=== PATIENT | female | born 1960 | race Caucasian/White ===

== ENCOUNTER 2017-12-02 03:03 | Emergency (ER) | payer OTHER, SELFPAY ==
[2017-12-02] VITALS (8 sets, daily range): BP systolic 99–122; BP diastolic 43–66; PULSE 61–69; RESP 10–18; TEMP 37.1; O2SAT 96–97
--- NOTE | 2017-12-02 03:26 | DI.RPTCT_ITS ---
SYMPTOM/DIAGNOSIS: PLEURITIC CHEST PAIN PE CHEST CT: CT angiography was performed with multi slice acquisition and multi planar and 3D reconstruction. CT scan of the chest was performed according to the pulmonary embolus protocol. There is no evidence of a pulmonary embolus. The thoracic aorta is of normal caliber. No aneurysm or dissection is seen. Heart size is within normal limits. No significant pericardial effusion. No findings to suggest right ventricular dysfunction are seen. No mediastinal, hilar or axillary adenopathy is present. The lungs are free of infiltrates. No effusions or pneumothoraces are identified. The tracheobronchial tree is unremarkable. Median sternotomy wires are present. There are degenerative changes seen in the spine. IMPRESSION: No acute abnormality. No evidence of a pulmonary embolus or thoracic aortic dissection or aneurysm.
--- NOTE | 2017-12-02 03:30 | ED.GENADUL_ITS ---
Disposition Clinical Impression: Chest pain Disposition: HOME Condition: Stable Instructions: Chest Pain (ED) Additional Instructions: follow up with your primary care provider this week if pain significantly worsens, pain moves to the back or jaw, you become sweaty , have nausea/vomit with the pain or shortness of breath return to the emergency department Medical Decision Making - Lab Data Results reviewed for labs ordered during visit: Yes - EKG Data -: EKG Interpreted by Me EKG shows normal: sinus rhythm, axis, intervals, QRS complexes, ST-T waves Rate: normal Interpretation: normal EKG - Radiology Data Radiology results: report reviewed, image reviewed - Medical Decision Making patient here with pain that could be musculoskeletal in nature given pain with palpation and recent increased arm exercises, though given her age will order troponin. HEart score is 2 based on age and risk factors. HAs no pericardial effusion so doubt pericarditis. Given pleuritic chest pain and PE could be equal to number one diagnosis wells is moderate will obtain CTA. Has normal vascular exam and no tearing back pain to suggest dissection. HAs no skin lesions or fevers to suggets endocarditis. labs unremarkable, remains stable, pain gone unlessI push on her chest, awaiting imaging imaging shows no acute findings. She remains with only pain to papation to the chest. Given over 4 hours of pain do not feel additional troponin indicated. Will d/c and advised f/u with pcp and return precautions given - Differential Diagnosis acs, pe, chest wall pain History of Present Illness - General Chief complaint: Chest Pain Stated complaint: CHEST PAIN Time Seen by Provider: 12/02/17 03:12 Source: patient Mode of arrival: ambulatory Limitations: no limitations - History of Present Illness Initial comments: 57 yo female with hx of aortic valve replacement and endocarditis x3, mitral valve repair, who comes in with anterior chest wall pain that is worse with deep breathing since 5pm last night. SHe states it started while grocery shopping. Denies radiation of pain, n/v, diaphoresis, pain with exertion or walking. SHe has no pericardial effusion on bedside u/s and has pain with palpation to the anterior chest. She does note she started physical therapy recently and has been doing a lot of arm exercises Complaint: chest pain Onset/Timin -: hour(s) Location: chest Radiation: non-radiation Severity scale (1-10): 7 Improves with: none Worsens with: other (deep breaths) Associated Symptoms: denies other symptoms Treatments Prior to Arrival: none - Related Data Garlic 1 mg PO DAILY 07/05/12 Seven Essentials 1 dose PO 5 days wkly 08/14/12 Ascorbic Acid [Vitamin C] 1 tab PO DAILY 08/20/12 Aspirin 81 mg PO DAILY #100 tab-cap 06/30/16 Amoxicillin 4 tab PO DIRECTED #36 tab 10/03/16 Ketoconazole 10 ml TP twice weekly #240 ml 01/24/17 Metoprolol Succinate 25 mg PO DAILY #90 tab-cap 01/24/17 Docusate Sodium [Colace] 100 mg PO DAILY 06/22/17 Vitamin D 1,000 units PO DAILY 12/02/17 Allergies Allergy/AdvReac Type Severity Reaction Status Date / Time vancomycin Allergy ITCHING Unverified 12/02/17 03:15 fentanyl AdvReac Mild Unverified 12/02/17 03:15 ibuprofen AdvReac Mild room Unverified 12/02/17 03:15 spins midazolam HCl [From Versed] AdvReac Unverified 12/02/17 03:15 NSAIDS (Non-Steroidal AdvReac DIZZY Unverified 12/02/17 03:15 Anti-Inflamma oxycodone HCl [From Percocet] AdvReac Nausea Unverified 12/02/17 03:15 Duck Eggs AdvReac Intermediate GI issues Uncoded 12/02/17 03:15 Review of Systems Constitutional: denies: chills, fever Respiratory: denies: shortness of breath Cardiovascular: chest pain Gastrointestinal: denies: abdominal pain, nausea, vomiting Musculoskeletal: denies: back pain Neurological: denies: headache Comment: All other systems reviewed and negative Past Medical History - Past Medical History Medical history: hypertension endocarditis - Social History Smoking status: never smoker Alcohol use: rarely Drug use: none General Exam - General Limitations: no limitations General appearance: alert, in no apparent distress - Head Head exam: Present: atraumatic - Eye Eye exam: Present: normal apperance - ENT ENT exam: Present: mucous membranes moist - Neck Neck exam: Present: normal inspection - Respiratory Respiratory exam: Present: normal lung sounds bilaterally, chest wall tenderness. Absent: respiratory distress - Cardiovascular Cardiovascular Exam: Present: regular rate, normal rhythm, normal heart sounds - GI/Abdominal GI/Abdominal exam: Present: soft. Absent: distended, tenderness - Extremities Exam Extremities exam: Absent: pedal edema, calf tenderness - Neurological Exam Neurological exam: Present: alert, oriented X3 - Psychiatric Psychiatric exam: Present: normal affect - Skin Skin exam: Present: warm Course Vital Signs - 24 hr //18 03:10 Temperature 98.8 F Pulse 69 Respiratory 18 Rate Blood Pressure 122/66 Pulse Oximetry 97
[2017-12-02] MEDS: Aspirin 81 MG CHEW 324 MG (03:32)
[2017-12-02 03:36] LABS: Abs Immature Grans 0.01 k/cumm (0.0-0.09); Absolute Basophil Count 0.04 k/cumm (0.0-0.2); Absolute Eosinophil Count 0.46 k/cumm (0.0-0.7); Absolute Lymphocyte Count 2.82 k/cumm (1.2-3.4); Absolute Monocyte Count 0.78 k/cumm (0.11-0.7); Absolute Neutrophil Count 2.68 k/cumm (1.2-6.7); Basophils % 0.6; Eosinophils % 6.8; HCT 38.1 % (36.0-46.0); HGB 12.8 g/dL (12.0-15.5); Immature Grans % 0.1; Lymphocytes % 41.5; Mean Corp. HGB Concentration 33.6 g/dL (32.0-36.0); Mean Corpuscular Hemoglobin 31.7 pg (27.0-33.0); Mean Corpuscular Volume 94.3 fL (80-95); Mean Platelet Volume 10.6 fL (8.0-11.0); Monocytes % 11.5; Neutrophils % 39.5; Platelet Count 263 x1000/uL (130-400); RBC 4.04 m/cumm (4.00-5.20); RBC Distribution Width 12.1 % (11.7-14.6); White Blood Cell Count 6.79 k/cumm (4.4-10.8)
[2017-12-02 03:49] LABS: ALT 22 U/L (12-78); AST 12 U/L (15-37); Albumin 3.7 g/dL (3.4-5.0); Alkaline Phosphatase 82 U/L (46-116); Anion Gap 8.5 mmol/L (3-11); BUN 14 mg/dL (7-18); Bilirubin, Total 0.2 mg/dL (0.2-1.0); CO2 27.5 mmol/L (21.0-32.0); CREATININE 0.68 mg/dL (0.55-1.02); Calcium 8.4 mg/dL (8.5-10.1); Chloride 108 mmol/L (98-107); Glucose 94 mg/dL (70-100); Potassium 3.9 mmol/L (3.5-5.1); Sodium 144 mmol/L (136-145); Total Protein 6.8 g/dL (6.4-8.2)
[2017-12-02 03:52] LABS: Troponin I < 0.02 ng/mL (0.00-0.06)
[2017-12-02] MEDS: Omnipaque 350 MG/ML 100 ML BTL IJ (03:56)
[2017-12-02 04:08] LABS: Prothrombin Time 9.6 sec (9.3-10.8)
--- NOTE | 2017-12-02 04:22 | DI.VRAD_ITS ---
EXAM: CT Angiography Chest With Intravenous Contrast CLINICAL HISTORY: 57 years old, female; Pain; Other: Pleuritic chest pain; Prior surgery; Surgery date: 6+ months; Surgery type: Valve transplant TECHNIQUE: Axial computed tomographic angiography images of the chest with intravenous contrast using pulmonary embolism protocol. 3D reconstructed images were created and reviewed. Coronal and sagittal reformatted images were created and reviewed. CONTRAST: 100 mL of omni 350 administered intravenously. COMPARISON: CT - CHEST FOR PULMONARY EMBOLUS 2016-04-27 13:07 FINDINGS: Pulmonary arteries: Unremarkable. No pulmonary embolism. Aorta: No acute findings. No thoracic aortic aneurysm. Lungs: Unremarkable. No mass. No consolidation. Pleural space: Unremarkable. No significant effusion. No pneumothorax. Heart: Unremarkable. No cardiomegaly. No significant pericardial effusion. No evidence of RV dysfunction. Bones/joints: Median sternotomy wires noted. No acute fracture. No dislocation. Soft tissues: Unremarkable. Lymph nodes: Unremarkable. No enlarged lymph nodes. IMPRESSION: No acute findings. Dictated and Authenticated by: Ibrahima Storm MD. Ordering:GERARDO QIU MD
== END 2017-12-02 04:36 | disposition home or self-care (01) ==
PROVIDERS: Emergency Provider Emergency Medicine; PCP Family Medicine
DX: R07.81 Pleurodynia (principal); X50.3XXA Overexertion from repetitive movements, initial encounter; I10 Essential (primary) hypertension; Z95.3 Presence of xenogenic heart valve; I38 Endocarditis, valve unspecified
CPT/HCPCS: 71275; 80053; 93005; 99285; 83735; 84484; 85025; 85610; 85730; 93010; 99284; J3490

== ENCOUNTER 2018-12-07 08:33 | Outpatient (CLI) | payer OTHER, SELFPAY ==
[2018-12-07 10:38] LABS: HCT 39.5 % (36.0-46.0); Mean Corp. HGB Concentration 32.9 g/dL (32.0-36.0); Mean Corpuscular Hemoglobin 31.2 pg (27.0-33.0); Mean Corpuscular Volume 94.7 fL (80-95); Mean Platelet Volume 10.9 fL (8.0-11.0); Platelet Count 258 x1000/uL (130-400); RBC 4.17 m/cumm (4.00-5.20); RBC Distribution Width 12.1 % (11.7-14.6); White Blood Cell Count 5.38 k/cumm (4.4-10.8)
[2018-12-07 10:54] LABS: ALT 24 U/L (12-78); AST 7 U/L (15-37); Albumin 3.9 g/dL (3.4-5.0); Alkaline Phosphatase 75 U/L (46-116); Anion Gap 11.7 mmol/L (3-11); BUN 14 mg/dL (7-18); Bilirubin, Total 0.5 mg/dL (0.2-1.0); CO2 25.3 mmol/L (21.0-32.0); CREATININE 0.55 mg/dL (0.55-1.02); Calcium 8.8 mg/dL (8.5-10.1); Calculated LDL 135 mg/dL; Chloride 106 mmol/L (98-107); Cholesterol 198 mg/dL (50-200); Glucose 89 mg/dL (70-100); HDL Cholesterol 46 mg/dL (40-60); Sodium 143 mmol/L (136-145); Total Protein 6.7 g/dL (6.4-8.2); Triglyceride 89 mg/dL (30-150)
== END 2018-12-07 08:53 ==
PROVIDERS: PCP Family Medicine; Visit Provider Nurse Practitioner
DX: Z00.00 Encounter for general adult medical examination without abnormal findings (principal); Z95.818 Presence of other cardiac implants and grafts; Z98.890 Other specified postprocedural states; R53.83 Other fatigue
CPT/HCPCS: 36415; 80053; 80061; 83721; 85027

== ENCOUNTER 2019-02-18 16:36 | Outpatient (REF) | payer OTHER, SELFPAY ==
--- NOTE | 2019-02-18 15:30 | PAPFT_PTH ---
PATIENT: Blanca Jurado LOC: [facility] U#:[id number] AGE/SX: 59/F ROOM: RE02/18/[address]: Fabiola Gutierrez MD, DC : 1960 BED: DIS: 02/18/2019 SPEC #: [id number] RECD: 02/18/19 18:38 STATUS: DAVE REQ #: [id number] RODERICK: 02/18/19 15:[address]: Fabiola Gutierrez DEPT: [facility] Cytology RECD BY: Anum Wong Tissues: 1 - CX/ENDOCX FOR PAP SMEARS Procedures: PAP THIN PREP/UVM Screening HPV DNA PROBE Comments: [id number]
== END 2019-02-18 16:56 ==
LOC: LBN 16:36
PROVIDERS: PCP Family Medicine; Visit Provider Family Medicine
DX: Z12.4 Encounter for screening for malignant neoplasm of cervix (principal); Z11.51 Encounter for screening for human papillomavirus (HPV)
CPT/HCPCS: 88142; 87624

== ENCOUNTER 2020-03-12 01:24 | Outpatient (CLI) | payer OTHER, SELFPAY ==
--- NOTE | 2020-03-12 06:45 | DI.NM_ITS ---
EXAM: NM BONE SCAN 3 PHASE CLINICAL HISTORY: ? osteomyelitis of sternum,STERNAL PAIN, H/O AORTIC VALVE REPAIR,Z98.890,. TECHNIQUE: Injected Dose: 26 mCi Tc-99m MDP COMPARISON: CT CHEST FOR PULMONARY EMBOLUS from 12/02/2017 FINDINGS: Perfusion: No abnormal increased radiotracer uptake in the sternum. Blood Pool: No abnormal increased radiotracer uptake in the sternum. Delayed: There is a single focus of uptake in the delayed images in the mid sternum. This is nonspec ific but may be related to trauma or prior surgical procedure. IMPRESSION: 1. No increased radiotracer uptake in the sternum on the perfusion or blood pool images. No scintigr aphic findings to suggest acute osteomyelitis. DATA REPOSITORY:
--- NOTE | 2020-03-12 07:48 | DI.RAD_ITS ---
EXAM: XR CHEST 2V PA LATERAL CLINICAL HISTORY: STERNAL PAIN, H/O AORTIC VALVE REPAIR, ? OSTEOMYELITIS TECHNIQUE: 2D digital imaging was performed. COMPARISON: CR CHEST 2 VIEWS PA,LAT from 04/27/2016 CR,RF BARIUM SWALLOW UGI from 02/16/2017 FINDINGS: MEDIASTINUM: Normal. HEART: Normal. Cardiac valve prostheses. PULMONARY VASCULATURE: Normal. LUNGS: Clear. PLEURAL SPACE: No pleural effusion or pneumothorax. BONE:Within normal limits for the patient's age. OTHER FINDINGS:Sternal wires are in place. IMPRESSION: No acute pulmonary findings. DATA REPOSITORY: RADIATION DOSE DELIVERED:
== END 2020-03-12 01:44 ==
PROVIDERS: PCP Family Medicine; Visit Provider Family Medicine
DX: R07.89 Other chest pain (principal); Z98.890 Other specified postprocedural states
CPT/HCPCS: 71046; 78315

== ENCOUNTER 2020-03-12 02:21 | Outpatient (CLI) | payer OTHER, SELFPAY ==
[2020-03-12 07:58] LABS: Abs Immature Grans 0.02 10^3/uL (0.0-0.06); Absolute Basophil Count 0.02 10^3/uL (0.0-0.2); Absolute Eosinophil Count 0.11 10^3/uL (0.0-0.7); Absolute Lymphocyte Count 1.98 10^3/uL (1.2-3.4); Absolute Monocyte Count 0.59 10^3/uL (0.1-0.8); Absolute Neutrophil Count 2.52 10^3/uL (1.2-6.7); Basophils % 0.4; Eosinophils % 2.1; HGB 12.6 g/dL (11.2-15.7); Immature Grans % 0.4; Lymphocytes % 37.8; MCH 30.7 pg (27.0-33.0); MCHC 32.3 % (32.0-36.0); MCV 95.1 fL (80-95); MPV 10.4 fL (8.0-11.0); Monocytes % 11.3; Nucleated RBC 0 %; Platelet Count 262 10^3/uL (130-400); RDW 11.9 % (11.7-14.6); RDW-SD 41.5 fL; WBC 5.24 10^3/uL (4.4-10.8)
[2020-03-12 08:32] LABS: ALT 17 U/L (14-59); AST 10 U/L (15-37); Albumin 3.8 g/dL (3.4-5.0); Alkaline Phosphatase 67 U/L (46-116); Anion Gap 4.4 mmol/L (3-11); BUN 12 mg/dL (7-18); Bilirubin, Total 0.4 mg/dL (0.2-1.0); CO2 28.6 mmol/L (21.0-32.0); Calcium 8.7 mg/dL (8.5-10.1); Calculated LDL 147 mg/dL (<100); Chloride 106 mmol/L (98-107); Cholesterol 212 mg/dL (<200); Glucose 90 mg/dL (74-106); HDL Cholesterol 48 mg/dL (40-60); Potassium 4.3 mmol/L (3.5-5.1); Sodium 139 mmol/L (136-145); Total Protein 6.5 g/dL (6.4-8.2); Triglyceride 89 mg/dL (<150)
[2020-03-12 08:40] LABS: C-Reactive Protein 0.12 mg/dL (0.0-0.3)
[2020-03-12 10:17] LABS: ESR 10 mm/hr (0-30)
== END 2020-03-12 02:41 ==
PROVIDERS: PCP Family Medicine; Visit Provider Family Medicine
DX: Z00.00 Encounter for general adult medical examination without abnormal findings (principal); R07.89 Other chest pain; Z13.220 Encounter for screening for lipoid disorders
CPT/HCPCS: 36415; 80053; 80061; 85652; 85025; 86140

== ENCOUNTER 2020-03-13 14:40 | Outpatient (CLI) | payer OTHER, SELFPAY ==
--- NOTE | 2020-03-13 13:11 | DI.RAD_ITS ---
EXAM: XR ANKLE LT COMPLETE and XR foot LT complete CLINICAL HISTORY: left ankle pain m25.572 TECHNIQUE: 2D digital imaging was performed. COMPARISON: No previous for comparison. FINDINGS: BONES: On the lateral view of the foot and ankle, there is a cortical lucency suspicious for a nondis placed fracture at the posterior and plantar aspect of the cuboid. There is a small enthesophyte at the Achilles insertion site. No other fracture or dislocation is identified. No bony destructive le melodie is seen. JOINTS:The ankle mortise is normally aligned. SOFT TISSUE: Normal. IMPRESSION: Question of a small nondisplaced fracture of the posterior and plantar surface of the cuboid best barbara reciated on the lateral views of the foot and ankle. Please correlate with the patient's site of juan m bryant. DATA REPOSITORY: RADIATION DOSE DELIVERED:
== END 2020-03-13 15:00 ==
PROVIDERS: PCP Family Medicine; Visit Provider Nurse Practitioner Family
DX: M25.572 Pain in left ankle and joints of left foot (principal)
CPT/HCPCS: 73610; 73630

== ENCOUNTER 2020-03-19 01:15 | Outpatient (CLI) | payer OTHER, SELFPAY ==
--- NOTE | 2020-03-19 09:00 | DI.MAMMO_ITS ---
EXAM: MAMMO SCREENING CLINICAL HISTORY: screening,Z12.39 TECHNIQUE: Bilateral full field digital CC and MLO mammographic images were obtained with 3D tomosyn thesis and utilizing computer aided detection (CAD). COMPARISON: Available for comparison. FINDINGS: Masses/Architectural Distortion: There is an area nodularity in the outer left breast on the CC view in the inferior left breast on the MLO view. There is an area of asymmetric breast tissue in the ret roareolar region of the left breast on the CC view. Microcalcifications: No suspicious pleomorphic-type are seen. Skin Thickening/Nipple Retraction: None. IMPRESSION: 1. Areas of nodularity and asymmetry in the left breast as described above. 2. Additional views of the left breast and left breast ultrasound are requested for further evaluatio n. BI-RADS Category 0 - Assessment Incomplete: Need additional imaging evaluation Breast Density - Category B - Scattered areas of fibroglandular density A negative radiographic report should not delay biopsy if a dominant or clinically suspicious mass is present. Up to ten percent of cancers are not identified on mammography. A negative report may reinforce clinical impression. Adenosis and dense breasts may obscure an underlying neoplasm. False positive reports average 6 to 10%. Patient will receive a letter notifying them of these results.
== END 2020-03-19 01:35 ==
PROVIDERS: PCP Family Medicine; Visit Provider Family Medicine
DX: Z12.31 Encounter for screening mammogram for malignant neoplasm of breast (principal); R92.8 Other abnormal and inconclusive findings on diagnostic imaging of breast
CPT/HCPCS: 77063; 77067

== ENCOUNTER 2020-03-25 00:25 | Outpatient (CLI) | payer OTHER, SELFPAY ==
--- NOTE | 2020-03-25 | DI.US_ITS ---
EXAM: MG MAMMO SCREEN CALL BACK UNI CLINICAL HISTORY: F/U MAMMO, NODULARITY,ASYMMET OUTER LT BREAST CC VIEW AND INFER ON MLO VIEW TECHNIQUE: Mammograms were interpreted according to the usual protocol including computer analysis w ith CAD system, tomosynthesis and C-view imaging. COMPARISON: FINDINGS: Additional mammographic views of the left breast and left breast ultrasound are interpreted conjuncti on. These examinations were obtained to evaluate questionable areas of asymmetric density or nodular ity of the left breast seen laterally on the prior examination of March 19. Additional mammographic views show no definite mass but there is persistent vaguely nodular radiodens ity seen in the central portion breast slightly lateral to the midline. Breast ultrasound shows smal l group of dilated ducts in about the 4 o'clock position in the breast which could correspond to the mammographically identified finding. No suspicious mass identified. No abnormal vascularity identif ied ultrasonographically. IMPRESSION: No specific evidence of malignancy at this time. Follow-up unilateral left breast mammogram and left breast ultrasound recommended in 6 months. BI-RADS Category 3 - 6 month - Probably Benign Finding: Recommend follow-up mammography in 6 months Breast Density - Category B - Scattered areas of fibroglandular density
== END 2020-03-25 00:45 ==
PROVIDERS: PCP Family Medicine; Visit Provider Family Medicine
DX: Z12.31 Encounter for screening mammogram for malignant neoplasm of breast (principal); R92.8 Other abnormal and inconclusive findings on diagnostic imaging of breast; N60.42 Mammary duct ectasia of left breast
CPT/HCPCS: 76642; 77063; 77067

== ENCOUNTER 2020-09-24 01:23 | Outpatient (CLI) | payer OTHER, SELFPAY ==
--- NOTE | 2020-09-24 07:00 | DI.MAMMO_ITS ---
Exam(s) MG MAMMO DIAGNOSTIC UNI EXAM: MAMMO DIAGNOSTIC UNI-LEFT CLINICAL HISTORY: f/u abnl mammo,3-6 month f/u,r92.8,z09. TECHNIQUE: Unilateral spot mammographic images were obtained with 3D Tomosynthesistechnique and util izing computer aided detection (CAD). COMPARISON: Prior mammograms dating back to 2010, the most recent being MARCH 2020. FINDINGS: There are no CAD designations in left breast. There are no new spiculated masses nor malignant-appearing microcalcification groups. Previously gregory cribed nodular density is actually somewhat less evident on the present mammogram. No new architectural distortion or skin thickening-traction IMPRESSION: No radiographic evidence of malignancy in left breast. This patient underwent left breast ultrasound following today's mammogram. Please see that separate report Appropriate follow-up is as discussed on the ultrasound report which is to repeat the left breast ult rasound at time for next yearly mammogram which would be in March 2021, with earlier imaging if a self detected breast change is noted.. BI-RADS Category 3 - 6 month - Probably Benign Finding: Recommend follow-up mammography in 6 months Breast Density - Category B - Scattered areas of fibroglandular density Breast density Category C or D implies that the patient has dense breast tissue. Dense breast tissue can make it harder to find cancer on a mammogram. Dense breast tissue is also associated with an incr eased risk of breast cancer. This information about the result of the mammogram report was provided to the patient to raise their awareness. Use this report when you speak with the patient about their risks for breast cancer, which includes their family history. At that time, you may recommend additional screening tests (Ultrasoun d or MRI) as these tests may add significant information. A negative radiographic report should not delay biopsy if a dominant or clinically suspicious mass is present. Up to ten percent of cancers are not identified on mammography. A negative report may reinforce clinical impression. Adenosis and dense breasts may obscure an underlying neoplasm. False positive reports average 6 to 10%. Patient will receive a letter notifying them of these results.
--- NOTE | 2020-09-24 07:06 | DI.US_ITS ---
Exam(s) US BREAST LT COMPLETE EXAM: US BREAST LT COMPLETE CLINICAL HISTORY: f/u abnl mammo, 3-6 month follow up, r92.8,z09. TECHNIQUE: Complete ultrasound of the left breast was performed incluing all 4 quadrants, the retroa reolar region, and the ipsilateral axilla. COMPARISON: Prior mammograms were reviewed. Also reviewed prior ultrasound performed 03/25/2020 FINDINGS: At the 4 o'clock position the previously described findings again noted and appears unchanged. This is a wider than taller 6 by 2 millimeter nodule which is either small fibroadenoma or hemorrhagic waylon rocyst. It does not exhibit worrisome decreased through transmission. At 7 o'clock position there is a 3 x4 millimeter simple microcyst. Benign-appearing lymph nodes are noted in the left axilla. IMPRESSION: Stable 4 o'clock position finding, unchanged from prior ultrasound of March 2020. Appropriate follow-up is to repeat the ultrasound examination at the time for next yearly mammogram w hich would be in March 2021, with earlier imaging if a self detected breast change is noted.. BI-RADS Category 3 - 6 month - Probably Benign Finding: Recommend follow-up mammography in 6 months Breast Density - Category B - Scattered areas of fibroglandular density Breast density Category C or D implies that the patient has dense breast tissue. Dense breast tissue can make it harder to find cancer on a mammogram. Dense breast tissue is also associated with an incr eased risk of breast cancer. This information about the result of the mammogram report was provided to the patient to raise their awareness. Use this report when you speak with the patient about their risks for breast cancer, which includes their family history. At that time, you may recommend additional screening tests (Ultrasoun d or MRI) as these tests may add significant information. A negative radiographic report should not delay biopsy if a dominant or clinically suspicious mass is present. Up to ten percent of cancers are not identified on mammography. A negative report may reinforce clinical impression. Adenosis and dense breasts may obscure an underlying neoplasm. False positive reports average 6 to 10%. Patient will receive a letter notifying them of these results.
== END 2020-09-24 01:43 ==
PROVIDERS: PCP Family Medicine; Visit Provider Family Medicine
DX: Z12.31 Encounter for screening mammogram for malignant neoplasm of breast (principal); R92.8 Other abnormal and inconclusive findings on diagnostic imaging of breast; N63.23 Unspecified lump in the left breast, lower outer quadrant; N60.02 Solitary cyst of left breast
CPT/HCPCS: 76642; 77061; 77065; G0279

== ENCOUNTER 2020-10-06 11:07 | Outpatient (CLI) | payer OTHER, SELFPAY ==
--- NOTE | 2020-10-06 11:00 | RT.EKG_ITS ---
APPROVED REPORT Exam: Resting ECG Reason for Exam: Dizzy Patient Location: O HR:72 bpm ECG Measurements Heart Rate 72 AXIS [place] 110 P 21 QRSd 94 QRS 59 QT 399 T 48 QTc 436 Conclusion Sinus rhythm...normal P axis, V-rate 60- 99 Consider left ventricular hypertrophy...(R aVL+S V3) >2.20mV
== END 2020-10-06 11:08 | disposition home or self-care (01) ==
LOC: DI.CM 11:08
PROVIDERS: PCP Family Medicine; Visit Provider Nurse Practitioner Family
DX: R42 Dizziness and giddiness (principal)
CPT/HCPCS: 93010

== ENCOUNTER 2020-10-06 15:03 | Outpatient (REF) | payer OTHER, SELFPAY ==
[2020-10-06 20:26] LABS: Abs Immature Grans 0.02 10^3/uL (0.0-0.06); Absolute Basophil Count 0.03 10^3/uL (0.0-0.2); Absolute Eosinophil Count 0.06 10^3/uL (0.0-0.7); Absolute Lymphocyte Count 1.68 10^3/uL (1.2-3.4); Absolute Monocyte Count 0.59 10^3/uL (0.1-0.8); Basophils % 0.3; Eosinophils % 0.7; HCT 41.5 % (36.0-46.0); Immature Grans % 0.2; Lymphocytes % 19.6; MCH 31.7 pg (27.0-33.0); MCHC 33.7 % (32.0-36.0); MCV 94.1 fL (80-95); MPV 11.2 fL (8.0-11.0); Monocytes % 6.9; Neutrophils % 72.3; Nucleated RBC 0 %; Platelet Count 288 10^3/uL (130-400); RBC 4.41 10^6/uL (3.93-5.22); RDW 11.7 % (11.7-14.6); RDW-SD 40.1 fL; WBC 8.58 10^3/uL (4.4-10.8)
[2020-10-06 20:51] LABS: ALT 18 U/L (14-59); AST 10 U/L (15-37); Albumin 4.2 g/dL (3.4-5.0); Alkaline Phosphatase 77 U/L (46-116); Anion Gap 10.4 mmol/L (3-11); BUN 21 mg/dL (7-18); Bilirubin, Total 0.4 mg/dL (0.2-1.0); C-Reactive Protein 0.09 mg/dL (0.0-0.3); CO2 27.6 mmol/L (21.0-32.0); CREATININE 0.6 mg/dL (0.55-1.02); Calcium 9.5 mg/dL (8.5-10.1); Chloride 104 mmol/L (98-107); Glucose 106 mg/dL (74-106); Potassium 4.4 mmol/L (3.5-5.1); Sodium 142 mmol/L (136-145); TSH (W/Ref FT4) 0.65 uIU/mL (0.36-3.74); Total Protein 7.2 g/dL (6.4-8.2)
== END 2020-10-06 15:04 | disposition home or self-care (01) ==
LOC: LBN 15:03
PROVIDERS: PCP Family Medicine; Visit Provider Nurse Practitioner Family
DX: R42 Dizziness and giddiness (principal); R07.89 Other chest pain
CPT/HCPCS: 80053; 84443; 85025; 86140

== ENCOUNTER 2020-10-15 00:29 | Outpatient (CLI) | payer OTHER, SELFPAY ==
--- NOTE | 2020-10-15 15:00 | ETT_ITS ---
APPROVED REPORT Exam: Exercise Treadmill Patient Location: Out-Patient Room/Bed: Stress Nurse: Emely Abel RN; Melia Knight RN Ordering Provider:ALLEY KELLYEN, Contact Number: [phone] BMI: 21.39 Baseline Rhythm: Sinus Rhythm Indications: chest pain Medical History Medical History: mitral valve replacement (2013), aortic valve replaced, endocarditis, GERD, WPW synd micah Cardiac Medications: aspirin, metoprolol succinate Allergies: vancomyocin, fentanyl, ibuprofen, midalozam, NSAIDS, oxycodone, duck eggs, milk Cardiac Risk Factors: Family hx Pretest Chest Pain Characteristics: none Exercise History: Sedentary Physical Disabilities: none Lung Sounds: Clear to auscultation Heart Sounds: Regular Stress Test Details Test: Exercise stress testing was performed using a Bert protocol. Rest Stress HR Resting HR Supine: 65 bpm Max Heart Rate (APMHR): 159 bpm Resting HR Standin bpm Target HR (85% APMHR): 135 bpm Max HR Achieved: 152 bpm % of APMHR: 95 Recovery HR: 77 bpm HR response to stress: Normal HR response to stress BP Resting BP Supine: 110/72 mmHg Resting BP Standin/78 mmHg Max BP: 140/68 mmHg Recovery BP: 112/74 mmHg BP response to stress: Normal blood pressure response to stress. ECG Resting ECG: Sinus Rhythm Ectopy: none Stress ECG: Sinus Rhythm ST Change: , Upsloping ST depression Lead(s): II, III, aVF Stage: [address] Deviation: 1 mm Arrhythmia: none Recovery ECG: Sinus Rhythm Recovery ST Change: No significant ST segment changes noted Recovery Arrhythmia: rare PAC and rare PVC Comment: ST depression resolved by minute 2 recovery Clinical Reason for Termination: Fatigue Stress Symptoms: none Exercise duration: 9 min56 sec Highest Stage Reached: Stage 3: 3.4 mph at 14% grade. Exercise capacity: 11.71 METs Buchanan Treadmill Score: -1 Rate Pressure Product: [id number] Stress ECG Conclusion 1. The resting electrocardiogram was normal 2. Patient exercised on the Bert protocol and completed a workload of 11.71 METS, stopping due to fa tigue 3. Normal hemodynamic response to exercise. Patient achieved 95% of predicted heart rate for age 4. Electrocardiographically there was no evidence of myocardial ischemia with exercise 5. There were no dysrhythmias Buchanan Treadmill Score is -1 which is Moderate risk. Stress Test Summary STAGE Time (mins) Speed (mph) Grade (%) HR BP SYMPTOMS METS Supine 65 110/72 Standing 75 108/78 1 3 1.7 10 104 124/76 4.6 2 6 2.5 12 110 134/72 7 3 9 3.4 14 126 140/68 10.2 5 15 5.0 18 152 17.2 1 min recovery 118 134/70 3 min recovery 84 118/68 6 min recovery 77 112/74
== END 2020-10-15 00:49 ==
PROVIDERS: PCP Family Medicine; Visit Provider Nurse Practitioner Family
DX: R07.9 Chest pain, unspecified (principal); Z82.49 Family history of ischemic heart disease and other diseases of the circulatory system
CPT/HCPCS: 93017

== ENCOUNTER 2020-10-22 02:43 | Outpatient (CLI) | payer OTHER, SELFPAY ==
--- NOTE | 2020-10-22 07:45 | DI.US_ITS ---
APPROVED REPORT EXAM: Comprehensive 2D, Doppler, and color-flow Echocardiogram Patient Location: Out-Patient Electrotype Molder: Yanely Horne RDCS (AE) Indications: Chest pain Other Information Study Quality: Adequate Conclusion Normal left ventricular wall thickness and chamber size. Estimated ejection fraction is 55 to 60%. Wall motion is normal Normal right ventricular size and systolic function Both atria are normal in size There is a bioprosthetic aortic valve. Mean gradient is 15 mmHg. There is no aortic regurgitation o r paravalvular leak There is evidence of prior mitral valve repair with an annuloplasty ring. Residual trace mitral regu rgitation Normal tricuspid valve with mild regurgitation and normal estimated right ventricular systolic pressu re Normal pulmonic valve Borderline dilated ascending aorta Wall motion Left Ventricle The left ventricle is normal size. The left ventricular systolic function is normal. The left ventric ular ejection fraction is within the normal range. There is normal left ventricular wall thickness. T here is normal LV segmental wall motion. There is no ventricular septal defect visualized. LVEF is 55 -60%. Right Ventricle The right ventricle is normal size. The right ventricular systolic function is normal. The RVSP is 17 .7 mmHg. Atria The left atrium size is normal. The right atrium size is normal. The interatrial septum is intact wit h no evidence for an atrial septal defect. Aortic Valve Aortic valve is trileaflet. No hemodynamically significant valvular aortic stenosis. No aortic regurg itation is present. Bioprosthetic aortic valve is present, bovine. Mitral Valve Mitral annuloplasty changes are present. No evidence of mitral valve stenosis. Trace mitral regurgita tion. Tricuspid Valve The tricuspid valve is normal in structure. There is no tricuspid valve stenosis. Mild tricuspid regu rgitation. Pulmonic Valve The pulmonary valve is normal in structure. There is no pulmonic valvular stenosis. There is no pulmo levi valvular regurgitation. Great Vessels The aortic root is normal in size. The ascending aorta is mildly dilated. Aortic arch is normal in ca liber. IVC is normal in size and collapses >50% with inspiration. Pericardium There is no pericardial effusion. 2D Dimensions IVSD d PLAX 0.96 cm F: 0.6-1.0 LV Vol A2C d MOD 83.6 mL LVPW d PLAX 0.97 cm F: 0.6 - 1.0 LV Vol A4C d MOD 95.7 mL LVID d PLAX 4.22 cm F: 3.8 - 5.2 LA vol/ BSA A2C s A-L 36.2 mL/m2 LVDs 2.95 cm F: 2.2 - 3.5 LA vol/ BSA A4C s A-L 28.4 mL/m2 Ao Root d 3.01 cm F: 2.7 - 3.3 LA Vol/ BSA Biplane s A-L 32.5 mL/m2 RA Area A4C 8.41 cm2 LA Area A4C s MOD 15.51 cm2 RA Vol/ BSA A4C s A-L 11.7 mL/m2 LA Area A2C s MOD 17.78 cm2 Ao Asc Diam d 3.34 cm F: 2.3 - 3.1 LV EF A4C MOD 55.1 % LV EF Teichholz 56.0 % LV EF A2C MOD 50.6 % LVEF (Cho's) 51.18 % F: 54 - 74 LV EF Biplane MOD 51.2 % LV Volume 74.57 mL F: 46 - 106 SV 46.13 mL LV Volume Index 49.05 mL/m2 F: 29 - 61 SV Index 30.20 mL/m2 LV Vol Biplane MOD 90.1 mL FS 28.90 % M-Mode TAPSE 1.80 cm (M/F) >1.7 LV Diastology MV E' medial 0.057 (>0.07 m/s) E/A Ratio 1.2 LV E/e MED 21.55 (<14) MV E Vmax 1.22 (0.4-1.3 m/s) MV E' lateral 0.095 (>0.1 m/s) MV A Vmax 1.00 (0.4-1.3 m/s) LV E/e LAT 12.90 (<14) MV E/A Ratio 1.19 MV E/E' medial 21.59 MV E/E' lateral 12.91 Aortic Valve LVOT Area 3.27 cm2 AoV Area Vmax 1.81 cm2 LVOT Vmax 1.43 m/s AoV Area/ BSA (Vmax) 1.19 cm2/m2 LVOT Mean Arnoldo. 1.07 m/s ADITHYA Mean Arnoldo. 1.84 cm2 LVOT Peak Grad 8.2 mmHg ADITHYA Mean Arnoldo. Index 1.21 cm2/m2 LVOT Mean Grad 5.1 mmHg LVOT VTI 0.267 m LVOT Diam s 2.00 cm AoV Vmax 2.57 m/s Velocity Ratio 0.55 AoV Mean Arnoldo. 1.90 m/s AoV Peak Grad 26.5 mmHg LVOT SV 87.20 mL AoV Mean Grad 15.6 mmHg AoV VTI 0.542 m AoV Area VTI 1.61 cm2 AoV Area/ BSA (VTI) 1.05 cm/m2 Mitral Valve MV DT 220 (160-240 msec) MV PHT 64 msec MV Area PHT 3.45 cm2 MV VTI 0.473 m MV Area VTI 1.84 (4.0-6.0 cm2) Pulmonary Valve PV Vmax 0.80 (0.5-1.5 m/s) RVOT Peak Gr. 2.45 mmHg PV Peak Grad 2.6 mmHg RVOT Mean Gr. 1.15 mmHg PV Mean Grad 1.5 mmHg RVOT VTI 0.174 m PV VTI 0.175 m RVOT Vmax 0.78 m/s Tricuspid Valve TR Peak Grad 14.7 mmHg TR Vmax 1.92 m/s RA Pressure 3.00 mmHg RVSP (TR) 17.7 mmHg
== END 2020-10-22 03:03 ==
PROVIDERS: PCP Family Medicine; Visit Provider Nurse Practitioner Family
DX: R07.9 Chest pain, unspecified (principal)
CPT/HCPCS: 93306

== ENCOUNTER 2022-03-22 09:44 | Outpatient (REF) | payer OTHER, SELFPAY ==
--- NOTE | 2022-03-22 09:00 | PAPFT_PTH ---
PATIENT: Blanca Jurado LOC: [facility] U#:[id number] AGE/SX: 62/F ROOM: RE03/22/[address]: Fabiola Gutierrez MD, DC : 1960 BED: DIS: 03/22/2022 SPEC #: [id number] RECD: 03/22/22 13:01 STATUS: DAVE RESusan #: [id number] RODERICK: 03/22/22 09:[address]: Fabiola Gutierrez DEPT: [facility] Cytology RECD BY: Anum Wong Tissues: 1 - CX/ENDOCX FOR PAP SMEARS Procedures: PAP THIN PREP/UVM Screening HPV DNA PROBE Comments: [id number]
--- OUTSIDE RECORDS SUMMARY | 2022-03-22 09:52 | XMS_ITS | Encounter Summary ---
:1960 Author Organization [place] [address] Care Team Providers Name Role Phone Fabiola Gutierrez MD Primary Care Provider Encounter Details Date Type Department Care Team Description 02/14/2014 Telephone Cardiothoracic Surge ry Magnus Yousif III, [facility] Chip PATTERSON [address] [phone] CARDIOTHORACIC [place] [id number] (Wo rk) Social History Tobacco Use Types Packs/Day Years Used Date Smoking Tobacco: Never Smokeless Tobacco: Never Alcohol Use Standard Drinks/Week Comments Not Asked 5 (1 standard drink = 0.6 oz pure alcoho l) Sex Assigned at Date Recorded Not on file documented as of this encounter Miscellaneous Notes Telephone Encounter - Magnus Yousif III, PA - 02/14/2014 10:25 AM EDT Cardiac Surgery Routine Discharge Follow-up Call Note ID: [id number] 54 year old woman S/P tissue AVR and MV repair 02/04/14. Blanca Jurado was called today at 02/17. She indicates that her discharge occurred without issue. She has all necessary medications and instructions. She indicates that he is doing ok. She complains ofhaving had her typical migraine SPENCER with a visual aura almost daily postoperatively. She becomes nauseous with this. She denied having an vomiting. It resolves with APAP/dilaudid. She denies having a HAor visual disturbance currently. She is tolerating a diet and having normal bowel and bladder activity. Her INR is being managed by her PCP. INR was supratherapeutic at 3.9 on last check. Her coumadin was held and and INR draw is due today by the [facility] per patient. No other issues identified. All new questions were answered. . She will call our office with any problems. She was instructed to seek ED attention if her SPENCER became unusual, persistent, or the worst SPENCER of her life. Signed: Magnus Yousif III MS, PA-C [facility] Section of Cardiothoracic Surgery Date: 02/14/2014 documented in this encounter Plan of Treatment Not on filedocumented as of this encounter Visit Diagnoses Not on filedocumented in this encounter Care Teams Entry Level Truck Driver Relationship Specialty Start Date End Date Fabiola Gutierrez MD PCP - General 03/23/[address] [place] [address] [address] [place] [address] documented as of this encounter
--- OUTSIDE RECORDS SUMMARY | 2022-03-22 09:52 | XMS_ITS | Encounter Summary ---
:1960 Author Organization [facility] Address [address] [place] [address] Care Team Providers Name Role Phone Fabiola Gutierrez MD Primary Care Provider Encounter Details Date Type Department Care Team Description 03/20/2014 [place] [facility] [place] [facility] S/P MVR (mitral valve repair ) [place] [address] Social History Tobacco Use Types Packs/Day Years Used Date Smoking Tobacco: Never Smokeless Tobacco: Never Alcohol Use Standard Drinks/Week Comments Not Asked 5 (1 standard drink = 0.6 oz pure alcoho l) Sex Assigned at Date Recorded Not on file documented as of this encounter Medications at Time of Discharge Medication Sig Dispensed Refills Start Date End Date acetaminophen (TYLENOL) 500 Take 1-2 tablets by 0 02/10/2014 mg Tablet mouth every 4 hours as needed for Pain. warfarin (COUMADIN) 2.5 mg Take as directed. 60 tablet 2 Tablet HYDROmorphone (DILAUDID) 2 Take 1 tablet by 40 tablet 0 mg Tablet mouth every 4 hours as needed for Pain. diphenhydrAMINE (BENADRYL) Take 25 mg by mouth 0 25 mg Capsule nightly as needed. ferrous sulfate 325 mg (65 Take 325 mg by 0 mg iron) Tablet mouth daily (with breakfast). ascorbic acid (VITAMIN C) Take 500 mg by 0 500 mg Tablet mouth daily. aspirin 81 mg Tablet, Take 81 mg by mouth 0 Chewable daily. polyethylene glycol Take 17 g by mouth 0 (MIRALAX) 17 gram Powder in daily. Packet amoxicillin (AMOXIL) 500 mg Take 2,000 mg by 0 Capsule mouth See Admin Instructions. Prior to dental work DOCUSATE SODIUM (COLACE Take by mouth 2 0 ORAL) times daily. CHOLECALCIFEROL, VITAMIN D3, Take by mouth. 0 (VITAMIN D3 ORAL) documented as of this encounter Plan of Treatment Not on filedocumented as of this encounter Procedures Procedure Name Priority Date/Time Associated Diagnosis Comme nts XR CHEST PA AND Routine 03/20/2014 11:12 AM S/P AVR Results for this LATERAL EST S/P MVR (mitral procedure ar e in valve repair) the results section. documented in this encounter Results XR chest routine PA & lateral (03/20/2014 11:12 AM EST) Anatomical Region Laterality Modality Chest N/A Radiographic Imaging Specimen (Source) Anatomical Collection Method Collection Time Re ceived Time Location / / Volume Laterality 03/20/2014 11:12 AM EST Narrative 03/20/2014 11:28 AM EST Examination CHEST ROUTINE 2 VIEWS Clinical History s/p AVR, MV repair Comparison February 07, 2014. Technique Findings There is a better degree of inflation of the lungs, which are clear and the previously seen bilateral pleural effusi ons have resolved. ??The heart size has returned to within normal limits. ??Ther e is no other interval change. ??Again noted are replaced aortic and mitral clifford ves and sternotomy wires. Impression Improved inflation and resolution of pollo ateral pleural effusions. Procedure Note Blane Haddad MD - 03/20/2014Formatt ing of this note might be different from the original. Examination CHEST ROUTINE 2 VIEWS Clinical History s/p AVR, MV repair Comparison February 07, 2014. Technique Findings There is a better degree of inflation of the lungs, which are clear and the previously seen bilateral pleural effusi ons have resolved. The heart size has returned to within normal limits. There is no other interval change. Again noted are replaced aortic and mitral clifford ves and sternotomy wires. Impression Improved inflation and resolution of pollo ateral pleural effusions. Paco Cardenas MD IMG DX ORDERABLES documented in this encounter Visit Diagnoses Diagnosis 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/P MVR (mitral valve repair) Other postprocedural status documented in this encounter Care Teams Smoke Inspector Relationship Specialty Start Date End Date Fabiola Gutierrez MD PCP - General 03/23/[address] [place] [address] documented as of this encounter
--- OUTSIDE RECORDS SUMMARY | 2022-03-22 09:52 | XMS_ITS | Encounter Summary ---
:1960 [place] [address] Care Team Providers Name Role Phone Fabiola Gutierrez MD Primary Care Provider Encounter Details Date Type Department Care Team Description 02/04/2014 Surgery Main Operating Room Paco Gunter, @ REPLACE AORTIC VAL[facility], [facility] OPEN, W\CPB, Hospital [facility] W\PROSTHETIC VALVE [facility] (WRVU 41.32) [facility] [place] [address] SURGERY [phone] [place] [id number] (Wo rk) Social History Tobacco Use Types Packs/Day Years Used Date Smoking Tobacco: Never Smokeless Tobacco: Never Alcohol Use Standard Drinks/Week Comments Not Asked 5 (1 standard drink = 0.6 oz pure alcoho l) Sex Assigned at Date Recorded Not on file documented as of this encounter Last Filed Vital Signs Vital Sign Reading Time Taken Comments Blood Pressure 115/83 02/10/2014 7:55 AM EDT Pulse 109 02/10/2014 7:55 AM EDT Temperature 36.8 ??C (98.2 ??F) 02/10/2014 7:55 AM EDT Respiratory Rate 18 02/10/2014 7:55 AM EDT Oxygen Saturation 96% 02/10/2014 7:55 AM EDT Inhaled Oxygen Concentration - - Weight 58.1 kg (128 lb 1.4 oz) 02/10/2014 8:29 AM EDT Height 157.5 cm (5' 2.01) 02/09/2014 12:07 PM EDT Body Mass Index 23.42 02/09/2014 12:07 PM EDT documented in this encounter Discharge Instructions Patient InstructionsChIbrahima hanks PA - 02/10/2014 8:32 AM EDT Anticoagulation (???Blood Thinner?? ) Management upon Discharge: 1. Reason for anticoagulation therapy: mitral valve repair 2. Your warfarin (Coumadin??) dosing instruction upon discharge is: (Follow this schedule below until your first INR check after discharge (usually in 2- 4 days): Day of discharge (day #1): 2.5 mg 3. Follow up INR is scheduled on: 02/11 4. INR Goal: 2.0-3.0 5. Expected duration of treatment: three months, then will have aspirin increased to 325 mg daily 6. Provider/Team responsible for ongoing outpatient anticoagulation management: Provider/Team/Clinic: Fabiola Gutierrez MD 7. If you have not received a call from your provider within 24 hrs of having your INR drawn, pleasecall your outpatient provider for further dose instructions. 8. Warfarin (Coumadin??) should be taken at the same time every day, preferably after 5:00 pm. 9. Please review your Warfarin (Coumadin??) Pack upon discharge. 10. If you will be on Warfarin (Coumadin??) indefinitely you should carry an identification card or wear a medical alert bracelet stating that you take Warfarin (Coumadin??). 11. Warfarin Education that was reviewed with you in the hospital: (please see your warfarin (Coumadin) packet for more information) Diet and medications can affect your INR Maintaining a diet with a consistent amount of vitamin K containing foods is important to keep yourINR in range Avoid major changes in dietary habits Do not take or discontinue any prescription or [id number] medications without asking your doctor or pharmacist Inform all your doctors, pharmacists and other healthcare providers that you take warfarin (Coumadin??) Warfarin (Coumadin??) increases your risk of bleeding If you experience any of these signs or symptoms of bleeding or blood clot please seek immediate medical attention: increased pain, swelling or sudden shortness of breath severe headache dizziness unusual bleeding or bruising changes in urine or bowel movement color coughing or spitting up of blood, or nosebleeds that do not stop or occur more often The following table shows your most recent INR results and Warfarin (Coumadin??) doses. Please bringthis to your first warfarin INR check appointment after discharge. Recent Labs Basename 02/10/14 0629 02/09/14 0534 02/08/14 0435 02/07/14 0320 02/06/14 0456 02/05/14 1411 02/04/14 1155 INR 2.6* 2.3* 1.7* 1.4* 1.3* 1.3* 1.5* Hospital Date 02/05 02/06 02/07 02/08 02/09 Coumadin Dose 5 mg 3 mg 5 mg 5 mg 5 mg Note: Patient was discharged with 2.5mg tablets. Instructions Given to Patient at Discharge: General Instructions None Discharge Instructions: Call your doctor if: You have a fever of greater than 101 degrees, shaking chills, if you develop redness or drainage from your incision sites, or if you have questions. Please call your surgeon's office if you have any discharge or drainage from your chest incision. Your surgeon, Dr. Paco Gunter and/or the Cardiac Surgery Physician [employer] Senior [employer] Team may be reached at . Antibiotic prophylaxis: You will need to take antibiotics prior to many invasive tests and treatments, such as dental cleaning, which should be done every 6 months. Your primary care physician or your dentist can prescribe this medication. Please refer to the card with the [employer] Gu idelines for more information. You have been provided with 3 copies of this card. Keep one for your self. Give one to your primary care physician and one to your dentist. Please refer to the [place] [employer] Guidelines for more information. Good dental care is important for your overall health. We recommend waiting ~3 months before returning to your dentist except in cases of emergency. Weight: Weigh yourself daily. Please call the office if you notice increasing weight, increasing fluid retention (edema), and/or SOB. Sternal (breast bone) precautions: No lifting greater than 7-10 pounds; no pushing or pulling with upper extremities; no excessive chest stretching for the first 4 weeks. Further instructions will be given to you at your follow-up appointment. Activity level: Walk three times a day. You should continue to increase your walks by 1-2 minutes each day. It is expected that you will be walking 20-30 minutes twice a day within 3-4 weeks after discharge to home. Rest between activities and after meals. Use common sense, don't exhaust yourself. Biking: You may use a stationary bicycle whenever you are comfortable enough to permit this. Tightenthe resistance slightly. Increase the amount of time on the bicycle as you would do for your walks, a minute or two each day. No biking outside until after your return appointment with Dr. Paco Gunter. You may use a [place] or treadmill but avoid any pulling motion with the arms. Home activities: You may do light housework, e.g. dusting, setting the table, washing dishes, preparing a meal. Light carpentry and gardening are allowed. Avoid trying to open tight jars and stuck windows. No vacuuming, mopping, raking, shoveling, digging or hoeing until after your return visit with the surgeon. Sexual activity: You may engage in sexual activity when you feel ready. Use a position that protectsyour sternum (breastbone). Do not have your partner lie on your chest. Stairs: There are no restrictions on stair climbing. Use common sense. Don't exhaust yourself. Activities outside the home: After the first week home you may go out to dinner, visit friends, go to a movie, go to amish, etc. Heavy activities: No hunting, skiing, jogging, snow shoveling, snowmobiling, lawn mowing, swimming, golf or tennis until after your return appointment with the surgeon. Do not ride motorcycles, [employer] tractors or horses. Avoid the use of a rifle with kickback against the shoulder for six months. Sleep: Try to establish normal sleep patterns. Long naps during the day may make it hard for you to sleep at night. Use the pain medication at bedtime for the first week at home. If you have nightmares, contact us. Some medications make this worse and these can be changed. Smoking: It is very important that you not smoke after surgery. Smoking cessation education was provided as appropriate. If you need further assistance with this please call and you will be referred toa smoking cessation specialist. Medications: Take only those medications listed on your discharge information. Keep your pain under control so you can be active, do your coughing and breathing exercises and sleep. Contact us if the pain medication isn't working for you. Do not take any herbal preparations until after you return to see the surgeon. Diet: You should follow a regular diet until your appetite returns to normal. At that point in time you should resume a low fat, low cholesterol, [place] [employer] Diet. Driving: No driving until cleared by your surgeon. Avoid long trips if possible. If you must go on along trip, stop the car and walk every hour. Shower/Bath: You may shower daily. No baths, soaking, or swimming until cleared by your surgeon. Wound care: Wash your incisions daily with antibacterial soap and rinse well, pat dry. Assess for any signs of infection such as increased redness, pain, warmth or drainage. Please call your surgeon's office if you have any discharge or drainage from your chest incision. If there is a lot of swelling,apply janeth wraps during the day and remove at bedtime. Elevate your legs when you are sitting. Follow up appointments: You should arrange to see your primary care physician, FABIOLA GUTIERREZ MD, in two weeks or as soon as possible. You will return to clinic to see Dr. Paco Gunter or a Cardiac Surgery PA in ~4 weeks and will have a CXR, EKG, and ECHO at that time. A letter will be mailed to you with your appointment information. Cardiac Rehabilitation: Colleen Moreno was seen today regarding participation in outpatient Phase 2 Cardiac Rehabilitation at [facility]. A referral will be sent to this program. The patient was given contact information and should expect to be contacted by the program within 1-2 weeks after discharge from [facility]. documented in this encounter Medications at Time of Discharge [...] D3 ORAL) documented as of this encounter Progress Notes Vicenta Sargent RN - 02/10/2014 2:34 PM EDT Spoke with YESENIA Apple. Pt will not need BSC. Order canceled. Vicenta Sargent RN Office of Care Management Clinical Correspondence School Teacher Alisson Pineda RN - 02/10/2014 10:31 AM EDT Telemetry and IV removed. AVS reviewed with pt and , understanding verbalized. Discharge summary faxed to [facility], report called. Patient escorted off unit in wheelchair by RN to receive ride home with . Vicenta Sargent RN - 02/10/2014 10:22 AM EDT Per , plan to d/c pt home today. to transport her. Home care for RN and PT set up with [facility] - [address] [place] [address]; [place] [phone] to write prescription for BSC for pt. This will be delivered to pt's home address. [facility] Vicenta Sargent RN Office of Care Management Clinical Correspondence School Teacher Covering for Benito Flores Pager [phone] Ibrahima Balderrama PA - 02/10/2014 8:05 AM EDT Cardiac Surgery Progress Note: ID: [id number] 54/F POD #6 tissue AVR, MV repair Subjective and 24 Hour Events: -feels ok, no further nausea, had a migraine this AM but is doing better, increased pain with deep breathing Temperature Temp: 36.8 ??C (98.2 ??F) Temp: [36.7 ??C (98.1 ??F)-37.2 ??C (99 ??F)] Heart Rate Heart Rate: 109 Heart Rate: [96-110] Blood Pressure BP: 115/83 mmHg BP: (100-140)/(64-83) Respiratory Rate Resp: 18 Resp: [16-18] SpO2 SpO2: 96 % SpO2: [93 %-98 %] I/O last 3 completed shifts: In: 1440 [P.O.:1440] Out: 2450 [Urine:2450] Admit weight 58.51 kg Current Weight Weight - Scale: 58.4 kg (128 lb 12 oz) Patient Vitals for the past 168 hrs: Weight 02/09/14 1207 58.4 kg (128 lb 12 oz) 02/09/14 0721 58.4 kg (128 lb 12 oz) 02/08/14 0700 59 kg (130 lb 1.1 oz) 02/07/14 0700 59.7 kg (131 lb 9.8 oz) 02/06/14 0639 58.3 kg (128 lb 8.5 oz) 02/05/14 0600 59.5 kg (131 lb 2.8 oz) 02/04/14 0627 58.514 kg (129 lb) Physical exam: General: in bed, good affect Lungs: clear throughout Heart: rapid regular rate and rhythm, s1/s2 present, no murmurs/rubs/gallops Abdomen: nondistended, normoactive bowel sounds, soft, nontender Neuro: no focal deficits Ext: no edema Incisions: clean, dry, intact Tubes/Lines/Drains: PIV Recent Labs Basename 02/10/14 0629 02/09/14 0534 02/08/14 0435 02/07/14 0907 WBC -- -- -- 11.7* HGB -- -- -- 8.3* HCT -- -- -- 24.3* PLATELET -- -- -- 174 PT 29.3* 27.1* 21.0* -- INR 2.6* 2.3* 1.7* -- PTT -- -- -- -- FIBRINOGEN -- -- -- -- Assessment/Plan: Medically-optimized for discharge home today. Carlos Alberto Villa - 02/09/2014 10:01 AM EDT General Surgery Resident Inpatient Progress Note ID: Colleen Moreno is a 54 y.o. female POD# 5 s/p Tissue AVR, Mitral Valve Repair with annuloplasty 24hr events: ?? Feeling better this am, less nauseated Physical Exam: afvss Weight at preop weight General: NAD, alert and oriented HEENT: PERRL, anicteric sclerae CVS: RRR. Sternal incision c/d/i. Pulm: CTAB, on RA. Abd: soft, non-distended. : making adequate urine Skin: warm, dry Ext: WWP, trace edema Neuro: CN 2-12 grossly intact, nonfocal,moving all four extremities spontaneously Coags Lab Results Component Value Date INR 2.3* 02/09/2014 PT 27.1* 02/09/2014 ASSESSMENT/PLAN: Colleen Moreno is a 54 y.o. female POD#5 s/p Tissue AVR, Mitral Valve Repair with annuloplasty. Doing well, nausea improved significantly. Will stop lasix today given her weight is backto preop. Redose coumadin tonight - 5mg. Anticipate dc to home tomorrow. Post-discharge anticoag plan Coumadin for 3 months followed by Ecotrin 325. CARLOS ALBERTO VILLA MD Carlos Alberto Villa - 02/08/2014 10:27 AM EDT General Surgery Resident Inpatient Progress Note ID: Colleen Moreno is a 54 y.o. female POD# 4 s/p Tissue AVR, Mitral Valve Repair with annuloplasty 24hr events: ?? Aggressive Bowel regimen --> diarrhea this am. Nausea improved. Physical Exam: afvss General: NAD, alert and oriented HEENT: PERRL, anicteric sclerae CVS: RRR. Sternal incision c/d/i. Pulm: CTAB, on RA. Abd: soft, non-distended. : making adequate urine Skin: warm, dry Ext: WWP, trace edema Neuro: CN 2-12 grossly intact, nonfocal,moving all four extremities spontaneously Coags Lab Results Component Value Date INR 1.7* 02/08/2014 PT 21.0* 02/08/2014 ASSESSMENT/PLAN: Colleen Moreno is a 54 y.o. female POD#4 s/p Tissue AVR, Mitral Valve Repair with annuloplasty. Doing well. HD stable, Progressing per clinical pathway. shaun back off on NBOs. Continue coumadin 5mg today. Anticipate d/c tomorrow or Monday as diarrhea resolves and ambulating well. Post-discharge anticoag plan Coumadin for 3 months followed by Ecotrin 325. CARLOS ALBERTO VILLA MD Landon Hallman PA - 02/07/2014 11:18 AM EDT General Surgery Resident Inpatient Progress Note ID: Colleen Moreno is a 54 y.o. female POD# 3 s/p Tissue AVR, Mitral Valve Repair with annuloplasty 24hr events: ?? Started Coumadin 5 mg ?? Nausea improving ?? HD stable Subjective: nausea still present but improved, denies fever, chills, diarrhea, v/cp/sob, pain adequately controlled. Has been OOB and walking the floor. +BM yesterday. Reports tender RUQ that comes andgoes. States she has constipation on a regular basis and feels similar. O: Last value Range last 24hrs Temperature Temp: 37.3 ??C (99.1 ??F) Temp: [36.6 ??C (97.9 ??F)-37.5 ??C (99.5 ??F)] Heart Rate Heart Rate: 91 Heart Rate: [91-98] Blood Pressure BP: 100/65 mmHg BP: (98-108)/(65-68) Respiratory Rate Resp: 16 Resp: [16-20] SpO2 SpO2: 92 % SpO2: [92 %-95 %] RA 02/06 07 - 02/07 0700 In: - Out: 600 [Urine:600] Physical Exam: General: NAD, resting comfortably, conversant HEENT: PERRL, anicteric sclerae CVS: RRR. Sternal incision c/d/i. Pulm: CTAB, on RA. Incision: c/d/i. No evidence of drainage. Sternal wires still in. Abd: soft, non-distended. Tender to RUQ however this is at her CT incision site. No erythema, swelling, discharge. Non-tender in all other quadrants. : making adequate urine Skin: warm, dry Ext: WWP, trace edema Neuro: CN 2-12 grossly intact, nonfocal,moving all four extremities spontaneously Recent Labs Basename 02/07/14 0907 02/07/14 0320 02/06/14 0456 02/05/14 1411 02/05/14 0405 02/04/14 1700 02/04/14 1155 WBC 11.7* -- -- -- 22.2* -- 11.2* HGB 8.3* -- -- -- 10.7* 11.0* 7.2* HCT 24.3* -- -- -- 30.7* -- 21.6* PLATELET 174 -- -- -- 218 -- 146 PT -- 18.5* 17.2* 16.8* -- -- 19.5* INR -- 1.4* 1.3* 1.3* -- -- 1.5* PTT -- -- -- 34 -- -- 45* Recent Labs Basename 02/07/14 0320 02/06/14 1453 02/05/14 0405 02/04/14 1700 NA 137 -- -- -- K 4.0 3.8 4.3 4.0 CL 104 -- -- -- CO2 27 -- -- -- BUN 17 -- 9 -- CREATININE 0.47* -- 0.48* -- GLUCOSE 96 -- -- -- CALCIUM 8.0* -- -- -- MAGNESIUM -- -- -- -- PHOS -- -- -- -- NEW IMAGING: CXR 02/07/14 Impression Small to moderate right-sided pleural effusion and small left pleural effusion with associated atelectasis. ASSESSMENT: Colleen Moreno is a 54 y.o. female POD#3 s/p Tissue AVR, Mitral Valve Repair with annuloplasty. Doing well. HD stable, Progressing per clinical pathway. Some nausea controlled with anti-emetics. Continue coumadin 5mg today. Encourage ambulation, eating. Atelectasis seen on CXR today will benefit from being OOB. PLAN: NEURO: Stop dilaudid. IV tylenol, Ok for Toradol if continues to have issues with pain. Needs to be OOB walking today. Goal is 3 separate walks on the floor. CV: ASA, Lasix, Lopressor PULM: IS, on RA. Deep breathe. GI: regular diet, nexium, compazine/Zofran for nausea. Bowel regimen : removed barnard. Making adequate urine FEK: K q24 ID: completed aminta-op abx HEME: H/H stable, Coumadin tonight. Post-discharge anticoag plan Coumadin for 3 months followed by Ecotrin 325. ENDO: stop insulin drip PROPHYLAXIS: SCD, Nexium [facility] Suhail Brooks MD - 02/06/2014 1:42 PM EDT General Surgery Resident Inpatient Progress Note ID: Colleen Moreno is a 54 y.o. female POD# 2s/p Tissue AVR, Mitral Valve Repair with annuloplasty 24hr events: ?? started on Lasix, Lopressor 12.5 BID and removed chest tubes. ?? Started Coumadin 5 mg ?? Transferred to floor ?? Nausea overnight ?? HD stable Subjective: no complaints this AM, nausea still present, denies n/v/cp/sob, pain adequately controlled O: Last value Range last 24hrs Temperature Temp: 37.4 ??C (99.3 ??F) Temp: [36.9 ??C (98.4 ??F)-37.5 ??C (99.5 ??F)] Heart Rate Heart Rate: 98 Heart Rate: [96-197] Blood Pressure BP: 98/68 mmHg BP: (88-100)/(59-68) Respiratory Rate Resp: 18 Resp: [18] SpO2 SpO2: 93 % SpO2: [92 %-96 %] RA 02/05 07 - 02/06 0700 In: 20.7 [I.V.:20.7] Out: 1265 [Urine:1265] Physical Exam: General: NAD, resting comfortably, conversant HEENT: PERRL, anicteric sclerae CVS: RRR Pulm: CTAB, on RA Incision: c/d/i. No evidence of drainage. Sternal wires still in. Abd: soft, nontender, non-distended : Remove barnard today Skin: warm, dry Ext: WWP, trace edema Neuro: CN 2-12 grossly intact, nonfocal,moving all four extremities spontaneously Recent Labs Basename 02/06/14 0456 02/05/14 1411 02/05/14 0405 02/04/14 1700 02/04/14 1155 02/04/14 1100 WBC -- -- 22.2* -- 11.2* -- HGB -- -- 10.7* 11.0* 7.2* -- HCT -- -- 30.7* -- 21.6* -- PLATELET -- -- 218 -- 146 159 PT 17.2* 16.8* -- -- 19.5* -- INR 1.3* 1.3* -- -- 1.5* -- PTT -- 34 -- -- 45* -- Recent Labs Basename 02/05/14 0405 02/04/14 1700 NA -- -- K 4.3 4.0 CL -- -- CO2 -- -- BUN 9 -- CREATININE 0.48* -- GLUCOSE -- -- CALCIUM -- -- MAGNESIUM -- -- PHOS -- -- NEW IMAGING: ?? none ASSESSMENT: Colleen Moreno is a 54 y.o. female POD#2 s/p Tissue AVR, Mitral Valve Repair with annuloplasty. Doing well. HD stable, Progressing per clinical pathway. Some nausea controlled with anti-emetics. Will stop narcotics, remove barnard, and continue coumadin 7.5 today. Encourage ambulation, eating. PLAN: NEURO: Stop dilaudid. IV tylenol, Ok for Toradol if continues to have issues with pain CV: ASA, Lasix, Lopressor PULM: IS, on RA GI: regular diet, nexium, Reglan, compazine/Zofran for nausea : removed barnard FEK: K q24 ID: complete aminta-op abx HEME: H/H stable, Coumadin tonight. Post-discharge anticoag plan Coumadin for 3 months followed by Ecotrin 325. ENDO: stop insulin drip PROPHYLAXIS: SCD, Nexium DISPO: LYNDSEY BROOKS MD Mirna Preciado DT - 02/06/2014 1:10 PM EDT Nutrition Services - Education Note Colleen Moreno : 1960 AGE: 54 y.o. Patient Active Problem List Diagnosis Date Noted ??? Aortic regurgitation due to bicuspid aortic valve 01/24/2014 Priority: Medium Class: Chronic ??? Mitral regurgitation 01/24/2014 Priority: Medium Class: Chronic Reason for Nutrition Intervention: Consult Diet Order: Regular Appetite: good Food allergies: none Wt Readings from Last 3 Encounters: 02/06/14 58.3 kg (128 lb 8.5 oz) 02/06/14 58.3 kg (128 lb 8.5 oz) 01/30/14 58.9 kg (129 lb 13.6 oz) Ht Readings from Last 3 Encounters: 02/04/14 157.5 cm (5' 2) 02/04/14 157.5 cm (5' 2) 01/30/14 157.5 cm (5' 2) Body mass index is 23.50 kg/(m^2). Education: Nutrition After Heart Surgery dietary guidelines. Verbalized good understanding. Education material, with means of contact provided. Assessment: Patient was not appropriate at the current moment, verbalized good understandingof protein needs following heart surgery. He reported a poor appetite for the patient stating she has only been consuming liquids due to nausea. Added CIB w/skim milk shakes three times per day to encou rage po and to provide additional protein. Provided patient with copy of Guidelines for a Heart Healthy Lifestyle booklet, with emphasis on the last page, Nutrition After Heart Surgery. Nutrition will monitor and follow up weekly. Nutrition Plan: Diet: Regular Recommend Daily Multi Vitamins. CIB w/skim milk shakes three times per day. Encourage good po intake. Monitor weight. Support and encouragement provided. Nutrition services to follow weekly thru hospital course unless consulted in the interim. MALA Munroe Vicenta Sargent RN - 02/06/2014 11:08 AM EDT Record reviewed and patient discussed with multidisciplinary team. S/P REPLACE AORTIC VALVE, W\CPB, W\PROSTHETIC VALVE And VALVULOPLASTY,MITRAL VALVE, W\CPB;RADICAL RECON W\WO RING. [facility]. PHONE: [phone] FAX: [phone] . Services: RN, PT. Orders pending signature Anticipated d/c in 2-3 days. CRC remains available as needed for coordination of care and discharge planning. Vicenta Sargent RN Office of Care Management Clinical Correspondence School Teacher Covering for Benito Lagunaomber Pager [phone] Ronn Dia, ALEXIS - 02/05/2014 2:54 PM EDT PT NOTE PT referral received. Met with pt.. C/o increased Back pain and nausea. Pt holding the emesis basin.Nurse to medicate pt for nausea and pain. PT to return tomorrow. Left post cardiac surgery packet inher room with exercises and precautions. Vicenta Sargent RN - 02/05/2014 11:10 AM EDT Office of Care Management Clinical Correspondence School Teacher Patient Name: Colleen Moreno : 1960, 54 yrs Admission Date: 02/04/2014 6:07 AM Attending: Paco Gunter MD Order to Admit: pending signature Discussed patient with Provider Team and in multidisciplinary discharge-planning rounds. Reviewed record and interviewed patient. Introduced/reviewed CRC role and services accepted. REASON for HOSPITALIZATION: s/p Tissue AVR, Mitral Valve Repair with annuloplasty PMH: Refer to H&P for details PREVIOUS FUNCTIONAL STATUS: Indepedent CURRENT FUNCTIONAL STATUS: resting in bed; @ bedside. SOCIAL / FAMILY SUPPORTS: Lives with , Curtis and collage-age son. Currently, adult daughterand 3 grandchildren are in the home. Have 1 large dog. Home is 2 story and will need to use stairs to get to bedroom. 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 She drives. During recovery family will be providing transportation, cleaning and shopping for pt. ADVANCE DIRECTIVES: On File (), Requested Copy(), None on File (x) HEALTH /PRESCRIPTION COVERAGE: [facility] CURRENT HOME/COMMUNITY SERVICES/EQUIPMENT: DME: none Home Health Agency: none PRIMARY CARE PHYSICIAN: FABIOLA GUTIERREZ MD [phone] POTENTIAL DISCHARGE NEEDS: A list of graphic art technician/DMEs which serve the geographic area which the patient resides or the geographic arearequested by the patient/instruments sales representative was made available.Full Disclosure Statement provided, as appropriate. Patient requests referral to [facility] [employer]. PHONE: [phone] FAX: [phone] . Services: RN, PT Referrals sent via [employer]craft[employer] by [employer] Station [employer]. Anticipated d/c - 2-3 days. Orders pending signature. TRANSPORTATION @ D/C: PLAN: CRC will continue to monitor progress, follow for continuity of care and assist with dischargeplanning while hospitalized Vicenta Sargent RN Office of Care Management Clinical Correspondence School Teacher Covering for Benito Flores Pager [phone] Mark Lopez MD - 02/05/2014 9:26 AM EDT General Surgery Resident Inpatient Progress Note ID: Colleen Moreno is a 54 y.o. female POD# 1 s/p Tissue AVR, Mitral Valve Repair with annuloplasty 24hr events: ?? Extubated per clinical pathway ?? HD stable ?? Some nausea and emesis overnight Subjective: no complaints this AM, nausea has mostly resolved, denies n/v/cp/sob, pain adequately controlled O: Last value Range last 24hrs Temperature Temp: 37.6 ??C (99.7 ??F) Temp: [33.2 ??C (91.8 ??F)-38.4 ??C (101.1 ??F)] Heart Rate Heart Rate: 112 Heart Rate: [71-124] Blood Pressure BP: 107/54 mmHg BP: -- Respiratory Rate Resp: 15 Resp: [12-28] SpO2 SpO2: 100 % SpO2: [100 %] 02/04 701 - 02/05 700 In: 4128.5 [I.V.:3624.5] Out: 2765 [Urine:2235] Physical Exam: General: NAD, resting comfortably, conversant HEENT: PERRL, anicteric sclerae CVS: RRR Pulm: CTAB Abd: soft, nontender, non-distended : barnard with clear yellow urine Skin: warm, dry Ext: WWP, trace edema Neuro: CN 2-12 grossly intact, nonfocal,moving all four extremities spontaneously Recent Labs Basename 02/05/14 0405 02/04/14 1700 02/04/14 1155 02/04/14 1100 WBC 22.2* -- 11.2* -- HGB 10.7* 11.0* 7.2* -- HCT 30.7* -- 21.6* -- PLATELET 218 -- 146 159 PT -- -- 19.5* -- INR -- -- 1.5* -- PTT -- -- 45* -- Recent Labs Basename 02/05/14 0405 02/04/14 1700 NA -- -- K 4.3 4.0 CL -- -- CO2 -- -- BUN 9 -- CREATININE 0.48* -- GLUCOSE -- -- CALCIUM -- -- MAGNESIUM -- -- PHOS -- -- NEW IMAGING: ?? none ASSESSMENT: Colleen Moreno is a 54 y.o. female POD# 1 s/p Tissue AVR, Mitral Valve Repair with annuloplasty. Doing well. HD stable, Labs are all stable. Progressing per clinical pathway. Some post-op nausea/emsisi controlled with anti-emetics. Will start on Lasix, Lopressor 12.5 BID and remove chest tubes. Will start Coumadin 5 mg tonight. Ready for transfer to the floor. PLAN: NEURO: Tylenol, Dilaudid. Ok for Toradol if continues to have issues with pain CV: ASA, Lasix, Lopressor. Remove all chest tubes today PULM: IS, wean O2 GI: ADAT to regular, nexium, Reglan Zofran for nausea : remove barnard when on floor FEK: K q24 ID: complete [id number]-op abx HEME: H/H stable, Coumadin tonight. Post-discharge anticoag plan Coumadin for 3 months followed by Ecotrin 325. ENDO: wean Insulin gtt PROPHYLAXIS: SCD, Nexium DISPO: [facility] MARK LOPEZ MD Junior Paniagua RCP - 02/05/2014 5:06 AM EDT Pt extubated at 20:41 to ND run at 4LPM. Pt tolerated well. Pt able to phonate and clear secretions on own. Pt in NARD post extubation. Will continue to monitor and treat pt accordingly. Sean Miranda RCP - 02/04/2014 1:46 PM EDT 02/04/14 1320 Ventilator Settings Ventilator Mode SIMV Vol + PS Resp. Rate Set 12 Tidal Volume Set 400 Set FiO2 100 % Set PEEP (cm H2O) 5 PS Above PEEP (cm H2O) 10 Flow Type Square Flow Adaptation Flow Rate (L/min) 24.6 Received pt from OR s/p AVR and placed on the above vent settings, Fio2 titrated to 40% per protocol with Po2 - 585 documented in this encounter H&P Notes Paco Gunter MD - 02/04/2014 7:03 AM EDT Cardiothoracic surgery Interval Note No change in the patients condition or operative plan since last visit. Paco Gunter MD [phone] Paco Gunter MD - 02/04/2014 7:02 AM EDT Patient Name: Colleen Moreno Patient Age: 54 y.o. Birthdate: 1960 Admit date: 02/04/2014 Attending Physician: Paco Gunter MD was asked to evaluate this 53-year-old woman with known and progressively severe aortic and mitral valve disease secondary to several episodes of bacterial endocarditis, presumably all related to her dentition. Her last episode was seven years ago. Over the last several months she has had increasingly severe fatigue and now with Class II heart failure exertional dyspnea. Her past medical history is otherwise unremarkable. She is not hypertensive or diabetic. She has had no known previous CVA or TIA. She has no known renal or hepatic insufficiency. She was not a user of tobacco. She has a family history remarkable for atherosclerotic coronary disease and her mother had undergone coronary bypass grafting. Her medications at this time include Procardia, baby aspirin, Colace, vitamin D, garlic and a variety of natural supplements. 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 On examination she has a blood pressure of 125/70. Her pulse is in the 70s. It is irregular. She does admit to occasional palpitations. I had a chance to review an echocardiogram provided by her thermal surfacing machine operator, Dr. Daniel Hand. This study shows moderate to severe aortic regurgitation, moderate to severe mitral regurgitation with a dilated left ventricle with an end diastolic diameter of about 7 cm and decreased systolic function estimated at about 55%. The aortic valve itself is anatomically abnormal. It is likely a bicuspid valve, but there is evidence of presumably healed endocarditis as well. On examination her blood pressure is 120/70. Her pulse is in the 70s. It is regular. Her head, eyes, ears, nose and throat examination are unremarkable. There is no scleral icterus or arcus senilis. There are no cervical bruits or masses. Her chest is clear to auscultation. Her cardiac exam is remarkable for a soft holodiastolic murmur at the left upper parasternal border but there is a meaningful holosystolic murmur at her LV apex as well. Her abdomen is benign. Her lower extremities are free of edema. I agree that Ms. Moreno would benefit from aortic valve replacement therapy with hopefully mitral valve repair or replacement if repair is not feasible. The potential risks and anticipated benefits were reviewed carefully with Mrs. Moreno. Her questions were answered. She does agree to undergo operation. We will make arrangements for cardiac cath with surgery soon thereafter. A portion of this discussion, the overall counseling portion of which lasted 45 minutes, included the type of prosthesis to be implanted. She has elected for implantation of a biological prosthesis hoping to avoid necessary lifelong Coumadin anticoagulation while accepting the possibility of reoperation for valve failure. Her other questions having been answered, will see her on the day of surgery and in the interim plan for her cardiac cath. Paco Gunter MD documented in this encounter Procedure Notes Provider, Scanning - 02/11/2014 12:52 PM EDTAssociated Order(s): SCAN DOC: CARPENTRY TEACHER Provider, Scanning - 02/11/2014 10:39 AM EDTAssociated Order(s): SCAN DOC: IMPLANTABLE DEVICES documented in this encounter Miscellaneous Notes Miscellaneous - Provider, Scanning - 02/11/2014 10:25 AM EDT Miscellaneous - Provider, Scanning - 02/11/2014 10:25 AM EDT Miscellaneous - Provider, Scanning - 02/11/2014 10:25 AM EDT Miscellaneous - Provider, Scanning - 02/11/2014 10:25 AM EDT Miscellaneous - Provider, Scanning - 02/11/2014 10:25 AM EDT Miscellaneous - Provider, Scanning - 02/11/2014 10:14 AM EDT Miscellaneous - Provider, Scanning - 02/11/2014 10:14 AM EDT Discharge Summary - Harshad Aguirre MD - 02/10/2014 10:19 AM EDT Inpatient - Discharge Summary Patient Name: Colleen Moreno Patient Age: 54 y.o. Birthdate: 1960 Language: Danish Race: White Ethnicity: Not nor Admit Date: 02/04/2014 Discharge Date and Time: 02/10/2014 Attending Physician: Paco Gunter MD Follow-up Recommendations for Providers: Please continue routine management of cardiovascular risk factors including blood pressure, lipids, glucose, etc. Please note any changes to medications. You will take Coumadin for three months and then will increase aspirin to 325 mg daily thereafter. Inpatient Provider Contact Information: [facility] Section of Cardiothoracic Surgery [facility] [phone] FAX [phone] Discharge Diagnoses (Hospital Problems) Primary Diagnoses: Aortic and mitral regurgitation Subacute bacterial endocarditis Other Diagnoses (Chronic Problems): Active Non-Hospital Problems Diagnosis ??? Aortic regurgitation due to bicuspid aortic valve Priority: Medium ??? Mitral regurgitation Priority: Medium Discharged to: Patient discharged to home Functional and Cognitive Status: functionally and cognitively intact Discharge Conditions/Prognosis: stable Past Medical History Diagnosis Date ??? Endocarditis three episodes ??? Bicuspid aortic valve moderate to severe stenosis ??? Menorrhagia fibroid uterus ??? Seizures patit mal as an infant Past Surgical History Procedure Date ??? Hysterectomy 05/2010 supracervical ??? [place] tooth extraction ??? Replace aort valv, prosth valv 02/04/2014 @REPLACE AORTIC VALVE, W\CPB, W\PROSTHETIC VALVE performed by Paco Gunter MD at [facility] MAIN OR ??? Mitralplasty w radical reconstr 02/04/2014 @VALVULOPLASTY,MITRAL VALVE, W\CPB;RADICAL RECON W\WO RING performed by Paco Gunter MD at [facility] MAIN OR Prior To Admission Medications Prescriptions prior to admission Medication Sig Dispense Refill ??? diphenhydrAMINE (BENADRYL) 25 mg Capsule Take 25 mg by mouth nightly as needed. ??? [DISCONTINUED] chlorhexidine (HIBICLENS) 4 % Liquid Apply topically daily as needed. Shower fromhead to toe with Chlorhexidine the night before surgery . 120 mL 0 ??? ferrous sulfate 325 mg (65 mg iron) Tablet Take 325 mg by mouth daily (with breakfast). ??? ascorbic acid (VITAMIN C) 500 mg Tablet Take 500 mg by mouth daily. ??? aspirin 81 mg Tablet, Chewable Take 81 mg by mouth daily. ??? polyethylene glycol (MIRALAX) 17 gram Powder in Packet Take 17 g by mouth daily. ??? DOCUSATE SODIUM (COLACE ORAL) Take by mouth 2 times daily. ??? CHOLECALCIFEROL, VITAMIN D3, (VITAMIN D3 ORAL) Take by mouth. ??? Garlic Cap ??? NIFEDIPINE ORAL Take 30 mg by mouth 2 times daily. ??? amoxicillin (AMOXIL) 500 mg Capsule Take 2,000 mg by mouth See Admin Instructions. Prior to dental work Updated Allergies/ADRs: Allergies Allergen Reactions ??? Oxycodone Nausea And Vomiting ??? Ibuprofen dizziness ??? Vancomycin Analogues IRRITATION ??? Vancomycin Hcl Urticaria History of Presentation: Colleen Moreno is a 54 year-old female with progressively severe aortic and mitral valve disease secondary to several episodes of bacterial endocarditis. Her last episode was seven years ago. Over the last several months she had had increasingly severe fatigue and recently, ClassII heart failure exertional dyspnea. Her past medical history is otherwise unremarkable. An ECHO showed moderate to severe aortic regurgitation, moderate to severe mitral regurgitation with a dilated left ventricle with an end diastolic diameter of about 7 cm, and decreased systolic function estimated at about 55%. She was referred for aortic and mitral valve surgery. Major Procedures/Operations: 02/04/14 tissue AVR , MV repair Hospital Course: Colleen Moreno was admitted to [facility] on 02/04/2014 via the Same Day Program. She was brought to the operating room where Dr. Paco Gunter performed theabove procedure. She tolerated the procedure and was brought to the Cardiovascular Intensive Care Unit for recovery. She initially required the pharmacologic support of intravenous phenylephrine and vasopressin. She was extubated from the ventilator on the day of surgery. Overnight she did well. iuretics were started and she responded appropriately. She was started on beta blockade and this was optimized. Routine postoperative and home medications were started and a diet was advanced. By postoperative day # 1 all drips were weaned to off and she was transferred to the Intermediate Cardiac Care Unitfor continued rehabilitation. Her only real issue was nausea which resolved after holding opioid pain medication and treatment with antiemetics. All tubes, lines, and epicardial pacing wires were removed without incident. She voided normally after her Barnard was removed. She was seen by Physical Therapy and Cardiac Rehabilitation. The remainder of the her hospital course was uneventful and by postoperative day #6 she had met all criteria for discharge to home. Pain was controlled on oral medications. She had walked 5 minutes and gone up and down stairs. She was tolerating a regular diet and had a bowel movement. Vital Signs at Discharge: Last set of vitals: BP 115/83 Pulse 109 Temp 36.8 ??C (98.2 ??F) (Oral) Resp 18 Ht 157.5 cm (5' 2.01) Wt 58.1 kg (128 lb 1.4 oz) BMI 23.42 kg/m2 SpO2 96% Current weight: 58.4 kg Admit weight: 58.5 kg Pertinent physical exam findings prior to discharge: General: in bed, good affect Lungs: clear throughout Heart: rapid regular rate and rhythm, s1/s2 present, no murmurs/rubs/gallops Abdomen: nondistended, normoactive bowel sounds, soft, nontender Neuro: no focal deficits Ext: no edema Incisions: clean, dry, intact Important Studies and Lab Data: Lab Results Component Value Date WBC 11.7* 02/07/2014 RBC 2.57* 02/07/2014 HGB 8.3* 02/07/2014 HCT 24.3* 02/07/2014 HCT 34.0 01/30/2014 PLATELET 174 02/07/2014 Recent Labs Basename 02/10/14 0629 INR 2.6* Lab Results Component Value Date NA 137 02/07/2014 K 4.0 02/07/2014 CL 104 02/07/2014 CO2 27 02/07/2014 BUN 17 02/07/2014 CREATININE 0.47* 02/07/2014 Immunizations Given this Hospitalization: Immunization History Administered Date(s) Administered ??? Influenza Vaccine, Whole 05/20/2005, 03/06/2006 ??? Pneumococcal Polyvalent 23 04/06/2006 ??? Td, adult 03/06/2006 Smoking Status at Discharge: History Smoking status ??? Never Smoker Smokeless tobacco ??? Never Used Discharge Medications: Your Medications As of 02/10/2014 8:58 AM Notice Some of the medications listed here do not show instructions, such as how often to take the medication. Ask your doctor or nurse how to use these medications. New Medications Dose Details acetaminophen 500 mg Tab Commonly known as: TYLENOL Take 1-2 tablets by mouth every 4 hours as needed for Pain. 500-1000 mg Refills: 0 HYDROmorphone 2 mg Tab Commonly known as: DILAUDID Take 1 tablet by mouth every 4 hours as needed for Pain. 2 mg Quantity: 40 tablet Refills: 0 metoprolol tartrate 25 mg Tab Commonly known as: LOPRESSOR Take 2 tablets by mouth 2 times daily. 50 mg Quantity: 120 tablet Refills: 1 warfarin 2.5 mg Tab Commonly known as: COUMADIN Take as directed. Quantity: 60 tablet Refills: 2 Continued medications, unchanged Dose Details amoxicillin 500 mg Cap Commonly known as: AMOXIL Take 2,000 mg by mouth See Admin Instructions. Prior to dental work 2000 mg Refills: 0 aspirin 81 mg Chew Take 81 mg by mouth daily. 81 mg Refills: 0 COLACE ORAL Take by mouth 2 times daily. Refills: 0 diphenhydrAMINE 25 mg Cap Commonly known as: BENADRYL Take 25 mg by mouth nightly as needed. 25 mg Refills: 0 ferrous sulfate 325 mg (65 mg iron) Tab Take 325 mg by mouth daily (with breakfast). 325 mg Refills: 0 Garlic Cap (Ask your doctor or nurse how to take this medication.) Refills: 0 polyethylene glycol 17 gram Pwpk Commonly known as: MIRALAX Take 17 g by mouth daily. 17 g Refills: 0 vitamin C 500 mg Tab Take 500 mg by mouth daily. Generic drug: ascorbic acid 500 mg Refills: 0 VITAMIN D3 ORAL Take by mouth. Refills: 0 STOPPED Medications chlorhexidine 4 % Liqd Commonly known as: HIBICLENS NIFEDIPINE ORAL Anticoagulation (???Blood Thinner?? ) Management upon Discharge: 1. Reason for anticoagulation therapy: mitral valve repair 2. Your warfarin (Coumadin??) dosing instruction upon discharge is: (Follow this schedule below until your first INR check after discharge (usually in 2- 4 days): Day of discharge (day #1): 2.5 mg 3. Follow up INR is scheduled on: 02/11 4. INR Goal: 2.0-3.0 5. Expected duration of treatment: three months, then will have aspirin increased to 325 mg daily 6. Provider/Team responsible for ongoing outpatient anticoagulation management: Provider/Team/Clinic: Fabiola Gutierrez MD 7. If you have not received a call from your provider within 24 hrs of having your INR drawn, pleasecall your outpatient provider for further dose instructions. 8. Warfarin (Coumadin??) should be taken at the same time every day, preferably after 5:00 pm. 9. Please review your Warfarin (Coumadin??) Pack upon discharge. 10. If you will be on Warfarin (Coumadin??) indefinitely you should carry an identification card or wear a medical alert bracelet stating that you take Warfarin (Coumadin??). 11. Warfarin Education that was reviewed with you in the hospital: (please see your warfarin (Coumadin) packet for more information) Diet and medications can affect your INR Maintaining a diet with a consistent amount of vitamin K containing foods is important to keep yourINR in range Avoid major changes in dietary habits Do not take or discontinue any prescription or gtgy-ysm-tqvwtqa medications without asking your doctor or pharmacist Inform all your doctors, pharmacists and other healthcare providers that you take warfarin (Coumadin??) Warfarin (Coumadin??) increases your risk of bleeding If you experience any of these signs or symptoms of bleeding or blood clot please seek immediate medical attention: increased pain, swelling or sudden shortness of breath severe headache dizziness unusual bleeding or bruising changes in urine or bowel movement color coughing or spitting up of blood, or nosebleeds that do not stop or occur more often The following table shows your most recent INR results and Warfarin (Coumadin??) doses. Please bringthis to your first warfarin INR check appointment after discharge. Recent Labs Basename 02/10/14 0629 02/09/14 0534 02/08/14 0435 02/07/14 0320 02/06/14 0456 02/05/14 1411 02/04/14 1155 INR 2.6* 2.3* 1.7* 1.4* 1.3* 1.3* 1.5* Hospital Date 02/05 02/06 02/07 02/08 02/09 Coumadin Dose 5 mg 3 mg 5 mg 5 mg 5 mg Note: Patient was discharged with 2.5mg tablets. Instructions Given to Patient at Discharge: General Instructions None Discharge Instructions: Call your doctor if: You have a fever of greater than 101 degrees, shaking chills, if you develop redness or drainage from your incision sites, or if you have questions. Please call your surgeon's office if you have any discharge or drainage from your chest incision. Your surgeon, Dr. Paco Gunter and/or the Cardiac Surgery Physician [employer] Senior Sergeant Team may be reached at . Antibiotic prophylaxis: You will need to take antibiotics prior to many invasive tests and treatments, such as dental cleaning, which should be done every 6 months. Your primary care physician or your dentist can prescribe this medication. Please refer to the card with the [place] [employer] Gu idelines for more information. You have been provided with 3 copies of this card. Keep one for your self. Give one to your primary care physician and one to your dentist. Please refer to the [place] [employer] Guidelines for more information. Good dental care is important for your overall health. We recommend waiting ~3 months before returning to your dentist except in cases of emergency. Weight: Weigh yourself daily. Please call the office if you notice increasing weight, increasing fluid retention (edema), and/or SOB. Sternal (breast bone) precautions: No lifting greater than 7-10 pounds; no pushing or pulling with upper extremities; no excessive chest stretching for the first 4 weeks. Further instructions will be given to you at your follow-up appointment. Activity level: Walk three times a day. You should continue to increase your walks by 1-2 minutes each day. It is expected that you will be walking 20-30 minutes twice a day within 3-4 weeks after discharge to home. Rest between activities and after meals. Use common sense, don't exhaust yourself. Biking: You may use a stationary bicycle whenever you are comfortable enough to permit this. Tightenthe resistance slightly. Increase the amount of time on the bicycle as you would do for your walks, a minute or two each day. No biking outside until after your return appointment with Dr. Paco Gunter. You may use a [place] [employer] or treadmill but avoid any pulling motion with the arms. Home activities: You may do light housework, e.g. dusting, setting the table, washing dishes, preparing a meal. Light carpentry and gardening are allowed. Avoid trying to open tight jars and stuck windows. No vacuuming, mopping, raking, shoveling, digging or hoeing until after your return visit with the surgeon. Sexual activity: You may engage in sexual activity when you feel ready. Use a position that protectsyour sternum (breastbone). Do not have your partner lie on your chest. Stairs: There are no restrictions on stair climbing. Use common sense. Don't exhaust yourself. Activities outside the home: After the first week home you may go out to dinner, visit friends, go to a movie, go to amish, etc. Heavy activities: No hunting, skiing, jogging, snow shoveling, snowmobiling, lawn mowing, swimming, golf or tennis until after your return appointment with the surgeon. Do not ride motorcycles, [employer] tractors or horses. Avoid the use of a rifle with kickback against the shoulder for six months. Sleep: Try to establish normal sleep patterns. Long naps during the day may make it hard for you to sleep at night. Use the pain medication at bedtime for the first week at home. If you have nightmares, contact us. Some medications make this worse and these can be changed. Smoking: It is very important that you not smoke after surgery. Smoking cessation education was provided as appropriate. If you need further assistance with this please call and you will be referred toa smoking cessation specialist. Medications: Take only those medications listed on your discharge information. Keep your pain under control so you can be active, do your coughing and breathing exercises and sleep. Contact us if the pain medication isn't working for you. Do not take any herbal preparations until after you return to see the surgeon. Diet: You should follow a regular diet until your appetite returns to normal. At that point in time you should resume a low fat, low cholesterol, [place] [employer] Diet. Driving: No driving until cleared by your surgeon. Avoid long trips if possible. If you must go on along trip, stop the car and walk every hour. Shower/Bath: You may shower daily. No baths, soaking, or swimming until cleared by your surgeon. Wound care: Wash your incisions daily with antibacterial soap and rinse well, pat dry. Assess for any signs of infection such as increased redness, pain, warmth or drainage. Please call your surgeon's office if you have any discharge or drainage from your chest incision. If there is a lot of swelling,apply janeth wraps during the day and remove at bedtime. Elevate your legs when you are sitting. Follow up appointments: You should arrange to see your primary care physician, FABIOLA GUTIERREZ MD, in two weeks or as soon as possible. You will return to clinic to see Dr. Paco Gunter or a Cardiac Surgery PA in ~4 weeks and will have a CXR, EKG, and ECHO at that time. A letter will be mailed to you with your appointment information. Cardiac Rehabilitation: Colleen Moreno was seen today regarding participation in outpatient Phase 2 Cardiac Rehabilitation at [facility]. A referral will be sent to this program. The patient was given contact information and should expect to be contacted by the program within 1-2 weeks after discharge from [facility]. Future Appointments and Orders Future Orders Please Complete By Expires XR chest routine PA & lateral [[id number] Custom] 03/10/14 02/08/15 Process Instructions: Scheduling Instructions: Comments: Questions: Responses: Is the patient ? Unknown Portable exam? Reason for exam and clinical history: s/p AVR, MV repair Other pertinent information: Area to be examined: Where will study be performed? [facility] Rad[facility] Stat read required? Should this service/procedure be billed to the research sponsor? Requested Time Date of injury if applicable: Referral to Cardiac Rehab [AFC438 Custom] Process Instructions: If no progress note charted, please enter Clinical details in comments. Scheduling Instructions: Comments: Pt will participate in cardiac rehab @ [facility] Questions: Responses: My question or request is: AVR Referral to Home Health - at DISCHARGE [[id number] CPT(R)] Process Instructions: Scheduling Instructions: Comments: DOCUMENTATION FOR VNA SERVICES (INCLUDING THOSE PATIENTS WITH MEDICARE COVERAGE REQUIRING HOME VNA SERVICES AND/OR HOSPICE SERVICES) PATIENT'S LOCATION: Colleen Moreno [address] [place] [phone] (home) Clinical Trial Educator's Name: self In discussion with the attending physician, it is certified that this patient is under their care and that they, or a Nurse Practitioner, or Physician [employer] Senior Sergeant who is working directly with them, had aface to face encounter that meets the physician face to face encounter requirements with this patient on 02/05/2014. The encounter with the patient was in whole, or in part, for the following medical condition, which is the primary reason for home health care services: s/p AVR, MV repair. In discussionwith the provider, it is certified that, based on their findings, the following services are medically necessary for home health services. To provide the following care/treatments with the clinical find ings supporting the need for services as follows: HOME HEALTH AGENCY: [facility] PHONE: [phone] FAX: [phone] RN orders: Cardiopulmonary assessment, incisional assessment, assess vital signs, assessment of rehab progress, medication management and effectiveness, home safety evaluation. Please remove chest tubesutures on or after 02/14/14. Please draw INR if indicated and send result to: FABIOLA UGTIERREZ MD [phone] PT ORDERS: Continue rehab for endurance, gait stability and strength with mobility and transfers. Home safety evaluation. Home exercise program if appropriate. Start of Care Date: 24 hours post discharge SPECIAL INSTRUCTIONS: For any follow up questions, needs, or issues please call the Cardiac Surgery Office at [phone]. Home Health agencies which cover the area of patient's residence have been reviewed, either verballyor in writing, and patient/family have chosen the agency as noted. Questions: Responses: Agency name and contact information [facility] - [address] [place] [phone] Patient location post discharge home What services are requested Registered Nurse Physical Therapy Start date 02/07/2014 Responsible MD post discharge contact info PCP/CT surgery team EKG 12 Lead [EKG1 Custom] 03/10/14 02/08/15 Process Instructions: Scheduling Instructions: Comments: Questions: Responses: Is a rhythm strip needed? No Which [facility] location will this be performed? [facility] Should this service/procedure be billed to the research sponsor? If EKG Reason is Pre-op Evaluation, indicate diagnosis for surgery. Echocardiogram Transthoracic([place]) [PXP027 Custom] 03/09/14 02/07/15 Process Instructions: If the Echocardiogram is to be PERFORMED in a location other than [place]--STOP and order [id number], Echocardiogram South/External. Scheduling Instructions: Comments: Questions: Responses: Does patient require sedation? GA rationale: Is a Bubble Study requested? Does the patient have Congenital Heart Disease? Should this service/procedure be billed to the research sponsor? Signed: YESENIA EUBANKS [facility] Section of Cardiothoracic Surgery Date: 02/10/2014 CC: MD Peace WETZEL, Daniel Stearns MD [facility] [address] [place] [address] Initial Assessments - Ronn Dia, PT - 02/09/2014 12:03 PM EDT Physical Therapy Progress Note Session #3 Cardiac Surgery Patient Profile: Patient is a 54 y.o. female of Paco Conley MD, admitted on 02/04/2014 with history of endocarditis and bicuspid AV. Patient underwent tAVR and MV repair with annuloplasty on02/04/14. Post-op course remarkable for pain, nausea and vomiting. PT consulted. Precautions: sternal (no lifting >7-10 lbs.; no pushing or pulling with UE's; no excessive chest stretching). [place]. Nausea. Potential to fall. Full code. PMH: Past Medical History Diagnosis Date ??? Endocarditis three episodes ??? Bicuspid aortic valve moderate to severe stenosis ??? Menorrhagia fibroid uterus ??? Seizures patit mal as an Past Surgical History Procedure Date ??? Hysterectomy 05/2010 supracervical ??? [place] tooth extraction ??? Replace aort valv, prosth valv 02/04/2014 @REPLACE AORTIC VALVE, W\CPB, W\PROSTHETIC VALVE performed by Paco Gunter MD at [facility] MAIN OR ??? Mitralplasty w radical reconstr 02/04/2014 @VALVULOPLASTY,MITRAL VALVE, W\CPB;RADICAL RECON W\WO RING performed by Paco Gunter MD at [facility] MAIN OR Social History: Patient lives with their spouse college age son and a daughter with her 3 grandchildren. Pt has 4 children. 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 Stairs: 2 with a rail to enter. 13 with a rail to bedroom. Baseline Mobility: Pt normally independent and self sufficient. Equipment at home: None Subjective: I am feeling better but my stomach still hurts. I still feel short of breath on the stairs, like I did before I came in. Objective: Seen for exercise, functional mobility and pt ed/training Pain: Mild sternal incision pain. Vital Signs/Cardiopulmonary Status: SpO2: 96-100% on RA HR: 98-100 at rest. Up to 130 on the stairs. Nurse was aware. BP: Resting BP 114/83 and 128/89 post stairs. Incentive Spirometer: Volume: 750-1000 ml Quality: fair Mental Status/Behavior: Less anxious, except when on the stairs. A and O x 3. Skin: CDI sternal incision. Bed Mobility: Supine to Sit: independent log rolling left bed flat. Sit to Supine: Same as above. Transfers: Sit to Stand: independent, hands on thighs. Stand to Sit: independent, but needed cue 1x not to reach back for the bed. Gait: Distance: 200' Device used: none Level of assist: Supervision Stairs: Up and down 13 stairs, reciprocal pattern and a handrail for support. Pt educated to have a chair at top and bottom of the stairs at home, to rest. Pt to place a camp toilet downstairs as bathroom is up stairs. Balance: Good Education: Pt was educated on post-op sternal precautions, use of incentive spirometer, the importance of deep breathing, splinted cough and post-op cardiac exercises. Able to clear own airways this AM. Pt performed 5 reps of the following exercises today: head nod, head twist, shoulder flexion, knee extension, ankle circles, and ankle pumps. Pt was given a written list of exercises and precautions on02/05/14. Pt's status, treatment, and mobility recommendations were discussed with the nursing staff. Pt left in bed at end of the session. Pt went to the bathroom prior to walking and did own pericare and transfers. Assessment: Pt is s/p AVR and MV repair. HR up to 130 on the stairs and pt with moderate SOB. Nurse was notified. Pt recovered fairly quickly with a sitting rest. Pt only bathroom is up a flight of stairs. She has a camp toilet she can put downstairs but it may be too low. May need a commode chair fordownstairs. Chairs at top and bottom of her stairs will allow her to sit and recover at home. Cardiac rehab will be helpful in her recovery. All goals met with modifications. NO further PT needed at this time. Goals met. Dc when medically stable. Equipment needs: commode? Goals: To be achieved by 02/10/14. Ongoing. 1. Pt will ambulate independently >150 ft. without an assistive device to allow for a safe d/c. 2. Pt will perform all post op cardiac surgery exercises adequately. 3. Pt will demonstrate independence with incentive spirometer and/or threshold PEP to promote lung function. 4. Pt will demonstrate understanding of sternal precautions to allow for a safe d/c. 5. Pt will be able to transfer sit <-> stand independently while maintaining sternal precautions to allow for a safe d/c. 6. Pt will be able to go supine <-> sit independently while maintaining sternal precautions toallow for a safe d/c. 7. Pt will be able to go up and down 13 stairs using a rail for balance only with stand-by assistance to prepare for a safe d/c. Treatment Plan: Pt to be seen 3-4x for patient and family/caregiver education and training on sternal precautions, functional mobility, gait, stairs, exercise, safety awareness, endurance & energy conservation, and d/c planning. Tentative D/C Plan: Home with support/assistance Pt understands and agrees with PT plan, goals, and tentative discharge plan: Yes Total time spent with patient: 40 minutes TEF3 Total timed interventions: 40 minutes RONN DIA, PT Pager: [phone] Physical Therapy Rehabilitation Department Consult Note - Lily Mederos RN - 02/07/2014 10:21 AM EDT [facility] Colleen More[facility] today [facility] A [facility] will be sent to this program. The patient was given contact information and should expect to be contacted by the program within 1-2 weeks after discharge from [facility]. Initial Assessments - Ronn Dia, PT - 02/07/2014 9:54 AM EDT Physical Therapy Progress Note Session #2 Cardiac Surgery Patient Profile: Patient is a 54 y.o. female of Paco Conley MD, admitted on 02/04/2014 with history of endocarditis and bicuspid AV. Patient underwent tAVR and MV repair with annuloplasty on02/04/14. Post-op course remarkable for pain, nausea and vomiting. PT consulted. Precautions: sternal (no lifting >7-10 lbs.; no pushing or pulling with UE's; no excessive chest stretching). [place]. Nausea. Potential to fall. Full code. PMH: Past Medical History Diagnosis Date ??? Endocarditis three episodes ??? Bicuspid aortic valve moderate to severe stenosis ??? Menorrhagia fibroid uterus ??? Seizures patit mal as an Past Surgical History Procedure Date ??? Hysterectomy 05/2010 supracervical ??? [place] tooth extraction ??? Replace aort valv, prosth valv 02/04/2014 @REPLACE AORTIC VALVE, W\CPB, W\PROSTHETIC VALVE performed by Paco Gunter MD at [facility] MA[facility] OR ??? Mitralplasty w radical reconstr 02/04/2014 @VALVULOPLASTY,MITRAL VALVE, W\CPB;RADICAL RECON W\WO RING performed by Paco Gunter MD at [facility] MAIN OR Social History: Patient lives with their spouse college age son and a daughter with her 3 grandchildren. Pt has 4 children. 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 Stairs: 2 with a rail to enter. 13 with a rail to bedroom. Baseline Mobility: Pt normally independent and self sufficient. Equipment at home: None Subjective: I feel better. My stomach still hurts. I am passing gas and I had a BM yesterday. I am just so nervous. Objective: Seen for exercise, functional mobility and pt ed/training Pain: Mild sternal incision pain. Vital Signs/Cardiopulmonary Status: SpO2: NE HR: NE BP: NE Incentive Spirometer: Volume: 500 ml Quality: poor to fair Mental Status/Behavior: alert, oriented to person, place, and time. Anxious. Skin: CDI sternal incision. Bed Mobility: Supine to Sit: supervision with cues to log roll right, like home and min use of UEs, exhaling upon rising. Sit to Supine: NE Pt needed cues to maintain sternal precautions. Transfers: Sit to Stand: cues for hands on thighs and supervision assist, bed, toilet and recliner Stand to Sit: Same as above Pt needed cues to maintain sternal precautions. Gait: Distance: 175' Device used: 1-2 handhold assist, due to anxiety/fear Level of assist: Min assist Gait pattern: short step length, cautious. Balance: good sitting. Poor to fair standing. Pt stood at sink to brush teeth, rinse with mouth washand wash up, ~7 minutes. Pt used restroom and did own pericare after urinating. Informed Consent: The patient agrees to and understands the PT treatment plan and goals. Education: Pt was educated on post-op sternal precautions, use of incentive spirometer, the importance of deep breathing, splinted cough and post-op cardiac exercises. Able to clear own airways this AM. Pt performed 5 reps of the following exercises today: head nod, head twist, shoulder flexion, knee extension, ankle circles, and ankle pumps. Pt was given a written list of exercises and precautions on02/05/14. Pt's status, treatment, and mobility recommendations were discussed with the nursing staff. Pt left sitting in a recliner with present throughout PT session. Assessment: Pt is s/p AVR and MV repair. Functional mobility is limited by fear more than pain and nausea today. Had pt walk without a walker as she should not need one for dc. Pt should be able to walk with family with handhold assist, PRN or with nursing staff. Much improved today. Needing rest breaks but endurance is much improved. She need continual cues not to reposition self in bed or chair with use of her arms. Equipment needs: TBD Goals: To be achieved by 02/10/14. Ongoing. 1. Pt will ambulate independently >150 ft. without an assistive device to allow for a safe d/c. 2. Pt will perform all post op cardiac surgery exercises adequately. 3. Pt will demonstrate independence with incentive spirometer and/or threshold PEP to promote lung function. 4. Pt will demonstrate understanding of sternal precautions to allow for a safe d/c. 5. Pt will be able to transfer sit <-> stand independently while maintaining sternal precautions to allow for a safe d/c. 6. Pt will be able to go supine <-> sit independently while maintaining sternal precautions toallow for a safe d/c. 7. Pt will be able to go up and down 13 stairs using a rail for balance only with stand-by assistance to prepare for a safe d/c. Treatment Plan: Pt to be seen 3-4x for patient and family/caregiver education and training on sternal precautions, functional mobility, gait, stairs, exercise, safety awareness, endurance & energy conservation, and d/c planning. Tentative D/C Plan: Home with support/assistance Pt understands and agrees with PT plan, goals, and tentative discharge plan: Yes Total time spent with patient: 40 minutes TEF3 Total timed interventions: 40 minutes RONN DIA, PT Pager: [phone] Physical Therapy Rehabilitation Department Initial Assessments - Ronn Dia, PT - 02/06/2014 9:20 AM EDT Physical Therapy Evaluation Cardiac Surgery Patient Profile: Patient is a 54 y.o. female of Paco Conley MD, admitted on 02/04/2014 with history of endocarditis and bicuspid AV. Patient underwent tAVR and MV repair with annuloplasty on02/04/14. Post-op course remarkable for pain, nausea and vomiting. PT consulted. Precautions: sternal (no lifting >7-10 lbs.; no pushing or pulling with UE's; no excessive chest stretching). [place]. Nausea. Potential to fall. Full code. PMH: Past Medical History Diagnosis Date ??? Endocarditis three episodes ??? Bicuspid aortic valve moderate to severe stenosis ??? Menorrhagia fibroid uterus ??? Seizures patit mal as an infant Past Surgical History Procedure Date ??? Hysterectomy 05/2010 supracervical ??? [place] tooth extraction ??? Replace aort valv, prosth valv 02/04/2014 @REPLACE AORTIC VALVE, W\CPB, W\PROSTHETIC VALVE performed by Paco Gunter MD at [facility] MA[facility] OR ??? Mitralplasty w radical reconstr 02/04/2014 @VALVULOPLASTY,MITRAL VALVE, W\CPB;RADICAL RECON W\WO RING performed by Paco Gunter MD at [facility] MA[facility] OR Social History: Patient lives with their spouse college age son and a daughter with her 3 grandchildren. Pt has 4 children. 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 Stairs: 2 with a rail to enter. 13 with a rail to bedroom. Baseline Mobility: Pt normally independent and self sufficient. Equipment at home: None Subjective: I feel so hot. Now I am really cold and shivering. I need to get back to bed. I feel like I am going to vomit. Objective: Seen for evaluation and initiation of PT program per below. Pain: Mild sternal incision pain. Vital Signs/Cardiopulmonary Status: SpO2: >94% on RA HR: 109 at rest and 116 with gait BP: 100-108/70s HGB 10.7 Incentive Spirometer: Volume: 250 ml Quality: poor Mental Status/Behavior: alert, oriented to person, place, and time. Feeling somnolent. Skin: CDI sternal incision. Sensation: normal ROM: WFLs. Shoulders flexing at least 130 degrees. Strength: moving all extremities symmetrically. 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 Bed Mobility: Supine to Sit: NE Sit to Supine: min assist of legs and cues for log rolling. Pt needed cues to maintain sternal precautions. Transfers: Sit to Stand: cues for hands on thighs and min assist Stand to Sit: cga and cues for hands on thighs. Pt needed cues to maintain sternal precautions. Gait: Distance: 70' Device used: rolling walker Level of assist: contact guard Gait pattern: Trialed gait without device and needed min assist with short step lengths and wide JULIO. Balance: good sitting. Poor to fair standing. Informed Consent: The patient agrees to and understands the PT treatment plan and goals. Education: Pt was educated on post-op sternal precautions, use of incentive spirometer, the importance of deep breathing, splinted cough and post-op cardiac exercises. Pt performed 2 reps of the following exercises today: head nod, head twist, shoulder flexion, knee extension, ankle circles, and ankle pumps. Pt was given a written list of exercises and precautions on02/05/14. Pt's status, treatment, and mobility recommendations were discussed with the nursing staff. Pt left in bed with a warm blanket, shivering. Nurse notified and fan turned off Assessment: Pt is s/p AVR and MV repair. Functional mobility is limited by Nausea and general ill feeling. Pt would benefit from continued physical therapy to maximize functional mobility, independenceand safety. Pt has good rehab potential. Expect dc to home as pain and nausea improves, given she isnormally healthy and independent. Pt with pre op right scapula pain, now exacerbated by surgery. Didnot give pt ice today due to pt shivering. WBCs elevated and pt feels febrile. Nursing was in to evaluate pt.. Equipment needs: TBD Goals: To be achieved by 02/10/14. 1. Pt will ambulate independently >150 ft. without an assistive device to allow for a safe d/c. 2. Pt will perform all post op cardiac surgery exercises adequately. 3. Pt will demonstrate independence with incentive spirometer and/or threshold PEP to promote lung function. 4. Pt will demonstrate understanding of sternal precautions to allow for a safe d/c. 5. Pt will be able to transfer sit <-> stand independently while maintaining sternal precautions to allow for a safe d/c. 6. Pt will be able to go supine <-> sit independently while maintaining sternal precautions toallow for a safe d/c. 7. Pt will be able to go up and down 13 stairs using a rail for balance only with stand-by assistance to prepare for a safe d/c. Treatment Plan: Pt to be seen 3-4x for patient and family/caregiver education and training on sternal precautions, functional mobility, gait, stairs, exercise, safety awareness, endurance & energy conservation, and d/c planning. Tentative D/C Plan: Home with support/assistance Pt understands and agrees with PT plan, goals, and tentative discharge plan: Yes Total time spent with patient: 30 minutes Total timed interventions: 0 minutes RONN DIA, PT Pager: [phone] Physical Therapy Rehabilitation Department Miscellaneous - Provider, Taty - 02/04/2014 5:20 PM EDT Op Note - Paco Gunter MD - 02/04/2014 3:19 PM EDT [facility] Operative Note Patient Name: Colleen Moreno : [id number] MR#: [id number] Case Date: 02/04/2014 Surgeon: Surgeon(s) and Role: * Paco Gunter MD - Primary * Ibrahima Balderrama PA - Physician [employer] Senior Sergeant Preoperative diagnosis: Aortic stenosis, mitral regurgitation Postoperative diagnosis: Aortic stenosis, mitral regurgitation Procedure(s): AVR 21 mm Bovine pericardial Magna MV repair, commissuroplasty PM commissure, 28 mm physio ring annuloplsty GETA Estimated Blood Loss: 200 Drains: Mediastinal Disposition: taken directly to the ICU, intubated and in a critical condition. Condition: doing well without problems (Please see the Surgical Encounter Summary for any Implant and Specimen details pertinent to this patient.) CLARIFICATION NEEDED COPY: Daniel Hand M.D. Attending Surgeon: Dr. Paco Gunter Assist: Ibrahima Balderrama P.A.-C. Anesthesia: General by endotracheal technique. Operation Performed: 1. Replace the aortic valve with a 21 mm Magna bovine pericardial bioprosthesis. 2. Repair mitral valve with a commissuroplasty of the destroyed posteromedial commissure and a 28 mm Physio ring annuloplasty. Preop Diagnosis: Aortic regurgitation, congestive heart failure, and mitral regurgitation. Postoperative Diagnoses and Findings: Same. The aortic regurgitation was secondary to bacterial endocarditis and a bicuspid aortic valve. The mitral valve was regurgitant secondary to destruction of the posteromedial commissure region from endocarditis. The postoperative echo showed no residual MR, preserved left ventricular systolic function, and a normally functioning aortic bioprosthesis. Technique: The patient was brought to operating room, placed upon the operating table in supine position following the induction of general anesthetic by endotracheal technique and the placement of appropriate monitoring lines. She was prepped using a sterile prep. The midline sternal wound was created, carried down through the sternum, which was divided with a saw. The patient was heparinized and cannulated for bypass with direct cannulation of superior and inferior vena cava. She was brought on bypass. The aorta was crossclamped. The heart was arrested with cold hyperkalemic blood cardioplegia. Additional doses of cardioplegia were given through the crossclamp interval as indicated by any significant rise in myocardial septal temperature or the return of any cardiac electrical activity. The mitral valve was approached via an incision behind the intraatrial septum after fully developing Waterston's groove. A self-retaining retractor was positioned. The above findings were noted. The annulus was rimmed with polyester horizontal mattress sutures. The anterior leaflet appeared to best meet that of a 28 mm Physio ring sizer. The commissure at the posteromedial papillary muscle region was reconstructed using everting 5-0 polyester sutures. The annuloplasty ring was secured. Saline leak testing demonstrated no residual MR. The left atrium was closed using two running 3-0 Prolene sutures that were tied upon themselves. The aortic root was opened with a transverse aortotomy. The above findings were noted. The valve leaflet was sharply excised. The ventricular cavity was irrigated with a copious amount of saline to remove any residual calcific debris. The annulus was then rimmed with horizontal mattress sutures, taking care to pledgets on the ventricular surface. The annulus was adequate in diameter for a 21 mm prosthesis, which was selected and positioned and tied in position. The aortic root was closed using two running 4-0 Prolene sutures that were tied upon themselves. The patient was placed in the head down position with the aortic root vent placed on high suction. Blood was transfused to the heart while the heart was massaged to remove residual air from left ventricular cavity. A warm dose of cardioplegia was administered. The crossclamp was removed with the patient in head down position. The aortic root vent was placed on high suction and the patient was fully rewarmed on bypass. While being rewarmed, several maneuvers were executed to remove all residual air from left ventricular cavity, as was confirmed by intraoperative echo. Once fully rewarmed on bypass, she was from bypass without difficulty. The above echo findings were noted. Protamine sulfate was administered. She was decannulated. Hemostasis was secured. Epicardial and right atrial pacing wires had been positioned. Mediastinal drains were placed. The sternum was reapproximated with surgical wire. Soft tissues anterior to the sternum were reapproximated using a layered absorbable suture closure. Sterile dressings were applied and the patient was taken to the Cardiothoracic Intensive Care Unit in hemodynamically stable condition. Paco Gunter MD [phone] OR Attestation - Paco Gunter MD - 02/04/2014 12:33 PM EDT Attestation: Case Date: 02/04/2014 I performed this procedure without the involvement of a resident. PACO GUNTER MD 02/04/2014 Brief Op Note - Paco Gunter MD - 02/04/2014 12:29 PM EDT Brief Operative Note Patient Name: Colleen Moreno : [id number] MR#: [id number] Case Date: 02/04/2014 Surgeon: Surgeon(s) and Role: * Paco Gunter MD - Primary * Ibrahima Balderrama PA - Physician [employer] Preoperative diagnosis: Aortic stenosis/regurgitataion , mitral regurgitation Postoperative diagnosis: Same Procedure(s): AVR 21 mm magna pericardial bioprosthesis MV repair, Posteromedial commissuralplsty, 28 mm physio ring Anesthesia: GETA/ Jeronimo Findings: AR secondary to bicuspid AV with SBE, 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 EF 55%, post op DANN no MR, no AR Estimated Blood Loss: 200 Drains: mediastinal Disposition: taken directly to the ICU, intubated and in a critical condition. Condition: doing well without problems Paco Gunter MD [phone] documented in this encounter Plan of Treatment Scheduled Referrals Name Type Priority Associated Diagnoses Order S chedule Referral to Outpatient Referral Routine S/P MVR (mitral Order ed: Cardiac Rehab valve repair) 02/07/2014 documented as of this encounter Procedures Procedure Name Priority Date/Time Associated Diagnosis Comme nts CARPENTRY TEACHER SCAN 02/11/2014 12:52 Res ults for this PM EDT procedure are i n the results section. IMPLANTABLE DEVICES 02/11/2014 10:39 Resu lts for this SCAN AM EDT procedure are i n the results section. PROTHROMBIN TIME Routine 02/10/2014 6:29 AM Resul ts for this EDT procedure are i n the results section. PROTHROMBIN TIME Routine 02/09/2014 5:34 AM Resul ts for this EDT procedure are i n the results section. PROTHROMBIN TIME Routine 02/08/2014 4:35 AM Resul ts for this EDT procedure are i n the results section. XR ABDOMEN ACUTE STAT 02/07/2014 5:12 PM Resul ts for this SERIES W PA CHEST EDT procedure are in the results section. HEMOGRAM STAT 02/07/2014 9:07 AM Results f or this EDT procedure are i n the results section. DIFFERENTIAL, STAT 02/07/2014 9:07 AM Results for this AUTOMATED EDT procedure are i n the results section. CBC (WITH DIFF) STAT 02/07/2014 9:07 AM EDT XR CHEST PA AND Routine 02/07/2014 8:09 AM Result s for this LATERAL EDT procedure are i n the results section. PROTHROMBIN TIME Routine 02/07/2014 3:20 AM Resul ts for this EDT procedure are i n the results section. BASIC METABOLIC Routine 02/07/2014 3:20 AM Result s for this PANEL (NON-FASTING) EDT procedur e are in the results section. POTASSIUM Routine 02/06/2014 2:53 PM Results f or this EDT procedure are i n the results section. PROTHROMBIN TIME Routine 02/06/2014 4:56 AM Resul ts for this EDT procedure are i n the results section. APTT Routine 02/05/2014 2:11 PM Results f or this EDT procedure are i n the results section. PROTHROMBIN TIME Routine 02/05/2014 2:11 PM Resul ts for this EDT procedure are i n the results section. POCT GLUCOSE Routine 02/05/2014 11:10 Results for this AM EDT procedure are i n the results section. POCT GLUCOSE Routine 02/05/2014 10:05 Results for this AM EDT procedure are i n the results section. POCT GLUCOSE Routine 02/05/2014 9:11 AM Results f or this EDT procedure are i n the results section. POCT GLUCOSE Routine 02/05/2014 8:12 AM Results f or this EDT procedure are i n the results section. POCT GLUCOSE Routine 02/05/2014 7:14 AM Results f or this EDT procedure are i n the results section. POCT GLUCOSE Routine 02/05/2014 5:52 AM Results f or this EDT procedure are i n the results section. SCAN, PERIPHERAL Routine 02/05/2014 4:05 AM Resul ts for this BLOOD EDT procedure are i n the results section. HEMOGRAM Routine 02/05/2014 4:05 AM Results f or this EDT procedure are i n the results section. DIFFERENTIAL, Routine 02/05/2014 4:05 AM Results for this AUTOMATED EDT procedure are i n the results section. CARDIAC ENZYMES Routine 02/05/2014 4:05 AM Result s for this (MC/CGP) EDT procedure are i n the results section. CREATININE Routine 02/05/2014 4:05 AM Results f or this EDT procedure are i n the results section. CBC (WITH DIFF) Routine 02/05/2014 4:05 AM EDT BUN Routine 02/05/2014 4:05 AM Results f or this EDT procedure are i n the results section. POTASSIUM Routine 02/05/2014 4:05 AM Results f or this EDT procedure are i n the results section. GLUCOSE, FASTING Routine 02/05/2014 4:05 AM Resul ts for this EDT procedure are i n the results section. POCT GLUCOSE Routine 02/05/2014 4:04 AM Results f or this EDT procedure are i n the results section. POCT GLUCOSE Routine 02/05/2014 1:54 AM Results f or this EDT procedure are i n the results section. POCT GLUCOSE Routine 02/05/2014 12:05 Results for this AM EDT procedure are i n the results section. POCT GLUCOSE Routine 02/04/2014 10:08 Results for this PM EDT procedure are i n the results section. POCT GLUCOSE Routine 02/04/2014 8:59 PM Results f or this EDT procedure are i n the results section. EXTUBATE Routine 02/04/2014 8:34 PM EDT BLOOD GAS 2 ARTERIAL Routine 02/04/2014 8:17 PM R esults for this EDT procedure are i n the results section. POCT GLUCOSE Routine 02/04/2014 8:16 PM Results f or this EDT procedure are i n the results section. POCT GLUCOSE Routine 02/04/2014 7:16 PM Results f or this EDT procedure are i n the results section. POCT GLUCOSE Routine 02/04/2014 5:56 PM Results f or this EDT procedure are i n the results section. POCT GLUCOSE Routine 02/04/2014 5:01 PM Results f or this EDT procedure are i n the results section. HEMOGLOBIN Routine 02/04/2014 5:00 PM Results f or this EDT procedure are i n the results section. POTASSIUM Routine 02/04/2014 5:00 PM Results f or this EDT procedure are i n the results section. POCT GLUCOSE Routine 02/04/2014 4:00 PM Results f or this EDT procedure are i n the results section. POCT GLUCOSE Routine 02/04/2014 2:40 PM Results f or this EDT procedure are i n the results section. BLOOD GAS 2 ARTERIAL Routine 02/04/2014 1:50 PM R esults for this EDT procedure are i n the results section. XR CHEST ONE VIEW STAT 02/04/2014 1:40 PM Resu lts for this EDT procedure are i n the results section. EKG 12-LEAD STAT 02/04/2014 1:35 PM S/P AVR Results for this EDT S/P MVR (mitral valve proced ure are in repair) the results section. CARDIAC SURGERY VENT Routine 02/04/2014 1:24 PM WEANING - PROTOCOL EDT @VALVULOPLASTY,ANABEL Routine 02/04/2014 12:22 L VALVE, PM EDT W\CPB;RADICAL RECON W\WO RING SURGICAL PATHOLOGY Routine 02/04/2014 12:14 Resul ts for this REPORT PM EDT procedure are i n the results section. PREPARE PLATELETS, STAT 02/04/2014 12:05 Resul ts for this APHERESIS PM EDT procedure are i n the results section. HEMOGRAM Routine 02/04/2014 11:55 Results for this AM EDT procedure are i n the results section. DIFFERENTIAL, Routine 02/04/2014 11:55 Results fo r this AUTOMATED AM EDT procedure are i n the results section. APTT Routine 02/04/2014 11:55 Results for this AM EDT procedure are i n the results section. THROMBIN TIME Routine 02/04/2014 11:55 Results fo r this AM EDT procedure are i n the results section. PROTHROMBIN TIME Routine 02/04/2014 11:55 Results for this AM EDT procedure are i n the results section. FIBRINOGEN Routine 02/04/2014 11:55 Results for this AM EDT procedure are i n the results section. BLOOD GAS 2 ARTERIAL Routine 02/04/2014 11:51 Res ults for this AM EDT procedure are i n the results section. BLOOD GAS 2 ARTERIAL Routine 02/04/2014 11:20 Res ults for this AM EDT procedure are i n the results section. SPECIMEN TO Routine 02/04/2014 11:06 Results for this PATHOLOGY AM EDT procedure are i n the results section. FIBRINOGEN STAT 02/04/2014 11:00 Results for this AM EDT procedure are i n the results section. PLATELET COUNT STAT 02/04/2014 11:00 Results f or this AM EDT procedure are i n the results section. BLOOD GAS 2 ARTERIAL Routine 02/04/2014 10:45 Res ults for this AM EDT procedure are i n the results section. BLOOD GAS 2 ARTERIAL Routine 02/04/2014 10:15 Res ults for this AM EDT procedure are i n the results section. BLOOD GAS 2 ARTERIAL Routine 02/04/2014 9:46 AM R esults for this EDT procedure are i n the results section. BLOOD GAS 2 ARTERIAL Routine 02/04/2014 9:22 AM R esults for this EDT procedure are i n the results section. BLOOD GAS 2 ARTERIAL Routine 02/04/2014 8:16 AM R esults for this EDT procedure are i n the results section. @VALVULOPLASTY,ANABEL 02/04/2014 7:24 AM Aortic stenosi s, L VALVE, EDT mitral regurgitation W\CPB;RADICAL RECON W\WO RING (WRVU 44.83) @REPLACE AORTIC 02/04/2014 7:24 AM Aortic stenosis, VALVE, OPEN, W\CPB, EDT mitral regurgitation W\PROSTHETIC VALVE (WRVU 41.32) PREPARE RBC Routine 02/04/2014 7:00 AM Results f or this EDT procedure are i n the results section. documented in this encounter Results EKG 12 Lead (03/20/2014 1:18 PM EST) Component Value Ref Range Test Analysis Performed Pathologis t Method Time At Signature Ventricular rate 90 BPM MUSE SYSTEM Atrial Rate 90 BPM MUSE SYSTEM P-R Interval 116 ms MUSE SYSTEM QRS Duration 106 ms MUSE SYSTEM Q-T Interval 394 ms MUSE SYSTEM QTC Calculated 481 ms MUSE SYSTEM (Bezet) Calculated P [place] 11 degrees MUSE SYSTEM Calculated R [place] 86 degrees MUSE SYSTEM Calculated T [place] 69 degrees MUSE SYSTEM INTERPRETATION Normal sinus rhythm MUSE SYSTEM Incomplete right bundle branch block Cannot rule out Inferior infarct , age undetermined T wave abnormality, consider anterior ischemia Abnormal ECG When compared with ECG of 04-FEB-2014 13:35, No significant change was found Confirmed by MD Finesse, Ankita ([id number]) on 03/21/2014 7: 56:55 PM Specimen Anatomical Collection Method Collection Time Receive d Time (Source) Location / / Volume Laterality 03/20/2014 1:18 PM 4 7:56 EST PM EST Paco Gunter MD ECG ORDERABLES Performing Organization Address City/State/ZIP Code Phon e Number MUSE SYSTEM Echocardiogram Transthoracic(Leb) (03/20/2014 1:12 PM EST) P athologist Signature EF 55 HEARTLAB SYSTEM Anatomical Region Laterality Modality Other Specimen (Source) Anatomical Location Collection Method / Collectio n Time Received Time / Laterality Volume 03/20/2014 Narrative 03/20/2014 1:17 PM EST Procedure: ? Transthoracic Echocardiogram Patient: ? JOSH MACIAS J ?(Age): 1960(54) Med Rec#: ?[id number] ? Sex: ?F ? [place] Loc[place] [place] Ht / Wt: ??158(cm)/58(kg) Pt. Loc: ? Echo Lab ? BSA: ?1.6 Study Date: ?03/20/2014 ? Pt. Type: Outpatient Tape: ? Referring: Paco Gunter Basting Machine Operator: Miriam Langley Diagnosis: ??Mitral and aortic valve dis ease ??(396.9) CPT Code(s): ??Color Doppler (93198), ?? Echo Full (45010), ??Spectral Doppler (92609), Indication(s): ??Aortic prosthesis, base line Rhythm: HR ?BP ?100/60 ?? SUMMARY: 1. Borderline concentric left ventricula r hypertrophy is observed. There is normal global left ventricular systolic function. ??Ejection fraction is estimated to be 55%. ??There are no left ventricular segmental wall motion abnormalities. 2. Right ventricular chamber size, wall thickness, and systolic function are within normal limits. 3. A pericardial bio-prosthetic aortic v alve is present. ??The bio-prosthetic aortic valve appears well seated with normal function. The mean trans-valvular gradient across ??the aortic valve is 13 mmHg. There is a trace amount of prosthetic ao rtic valve regurgitation present. 4. Status-post placement of a mitral clifford ve ring.28 mm 5. There is a trace amount of mitral pro sthesis regurgitation. 6. See remainder of report for additiona l findings. FINDINGS: Left Ventricle ?The left ventricular chamber size is normal. ?Borderline concentric left ventric ular hypertrophy is observed. ?There is no evidence of LVOT obstr uction. ?No ventricular septal defect is vi sualized. ?There is normal global left ventri cular systolic function. ??Ejection fraction is estimated to be 55%. ?There are no left ventricular segm ental wall motion abnormalities. ?Doppler assessment is consistent w ith elevated left sided filling pressure. Left Atrium ?The left atrium is normal in size. (25 ml/m2) Right Ventricle ?Right ventricular chamber size, wa ll thickness, and systolic function are within normal limits. ?The estimated pulmonary artery sys tolic pressure is 25 mmHg. ?The estimated right atrial pressur e is 3 mmHg. Right Atrium ?The right atrium is normal in size . Aortic Valve ?The peak instantaneous trans-valvu lar gradient across ??the aortic valve is 25 mmHg. ?The mean trans-valvular gradient a cross ??the aortic valve is 13 mmHg. ?The size of the prosthetic aortic valve is 21mm. ?The prosthetic aortic valve was im planted on 02/04/2014. ?A pericardial bio-prosthetic aorti c valve is present. ?The bio-prosthetic aortic valve ap pears well seated with normal function. ?There is a trace amount of prosthe tic aortic valve regurgitation present. Mitral Valve ?The mitral valve leaflets are mild ly thickened. ?The mean gradient across the anabel l valve is 3 mmHg. ?The prosthetic mitral valve was im planted on 02/04/2014. ?Status-post placement of a mitral valve ring.28 mm ?There is a trace amount of mitral prosthesis regurgitation. Tricuspid Valve ?The tricuspid valve appears normal in structure and function. ?There is mild (1+/4+) tricuspid re gurgitation present. Pulmonic Valve ?The pulmonic valve appears normal in structure and function. ?There is trace pulmonic regurgitat ion present. Pericardium ?The pericardium appears normal and there is no evidence of a pericardial effusion. Aorta ?The aortic root is normal in size. ?The ascending aorta is normal in s ize. ?There is no evidence of coarctatio n of the aorta. Pulmonary Artery ?The main pulmonary artery appears normal. Venous ?The inferior vena cava appears nor mal in size. ?There is a greater than 50% respir atory change in the inferior vena cava dimension. Misc ?See remainder of report for additi onal findings. ?Two-dimensional echo, spectral Dop pler and color Doppler performed. Wall Motion: Segment Name ?Rest ? Base-Anteroseptal ?? Normal ? Base-Anterior ? Normal ? Base-Anterolateral ??Normal ? Base-Posterolateral Normal ? Base-Inferior ? Normal ? Base-Inferoseptal ?? Normal ? Mid-Anteroseptal ?Normal ? Mid-Anterior ?Normal ? Mid-Anterolateral ?? Normal ? Mid-Posterolateral ??Normal ? Mid-Inferior ?Normal ? Mid-Inferoseptal ?Normal ? Economy-Septal ? Normal ? Economy-Anterior ? Normal ? Economy-Lateral ?Normal ? Economy-Inferior ? Normal ? Economy-Tip ?Normal ? Chambers ?Value ?Units (Range) ? LV EF Est ? 55 ? % (55 to 80) ? EF ??Bi-p Simp ? 52 ? % (55 to 80) ? IVSd 2D ? 1.1 ?cm ? LVIDd 2D ?3.8 ?cm ? PWd 2D ?1.1 ?cm ? LVIDs 2D ?2.5 ?cm ? LVFS 2D ? 34 ? % ? LA area ? 13.1 ? cm2 (<21) ? RA area ? 11 ? cm2 (<18) ? Ao root ? 3.5 ?cm (2.1 to 3.6) ? Asc Ao ?3.1 ?cm (2 to 3.5) ? Aortic Valve ?Value ?Units (Range) ? AV grad P ? 25 ? mmHg ? AV grad M ? 13 ? mmHg ? DOI ? 0.5 ? AV pk susan ? 2.5 ?m/sec (1 to 1.7) ? LVOT pk susan ? 1.24 ? m/sec (0.7 to 1.1) ?? Mitral Valve ?Value ?Units (Range) ? MV grad M ? 3 ?mmHg ? E peak ?0.99 ? m/sec ? E/A ratio ? 0.8 ?ratio ? MVDT ?151 ?msec ? E1 ?0.07 ? m/sec ? E/E1 ?14.1 ? ratio ? Tricuspid/Pulmonic Valves ?Value ?Units (Range) ? TR peak susan ? 2.3 ?m/sec ? RAP ? 3 ?mmHg ? RVSP/PASP ? 25 ? mmHg ? This report has been electronically sign ed by: _ Curtis Irvin M.D. ? 03/20/2014 13:16:58 Images [facility] interpretation [facility] Cardiac Ultrasound Laboratory Procedure Note Curtis Irvin MD - 03/20/2014Format ting of this note might be different from the original. Procedure: Transthoracic Echocardiogram Patient: JOSH Douglas DOB(Age): [birth year](54) Med Rec#: [id number] Sex: F [place] Loc: [facility] [place] Ht / Wt: 158(cm)/58(kg) Pt. Loc: Echo Lab BSA: 1.6 Study Date: 03/20/2014 Pt. Type: Outpati ent Tape: Referring: Gunter, Paco Pineda Basting Machine Operator: Miriam Langley Diagnosis: Mitral and aortic valve disea se (396.9) CPT Code(s): Color Doppler (15002), Echo Full (61487), Spectral Doppler (41166), Indication(s): Aortic prosthesis, baseli ne Rhythm: HR BP 100/60 SUMMARY: 1. Borderline concentric left ventricula r hypertrophy is observed. There is normal global left ventricular systolic function. Ejection fraction is estimated to be 55%. There a re no left ventricular segmental wall motion abnormalities. 2. Right ventricular chamber size, wall thickness, and systolic function are within normal limits. 3. A pericardial bio-prosthetic aortic v alve is present. The bio-prosthetic aortic valve appears well seated with normal function. The mean trans-valvular gradient across the aortic valve is 13 mmHg. There is a trace amount of prosthetic ao rtic valve regurgitation present. 4. Status-post placement of a mitral clifford ve ring.28 mm 5. There is a trace amount of mitral pro sthesis regurgitation. 6. See remainder of report for additiona l findings. FINDINGS: Left Ventricle The left ventricular chamber size is no rmal. Borderline concentric left ventricular hypertrophy is observed. There is no evidence of LVOT obstructio n. No ventricular septal defect is visuali zed. There is normal global left ventricular systolic function. Ejection fraction is estimated to be 55%. There are no left ventricular segmental wall motion abnormalities. Doppler assessment is consistent with e levated left sided filling pressure. Left Atrium The left atrium is normal in size.(25 m l/m2) Right Ventricle Right ventricular chamber size, wall th ickness, and systolic function are within normal limits. The estimated pulmonary artery systolic pressure is 25 mmHg. The estimated right atrial pressure is 3 mmHg. Right Atrium The right atrium is normal in size. Aortic Valve The peak instantaneous trans-valvular g radient across the aortic valve is 25 mmHg. The mean trans-valvular gradient across the aortic valve is 13 mmHg. The size of the prosthetic aortic valve is 21mm. The prosthetic aortic valve was implant ed on 02/04/2014. A pericardial bio-prosthetic aortic clifford ve is present. The bio-prosthetic aortic valve appears well seated with normal function. There is a trace amount of prosthetic a ortic valve regurgitation present. Mitral Valve The mitral valve leaflets are mildly th ickened. The mean gradient across the mitral clifofrd ve is 3 mmHg. The prosthetic mitral valve was implant ed on 02/04/2014. Status-post placement of a mitral valve ring.28 mm There is a trace amount of mitral prost hesis regurgitation. Tricuspid Valve The tricuspid valve appears normal in s tructure and function. There is mild (1+/4+) tricuspid regurgi tation present. Pulmonic Valve The pulmonic valve appears normal in st ructure and function. There is trace pulmonic regurgitation p resent. Pericardium The pericardium appears normal and ther e is no evidence of a pericardial effusion. Aorta The aortic root is normal in size. The ascending aorta is normal in size. There is no evidence of coarctation of the aorta. Pulmonary Artery The main pulmonary artery appears faye l. Venous The inferior vena cava appears normal i n size. There is a greater than 50% respiratory change in the inferior vena cava dimension. Misc See remainder of report for additional findings. Two-dimensional echo, spectral Doppler and color Doppler performed. Wall Motion: Segment Name Rest Base-Anteroseptal Normal Base-Anterior Normal Base-Anterolateral Normal Base-Posterolateral Normal Base-Inferior Normal Base-Inferoseptal Normal Mid-Anteroseptal Normal Mid-Anterior Normal Mid-Anterolateral Normal Mid-Posterolateral Normal Mid-Inferior Normal Mid-Inferoseptal Normal Economy-Septal Normal Economy-Anterior Normal Economy-Lateral Normal Economy-Inferior Normal Economy-Tip Normal Chambers Value Units (Range) LV EF Est 55 % (55 to 80) EF Bi-p Simp 52 % (55 to 80) IVSd 2D 1.1 cm LVIDd 2D 3.8 cm PWd 2D 1.1 cm LVIDs 2D 2.5 cm LVFS 2D 34 % LA area 13.1 cm2 (<21) RA area 11 cm2 (<18) Ao root 3.5 cm (2.1 to 3.6) Asc Ao 3.1 cm (2 to 3.5) Aortic Valve Value Units (Range) AV grad P 25 mmHg AV grad M 13 mmHg DOI 0.5 AV pk susan 2.5 m/sec (1 to 1.7) LVOT pk susan 1.24 m/sec (0.7 to 1.1) Mitral Valve Value Units (Range) MV grad M 3 mmHg E peak 0.99 m/sec E/A ratio 0.8 ratio MVDT 151 msec E1 0.07 m/sec E/E1 14.1 ratio Tricuspid/Pulmonic Valves Value Units (Range) TR peak susan 2.3 m/sec RAP 3 mmHg RVSP/PASP 25 mmHg This report has been electronically sign ed by: _ Curtis Irvin M.D. 03/20/2014 13:16: 58 Images reviewed and interpretation verif ied [facility] Cardiac Ultrasound Laboratory Paco Gunter MD ECHO ORDERABLES XR chest routine PA & lateral (03/20/2014 [...] resolution of pollo ateral pleural effusions. Paco Gunter MD IMG DX ORDERABLES SCAN DOC: CARPENTRY TEACHER (02/11/2014 12:52 PM EDT) Anatomical Region Laterality Modality Other Narrative 02/11/2014 1:01 PM EDT Procedure Note Provider, Scanning - 02/11/2014 12:52 PM EDT Scanning Provider MEDIA MGR SCAN EXT ORDR/RSLT SCAN DOC: IMPLANTABLE DEVICES (02/11/2014 10:39 AM EDT) Narrative 02/11/2014 10:39 AM EDT Procedure Note Provider, Scanning - 02/11/2014 10:39 AM EDT Scanning Provider MEDIA MGR SCAN EXT ORDR/RSLT (ABNORMAL) Prothrombin Time (02/10/2014 6:29 AM EDT) P athologist Signature PT 29.3 (H) 12.5 - 15.5 CERNER sec MILLENNIUM Comment: [facility] Transfusion Committee Guidelines: I NR less than 2.0, PTT less than OR equal to 43.5 seconds, or Fibrinogen gre ater than or equal to 100 mg/dl indicate adequate procoagulant activity for hemostasis in patients without underlying bleeding disorders. INR 2.6 (H) 0.9 - 1.1 CERNER MILLENNIUM Specimen Anatomical Collection Method Collection Time Receive d Time (Source) Location / / Volume Laterality Blood specimen 02/10/2014 6:29 AM 014 6:54 (specimen) EDT AM EDT Resulting Agency Comment Spec In Lab Paco Gunter MD HEMATOLOGY ORDERABLES Performing Organization Address City/State/[place] [address] CERNER MILLENNIUM (ABNORMAL) Prothrombin Time (02/09/2014 5:34 AM EDT) P athologist Signature PT 27.1 (H) 12.5 - 15.5 CERNER sec MILLENNIUM Comment: [facility] Transfusion Committee Guidelines: I NR less than 2.0, PTT less than OR equal to 43.5 seconds, or Fibrinogen gre ater than or equal to 100 mg/dl indicate adequate procoagulant activity for hemostasis in patients without underlying bleeding disorders. INR 2.3 (H) 0.9 - 1.1 [employer] Specimen Anatomical Collection Method Collection Time Receive d Time (Source) Location / / Volume Laterality Blood specimen 02/09/2014 5:34 AM 014 5:39 (specimen) EDT AM EDT Resulting Agency Comment Spec In Lab Paco Gunter MD HEMATOLOGY ORDERABLES Performing Organization Address City/[facility]/[place] [address] [email or web address]ToIUM (ABNORMAL) Prothrombin Time (02/08/2014 4:35 AM EDT) P athologist Signature PT 21.0 (H) 12.5 - 15.5 CERNER RADLIVEENNIUM Comment: [facility] Transfusion Committee Guidelines: I NR less than 2.0, PTT less than OR equal to 43.5 seconds, or Fibrinogen gre ater than or equal to 100 mg/dl indicate adequate procoagulant activity for hemostasis in patients without underlying bleeding disorders. INR 1.7 (H) 0.9 - 1.1 [employer] Specimen Anatomical Collection Method Collection Time Receive d Time (Source) Location / / Volume Laterality Blood specimen 02/08/2014 4:35 AM 014 4:43 (specimen) EDT AM EDT Resulting Agency Comment Spec In Lab Paco Gunter MD HEMATOLOGY ORDERABLES Performing Organization Address [facility]/ZIP [facility] [place] [address] CERAnswer.ToIUM XR abdomen acute series with PA chest (02/07/2014 5:12 PM EDT) Anatomical Region Laterality Modality Abdomen, Chest N/A Radiographic Imaging Specimen (Source) Anatomical Collection Method Collection Time Re ceived Time Location / / Volume Laterality 02/07/2014 5:12 PM EDT Narrative 02/07/2014 5:43 PM EDT Examination ACUTE ABD SERIES WITH PA CHEST Clinical History refracoty nausea and vomiting POD#4 s/p cardiac surgery, r/o ileus, obstruction Comparison PA chest January 30, 2014 AP chest 2013. Technique PA chest, supine and upright abdomen. Findings There is no free subdiaphragmatic air. ? ?There has been no change in bilateral pleural effusions right greater than lef t and partial atelectasis of the lower lobes. ??There is no congestive heart fa ilure or pneumothorax. ??There are sternal wires and prosthetic aortic and mitral valves. Supine and upright abdomen: There is gas in nondistended small and large bowel extending to the rectum. ??There is a mi ld to moderate amount of stool in the rectosigmoid and right colon. ??There ar e no pathologic air-fluid levels on the upright exam. Impression ? 1. No evidence of bowel obstructi on or significant ileus. ? 2. Stable postoperative findings in the chest including bilateral pleural effusions and basilar atelectasis. Procedure Note Adama Pinto MD - 02/07/2014Format ting of this note might be different from the original. Examination ACUTE ABD SERIES WITH PA CHEST Clinical History refracoty nausea and vomiting POD#4 s/p cardiac surgery, r/o ileus, obstruction Comparison PA chest January 30, 2014 AP chest Octobe r 2013. Technique PA chest, supine and upright abdomen. Findings There is no free subdiaphragmatic air. T here has been no change in bilateral pleural effusions right greater than lef t and partial atelectasis of the lower lobes. There is no congestive heart fail ure or pneumothorax. There are sternal wires and prosthetic aortic and mitral valves. Supine and upright abdomen: There is gas in nondistended small and large bowel extending to the rectum. There is a mild to moderate amount of stool in the rectosigmoid and right colon. There are no pathologic air-fluid levels on the upright exam. Impression 1. No evidence of bowel obstruction or significant ileus. 2. Stable postoperative findings in the chest including bilateral pleural effusions and basilar atelectasis. Paco Gunter MD IMG DX ORDERABLES (ABNORMAL) Differential, Automated (02/07/2014 9:07 AM EDT) [facility] Method Time Signature Neutrophils % 78.0 % CERNER MILLENNIUM Neutr Abs (ANC) 9.08 (H) 1.50 - CERNER 6.30 MILLENNIUM x10(3)/mc L Lymphocytes % 10.5 % CERNER MILLENNIUM Lymphocytes Abs 1.2 1.0 - 3.6 CERNER x10(3)/mc MILLENNIUM L Monocytes % 7.1 % CERNER MILLENNIUM Monocyte Abs 0.8 0.2 - 1.0 CERNER x10(3)/mc MILLENNIUM L Eosinophils % 4.0 % CERNER MILLENNIUM Eosinophils Abs 0.5 0.0 - 0.5 CERNER x10(3)/mc MILLENNIUM L Basophils % 0.1 % CERNER MILLENNIUM Basophils Abs 0.0 0.0 - 0.2 CERNER x10(3)/mc MILLENNIUM L Immature Gran % 0.30 % CERNER MILLENNIUM Comment: Immature granulocytes(IG's)percentage an d absolute count will include metamyelocytes, myelocytes, and promyelo cytes. Blood smears from CBCs yielding IG's will be scanned manually for concor dance. If this scan disagrees with the automated IG or if promyelocytes are not ed, a manual differential will be performed. Argelia Gran Abs 0.04 0.00 - 0.05 x10(3)/mcL CER NER MILLENNIUM Specimen Anatomical Collection Method Collection Time Receive d Time (Source) Location / / Volume Laterality Blood specimen 02/07/2014 9:07 AM 014 9:14 (specimen) EDT AM EDT Resulting Agency Comment Spec In Lab Paco Gunter MD HEMATOLOGY ORDERABLES Performing Organization Address City/State/ZIP Code Phon e Number [place] [id number] CERNER MILLENNIUM (ABNORMAL) Hemogram (02/07/2014 9:07 AM EDT) P athologist Signature WBC 11.7 (H) 4.0 - 10.0 CERNER x10(3)/mcL MILLENNIUM RBC 2.57 (L) 3.93 - CERNER 5.22 MILLENNIUM x10(6)/mcL Hemoglobin 8.3 (L) 11.2 - CERNER 15.7 gm/dL MILLENNIUM Comment: Called by:EVELYN _, Read back by:AIDEN MARTINEZ _, Date-Time:02-07-2014-0925 _. Hematocrit 24.3 (L) 34.0 - 45.0 % BAMBI STAFFORDI UM MCV 94.6 (H) 79.0 - 94.0 fL BAMBI STAFFORDI UM MCH 32.3 (H) 26.6 - 32.2 pg BAMBI STAFFORDI UM MCHC 34.2 32.0 - 36.5 gm/dL BAMBI BERUMEN NNIUM Platelets 174 145 - 370 x10(3)/mcL BAMBI DC LLENNIUM RDWSD 42.2 35.0 - 46.0 fL BAMBI STAFFORDI UM RDWCV 12.4 10.9 - 14.4 % BAMBI STAFFORDIU M MPV 10.2 9.0 - 12.0 fL BAMBI STAFFORDIU M Specimen Anatomical Collection Method Collection Time Receive d Time (Source) Location / / Volume Laterality Blood specimen 02/07/2014 9:07 AM 014 9:14 (specimen) EDT AM EDT Resulting Agency Comment Spec In Lab Paco Gunter MD HEMATOLOGY ORDERABLES Performing Organization Address City/State/[place] [address] BAMBI STAFFORDIUM XR chest routine PA & lateral (02/07/2014 8:09 AM EDT) Anatomical Region Laterality Modality Chest N/A Radiographic Imaging Specimen (Source) Anatomical Collection Method Collection Time Re ceived Time Location / / Volume Laterality 02/07/2014 8:09 AM EDT Narrative 02/07/2014 5:45 PM EDT Examination CHEST ROUTINE 2 VIEWS 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 No pneumothorax. There is a small to mod erate pleural effusion on the right and a small pleural effusion on the left wit h associated atelectasis. Unchanged sternotomy wires, and aortic and mitral valve replacements. ?? Impression Small to moderate right-sided pleural ef fusion and small left pleural effusion with associated atelectasis. Film and interpretation reviewed by the attending Procedure Note Yanni Watts MD - 02/07/2014Formatt ing of this note might be different from the original. 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 No pneumothorax. There is a small to mod erate pleural effusion on the right and a small pleural effusion on the left wit h associated atelectasis. Unchanged sternotomy wires, and aortic and mitral valve replacements. Impression Small to moderate right-sided pleural ef fusion and small left pleural effusion with associated atelectasis. Film and interpretation reviewed by the attending Paco Gunter MD IMG DX ORDERABLES (ABNORMAL) Prothrombin Time (02/07/2014 3:20 AM EDT) athologist Signature PT 18.5 (H) 12.5 - 15.5 CERNER sec MILLENNIUM Comment: [facility] Transfusion Committee Guidelines: I NR less than 2.0, PTT less than OR equal to 43.5 seconds, or Fibrinogen gre ater than or equal to 100 mg/dl indicate adequate procoagulant activity for hemostasis in patients without underlying bleeding disorders. INR 1.4 (H) 0.9 - 1.1 CERNER MILLENNIUM Specimen Anatomical Collection Method Collection Time Receive d Time (Source) Location / / Volume Laterality Blood specimen 02/07/2014 3:20 AM 014 3:42 (specimen) EDT AM EDT Resulting Agency Comment Spec In Lab Paco Gunter MD HEMATOLOGY ORDERABLES Performing Organization Address City/State/[place] [address] CERNER MILLENNIUM (ABNORMAL) Basic Metabolic Panel (non-fasting) (02/07/2014 3:20 AM EDT) athologist Signature Glucose Lvl 96 60 - 199 CERNER mg/dL MILLENNIUM Comment: Diabetes: >=200 mg/dL plus symp toms BUN 17 8 - 18 mg/dL CERNER MILLENNIUM Comment: result rechecked- llu Creatinine 0.47 (L) 0.70 - 1.20 mg/dL CERNER MILL ENNIUM Comment: Please note that the pediatric reference intervals supplied above were not validated at [facility]. Results from pediatri c patients should be interpreted in conjunction to the patient's age, height and muscle mass. Sodium 137 135 - 145 mmol/L CERNER ZANE NIUM Potassium 4.0 3.5 - 5.0 mmol/L CERNER ZANE NIUM Comment: Please note: ??Patients with WBC >100,00 0 may have falsely elevated Potassium levels. ??For accurate Potassium quantif ication in these patients send serum separator tube (gold top) for subsequent determinations. ??Contact the Clinical Chemistry Laboratory if there are any qu estions. Chloride 104 98 - 107 mmol/L CERNER MILLENN IUM CO2 27 22 - 31 mmol/L CERNER MILLENNI UM Anion Gap 6 5 - 15 mmol/L CERNER MILLENNIU M Calcium 8.0 (L) 8.5 - 10.5 mg/dL CERNER ZANE NIUM Estimated GFR >60 >=60 CERNER MILLENNIU M Comment: This estimated GFR (eGFR) value was calc ulated using the MDRD equation which has been validated on patients between t he ages of 18 and 70. The MDRD should not be used to assess kidney function in patients < 18 years of age or in patients with extremes of body mass, or in patients with acute kidney failure. This value should be multiplied by 1.2 f or patients. For further information please copy and past e the following links into your internet browser. [email or web address] [email or web address] Specimen Anatomical Collection Method Collection Time Receive d Time (Source) Location / / Volume Laterality Blood specimen 02/07/2014 3:20 AM 014 3:42 (specimen) EDT AM EDT Resulting Agency Comment Spec In Lab Paco Gunter MD CHEMISTRY ORDERABLES Performing Organization Address City/State/[place] [address] CERNER MILLENNIUM Potassium (02/06/2014 2:53 PM EDT) P athologist Signature Potassium 3.8 3.5 - 5.0 CERNER mmol/L MILLENNIUM Comment: Please note: ??Patients with WBC >100,00 0 may have falsely elevated Potassium levels. ??For accurate Potassium quantif ication in these patients send serum separator tube (gold top) for subsequent determinations. ??Contact the Clinical Chemistry Laboratory if there are any qu estions. Specimen Anatomical Collection Method Collection Time Receive d Time (Source) Location / / Volume Laterality Blood specimen 02/06/2014 2:53 PM 014 3:09 (specimen) EDT PM EDT Resulting Agency Comment Spec In Lab Paco Gunter MD CHEMISTRY ORDERABLES Performing Organization Address [facility]/[place] [address] CERNER MILLENNIUM (ABNORMAL) Prothrombin Time (02/06/2014 4:56 AM EDT) P athologist Signature PT 17.2 (H) 12.5 - 15.5 CERNER sec MILLENNIUM Comment: [facility] Transfusion Committee Guidelines: I NR less than 2.0, PTT less than OR equal to 43.5 seconds, or Fibrinogen gre ater than or equal to 100 mg/dl indicate adequate procoagulant activity for hemostasis in patients without underlying bleeding disorders. INR 1.3 (H) 0.9 - 1.1 CERNER MILLENNIUM Specimen Anatomical Collection Method Collection Time Receive d Time (Source) Location / / Volume Laterality Blood specimen 02/06/2014 4:56 AM 014 5:01 (specimen) EDT AM EDT Resulting Agency Comment Spec In Lab Paco Gunter MD HEMATOLOGY ORDERABLES Performing Organization Address [facility] Code Phon e Number [address] [facility] MILLENNIUM APTT (02/05/2014 2:11 PM EDT) P athologist Signature PTT 34 25 - 35 sec CERNER MILLENNIUM Comment: Recommended therapeutic PTT range for fu ll dose unfractionated heparin is 80-114 seconds. Specimen Anatomical Collection Method Collection Time Receive d Time (Source) Location / / Volume Laterality Blood specimen 02/05/2014 2:11 PM 014 2:20 (specimen) EDT PM EDT Resulting Agency Comment Spec In Lab Paco Gunter MD HEMATOLOGY ORDERABLES Performing Organization Address City/[facility]/[place] [address] CERNER SocialmothTUBA CITY REGION[facility] HEALTH CARE CORPORATIONIUM (ABNORMAL) Prothrombin Time (02/05/2014 2:11 PM EDT) athologist Signature PT 16.8 (H) 12.5 - 15.5 [facility] Comment: [facility] Transfusion Committee Guidelines: I NR less than 2.0, PTT less than OR equal to 43.5 seconds, or Fibrinogen gre ater than or equal to 100 mg/dl indicate adequate procoagulant activity for hemostasis in patients without underlying bleeding disorders. INR 1.3 (H) 0.9 - 1.1 [facility] Specimen Anatomical Collection Method Collection Time Receive d Time (Source) Location / / Volume Laterality Blood specimen 02/05/2014 2:11 PM 014 2:20 (specimen) EDT PM EDT Resulting Agency Comment Spec In Lab Paco Gunter MD HEMATOLOGY ORDERABLES Performing Organization Address City/State/ZIP Code Phon e Number [address] [facility] POCT Glucose (02/05/2014 11:10 AM EDT) athologist Signature POC Glucose 125 60 - 199 CERNER mg/dL [facility] Comment: Supplemental ranges: <140 mg/dL before meals <180 mg/dL all other times of the day Specimen Anatomical Collection Method Collection Time Receive d Time (Source) Location / / Volume Laterality Blood specimen 02/05/2014 11:10 4 (specimen) AM EDT 11:10 AM EDT Paco Gunter MD POINT OF CARE TEST ORDERABLE S Performing Organization Address City/State/ZIP Code Phon e Number [address] [facility] MILLTUBA CITY [facility] C[facility] CORPORATIONIUM POCT Glucose (02/05/2014 10:05 AM EDT) athologist Signature POC Glucose 139 60 - 199 CERNER mg/dL [facility] Comment: Supplemental ranges: <140 mg/dL before meals <180 mg/dL all other times of the day Specimen Anatomical Collection Method Collection Time Receive d Time (Source) Location / / Volume Laterality Blood specimen 02/05/2014 10:05 4 (specimen) AM EDT 10:05 AM EDT Paco Gunter MD POINT OF CARE TEST ORDERABLE S Performing Organization Address City/State/ZIP Code Phon e Number [address] CERNER MILLENNIUM POCT Glucose (02/05/2014 9:11 AM EDT) P athologist Signature POC Glucose 125 60 - 199 CERNER mg/dL MILLENNIUM Comment: Supplemental ranges: <140 mg/dL before meals <180 mg/dL all other times of the day Specimen Anatomical Collection Method Collection Time Receive d Time (Source) Location / / Volume Laterality Blood specimen 02/05/2014 9:11 AM 014 9:11 (specimen) EDT AM EDT Paco Gunter MD POINT OF CARE TEST ORDERABLE S Performing Organization Address City/State/ZIP Code Phon e Number [address] CERNER MILLENNIUM POCT Glucose (02/05/2014 8:12 AM EDT) P athologist Signature POC Glucose 130 60 - 199 CERNER mg/dL MILLENNIUM Comment: Supplemental ranges: <140 mg/dL before meals <180 mg/dL all other times of the day Specimen Anatomical Collection Method Collection Time Receive d Time (Source) Location / / Volume Laterality Blood specimen 02/05/2014 8:12 AM 014 8:12 (specimen) EDT AM EDT Paco Gunter MD POINT OF CARE TEST ORDERABLE S Performing Organization Address City/State/ZIP Code Phon e Number [address] CERNER MILLENNIUM POCT Glucose (02/05/2014 7:14 AM EDT) P athologist Signature POC Glucose 119 60 - 199 CERNER mg/dL MILLENNIUM Comment: Supplemental ranges: <140 mg/dL before meals <180 mg/dL all other times of the day Specimen Anatomical Collection Method Collection Time Receive d Time (Source) Location / / Volume Laterality Blood specimen 02/05/2014 7:14 AM 014 7:14 (specimen) EDT AM EDT Paco Gunter MD POINT OF CARE TEST ORDERABLE S Performing Organization Address City/[facility]/ZIP Code Phon e Number [address] CERNER MILLENNIUM POCT Glucose (02/05/2014 5:52 AM EDT) P athologist Signature POC Glucose 137 60 - 199 CERNER mg/dL MILLENNIUM Comment: Supplemental ranges: <140 mg/dL before meals <180 mg/dL all other times of the day Specimen Anatomical Collection Method Collection Time Receive d Time (Source) Location / / Volume Laterality Blood specimen 02/05/2014 5:52 AM 014 5:52 (specimen) EDT AM EDT Paco Gunter MD POINT OF CARE TEST ORDERABLE S Performing Organization Address City/[facility]/ZIP Code Phon e Number [address] CERNER MILLENNIUM Scan, Peripheral Blood (02/05/2014 4:05 AM EDT) athologist Signature Plat Estimate Normal CERNER MILLENNIUM RBC Morphology Normal CERNER MILLENNIUM Specimen Anatomical Collection Method Collection Time Receive d Time (Source) Location / / Volume Laterality Blood specimen 02/05/2014 4:05 AM 014 4:16 (specimen) EDT AM EDT Resulting Agency Comment Spec In Lab Paco Gunter MD HEMATOLOGY ORDERABLES Performing Organization Address City/[facility]/ZIP Code Phon e Number [address] CERNER MILLENNIUM (ABNORMAL) Differential, Automated (02/05/2014 4:05 AM EDT) Patholo gist Method Time Signature Neutrophils % 91.7 % CERNER MILLENNIUM Neutr Abs (ANC) 20.36 (H) 1.50 - CERNER 6.30 MILLENNIUM x10(3)/mc L Lymphocytes % 4.6 % CERNER MILLENNIUM Lymphocytes Abs 1.0 1.0 - 3.6 CERNER x10(3)/mc MILLENNIUM L Monocytes % 3.5 % CERNER MILLENNIUM Monocyte Abs 0.8 0.2 - 1.0 CERNER x10(3)/mc MILLENNIUM L Eosinophils % 0.0 % CERNER MILLENNIUM Eosinophils Abs 0.0 0.0 - 0.5 CERNER x10(3)/mc MILLENNIUM L Basophils % 0.0 % CERNER MILLENNIUM Basophils Abs 0.0 0.0 - 0.2 CERNER x10(3)/mc MILLENNIUM L Immature Gran % 0.20 % CERNER MILLENNIUM Comment: Immature granulocytes(IG's)percentage an d absolute count will include metamyelocytes, myelocytes, and promyelo cytes. Blood smears from CBCs yielding IG's will be scanned manually for concor dance. If this scan disagrees with the automated IG or if promyelocytes are not ed, a manual differential will be performed. Argelia Gran Abs 0.05 0.00 - 0.05 x10(3)/mcL CER NER MILLENNIUM Specimen Anatomical Collection Method Collection Time Receive d Time (Source) Location / / Volume Laterality Blood specimen 02/05/2014 4:05 AM 014 4:16 (specimen) EDT AM EDT Resulting Agency Comment Spec In Lab Paco Gunter MD HEMATOLOGY ORDERABLES Performing Organization Address City/State/ZIP Code Phon e Number [place] [id number] CERNER MILLENNIUM (ABNORMAL) Hemogram (02/05/2014 4:05 AM EDT) P athologist Signature WBC 22.2 (H) 4.0 - 10.0 CERNER x10(3)/mcL MILLENNIUM RBC 3.24 (L) 3.93 - CERNER 5.22 MILLENNIUM x10(6)/mcL Hemoglobin 10.7 (L) 11.2 - CERNER 15.7 gm/dL MILLENNIUM Hematocrit 30.7 (L) 34.0 - CERNER 45.0 % MILLENNIUM MCV 94.8 (H) 79.0 - CERNER 94.0 fL MILLENNIUM MCH 33.0 (H) 26.6 - CERNER 32.2 pg MILLENNIUM MCHC 34.9 32.0 - CERNER 36.5 gm/dL MILLENNIUM Platelets 218 145 - 370 CERNER x10(3)/mcL MILLENNIUM RDWSD 43.9 35.0 - CERNER 46.0 fL MILLENNIUM RDWCV 12.7 10.9 - CERNER 14.4 % MILLENNIUM MPV 10.5 9.0 - 12.0 CERNER fL [facility] Specimen Anatomical Collection Method Collection Time Receive d Time (Source) Location / / Volume Laterality Blood specimen 02/05/2014 4:05 AM 014 4:16 (specimen) EDT AM EDT Resulting Agency Comment Spec In Lab Paco Gunter MD HEMATOLOGY ORDERABLES Performing Organization Address City/State/ZIP Code Phon e Number [place] [id number] CERNER MILLENNIUM (ABNORMAL) Cardiac Enzymes (02/05/2014 4:05 AM EDT) P athologist Signature Troponin-T 0.43 (H) <=0.03 CERNER ng/mL [facility] Comment: 0.03 ng/mL: Represents the 99th percenti le upper reference limit for normals. >0.03 ng/mL: Elevated cardiac troponin T level indicative of myocardial damage. Diagnosis of acute, evolving or recent M I requires a typical rise and gradual fall of cTnT with at least ONE of the fo llowing: a) Ischemic symptoms b) Development of pathologic Q waves on the ECG c) ECG changes indicative of eschemia (S -T segment elevation/depression) d) Coronary artery intervention Serial bloods should be obtained for ochoa ting on admission, at 6 to 9 hrs and again at 12 to 24 hrs if earlier samples are negative and the clinical index of suspicion is high. Reference: [Myocardial infarction redefined? a consensus document of the Joint Society of Cardiology/[place] [employer] f [employer] Committee for the redefinition of myocardial infarction. ? ?Journal of the [place] [employer] 2000; 36: 959-969] CK, Total 576 (H) 0 - 160 unit/L CERNER MILLENNI UM Specimen Anatomical Collection Method Collection Time Receive d Time (Source) Location / / Volume Laterality Blood specimen 02/05/2014 4:05 AM 014 4:16 (specimen) EDT AM EDT Resulting Agency Comment Spec In Lab Paco Gunter MD CHEMISTRY ORDERABLES Performing Organization Address City/[facility]/[place] [address] CERNER MILLENNIUM Potassium (02/05/2014 4:05 AM EDT) athologist Signature Potassium 4.3 3.5 - 5.0 CERNER mmol/L [facility] Comment: Please note: ??Patients with WBC >100,00 0 may have falsely elevated Potassium levels. ??For accurate Potassium quantif ication in these patients send serum separator tube (gold top) for subsequent determinations. ??Contact the Clinical Chemistry Laboratory if there are any qu estions. Specimen Anatomical Collection Method Collection Time Receive d Time (Source) Location / / Volume Laterality Blood specimen 02/05/2014 4:05 AM 014 4:16 (specimen) EDT AM EDT Resulting Agency Comment Spec In Lab Paco Gunter MD CHEMISTRY ORDERABLES Performing Organization Address City/[facility] [place] [address] CERNER MILLENNIUM (ABNORMAL) Glucose, fasting (02/05/2014 4:05 AM EDT) P athologist Signature Glucose 158 (H) 65 - 99 CERNER Fasting mg/dL [facility] Comment: ?Fasting* Glucose Interpretive C riteria Normal ?65-99 mg/dL Impaired Fasting glucose ?100-125 mg/dL Consistent with Diabetes Mellitus ? >or= 126 mg/dL *Fasting is defined as no caloric intake for at least 8 hours In the absence of unequivocal hypergly cemia a plasma glucose value of >or= 126 mg/dL should be repeated on a subseq uent day. Diagnosis and Classification of Diabetes Mellitus, Position Statement from the [place] [employer]. ??Diabete s Care, Volume 33, Supplement 1, May 2009 Specimen Anatomical Collection Method Collection Time Receive d Time (Source) Location / / Volume Laterality Blood specimen 02/05/2014 4:05 AM 014 4:16 (specimen) EDT AM EDT Resulting Agency Comment Spec In Lab Paco Gunter MD CHEMISTRY ORDERABLES Performing Organization Address City/State/[place] [address] CERNER MILLENNIUM (ABNORMAL) Creatinine (02/05/2014 4:05 AM EDT) athologist Signature Creatinine 0.48 (L) 0.70 - CERNER 1.20 mg/dL MILLENNIUM Comment: Please note that the pediatric reference intervals supplied above were not validated at [facility]. Results from pediatri c patients should be interpreted in conjunction to the patient's age, height and muscle mass. Estimated GFR >60 >=60 CERNER MILLENNIU M Comment: This estimated GFR (eGFR) value was calc ulated using the MDRD equation which has been validated on patients between t he ages of 18 and 70. The MDRD should not be used to assess kidney function in patients < 18 years of age or in patients with extremes of body mass, or in patients with acute kidney failure. This value should be multiplied by 1.2 f or patients. For further information please copy and past e the following links into your internet browser. [email or web address] [email or web address] Specimen Anatomical Collection Method Collection Time Receive d Time (Source) Location / / Volume Laterality Blood specimen 02/05/2014 4:05 AM 014 4:16 (specimen) EDT AM EDT Resulting Agency Comment Spec In Lab Paco Gunter MD CHEMISTRY ORDERABLES Performing Organization Address City/State/[place] [address] CERNER MILLENNIUM BUN (02/05/2014 4:05 AM EDT) athologist Signature BUN 9 8 - 18 CERNER mg/dL MILLENNIUM Specimen Anatomical Collection Method Collection Time Receive d Time (Source) Location / / Volume Laterality Blood specimen 02/05/2014 4:05 AM 014 4:16 (specimen) EDT AM EDT Resulting Agency Comment Spec In Lab Paco Gunter MD CHEMISTRY ORDERABLES Performing Organization Address City/[facility]/ZIP Code Phon e Number [address] CERNER MILLENNIUM POCT Glucose (02/05/2014 4:04 AM EDT) P athologist Signature POC Glucose 152 60 - 199 CERNER mg/dL MILLENNIUM Comment: Supplemental ranges: <140 mg/dL before meals <180 mg/dL all other times of the day Specimen Anatomical Collection Method Collection Time Receive d Time (Source) Location / / Volume Laterality Blood specimen 02/05/2014 4:04 AM 014 4:04 (specimen) EDT AM EDT Paco Gunter MD POINT OF CARE TEST ORDERABLE S Performing Organization Address City/[facility]/ZIP Code Phon e Number [address] CERNER MILLENNIUM POCT Glucose (02/05/2014 1:54 AM EDT) P athologist Signature POC Glucose 136 60 - 199 CERNER mg/dL MILLENNIUM Comment: Supplemental ranges: <140 mg/dL before meals <180 mg/dL all other times of the day Specimen Anatomical Collection Method Collection Time Receive d Time (Source) Location / / Volume Laterality Blood specimen 02/05/2014 1:54 AM 014 1:54 (specimen) EDT AM EDT Paco Gunter MD POINT OF CARE TEST ORDERABLE S Performing Organization Address City/State/[place] [address] CERNER MILLENNIUM POCT Glucose (02/05/2014 12:05 AM EDT) P athologist Signature POC Glucose 140 60 - 199 CERNER mg/dL MILLENNIUM Comment: Supplemental ranges: <140 mg/dL before meals <180 mg/dL all other times of the day Specimen Anatomical Collection Method Collection Time Receive d Time (Source) Location / / Volume Laterality Blood specimen 02/05/2014 12:05 4 (specimen) AM EDT 12:05 AM EDT Paco Gunter MD POINT OF CARE TEST ORDERABLE S Performing Organization Address City/[facility]/[place] [address] CERNER MILLENNIUM POCT Glucose (02/04/2014 10:08 PM EDT) P athologist Signature POC Glucose 139 60 - 199 CERNER mg/dL ENNIUM Comment: Supplemental ranges: <140 mg/dL before meals <180 mg/dL all other times of the day Specimen Anatomical Collection Method Collection Time Receive d Time (Source) Location / / Volume Laterality Blood specimen 02/04/2014 10:08 4 (specimen) PM EDT 10:08 PM EDT Paco Gunter MD POINT OF CARE TEST ORDERABLE S Performing Organization Address City/[facility]/[place] [address] CERNER MILLENNIUM POCT Glucose (02/04/2014 8:59 PM EDT) athologist Signature POC Glucose 135 60 - 199 CERNER mg/dL ENNIUM Comment: Supplemental ranges: <140 mg/dL before meals <180 mg/dL all other times of the day Specimen Anatomical Collection Method Collection Time Receive d Time (Source) Location / / Volume Laterality Blood specimen 02/04/2014 8:59 PM 014 8:59 (specimen) EDT PM EDT Paco Gutner MD POINT OF CARE TEST ORDERABLE S Performing Organization Address City/State/[place] [address] CERNER MILLENNIUM (ABNORMAL) BLOOD GAS 2 ARTERIAL (02/04/2014 8:17 PM EDT) P athologist Signature pH Art 7.29 7.35 - CERNER (Critical) 7.45 MILLENNIUM Comment: Not noted by instrument operato r. pCO2 Art 45 35 - 45 mmHg CERNER MILLENNIUM pO2 Art 174 (H) 85 - 104 mmHg CERNER MILLENNIU M HCO3 Art 20.9 20.0 - 26.0 mmol/L [facility] MILL ENNIUM BE Art -5.4 (L) -3.0 - 3.0 mmol/L [facility] MIL[facility] NNIUM Hgb Blood Gas 10.8 (L) 11.2 - 15.7 gm/dL [facility] M ILLENNIUM O2HB Art 97.8 (H) 94.0 - 97.0 % [facility] MILLENNIU M COHB Art 0.3 % [facility] MILLENNIUM Comment: Nonsmokers: 0.5-1.5% COHB Smokers: Variable, but usually less than 10% Toxic: 20-30% COHB Lethal: Greater than 60% COHB METHB Art 0.5 <=1.5 % [facility] MILLENNIUM Na Whole Blood 143 135 - 145 mmol/L [facility] M ILLENNIUM K Whole Blood 3.7 3.5 - 5.0 mmol/L [facility] LLENNIUM Comment: Please note: Patients with WBC >100,000 may have falsely elevated Potassium levels. Contact the Clinical Chemistry L aboratory if there are any questions. ICa Whole Blood 1.08 (L) 1.15 - 1.33 mmol/L [facility] MILLENNIUM Comment: Note: ??Total bilirubin higher than 20 m g/dL may lead to falsely low ionized calcium. CL Whole Blood 118 (H) 98 - 107 mmol/L [facility] DC LLENNIUM Gluc Whole Bld 145 60 - 199 mg/dL [facility] MIL LENNIUM Comment: Diabetes: >=200 mg/dL plus symp toms. FIO2 Art 40 % [facility] MILLENNIUM PF Ratio Art 435 [facility] MILLENNIUM Temp Art 38.4 Celsius [facility] MILLENNIUM Specimen Anatomical Collection Method Collection Time Receive d Time (Source) Location / / Volume Laterality Blood specimen 02/04/2014 8:17 PM 014 8:17 (specimen) EDT PM EDT Paco Gunter MD CHEMISTRY ORDERABLES Performing Organization Address City/State/[place] [address] CERNER MILLENNIUM POCT Glucose (02/04/2014 8:16 PM EDT) athologist Signature POC Glucose 139 60 - 199 CERNER mg/dL MILLENNIUM Comment: Supplemental ranges: <140 mg/dL before meals <180 mg/dL all other times of the day Specimen Anatomical Collection Method Collection Time Receive d Time (Source) Location / / Volume Laterality Blood specimen 02/04/2014 8:16 PM 014 8:16 (specimen) EDT PM EDT Paco Gunter MD POINT OF CARE TEST ORDERABLE S Performing Organization Address City/State/[place] [address] CERNER MILLENNIUM POCT Glucose (02/04/2014 7:16 PM EDT) athologist Signature POC Glucose 120 60 - 199 CERNER mg/dL MILLENNIUM Comment: Supplemental ranges: <140 mg/dL before meals <180 mg/dL all other times of the day Specimen Anatomical Collection Method Collection Time Receive d Time (Source) Location / / Volume Laterality Blood specimen 02/04/2014 7:16 PM 014 7:16 (specimen) EDT PM EDT Paco Gunter MD POINT OF CARE TEST ORDERABLE S Performing Organization Address City/State/ZIP Code Phon e Number [address] CERNER MILLENNIUM POCT Glucose (02/04/2014 5:56 PM EDT) athologist Signature POC Glucose 116 60 - 199 CERNER mg/dL MILLENNIUM Comment: Supplemental ranges: <140 mg/dL before meals <180 mg/dL all other times of the day Specimen Anatomical Collection Method Collection Time Receive d Time (Source) Location / / Volume Laterality Blood specimen 02/04/2014 5:56 PM 014 5:56 (specimen) EDT PM EDT Paco Gunter MD POINT OF CARE TEST ORDERABLE S Performing Organization Address City/State/ZIP Code Phon e Number [address] CERNER MILLENNIUM POCT Glucose (02/04/2014 5:01 PM EDT) athologist Signature POC Glucose 150 60 - 199 CERNER mg/dL [facility] Comment: Supplemental ranges: <140 mg/dL before meals <180 mg/dL all other times of the day Specimen Anatomical Collection Method Collection Time Receive d Time (Source) Location / / Volume Laterality Blood specimen 02/04/2014 5:01 PM 014 5:01 (specimen) EDT PM EDT Paco Gunter MD POINT OF CARE TEST ORDERABLE S Performing Organization Address City/[facility]/ZIP Code Phon e Number [address] CERNER MILLENNIUM (ABNORMAL) Hemoglobin (02/04/2014 5:00 PM EDT) athologist Signature Hemoglobin 11.0 (L) 11.2 - CERNER 15.7 gm/dL [facility] Specimen Anatomical Collection Method Collection Time Receive d Time (Source) Location / / Volume Laterality Blood specimen 02/04/2014 5:00 PM 014 5:07 (specimen) EDT PM EDT Resulting Agency Comment Spec In Lab Paco Gunter MD HEMATOLOGY ORDERABLES Performing Organization Address City/[facility]/ZIP Code Phon e Number [address] CERNER MILLENNIUM Potassium (02/04/2014 5:00 PM EDT) athologist [facility] Potassium 4.0 3.5 - 5.0 CERNER mmol/L [facility] Comment: Please note: ??Patients with WBC >100,00 0 may have falsely elevated Potassium levels. ??For accurate Potassium quantif ication in these patients send serum separator tube (gold top) for subsequent determinations. ??Contact the Clinical Chemistry Laboratory if there are any qu estions. Specimen Anatomical Collection Method Collection Time Receive d Time (Source) Location / / Volume Laterality Blood specimen 02/04/2014 5:00 PM 014 5:07 (specimen) EDT PM EDT Resulting Agency Comment Spec In Lab Paco Gunter MD CHEMISTRY ORDERABLES Performing Organization Address City/[facility]/ZIP Code Phon e Number [address] CERNER MILLENNIUM POCT Glucose (02/04/2014 4:00 PM EDT) athologist Signature POC Glucose 104 60 - 199 CERNER mg/dL MILLENNIUM Comment: Supplemental ranges: <140 mg/dL before meals <180 mg/dL all other times of the day Specimen Anatomical Collection Method Collection Time Receive d Time (Source) Location / / Volume Laterality Blood specimen 02/04/2014 4:00 PM 014 4:00 (specimen) EDT PM EDT Paco Gunter MD POINT OF CARE TEST ORDERABLE S Performing Organization Address City/[facility]/ZIP Code Phon e Number [address] [facility] MILLENNIUM POCT Glucose (02/04/2014 2:40 PM EDT) athologist Signature POC Glucose 111 60 - 199 CERNER mg/dL ENNIUM Comment: Supplemental ranges: <140 mg/dL before meals <180 mg/dL all other times of the day Specimen Anatomical Collection Method Collection Time Receive d Time (Source) Location / / Volume Laterality Blood specimen 02/04/2014 2:40 PM 014 2:40 (specimen) EDT PM EDT Paco Gunter MD POINT OF CARE TEST ORDERABLE S Performing Organization Address City/[facility]/ZIP Code Phon e Number [address] [facility] MILLENNIUM (ABNORMAL) BLOOD GAS 2 ARTERIAL (02/04/2014 1:50 PM EDT) Analysis Performed At Patho logist Time Signature pH Art 7.41 7.35 - CERNER 7.45 MILLENNIUM pCO2 Art 37 35 - 45 CERNER mmHg MILLENNIUM pO2 Art 585 (H) 85 - 104 CERNER mmHg MILLENNIUM HCO3 Art 23.0 20.0 - CERNER 26.0 MILLENNIUM mmol/L BE Art -1.6 -3.0 - 3.0 CERNER mmol/L MILLENNIUM Hgb Blood Gas 10.3 (L) 11.2 - CERNER 15.7 gm/dL MILLENNIUM O2HB Art 98.9 (H) 94.0 - CERNER 97.0 % MILLENNIUM COHB Art 0.2 % CERNER MILLENNIUM Comment: Nonsmokers: 0.5-1.5% COHB Smokers: Variable, but usually less than 10% Toxic: 20-30% COHB Lethal: Greater than 60% COHB METHB Art 0.3 <=1.5 % CERNER MILLENNIUM Na Whole Blood 140 135 - 145 mmol/L CERNER M ILLENNIUM K Whole Blood 3.3 (L) 3.5 - 5.0 mmol/L CERNER DC LLENNIUM Comment: Please note: Patients with WBC >100,000 may have falsely elevated Potassium levels. Contact the Clinical Chemistry L aboratory if there are any questions. ICa Whole Blood 1.04 (L) 1.15 - 1.33 mmol/L CERNE R MILLENNIUM Comment: Note: ??Total bilirubin higher than 20 m g/dL may lead to falsely low ionized calcium. CL Whole Blood 116 (H) 98 - 107 mmol/L CERNER DC LLENNIUM Gluc Whole Bld 124 60 - 199 mg/dL CERNER MIL LENNIUM Comment: Diabetes: >=200 mg/dL plus symp toms. FIO2 Art 100 % CERNER MILLENNIUM PF Ratio Art 585 CERNER MILLENNIUM Specimen Anatomical Collection Method Collection Time Receive d Time (Source) Location / / Volume Laterality Blood specimen 02/04/2014 1:50 PM 014 1:50 (specimen) EDT PM EDT Paco Gunter MD CHEMISTRY ORDERABLES Performing Organization Address City/State/ZIP Code Phon e Number [place] [id number] CERNER MILLENNIUM XR chest PA or AP- 1 view (02/04/2014 1:40 PM EDT) Anatomical Region Laterality Modality Chest N/A Radiographic Imaging Specimen (Source) Anatomical Collection Method Collection Time Re ceived Time Location / / Volume Laterality 02/04/2014 1:40 PM EDT Narrative 02/04/2014 2:30 PM EDT Examination CHEST ONE VIEW/XPORT Clinical History ETT, Drifting placement Comparison January 30, 2014. Technique Single portable AP semi upright view of the chest. Findings Endotracheal tube ends in the lower thor acic trachea at approximately 2 cm above the aki. ??The right IJ central venous line ends at the cavoatrial junction. ??Drainage catheters are in pl janeth. ??Superimposition of a defibrillator pad on the right. ??Sternal wires, anabel l valve repair and aortic valve replacement. ??Normal size of the heart and width of the mediastinum. ??Lungs are clear. Impression No acute pulmonary pathology. ??Postoper ative findings. Procedure Note Kenya Gold MD - 2013 Examination CHEST ONE VIEW/XPORT Clinical History ETT, Drifting placement Comparison January 30, 2014. Technique Single portable AP semi upright view of the chest. Findings Endotracheal tube ends in the lower thor acic trachea at approximately 2 cm above the aki. The right IJ central v enous line ends at the cavoatrial junction. Drainage catheters are in plac e. Superimposition of a defibrillator pad on the right. Sternal wires, mitral valve repair and aortic valve replacement. Normal size of the heart an d width of the mediastinum. Lungs are clear. Impression No acute pulmonary pathology. Postoperat al findings. Paco Gunter MD IMG DX ORDERABLES EKG 12 Lead (02/04/2014 1:35 PM EDT) [facility] Method Time Signature Ventricular rate 73 BPM MUSE SYSTEM Atrial Rate 73 BPM MUSE SYSTEM P-R Interval 110 ms MUSE SYSTEM QRS Duration 112 ms MUSE SYSTEM Q-T Interval 486 ms MUSE SYSTEM QTC Calculated 535 ms MUSE SYSTEM (Bezet) Calculated P [place] 43 degrees MUSE SYSTEM Calculated R [place] 96 degrees MUSE SYSTEM Calculated T [place] 49 degrees MUSE SYSTEM INTERPRETATION Sinus rhythm with short NC MUSE SYSTEM Rightward axis Incomplete right bundle branch block Prolonged QT Abnormal ECG When compared with ECG of 30-JAN-2014 14:21, T wave inversion now evident in Anterior leads QT has lengthened QRS duration has increased Confirmed by MD JUNIOR, CRISTOFER ([id number]) on 02/04/2014 1:44:17 PM Specimen Anatomical Collection Method Collection Time Receive d Time (Source) Location / / Volume Laterality 02/04/2014 1:35 PM 4 1:44 EDT PM EDT Paco Gunter MD ECG ORDERABLES Performing Organization Address City/State/ZIP Code Phon e Number MUSE SYSTEM Surgical Pathology Report (02/04/2014 12:14 PM EDT) Component Value Ref Test Analysis Performed At [facility] gist Range Method Time Signature Surgical CERNER Pathology ? [facility] Report ? Provider: ?? PACO GUNTER ??Pt. Name: ?? COLLEEN MORENO ? Acc #: ?[id number] ?Pt. MRN: ?[id number] ? Col Date: ?? 4 ? /Sex: ?1960,(54 years),Female ? Rec Date: ?? 02/04/2014 ? LOC: ?[facility] ? SURGICAL PATHOLOGY ? ---Pathologic Diagnosis--- ? A - Aortic valve leaflets, excision: ? 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 ? CR-0 ? 02/06/14 ? JRP ? 02/06/14 Verified by: ? Marina ZAPATA, Rickie Stearns ? Pathologist ? (Electronic Si gnature) ? The attending pathologist whose signature appears o n this report has ? reviewed all diagnostic slides and has edited the koffi ss and/or ? microscopic portion of the report in rendering the fi nal pathologic ? diagnosis. ? ---Gross Description--- ? A - Labeled/Fixative: Aortic valve leaflets, saline. ? Quantity/Size: Fragments, aggregating 3.2 x 1.8 x 0.8 cm. ? Tissue Description: I ntact and fragmented valve leaflets with moderate to ? severe calcific plaques. ??On examination, there ar e no vegetations. ? Sections/Processing: Represented sections are submitted for decalcification ? in cassette A1. (R1, for decal) ??pps ? ---Clinical Information--- ? Specimen Submitted: ? A - Aortic valve leaflets ? Clinical History: ? Aortic stenosis, mitral regurgitation ? Clinical Diagnosis: ? Aortic stenosis, mitral regurgitation Specimen (Source) Anatomical Collection Method Collection Time Re ceived Time Location / / Volume Laterality 02/04/2014 12:14 PM EDT Paco Gunter MD PATHOLOGY/CYTOLOGY ORDERABLE S Performing Organization Address [facility]/ZIP [facility] Ph[place] Number [address] [facility] Prepare Platelets, Apheresis (02/04/2014 12:05 PM EDT) P athologist Signature Dispensed? Yes [facility]ILLOT[facility] Specimen Anatomical Collection Method Collection Time Receive d Time (Source) Location / / Volume Laterality Blood specimen 02/04/2014 12:05 4 (specimen) PM EDT 12:05 PM EDT Paco Gunter MD BLOOD BANK ORDERABLES Performing Organization Address City/[facility]/ZIP Code Phon e Number [address] [facility] Thrombin time (02/04/2014 11:55 AM EDT) P athologist Signature Thrombin Time 19 15 - 20 CERNER sec MILLENNIUM Specimen Anatomical Collection Method Collection Time Receive d Time (Source) Location / / Volume Laterality Blood specimen 02/04/2014 11:55 4 (specimen) AM EDT 11:58 AM EDT Resulting Agency Comment Spec In Lab Paco Gunter MD HEMATOLOGY ORDERABLES Performing Organization Address City/[facility]/ZIP Code Phon e Number [address] [facility] ELIEENNIUM (ABNORMAL) Fibrinogen (02/04/2014 11:55 AM EDT) P athologist Signature Fibrinogen 146 (L) 175 - 450 [facility] mg/dL MILLENNIUM Comment: Called by: rajesh, Read back by: long [email or web address] [email or web address] Date/Time:02/04/14 12:16 Specimen Anatomical Collection Method Collection Time Receive d Time (Source) Location / / Volume Laterality Blood specimen 02/04/2014 11:55 4 (specimen) AM EDT 11:58 AM EDT Resulting Agency Comment Spec In Lab Paco Gunter MD HEMATOLOGY ORDERABLES Performing Organization Address City/[facility]/ZIP Code Phon e Number [address] CERNER MILLENNIUM (ABNORMAL) APTT (02/04/2014 11:55 AM EDT) P athologist Signature PTT 45 (H) 25 - 35 sec CERNER MILLENNIUM Comment: Recommended therapeutic PTT range for fu ll dose unfractionated heparin is 80-114 seconds. Specimen Anatomical Collection Method Collection Time Receive d Time (Source) Location / / Volume Laterality Blood specimen 02/04/2014 11:55 4 (specimen) AM EDT 11:58 AM EDT Resulting Agency Comment Spec In Lab Paco Gunter MD HEMATOLOGY ORDERABLES Performing Organization Address City/[facility]/[place] [address] CERNER MILLENNIUM (ABNORMAL) Prothrombin Time (02/04/2014 11:55 AM EDT) P athologist Signature PT 19.5 (H) 12.5 - 15.5 CERNER sec MILLENNIUM Comment: [facility] Transfusion Committee Guidelines: I NR less than 2.0, PTT less than OR equal to 43.5 seconds, or Fibrinogen gre ater than or equal to 100 mg/dl indicate adequate procoagulant activity for hemostasis in patients without underlying bleeding disorders. INR 1.5 (H) 0.9 - 1.1 CERNER MILLENNIUM Specimen Anatomical Collection Method Collection Time Receive d Time (Source) Location / / Volume Laterality Blood specimen 02/04/2014 11:55 4 (specimen) AM EDT 11:58 AM EDT Resulting Agency Comment Spec In Lab Paco Gunter MD HEMATOLOGY ORDERABLES Performing Organization Address City/State/ZIP Code Phon e Number [address] CERNER MILLENNIUM (ABNORMAL) Differential, Automated (02/04/2014 11:55 AM EDT) [facility] Method Time Signature Neutrophils % 82.9 % CERNER MILLENNIUM Neutr Abs (ANC) 9.32 (H) 1.50 - CERNER 6.30 MILLENNIUM x10(3)/mc L Lymphocytes % 15.9 % CERNER MILLENNIUM Lymphocytes Abs 1.8 1.0 - 3.6 CERNER x10(3)/mc MILLENNIUM L Monocytes % 0.5 % CERNER MILLENNIUM Monocyte Abs 0.1 (L) 0.2 - 1.0 CERNER x10(3)/mc MILLENNIUM L Eosinophils % 0.4 % CERNER MILLENNIUM Eosinophils Abs 0.0 0.0 - 0.5 CERNER x10(3)/mc MILLENNIUM L Basophils % 0.0 % CERNER MILLENNIUM Basophils Abs 0.0 0.0 - 0.2 CERNER x10(3)/mc MILLENNIUM L Immature Gran % 0.30 % CERNER MILLENNIUM Comment: Immature granulocytes(IG's)percentage an d absolute count will include metamyelocytes, myelocytes, and promyelo cytes. Blood smears from CBCs yielding IG's will be scanned manually for concor dance. If this scan disagrees with the automated IG or if promyelocytes are not ed, a manual differential will be performed. Argelia Gran Abs 0.03 0.00 - 0.05 x10(3)/mcL CER NER MILLENNIUM Specimen Anatomical Collection Method Collection Time Receive d Time (Source) Location / / Volume Laterality Blood specimen 02/04/2014 11:55 4 (specimen) AM EDT 11:55 AM EDT Resulting Agency Comment Spec In Lab Paco Gunter MD HEMATOLOGY ORDERABLES Performing Organization Address City/State/[place] [address] CERNER MILLENNIUM (ABNORMAL) Hemogram (02/04/2014 11:55 AM EDT) P athologist Signature WBC 11.2 (H) 4.0 - 10.0 CERNER x10(3)/mcL MILLENNIUM RBC 2.28 (L) 3.93 - CERNER 5.22 MILLENNIUM x10(6)/mcL Hemoglobin 7.2 (L) 11.2 - CERNER 15.7 gm/dL MILLENNIUM Hematocrit 21.6 (L) 34.0 - CERNER 45.0 % MILLENNIUM MCV 94.7 (H) 79.0 - CERNER 94.0 fL MILLENNIUM MCH 31.6 26.6 - CERNER 32.2 pg MILLENNIUM MCHC 33.3 32.0 - CERNER 36.5 gm/dL MILLENNIUM Platelets 146 145 - 370 CERNER x10(3)/mcL MILLENNIUM RDWSD 40.7 35.0 - CERNER 46.0 fL MILLENNIUM RDWCV 11.9 10.9 - CERNER 14.4 % MILLENNIUM MPV 10.2 9.0 - 12.0 CERNER fL MILLENNIUM Specimen Anatomical Collection Method Collection Time Receive d Time (Source) Location / / Volume Laterality Blood specimen 02/04/2014 11:55 4 (specimen) AM EDT 11:55 AM EDT Resulting Agency Comment Spec In Lab Paco Gunter MD HEMATOLOGY ORDERABLES Performing Organization Address City/State/[place] [address] CERNER MILLENNIUM (ABNORMAL) BLOOD GAS 2 ARTERIAL (02/04/2014 11:51 AM EDT) Analysis Performed At Patho logist Time Signature pH Art 7.39 7.35 - CERNER 7.45 MILLENNIUM pCO2 Art 40 35 - 45 CERNER mmHg MILLENNIUM pO2 Art 455 (H) 85 - 104 CERNER mmHg MILLENNIUM HCO3 Art 23.7 20.0 - CERNER 26.0 MILLENNIUM mmol/L BE Art -1.3 -3.0 - 3.0 CERNER mmol/L MILLENNIUM Hgb Blood Gas 7.4 (L) 11.2 - CERNER 15.7 gm/dL MILLENNIUM O2HB Art 98.0 (H) 94.0 - CERNER 97.0 % MILLENNIUM COHB Art 0.9 % CERNER MILLENNIUM Comment: Nonsmokers: 0.5-1.5% COHB Smokers: Variable, but usually less than 10% Toxic: 20-30% COHB Lethal: Greater than 60% COHB METHB Art 0.4 <=1.5 % CERNER MILLENNIUM Na Whole Blood 131 (L) 135 - 145 mmol/L CERNER M ILLENNIUM K Whole Blood 4.2 3.5 - 5.0 mmol/L CERNER DC LLENNIUM Comment: Please note: Patients with WBC >100,000 may have falsely elevated Potassium levels. Contact the Clinical Chemistry L aboratory if there are any questions. ICa Whole Blood 1.16 1.15 - 1.33 mmol/L CERNE R MILLENNIUM Comment: Note: ??Total bilirubin higher than 20 m g/dL may lead to falsely low ionized calcium. CL Whole Blood 108 (H) 98 - 107 mmol/L CERNER DC LLENNIUM Gluc Whole Bld 236 (H) 60 - 199 mg/dL CERNER MIL LENNIUM Comment: Diabetes: >=200 mg/dL plus symp toms. Specimen Anatomical Collection Method Collection Time Receive d Time (Source) Location / / Volume Laterality Blood specimen 02/04/2014 11:51 4 (specimen) AM EDT 11:51 AM EDT Paco Gunter MD CHEMISTRY ORDERABLES Performing Organization Address City/State/[place] [address] CERNER MILLENNIUM (ABNORMAL) BLOOD GAS 2 ARTERIAL (02/04/2014 11:20 AM EDT) Analysis Performed At Patho logist Time Signature pH Art 7.35 (L) 7.35 - CERNER 7.45 MILLENNIUM pCO2 Art 44 35 - 45 CERNER mmHg MILLENNIUM pO2 Art 316 (H) 85 - 104 CERNER mmHg MILLENNIUM HCO3 Art 24.0 20.0 - CERNER 26.0 MILLENNIUM mmol/L BE Art -1.5 -3.0 - 3.0 CERNER mmol/L MILLENNIUM Hgb Blood Gas 7.2 (L) 11.2 - CERNER 15.7 gm/dL MILLENNIUM O2HB Art 98.0 (H) 94.0 - CERNER 97.0 % MILLENNIUM COHB Art 0.7 % CERNER MILLENNIUM Comment: Nonsmokers: 0.5-1.5% COHB Smokers: Variable, but usually less than 10% Toxic: 20-30% COHB Lethal: Greater than 60% COHB METHB Art 0.6 <=1.5 % CERNER MILLENNIUM Na Whole Blood 127 (L) 135 - 145 mmol/L CERNER M ILLENNIUM K Whole Blood 5.6 (H) 3.5 - 5.0 mmol/L CERNER DC LLENNIUM Comment: Please note: Patients with WBC >100,000 may have falsely elevated Potassium levels. Contact the Clinical Chemistry L aboratory if there are any questions. ICa Whole Blood 1.33 1.15 - 1.33 mmol/L CERNE R MILLENNIUM Comment: Note: ??Total bilirubin higher than 20 m g/dL may lead to falsely low ionized calcium. CL Whole Blood 104 98 - 107 mmol/L CERNER DC LLENNIUM Gluc Whole Bld 280 (H) 60 - 199 mg/dL CERNER MIL LENNIUM Comment: Diabetes: >=200 mg/dL plus symp toms. Specimen Anatomical Collection Method Collection Time Receive d Time (Source) Location / / Volume Laterality Blood specimen 02/04/2014 11:20 4 (specimen) AM EDT 11:20 AM EDT Paco Gunter MD CHEMISTRY ORDERABLES Performing Organization Address City/[facility]/[place] [address] CERNER MILLENNIUM Specimen to Pathology (surgical or derm) (02/04/2014 11:06 AM EDT) Specimen Anatomical Collection Method Collection Time Receive d Time (Source) Location / / Volume Laterality AP Specimen 02/04/2014 11:06 02/04/2014 AM EDT 11:06 AM EDT Narrative CERNER MILLENNIUM - 02/04/2014 11:06 AM EDT Specimen requisition ordered. ??Separate Pathology report to follow Paco Gunter MD PATHOLOGY/CYTOLOGY ORDERABLE S Performing Organization Address City/[facility]/ZIP [facility] [place] [address] CERNER MILLENNIUM (ABNORMAL) Fibrinogen (02/04/2014 11:00 AM EDT) athologist Signature Fibrinogen 147 (L) 175 - 450 CERNER mg/dL MILLENNIUM Comment: Called by: , Read back by: aura escalera, Date/Time:02/04/14 11:23. Specimen Anatomical Collection Method Collection Time Receive d Time (Source) Location / / Volume Laterality Blood specimen 02/04/2014 11:00 4 (specimen) AM EDT 11:05 AM EDT Resulting Agency Comment Spec In Lab Paco Gunter MD HEMATOLOGY ORDERABLES Performing Organization Address City/[facility]/ZIP Code Phon e Number [address] [facility] M[facility]UM Platelet count (02/04/2014 11:00 AM EDT) athologist Signature Platelets 159 145 - 370 CERNER x10(3)/mcL [facility] AZLEENNIUM Specimen Anatomical Collection Method Collection Time Receive d Time (Source) Location / / Volume Laterality Blood specimen 02/04/2014 11:00 4 (specimen) AM EDT 11:04 AM EDT Resulting Agency Comment Spec In Lab Paco Gunter MD HEMATOLOGY ORDERABLES Performing Organization Address City/[facility]/[place] [address] CERNER MILLENNIUM (ABNORMAL) BLOOD GAS 2 ARTERIAL (02/04/2014 10:45 AM EDT) Analysis Performed At Patho logist Time Signature pH Art 7.45 7.35 - CERNER 7.45 MILLENNIUM pCO2 Art 34 (L) 35 - 45 CERNER mmHg MILLENNIUM pO2 Art 441 (H) 85 - 104 CERNER mmHg MILLENNIUM HCO3 Art 23.4 20.0 - CERNER 26.0 MILLENNIUM mmol/L BE Art -0.5 -3.0 - 3.0 CERNER mmol/L MILLENNIUM Hgb Blood Gas 7.0 (L) 11.2 - CERNER 15.7 gm/dL MILLENNIUM O2HB Art 97.8 (H) 94.0 - CERNER 97.0 % MILLENNIUM COHB Art 1.1 % CERNER MILLENNIUM Comment: Nonsmokers: 0.5-1.5% COHB Smokers: Variable, but usually less than 10% Toxic: 20-30% COHB Lethal: Greater than 60% COHB METHB Art 0.6 <=1.5 % CERNER MILLENNIUM Na Whole Blood 124 (L) 135 - 145 mmol/L CERNER M ILLENNIUM K Whole Blood 5.2 (H) 3.5 - 5.0 mmol/L CERNER DC LLENNIUM Comment: Please note: Patients with WBC >100,000 may have falsely elevated Potassium levels. Contact the Clinical Chemistry L aboratory if there are any questions. ICa Whole Blood 0.82 (Critical) 1.15 - 1.33 mmol/L CERNER MILLENNIUM Comment: Noted by electrical and instrument mechanic. Note: ??Total bilirubin higher than 20 m g/dL may lead to falsely low ionized calcium. CL Whole Blood 102 98 - 107 mmol/L CERNER DC LLENNIUM Gluc Whole Bld 250 (H) 60 - 199 mg/dL [facility] MIL LEN[facility]UM Comment: Diabetes: >=200 mg/dL plus symp toms. Specimen Anatomical Collection Method Collection Time Receive d Time (Source) Location / / Volume Laterality Blood specimen 02/04/2014 10:45 4 (specimen) AM EDT 10:45 AM EDT Paco Gunter MD CHEMISTRY ORDERABLES Performing Organization Address City/State/[place] [address] CERNER MILLENNIUM (ABNORMAL) BLOOD GAS 2 ARTERIAL (02/04/2014 10:15 AM EDT) Analysis Performed At Patho logist Time Signature pH Art 7.42 7.35 - CERNER 7.45 MILLENNIUM pCO2 Art 37 35 - 45 CERNER mmHg MILLENNIUM pO2 Art 544 (H) 85 - 104 CERNER mmHg MILLENNIUM HCO3 Art 23.7 20.0 - CERNER 26.0 MILLENNIUM mmol/L BE Art -0.7 -3.0 - 3.0 CERNER mmol/L MILLENNIUM Hgb Blood Gas 6.9 (L) 11.2 - CERNER 15.7 gm/dL MILLENNIUM O2HB Art 98.1 (H) 94.0 - CERNER 97.0 % MILLENNIUM COHB Art 0.8 % CERNER MILLENNIUM Comment: Nonsmokers: 0.5-1.5% COHB Smokers: Variable, but usually less than 10% Toxic: 20-30% COHB Lethal: Greater than 60% COHB METHB Art 0.5 <=1.5 % CERNER MILLENNIUM Na Whole Blood 125 (L) 135 - 145 mmol/L CERNER M ILLENNIUM K Whole Blood 5.3 (H) 3.5 - 5.0 mmol/L CERNER DC LLENNIUM Comment: Please note: Patients with WBC >100,000 may have falsely elevated Potassium levels. Contact the Clinical Chemistry L aboratory if there are any questions. ICa Whole Blood 0.80 (Critical) 1.15 - 1.33 mmol/L CERNER MILLENNIUM Comment: Noted by electrical and instrument mechanic. Note: ??Total bilirubin higher than 20 m g/dL may lead to falsely low ionized calcium. CL Whole Blood 101 98 - 107 mmol/L CERNER DC LLENNIUM Gluc Whole Bld 222 (H) 60 - 199 mg/dL CERNER MIL LENNIUM Comment: Diabetes: >=200 mg/dL plus symp toms. Specimen Anatomical Collection Method Collection Time Receive d Time (Source) Location / / Volume Laterality Blood specimen 02/04/2014 10:15 4 (specimen) AM EDT 10:15 AM EDT Paco Gunter MD CHEMISTRY ORDERABLES Performing Organization Address City/State/ZIP Code Phon e Number [place] [id number] CERNER MILLENNIUM (ABNORMAL) BLOOD GAS 2 ARTERIAL (02/04/2014 9:46 AM EDT) Analysis Performed At Patho logist Time Signature pH Art 7.44 7.35 - CERNER 7.45 MILLENNIUM pCO2 Art 33 (L) 35 - 45 CERNER mmHg MILLENNIUM pO2 Art 516 (H) 85 - 104 CERNER mmHg MILLENNIUM HCO3 Art 21.8 20.0 - CERNER 26.0 MILLENNIUM mmol/L BE Art -2.4 -3.0 - 3.0 CERNER mmol/L MILLENNIUM Hgb Blood Gas 7.4 (L) 11.2 - CERNER 15.7 gm/dL MILLENNIUM O2HB Art 98.6 (H) 94.0 - CERNER 97.0 % MILLENNIUM COHB Art 0.8 % CERNER MILLENNIUM Comment: Nonsmokers: 0.5-1.5% COHB Smokers: Variable, but usually less than 10% Toxic: 20-30% COHB Lethal: Greater than 60% COHB METHB Art 0.3 <=1.5 % CERNER MILLENNIUM Na Whole Blood 131 (L) 135 - 145 mmol/L CERNER M ILLENNIUM K Whole Blood 4.9 3.5 - 5.0 mmol/L CERNER DC LLENNIUM Comment: Please note: Patients with WBC >100,000 may have falsely elevated Potassium levels. Contact the Clinical Chemistry L aboratory if there are any questions. ICa Whole Blood 0.83 (Critical) 1.15 - 1.33 mmol/L CERNER MILLENNIUM Comment: Noted by electrical and instrument mechanic. Note: ??Total bilirubin higher than 20 m g/dL may lead to falsely low ionized calcium. CL Whole Blood 103 98 - 107 mmol/L [facility] DC LLENNIUM Gluc Whole Bld 180 60 - 199 mg/dL [facility] MIL LENNIUM Comment: Diabetes: >=200 mg/dL plus symp toms. Specimen Anatomical Collection Method Collection Time Receive d Time (Source) Location / / Volume Laterality Blood specimen 02/04/2014 9:46 AM 014 9:46 (specimen) EDT AM EDT Paco Gunter MD CHEMISTRY ORDERABLES Performing Organization Address City/State/[place] [address] CERNER MILLENNIUM (ABNORMAL) BLOOD GAS 2 ARTERIAL (02/04/2014 9:22 AM EDT) Analysis Performed At Patho logist Time Signature pH Art 7.46 (H) 7.35 - CERNER 7.45 MILLENNIUM pCO2 Art 32 (L) 35 - 45 CERNER mmHg MILLENNIUM pO2 Art 514 (H) 85 - 104 CERNER mmHg MILLENNIUM HCO3 Art 22.2 20.0 - CERNER 26.0 MILLENNIUM mmol/L BE Art -1.6 -3.0 - 3.0 CERNER mmol/L MILLENNIUM Hgb Blood Gas 7.4 (L) 11.2 - CERNER 15.7 gm/dL MILLENNIUM O2HB Art 98.5 (H) 94.0 - CERNER 97.0 % MILLENNIUM COHB Art 0.5 % CERNER MILLENNIUM Comment: Nonsmokers: 0.5-1.5% COHB Smokers: Variable, but usually less than 10% Toxic: 20-30% COHB Lethal: Greater than 60% COHB METHB Art 0.3 <=1.5 % CERNER MILLENNIUM Na Whole Blood 134 (L) 135 - 145 mmol/L CERNER M ILLENNIUM K Whole Blood 4.9 3.5 - 5.0 mmol/L CERNER DC LLENNIUM Comment: Please note: Patients with WBC >100,000 may have falsely elevated Potassium levels. Contact the Clinical Chemistry L aboratory if there are any questions. ICa Whole Blood 0.77 (Critical) 1.15 - 1.33 mmol/L CERNER MILLENNIUM Comment: Noted by electrical and instrument mechanic. Note: ??Total bilirubin higher than 20 m g/dL may lead to falsely low ionized calcium. CL Whole Blood 104 98 - 107 mmol/L [facility] DC LLENNIUM Gluc Whole Bld 165 60 - 199 mg/dL [facility] MIL LENNIUM Comment: Diabetes: >=200 mg/dL plus symp toms. Specimen Anatomical Collection Method Collection Time Receive d Time (Source) Location / / Volume Laterality Blood specimen 02/04/2014 9:22 AM 014 9:22 (specimen) EDT AM EDT Paco Gunter MD CHEMISTRY ORDERABLES Performing Organization Address City/State/[place] [address] CERNER MILLENNIUM (ABNORMAL) BLOOD GAS 2 ARTERIAL (02/04/2014 8:16 AM EDT) Analysis Performed At Patho logist Time Signature pH Art 7.45 7.35 - CERNER 7.45 MILLENNIUM pCO2 Art 37 35 - 45 CERNER mmHg MILLENNIUM pO2 Art 480 (H) 85 - 104 CERNER mmHg MILLENNIUM HCO3 Art 24.9 20.0 - CERNER 26.0 MILLENNIUM mmol/L BE Art 0.9 -3.0 - 3.0 CERNER mmol/L MILLENNIUM Hgb Blood Gas 11.7 11.2 - CERNER 15.7 gm/dL MILLENNIUM O2HB Art 99.1 (H) 94.0 - CERNER 97.0 % MILLENNIUM COHB Art 0.2 % CERNER MILLENNIUM Comment: Nonsmokers: 0.5-1.5% COHB Smokers: Variable, but usually less than 10% Toxic: 20-30% COHB Lethal: Greater than 60% COHB METHB Art 0.3 <=1.5 % CERNER MILLENNIUM Na Whole Blood 141 135 - 145 mmol/L CERNER M ILLENNIUM K Whole Blood 3.7 3.5 - 5.0 mmol/L [facility] LLENNIUM Comment: Please note: Patients with WBC >100,000 may have falsely elevated Potassium levels. Contact the Clinical Chemistry L aboratory if there are any questions. ICa Whole Blood 1.15 (L) 1.15 - 1.33 mmol/L CERMS R MILLENNIUM Comment: Note: ??Total bilirubin higher than 20 m g/dL may lead to falsely low ionized calcium. CL Whole Blood 108 (H) 98 - 107 mmol/L [facility] DC LLENNIUM Gluc Whole Bld 92 60 - 199 mg/dL [facility] MIL LENNIUM Comment: Diabetes: >=200 mg/dL plus symp toms. Specimen Anatomical Collection Method Collection Time Receive d Time (Source) Location / / Volume Laterality Blood specimen 02/04/2014 8:16 AM 014 8:16 (specimen) EDT AM EDT Paco Gunter MD CHEMISTRY ORDERABLES Performing Organization Address City/State/[place] [address] [facility] MILLENNIUM Prepare RBC (02/04/2014 7:00 AM EDT) P athologist Signature Dispensed? Yes [facility] Specimen Anatomical Collection Method Collection Time Receive d Time (Source) Location / / Volume Laterality Blood specimen 02/04/2014 7:00 AM 014 6:56 (specimen) EDT AM EDT Paco Gunter MD BLOOD BANK ORDERABLES Performing Organization Address City/State/ZIP Code [place] [address] [facility] documented in this encounter Visit Diagnoses Not on filedocumented in this encounter Administered Medications Inactive Administered Medications - up to 3 most recent administrations Medication Order MAR Action Action Date Dose Rate Site calcium chloride injection Given 02/04/2014 11:14 AM EDT 1 g ONCE PRN, Starting on Mon02/04/14 at 1114, Until Mon02/04/14 at 1324, Intra-Operative (Intra-Procedure) cardioplegic solution (PLEGISOL) induction Given 02/04/2014 9:17 AM EDT 260 mLs solution ONCE PRN, Starting on Mon02/04/14 at 0917, Until Mon02/04/14 at 1324, Intra-Operative (Intra-Procedure) cardioplegic solution (PLEGISOL) Given 02/04/2014 11:02 AM EDT 5 20 mLs maintenance solution ONCE PRN, Starting on Mon02/04/14 at 1102, Until Mon02/04/14 at 1324, Intra-Operative (Intra-Procedure) cardioplegic solution (PLEGISOL) reperfusion Given 10/2013 11:14 AM EDT 60 mLs solution ONCE PRN, Starting on Mon02/04/14 at 1114, Until Mon02/04/14 at 1324, Intra-Operative (Intra-Procedure) ceFURoxime (ZINACEF) injection 1.5 g Given 02/04/2014 9:01 AM EDT 1 g ONCE PRN, Starting on Mon02/04/14 at 0901, Until Mon02/04/14 at 1324, Intra-Operative (Intra-Procedure), Routine electrolyte-R (PH 7.4) (NORMOSOL) inject ion Given 02/04/2014 12:01 PM EDT 2 L ONCE PRN, Starting on Mon02/04/14 at 1201, Until Mon02/04/14 at 1324, Intra-Operative (Intra-Procedure) heparin (porcine) injection Given 02/04/2014 9:01 AM EDT 5,000 Units ONCE PRN, Starting on Mon02/04/14 at 0901, Until Mon02/04/14 at 1324, Intra-Operative (Intra-Procedure), Routine lidocaine (PF) (XYLOCAINE) 100 mg/5 mL (2 %) Given 10/2013 11:14 AM EDT 200 mg injection ONCE PRN, Starting on Mon02/04/14 at 1114, Until Mon02/04/14 at 1324, Intra-Operative (Intra-Procedure), Routine magnesium sulfate 4 mEq/mL (50 %) inject ion Given 02/04/2014 11:14 AM EDT 2 g ONCE PRN, Starting on Mon02/04/14 at 1114, Until Mon02/04/14 at 1324, Intra-Operative (Intra-Procedure), Routine mannitol (50 grams and over) 100 g/500 mL Given 02/04/2014 10:48 AM EDT 100 g (20%) infusion ONCE PRN, Starting on Mon02/04/14 at 1048, Until Mon02/04/14 at 1324, Intra-Operative (Intra-Procedure) documented in this encounter Active and Recently Administered Medications Times are shown in EDT. Scheduled Medication Order 02/08/2014 02/09/2014 02/10/2014 aspirin chewable tablet 81 mg (CANCELED) 0943 (Given - Provider: Ibrahima Jasmine RN) 0922 (Given - Provider: Jesusita Norman RN ) 0901 (Given - Provider: Alisson Pineda RN) 81 mg, Oral, DAILY, First dose on Mon at 0900, Until Discontinued, Start on post-op day 1 in the AM., Routine esomeprazole (NexIUM) capsule 40 mg (CANCELED) 0943 (G iven - Provider: Ibrahima Jasmine RN) 0923 (Given - Provider: Jesusita Norman RN ) 0901 (Given - Provider: Alisson Pineda RN) 40 mg, Oral, DAILY, First dose on Mon at 1345, Until Discontinued, If unable to take PO, may give IV, Routine furosemide (LASIX) injection 20 mg (CANCELED) 0943 (Gi sina - Provider: Ibrahima Jasmine RN)1659 (Given - Provider: Ibrahima Jasmine, MARISELA) 0924 (Given - Provider: Jesusita Norman RN) 20 mg, Intravenous, 2 TIMES DAILY, First dose on Mon02/05/14 at 0900, Until Discontinued, Routine ketorolac (TORADOL) injection 15 mg (COMPLETED) 14 ( Given - Provider: Lucille Hogue RN)0532 (Given - Provider: Lucille Hogue RN) 15 mg, Intravenous, EVERY 6 HOURS SCHEDU LED, 12 doses, First dose on Mon02/05/14 at 1200, Last dose on Mon02/08/14 at 0600, Routine metoprolol (LOPRESSOR) pre-split tablet 12.5 mg (CANCE LED) 944 (Given - Provider: Ibrahima Jasmine, RN)2099 (Given - Provider: Lucille Hogue, MARISELA) 922 (Given - Provider: Jesusita Norman, MARISELA)2025 (Given - Provider: Rocio Dejesus, MARISELA) 12.5 mg, Oral, EVERY 12 HOURS SCHEDULED (2 times per day), First dose on Mon02/05/14 at 0900, Until Discontinued, Routine metoprolol tartrate (LOPRESSOR) tablet 50 mg 900 (Given - Provider: Alisson Pineda RN) 50 mg, Oral, EVERY 12 HOURS SCHEDULED (2 times per day), First dose on Mon02/10/14 at 0900, Until Discontinued, Routine potassium chloride (K-DUR/KLOR-CON) extended release t ablet 20 mEq (CANCELED) 945 (Given - Provider: Ibrahima Jasmine, MARISELA)2055 (Given - Provider: Lucille Hogue RN) 921 (Given - Provider: Jesusita Norman RN ) 20 mEq, Oral, 2 TIMES DAILY, First dose on Mon02/05/14 at 1145, Until Discontinued, 20 mEq tablet may be dissolved in water for administration, Routine senna-docusate (PERICOLACE) 8.6-50 mg per tablet 2 tab let (CANCELED) 2055 (Given - Provider: Lucille Hogue RN - Comment: pt stated she only wanted 1 tab) 2099 (Not Given - Provider: Rocio Dejesus RN - Reason: Patient/family refused) 2 tablet, Oral, DAILY, First dose on Mon02/05/14 at 2100, Until Discontinued, Post-op day 1, Routine sodium chloride 0.9 % flush 5 mL (CANCELED) 0345 (Not Given - Provider: Lucille Hogue RN - Reason: See comment)0948 (Given - Provider: Ibrahima Jasmine RN)1145 (Not Given - Provider: Ibrahima Jasmine RN - Reason: Contraindicated - Comment: gave 1h early) 0345 (Not Given - Provider: Lucille nielsen RN - Reason: See comment - Comment: pt sleeping)1145 (Not Given - Provider: Jesusita Norman RN - Reason: See comment - Comment: Flushed during the beginning of the shift) 0345 (Not Given - Provider: Rocio page RN - Reason: Patient/family refused) 5 mL, Intravenous, EVERY 8 HOURS, First dose on Mon02/05/14 at 1145, Until Discontinued, Routine 2055 (Given - Provider: Lucille Hogue RN) 2023 (Given - Provider: Rocio Dejesus RN) warfarin (COUMADIN) tablet 2.5 mg 2.5 mg, Oral, ONCE, 1 dose, 02/10/14 at 1700, Routine warfarin (COUMADIN) tablet 5 mg (COMPLETED) 165 (Give n - Provider: Ibrahima Jasmine RN) 5 mg, Oral, ONCE, 1 dose, 02/08/14 at 1700, Routine warfarin (COUMADIN) tablet 5 mg (COMPLETED) 1635 (Given - Provider: Jesusita Norman RN) 5 mg, Oral, ONCE, 1 dose, 02/09/14 at 1700, Routine PRN Medication Order 02/08/2014 02/09/2014 02/10/2014 acetaminophen (OFIRMEV) injection 1,000 mg (COMPLETED) 1204 (Given - Provider: Ibrahima Jasmine RN) 1,000 mg, Intravenous, at 400 mL/hr, 4 T IMES DAILY PRN, 3 doses, Starting Mon02/05/14 at 1204, Until Discontinued, Do not exceed 4000mg in a 24 hour period, Maximum dose of acetaminophen is 4000 mg from all sources in 24 hours., Routine acetaminophen (TYLENOL) tablet 500-1,000 mg 2327 (Give n - Provider: Lucille Hogue RN) 034 (Given - Provider: Daryn Cervantes)1538 (Given - Provider: Jesusita Norman, MARISELA) 0001 (Given - Provider: Rocio hernandes, RN)0630 (Given - Provider: Rocio Dejesus, MARISELA)1028 (Given - Provider: Alisson Pineda, MARISELA) 500-1,000 mg, Oral, EVERY 4 HOURS PRN, S tarting 02/08/14 at 1858, Until 02/10/14 at 1236, Pain, Maximum dose of acetaminophen is 4000 mg from all sources in 24 hours., Routine diphenhydrAMINE (BENADRYL) capsule 25 mg (CANCELED) 20 57 (Given - Provider: Lucille Hogue RN) 2025 (Given - Provider: Rocio Dejesus RN) 25 mg, Oral, NIGHTLY PRN, Starting Sat 1 at 1629, Until 02/10/14 at 0801, Itching, Routine documented in this encounter Care Teams Supervisor Case Loading Relationship Specialty Start Date End Date Fabiola Gutierrez MD PCP - General 03/23/[address] [place] [address] documented as of this encounter
--- OUTSIDE RECORDS SUMMARY | 2022-03-22 09:52 | XMS_ITS | Clinical Summary ---
:1960 Author Organization [facility] [place] [address] Care Team Providers Name Role Phone Fabiola Gutierrez MD Primary Care Provider Allergies Active Allergy Reactions Severity Noted Date Comments Ibuprofen 10/05/2012 dizziness Oxycodone Nausea And Vomiting High 01/30/2014 Vancomycin Analogues IRRITAT ION Vancomycin Hcl Low Urticaria Medications Medication Sig Dispensed Refills Start Date End Date Status DOCUSATE SODIUM (COLACE Take by mouth 2 0 Active ORAL) times daily. CHOLECALCIFEROL, VITAMIN Take by mouth. 0 Active D3, (VITAMIN D3 ORAL) ascorbic acid (VITAMIN Take 500 mg by 0 Active C) 500 mg Tablet mouth daily. aspirin 81 mg Tablet, Take 81 mg by 0 Active Chewable mouth daily. polyethylene glycol Take 17 g by 0 Active (MIRALAX) 17 gram Powder mouth daily. in Packet amoxicillin (AMOXIL) 500 Take 2,000 mg by 0 Active mg Capsule mouth See Admin Instructions. Prior to dental work ferrous sulfate 325 mg Take 325 mg by 0 Active (65 mg iron) Tablet mouth daily (with breakfast). diphenhydrAMINE Take 25 mg by 0 Active (BENADRYL) 25 mg Capsule mouth nightly as needed. acetaminophen (TYLENOL) Take 1-2 tablets 0 4 Active 500 mg Tablet by mouth every 4 hours as needed for Pain. warfarin (COUMADIN) 2.5 Take as 60 tablet 2 02/10/2014 Active mg Tablet directed. HYDROmorphone (DILAUDID) Take 1 tablet by 40 tablet 0 02/11/20 14 Active 2 mg Tablet mouth every 4 hours as needed for Pain. metoprolol succinate Take 25 mg by 0 Active (TOPROL-XL) 25 mg Tablet mouth daily. Sustained Release 24 hr Active Problems Problem Noted Date Aortic regurgitation due to bicuspid aortic valve 12/31 Mitral regurgitation 01/24/2014 Immunizations Name Administration Dates Next Due Influenza PF, Split 02/10/2014 Influenza Vaccine, Whole 03/06/2006, 05/20/2005 Pneumococcal Polyvalent 23 04/06/2006 Td, adult 03/06/2006 Social History Tobacco Use Types Packs/Day Years Used Date Smoking Tobacco: Never Smokeless Tobacco: Never Alcohol Use Standard Drinks/Week Comments Not Asked 5 (1 standard drink = 0.6 oz pure alcoho l) Sex Assigned at Date Recorded Not on file Last Filed Vital Signs Vital Sign Reading Time Taken Comments Blood Pressure 100/70 03/20/2014 1:03 PM EST Pulse 93 03/20/2014 1:03 PM EST Temperature 36.8 ??C (98.2 ??F) 02/10/2014 7:55 AM EDT Respiratory Rate 18 02/10/2014 7:55 AM EDT Oxygen Saturation 96% 03/20/2014 1:03 PM EST Inhaled Oxygen Concentration - - Weight 59.4 kg (131 lb) 03/20/2014 1:03 PM EST Height 157.5 cm (5' 2) 03/20/2014 1:03 PM EST Body Mass Index 23.96 03/20/2014 1:03 PM EST Plan of Treatment Health Maintenance Due Date Last Done Comments Covid-19 Vaccine (#1) 1960 HIV screen 1977 Hepatitis C Screening 1977 Tdap adult 1978 Breast Cancer Share Decision Needed 1999 Colonoscopy 02/01/2004 Breast Cancer screening 2009 Zoster vaccine (1 of 2) 2009 Advance Directive 2014 Tetanus vaccine 03/06/2016 03/06/2006 HPV test 10/05/2017 10/05/2012 PAP Smear 10/05/2017 10/05/2012 Influenza (Flu) vaccine (1 of 1 - 12/30/2021 02/10/2014, , Influenza standard series) 05/20/2005 Medical Devices Implanted Type Area Electric Deicer Inspector Device Shelf Model / Identifier Expiration Serial / Date Lot Valve,Aor,Pericard,Magna,21mm ([id number]) - [id number] IMPLANTS N/A: DO NOT USE 02/11/2017 [id number] / Implanted: Qty: 1 on 02/04/2014 by Paco Cardenas MD at [facility] [id number] / Sciences - [id number] Advance Directives Latest Code Status on File Code Status Date Activated Date Inactivated Comments Full Code 02/04/2014 1:24 PM 02/10/2014 12:36 PM Question Answer Comments Order Status: Initial Order Does patient have decision making Yes, Order is based on Pat ients capacity? wishes. Code Status History Code Status Date Activated Date Inactivated Comments Full Code 01/30/2014 1:08 PM 01/30/2014 9:42 PM Care Teams Director Retirement Relationship Specialty Start Date End Date Fabiola Gutierrez MD PCP - General 03/23/[address] [place] [address]
--- OUTSIDE RECORDS SUMMARY | 2022-03-22 09:52 | XMS_ITS | Encounter Summary ---
:1960 Author Organization [facility] Address [facility] [address] [place] [address] Care Team Providers Name Role Phone Fabiola Gutierrez MD Primary Care Provider Reason for Visit Reason Comments Follow-up Encounter Details Date Type Department Care Team Description 03/20/2014 Office Visit [facility]or[facility] Surge [facility], DR RIOJAS S/P AVR; [facility] Paco Fan MD [facility] DR CARDIOTHORACIC [place] [address] S/P MVR (mitral valve repair) [place] [address] Social History Tobacco Use Types Packs/Day Years [...] Pulse 93 03/20/2014 1:03 PM EST Temperature - - Respiratory Rate - - Oxygen Saturation 96% 03/20/2014 1:03 PM EST Inhaled Oxygen Concentration - - Weight 59.4 kg (131 lb) 03/20/2014 1:03 PM EST Height 157.5 cm (5' 2) 03/20/2014 1:03 PM EST Body Mass Index 23.96 03/20/2014 1:03 PM EST documented in this encounter Progress Notes Paco Cardneas MD - 03/20/2014 1:56 PM EST This is a follow up note from her aortic valve replacement and mitral valve repair. We had an opportunity to see Mrs. Jurado and her today as a follow up visit from aortic valve replacement and mitral valve repair. She presents ambulatory to the office. Looks and states that she feels well. She has no effort dyspnea. I took a look at her echocardiogram and chest x-ray. The chest x-ray is clear. The echocardiogram shows a normally functioning aortic valve prosthesis without AR. Her mitral valve is competent. There is no residual MR. Her left ventricular systolic function is preserved. There is no meaningful pericardial effusion. Her ECG shows a normal sinus rhythm with a right bundle. On examination her blood pressure is 100/70. Her heart rate is in the 80s. It is sinus by palpation. Her midline sternal wound is healed well and the underlying sternum is firm to palpation. There is no click. There is a soft systolic murmur at the left upper parasternal border. There is no apical murmur. Her chest is clear. Abdomen is benign. Her lower extremities are free of edema. In summary, Ms. Jurado has recovered nicely following her valve surgery. We are going to discharge her from our service at this time and leave her in the care of her PCP and division superintendent. Paco Cardenas MD [phone] documented in this encounter Plan of Treatment Not on filedocumented as of this encounter Procedures Procedure Name Priority Date/Time Associated Diagnosis Comme nts EKG 12-LEAD Routine 03/20/2014 1:18 PM S/P AVR Results for this EST S/P MVR (mitral valve proced ure are in the repair) results section . documented in this encounter Results EKG 12 [...] 481 ms MUSE SYSTEM (Bezet) Calculated P Nathalie 11 degrees MUSE SYSTEM Calculated R [place]ath[place]ie 86 degrees MUSE SYSTEM Calculated T Nathalie 69 degrees MUSE SYSTEM INTERPRETATION Normal sinus rhythm MUSE SYSTEM Incomplete right bundle branch block Cannot rule out Inferior infarct , age undetermined T wave abnormality, consider anterior ischemia Abnormal ECG When compared with ECG of 04-FEB-2014 13:35, No significant change was found Confirmed by MD Finesse, Ankita ([id number]) on 03/21/2014 7: 56:55 PM Specimen Anatomical Collection Method Collection Time Receive d Time (Source) Location / / Volume Laterality 03/20/2014 1:18 PM 4 7:56 EST PM EST Paco Cardenas MD ECG ORDERABLES Performing Organization Address City/State/ZIP Code Phon e Number MUSE SYSTEM documented in this encounter Visit Diagnoses Diagnosis 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/P MVR (mitral valve repair) Other postprocedural status documented in this encounter Care Teams Horse Trekking Guide Relationship Specialty Start Date End Date Fabiola Gutierrez MD PCP - General 03/23/[address] [place] [address] documented as of this encounter
--- OUTSIDE RECORDS SUMMARY | 2022-03-22 09:52 | XMS_ITS | Encounter Summary ---
:1960 [place] [address] Care Team Providers Name Role Phone Fabiola Gutierrez MD Primary Care Provider Encounter Details Date Type Department Care Team Description 03/20/2014 Hospital Encounter Non-Invasive S/P AVR; Cardiology Lab [facility] S/P MVR (mitral valve repair) [place] [address] Social History Tobacco Use Types Packs/Day Years Used Date Smoking Tobacco: Never Smokeless Tobacco: Never Alcohol Use Standard Drinks/Week Comments Not Asked 5 (1 standard drink = 0.6 oz pure alcoho l) Sex Assigned at Date Recorded Not on file documented as of this encounter Medications at Time of Discharge Medication Sig Dispensed Refills Start Date End Date metoprolol succinate Take 25 mg by mouth 0 (TOPROL-XL) 25 mg Tablet daily. Sustained Release 24 hr acetaminophen (TYLENOL) 500 Take 1-2 tablets by [...] encounter Procedures Procedure Name Priority Date/Time Associated Comments Diagnosis ECHOCARDIOGRAM Routine 03/20/2014 1:12 PM S/P AVR Results for this TRANSTHORACIC(LEB) EST S/P MVR (mitral proced ure are in valve repair) the results section. documented in this encounter Results Echocardiogram Transthoracic(Leb) (03/20/2014 1:12 PM EST) P athologist Signature EF 55 HEARTLAB SYSTEM Anatomical Region Laterality Modality Other Specimen (Source) Anatomical Location Collection Method / Collectio n Time Received Time / Laterality Volume 03/20/2014 Narrative 03/20/2014 1:17 PM EST Procedure: ? Transthoracic Echocardiogram Patient: ? JOSH MACIAS J ?(Age): 1960(54) Med Rec#: ?[id number] ? Sex: ?F ? Site Loc: ?[facility] ? Ht / Wt: ??158(cm)/58(kg) Pt. Loc: ? Echo Lab ? BSA: ?1.6 Study Date: ?03/20/2014 ? Pt. Type: Outpatient Tape: ? 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 Echo Full (20241), ??Spectral Doppler (68597), Indication(s): ??Aortic prosthesis, base line Rhythm: HR [...] ly thickened. ?The mean gradient across the mihaela l valve is 3 mmHg. ?The prosthetic [...] ? Mid-Inferior ?Normal ? Mid-Inferoseptal ?Normal ? Gravel Switch-Septal ? Normal ? Gravel Switch-Anterior ? Normal ? Gravel Switch-Lateral ?Normal ? Gravel Switch-Inferior ? Normal ? Gravel Switch-Tip ?Normal ? Chambers ?Value ?Units (Range) ? [...] ? 03/20/2014 13:16:58 Images reviewed and interpretation [facility] Cardiac Ultrasound Laboratory Procedure Note Curtis Irvin MD - 03/20/2014Format ting of this note might be different from the original. Procedure: Transthoracic Echocardiogram Patient: JOSH Douglas (Age): [birth year][age]) Med Rec#: [id number] Sex: F Site Loc: [facility] Ht / Wt: 158(cm)/58(kg) Pt. Loc: Echo Lab BSA: 1.6 Study Date: 03/20/2014 Pt. Type: Outpati ent Tape: Referring: Paco Cardenas Egg Factory Worker: Miriam Langley Diagnosis: Mitral and aortic valve disea se (396.9) CPT Code(s): Color Doppler (98770), Echo Full (31166), Spectral Doppler (63645), Indication(s): Aortic prosthesis, baseli ne Rhythm: HR [...] ickened. The mean gradient across the mitral clifford ve is 3 mmHg. The prosthetic mitral [...] Normal Mid-Posterolateral Normal Mid-Inferior Normal Mid-Inferoseptal Normal Gravel Switch-Septal Normal Gravel Switch-Anterior Normal Gravel Switch-Lateral Normal Gravel Switch-Inferior Normal Gravel Switch-Tip Normal Chambers Value Units (Range) LV EF [...] 03/20/2014 13:16: 58 Images reviewed and interpretation dario rivero 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
--- OUTSIDE RECORDS SUMMARY | 2022-03-22 09:52 | XMS_ITS | Encounter Summary ---
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 02/07/2014 3:20 AM 014 3:42 (specimen) EDT AM EDT Resulting Agency Comment Spec In Lab Paco Gunter MD CHEMISTRY ORDERABLES Performing Organization Address City/[facility]/[place] [address] CERNER MILLENNIUM Potassium (02/06/2014 [...] Gunter MD CHEMISTRY ORDERABLES Performing Organization Address [facility]/ZIP Code Phon e Number [address] CERNER MILLENNIUM (ABNORMAL) Prothrombin Time (02/06/2014 4:56 AM EDT) P athologist Signature PT 17.2 (H) 12.5 - 15.5 CERNER sec MILLENNIUM Comment: [facility] Transfusion Committee Guidelines: I NR less [...] Gunter MD HEMATOLOGY ORDERABLES Performing Organization Address City/[facility]/ZIP Code Phon e Number [address] CERNER MILLENNIUM APTT (02/05/2014 2:11 PM EDT) athologist Signature PTT 34 25 - 35 [...] Gunter MD HEMATOLOGY ORDERABLES Performing Organization Address City/[facility]/ZIP Code Phon e Number [address] CERNER MILLENNIUM (ABNORMAL) Prothrombin Time (02/05/2014 2:11 PM EDT) athologist Signature PT 16.8 (H) 12.5 - 15.5 CERNER sec MILLENNIUM Comment: [facility] Transfusion Committee Guidelines: I NR less [...] Gunter MD HEMATOLOGY ORDERABLES Performing Organization Address City/[facility]/ZIP Code Phon e Number [address] CERNER MILLENNIUM POCT Glucose (02/05/2014 11:10 AM EDT) athologist Signature POC Glucose 125 60 - 199 CERNER mg/dL [facility] Comment: Supplemental ranges: <140 mg/dL before meals <180 mg/dL all other times of the day Specimen Anatomical Collection Method Collection Time Receive d Time (Source) Location / / Volume Laterality Blood specimen 02/05/2014 11:10 4 (specimen) AM EDT 11:10 AM EDT Paco Gunter MD POINT OF CARE TEST ORDERABLE S Performing Organization Address City/State/ZIP Code Phon e Number [address] CERNER MILLENNIUM POCT Glucose (02/05/2014 10:05 AM EDT) P athologist Signature POC Glucose 139 [...] Organization Address City/State/ZIP Code Phon e Number [address] CERNER MILLENNIUM POCT Glucose [...] Organization Address City/State/ZIP Code Phon e Number [address] CERNER MILLENNIUM POCT Glucose [...] Organization Address City/State/ZIP Code Phon e Number [address] CERNER MILLENNIUM POCT Glucose (02/05/2014 7:14 AM EDT) athologist Signature POC Glucose 119 60 - 199 CERNER mg/dL MILLENNIUM Comment: Supplemental ranges: <140 mg/dL before meals <180 mg/dL all other times of the day Specimen Anatomical Collection Method Collection Time Receive d Time (Source) Location / / Volume Laterality Blood specimen 02/05/2014 7:14 AM 7:14 (specimen) EDT AM EDT Paco Gunter MD POINT OF CARE TEST ORDERABLE S Performing Organization Address City/[facility]/ZIP Code Phon e Number [address] CERNER MILLENNIUM POCT Glucose (02/05/2014 5:52 AM EDT) athologist Signature POC Glucose 137 60 - 199 CERNER mg/dL MILLENNIUM Comment: Supplemental ranges: <140 mg/dL before meals <180 mg/dL all other times of the day Specimen Anatomical Collection Method Collection Time Receive d Time (Source) Location / / Volume Laterality Blood specimen 02/05/2014 5:52 AM 5:52 (specimen) EDT AM EDT Paco Gunter MD POINT OF CARE TEST ORDERABLE S Performing Organization Address City/State/ZIP Code Phon e Number [address] CERNER MILLENNIUM Scan, Peripheral Blood (02/05/2014 4:05 AM EDT) P athologist Signature Plat Estimate Normal CERNER MILLENNIUM RBC Morphology Normal CERNER MILLENNIUM Specimen Anatomical Collection Method Collection Time Receive d Time (Source) Location / / Volume Laterality Blood specimen 02/05/2014 4:05 AM 014 4:16 (specimen) EDT AM EDT Resulting Agency Comment Spec In Lab Paco Gunter MD HEMATOLOGY ORDERABLES Performing Organization Address City/[facility]/ZIP Code Phon e Number [address] CERNER MILLENNIUM (ABNORMAL) Differential, Automated (02/05/2014 4:05 AM EDT) [facility] Method Time Signature Neutrophils % 91.7 % [...] Gunter MD HEMATOLOGY ORDERABLES Performing Organization Address City/[facility]/ZIP Code Phon e Number [address] CERNER MILLENNIUM (ABNORMAL) Hemogram (02/05/2014 4:05 AM EDT) athologist Signature WBC 22.2 (H) 4.0 - [...] MPV 10.5 9.0 - 12.0 CERNER fL MILLENNIUM Specimen Anatomical Collection Method Collection Time Receive d Time (Source) Location / / Volume Laterality Blood specimen 02/05/2014 4:05 AM 014 4:16 (specimen) EDT AM EDT Resulting Agency Comment Spec In Lab Paco Gunter MD HEMATOLOGY ORDERABLES Performing Organization Address City/State/ZIP Code Phon e Number [place] [phone] CERNER MILLENNIUM (ABNORMAL) Cardiac Enzymes (02/05/2014 4:05 AM EDT) athologist Signature Troponin-T 0.43 (H) <=0.03 CERNER ng/mL MILLENNIUM Comment: 0.03 ng/mL: Represents the 99th percenti [...] consensus document of the Joint Society of Cardiology/[place] [employer] Committee for the redefinition of myocardial infarction. ? ?Journal of the [place] [employer] 2000; 36: 959-969] CK, Total 576 (H) 0 - 160 unit/L CERNER MILLENNI UM Specimen Anatomical Collection Method Collection Time Receive d Time (Source) Location / / Volume Laterality Blood specimen 02/05/2014 4:05 AM 014 4:16 (specimen) EDT AM EDT Resulting Agency Comment Spec In Lab Paco Gunter MD CHEMISTRY ORDERABLES Performing Organization Address City/[facility]/ZIP Code Phon e Number [address] CERNER MILLENNIUM Potassium (02/05/2014 4:05 AM EDT) athologist Signature Potassium 4.3 3.5 - 5.0 CERNER mmol/L MILLENNIUM Comment: [...] Gunter MD CHEMISTRY ORDERABLES Performing Organization Address [facility]/ZIP [facility] Phon e Number [address] CERNER MILLENNIUM (ABNORMAL) Glucose, fasting (02/05/2014 4:05 AM EDT) P athologist Signature Glucose 158 (H) 65 - 99 CERNER Fasting mg/dL MILLBANNERIUM Comment: ?Fasting* Glucose Interpretive C riteria Normal [...] of Diabetes Mellitus, Position Statement from the [place] [employer]. ??Diabete s Care, Volume 33, Supplement 1, May 2009 Specimen Anatomical Collection Method Collection Time Receive d Time (Source) Location / / Volume Laterality Blood specimen 02/05/2014 4:05 AM 014 4:16 (specimen) EDT AM EDT Resulting Agency Comment Spec In Lab Paco Gunter MD CHEMISTRY ORDERABLES Performing Organization Address City/State/[place] [address] CERNER MILLENNIUM (ABNORMAL) Creatinine (02/05/2014 4:05 AM EDT) athologist Signature Creatinine 0.48 (L) 0.70 - CERNER 1.20 mg/dL MILLENNIUM Comment: Please note that the pediatric reference intervals supplied above were not validated at [facility]. Results from pediatri c patients should be interpreted in conjunction to the patient's age, height and muscle mass. Estimated GFR >60 >=60 BAMBI TELLEZ M Comment: This estimated GFR (eGFR) value [...] the following links into your internet browser. [email or web address] Specimen Anatomical Collection Method Collection Time Receive d Time (Source) Location / / Volume Laterality Blood specimen 02/05/2014 4:05 AM 014 4:16 (specimen) EDT AM EDT Resulting Agency Comment Spec In Lab Paco Gunter MD CHEMISTRY ORDERABLES Performing Organization Address City/[facility]/ZIP Code Phon e Number [address] CERNER MILLENNIUM BUN (02/05/2014 4:05 AM EDT) P athologist Signature BUN 9 8 - 18 CERNER mg/dL MILLENNIUM Specimen Anatomical Collection Method Collection Time Receive d Time (Source) Location / / Volume Laterality Blood specimen 02/05/2014 4:05 AM 014 4:16 (specimen) EDT AM EDT Resulting Agency Comment Spec In Lab Paco Gunter MD CHEMISTRY ORDERABLES Performing Organization Address City/[facility]/ZIP Code Phon e Number [address] CERNER MILLENNIUM POCT Glucose (02/05/2014 4:04 AM EDT) athologist Signature POC Glucose 152 60 - [...] Organization Address City/State/[place] [address] CERNER MILLENNIUM POCT Glucose [...] Organization Address City/State/ZIP Code Phon e Number [address] CERNER MILLENNIUM POCT Glucose [...] Organization Address City/State/ZIP Code Phon e Number [address] CERNER MILLENNIUM POCT Glucose [...] Organization Address City/State/[place] [address] CERNER MILLENNIUM POCT Glucose (02/04/2014 8:59 PM EDT) P athologist Signature POC Glucose 135 60 - 199 CERNER mg/dL MILLENNIUM Comment: Supplemental ranges: <140 mg/dL before meals <180 mg/dL all other times of the day Specimen Anatomical Collection Method Collection Time Receive d Time (Source) Location / / Volume Laterality Blood specimen 02/04/2014 8:59 PM 014 8:59 (specimen) EDT PM EDT Paco Gunter MD POINT OF CARE TEST ORDERABLE S Performing Organization Address City/State/ZIP Code Phon e Number [place] [phone] CERNER MILLENNIUM (ABNORMAL) BLOOD GAS 2 ARTERIAL (02/04/2014 8:17 PM EDT) P athologist Signature pH Art 7.29 7.35 - CERNER (Critical) 7.45 MILLENNIUM Comment: Not noted by instrument operato r. pCO2 Art 45 35 - 45 mmHg CERNER MILLENNIUM pO2 Art 174 (H) 85 - 104 mmHg CERNER MILLENNIU M HCO3 Art 20.9 20.0 - 26.0 mmol/L CERNER MILL ENNIUM BE Art -5.4 (L) -3.0 - 3.0 mmol/L CERNER MILLE NNIUM Hgb Blood Gas 10.8 (L) 11.2 - 15.7 gm/dL CERNER M ILLENNIUM O2HB Art 97.8 (H) 94.0 - 97.0 % CERNER MILLENNIU M COHB Art 0.3 % CERNER MILLENNIUM Comment: Nonsmokers: 0.5-1.5% COHB Smokers: Variable, but usually less than 10% Toxic: 20-30% COHB Lethal: Greater than 60% COHB METHB Art 0.5 <=1.5 % CERNER MILLENNIUM Na Whole Blood 143 135 - 145 mmol/L CERNER M ILLENNIUM K Whole Blood 3.7 3.5 - 5.0 mmol/L CERNER OR LLENNIUM Comment: Please note: Patients with WBC >100,000 may have falsely elevated Potassium levels. Contact the Clinical Chemistry L aboratory if there are any questions. ICa Whole Blood 1.08 (L) 1.15 - 1.33 mmol/L CERNE R MILLENNIUM Comment: Note: ??Total bilirubin higher than 20 m g/dL may lead to falsely low ionized calcium. CL Whole Blood 118 (H) 98 - 107 mmol/L CERNER OR LLENNIUM Gluc Whole Bld 145 60 - 199 mg/dL CERNER MIL LENNIUM Comment: Diabetes: >=200 mg/dL plus symp toms. FIO2 Art 40 % CERNER MILLENNIUM PF Ratio Art 435 CERNER MILLENNIUM Temp Art 38.4 Celsius CERNER MILLENNIUM Specimen Anatomical Collection Method Collection Time Receive d Time (Source) Location / / Volume Laterality Blood specimen 02/04/2014 8:17 PM 8:17 (specimen) EDT PM EDT Paco Gunter MD CHEMISTRY ORDERABLES Performing Organization Address City/State/ZIP Code Phon e Number [address] CERNER MILLENNIUM POCT Glucose (02/04/2014 8:16 PM EDT) athologist Signature POC Glucose 139 60 - 199 CERNER mg/dL MILLENNIUM Comment: Supplemental ranges: <140 mg/dL before meals <180 mg/dL all other times of the day Specimen Anatomical Collection Method Collection Time Receive d Time (Source) Location / / Volume Laterality Blood specimen 02/04/2014 8:16 PM 8:16 (specimen) EDT PM EDT Paco Gunter MD POINT OF CARE TEST ORDERABLE S Performing Organization Address City/[facility]/ZIP Code Phon e Number [address] CERNER MILLENNIUM POCT Glucose [...] Organization Address City/State/ZIP Code Phon e Number [address] CERNER MILLENNIUM POCT Glucose [...] Organization Address City/State/ZIP Code Phon e Number [address] CERNER MILLENNIUM POCT Glucose (02/04/2014 5:01 PM EDT) athologist Signature POC Glucose 150 60 - 199 CERNER mg/dL MILLBANNERIUM Comment: Supplemental ranges: <140 mg/dL before meals <180 mg/dL all other times of the day Specimen Anatomical Collection Method Collection Time Receive d Time (Source) Location / / Volume Laterality Blood specimen 02/04/2014 5:01 PM 014 5:01 (specimen) EDT PM EDT Paco Gunter MD POINT OF CARE TEST ORDERABLE S Performing Organization Address City/State/ZIP Code Phon e Number [address] CERNER MILLENNIUM (ABNORMAL) Hemoglobin (02/04/2014 5:00 PM EDT) athologist Signature Hemoglobin 11.0 (L) 11.2 - CERNER 15.7 gm/dL [facility] Specimen Anatomical Collection Method Collection Time Receive d Time (Source) Location / / Volume Laterality Blood specimen 02/04/2014 5:00 PM 014 5:07 (specimen) EDT PM EDT Resulting Agency Comment Spec In Lab Paco Gunter MD HEMATOLOGY ORDERABLES Performing Organization Address City/State/ZIP Code Phon e Number [address] CERNER MILLENNIUM Potassium (02/04/2014 5:00 PM EDT) athologist Signature Potassium 4.0 3.5 - 5.0 CERNER mmol/L MILLENNIUM Comment: [...] Gunter MD CHEMISTRY ORDERABLES Performing Organization Address City/[facility]/ZIP Code Phon e Number [address] CERNER MILLENNIUM POCT Glucose [...] CARE TEST ORDERABLE S Performing Organization Address City/[facility]/ZIP Code Phon e Number [address] CERNER MILLENNIUM POCT Glucose (02/04/2014 2:40 PM EDT) athologist Signature POC Glucose 111 60 - 199 CERNER mg/dL MILLENNIUM Comment: Supplemental ranges: <140 mg/dL before meals <180 mg/dL all other times of the day Specimen Anatomical Collection Method Collection Time Receive d Time (Source) Location / / Volume Laterality Blood specimen 02/04/2014 2:40 PM 014 2:40 (specimen) EDT PM EDT Paco Gunter MD POINT OF CARE TEST ORDERABLE S Performing Organization Address City/[facility]/[place] [address] CERNER MILLENNIUM (ABNORMAL) BLOOD [...] 3.3 (L) 3.5 - 5.0 mmol/L CERNER OR LLENNIUM Comment: Please note: Patients with WBC >100,000 may have falsely elevated Potassium levels. Contact the Clinical Chemistry L aboratory if there are any questions. ICa Whole Blood 1.04 (L) 1.15 - 1.33 mmol/L CERNE R MILLENNIUM Comment: Note: ??Total bilirubin higher than 20 m g/dL may lead to falsely low ionized calcium. CL Whole Blood 116 (H) 98 - 107 mmol/L CERNER OR LLENNIUM Gluc Whole Bld 124 60 - 199 mg/dL [facility] MIL LENNIUM Comment: Diabetes: >=200 mg/dL plus symp toms. FIO2 Art 100 % CERNER MILLENNIUM PF Ratio Art 585 CERNER MILLENNIUM Specimen Anatomical Collection Method Collection Time Receive d Time (Source) Location / / Volume Laterality Blood specimen 02/04/2014 1:50 PM 014 1:50 (specimen) EDT PM EDT Paco Gunter MD CHEMISTRY ORDERABLES Performing Organization Address City/State/ZIP Code Phon [place] [address] BAMBI Embee MobileIUM XR chest PA or AP- 1 view (02/04/2014 1:40 PM EDT) Anatomical Region Laterality Modality Chest N/A Radiographic Imaging Specimen (Source) Anatomical Collection Method Collection Time Re ceived Time Location / / Volume Laterality 02/04/2014 1:40 PM EDT Narrative 02/04/2014 2:30 PM EDT Examination CHEST ONE VIEW/XPORT Clinical History ETT, [place] placement Comparison January 30, 2014. Technique Single [...] pulmonary pathology. ??Postoper ative findings. Procedure Note eKnya Gold MD - 2013 Examination CHEST ONE VIEW/XPORT Clinical History ETT, [place] placement Comparison January 30, 2014. Technique Single [...] EKG 12 Lead (02/04/2014 1:35 PM EDT) [facility] Method Time Signature Ventricular rate 73 BPM MUSE SYSTEM Atrial Rate 73 BPM MUSE SYSTEM P-R Interval 110 ms MUSE SYSTEM QRS Duration 112 ms MUSE SYSTEM Q-T Interval 486 ms MUSE SYSTEM QTC Calculated 535 ms MUSE SYSTEM (Bezet) Calculated P [place] 43 degrees MUSE SYSTEM Calculated R [place] 96 degrees MUSE SYSTEM Calculated T [place] 49 degrees MUSE SYSTEM INTERPRETATION Sinus rhythm with short [place] MUSE SYSTEM Rightward axis Incomplete right bundle [...] Component Value Ref Test Analysis Performed At [facility] Range Method Time Signature Surgical CERNER Pathology ? [facility] Report ? Provider: ?? PACO GUNTER ??Pt. Name: ?? COLLEEN MORENO ? Acc #: ?[id number] ?Pt. MRN: ?[id number] ? Col Date: ?? 4 ? /Sex: [...] MD PATHOLOGY/CYTOLOGY ORDERABLE S Performing Organization Address City/[facility]/[place] [address] CERNER MILLENNIUM Prepare Platelets, Apheresis (02/04/2014 12:05 PM EDT) P athologist Signature Dispensed? Yes CERNER MILLENNIUM Specimen Anatomical Collection Method Collection Time Receive d Time (Source) Location / / Volume Laterality Blood specimen 02/04/2014 12:05 4 (specimen) PM EDT 12:05 PM EDT Paco Gunter MD BLOOD BANK ORDERABLES Performing Organization Address [facility]/ZIP [facility] [place] [address] CERNER MILLENNIUM Thrombin time (02/04/2014 11:55 AM EDT) P athologist Signature Thrombin Time 19 15 - 20 CERNER sec MILLENNIUM Specimen Anatomical Collection Method Collection Time Receive d Time (Source) Location / / Volume Laterality Blood specimen 02/04/2014 11:55 4 (specimen) AM EDT 11:58 AM EDT Resulting Agency Comment Spec In Lab Paco Gunter MD HEMATOLOGY ORDERABLES Performing Organization Address City/State/[place] [address] CERNER MILLENNIUM (ABNORMAL) Fibrinogen (02/04/2014 11:55 AM EDT) P athologist Signature Fibrinogen 146 (L) 175 - 450 CERNER mg/dL MILLENNIUM Comment: Called by: rajesh, Read back by: long olea [email or web address] Date/Time:02/04/14 12:16 Specimen Anatomical Collection Method Collection Time Receive d Time (Source) Location / / Volume Laterality Blood specimen 02/04/2014 11:55 4 (specimen) AM EDT 11:58 AM EDT Resulting Agency Comment Spec In Lab Paco Gunter MD HEMATOLOGY ORDERABLES Performing Organization Address City/State/[place] [address] CERNER MILLENNIUM (ABNORMAL) APTT (02/04/2014 [...] Organization Address City/State/[place] [address] CERNER MILLENNIUM (ABNORMAL) Prothrombin Time (02/04/2014 11:55 AM EDT) P athologist Signature PT 19.5 (H) 12.5 - 15.5 CERNER sec MILLENNIUM Comment: [facility] Transfusion Committee Guidelines: I NR less [...] Organization Address City/State/[place] [address] CERNER MILLENNIUM (ABNORMAL) Differential, Automated (02/04/2014 11:55 AM EDT) Patholo gist Method Time Signature Neutrophils % 82.9 % [...] EDT Resulting Agency Comment Spec In Lab Pcao Gunter MD HEMATOLOGY ORDERABLES Performing Organization Address City/[facility]/[place] [address] CERNER MILLENNIUM (ABNORMAL) Hemogram [...] Gunter MD HEMATOLOGY ORDERABLES Performing Organization Address City/[facility]/[place] [address] CERNER MILLENNIUM (ABNORMAL) BLOOD [...] % MILLENNIUM COHB Art 0.9 % CERNER [facility] Comment: Nonsmokers: 0.5-1.5% COHB Smokers: Variable, but usually less than 10% Toxic: 20-30% COHB Lethal: Greater than 60% COHB METHB Art 0.4 <=1.5 % CERNER MILLENNIUM Na Whole Blood 131 (L) 135 - 145 mmol/L CERNER M ILLENNIUM K Whole Blood 4.2 3.5 - 5.0 mmol/L [facility] LLENNIUM Comment: Please note: Patients with WBC >100,000 may have falsely elevated Potassium levels. Contact the Clinical Chemistry L aboratory if there are any questions. ICa Whole Blood 1.16 1.15 - 1.33 mmol/L CERNE R MILLENNIUM Comment: Note: ??Total bilirubin higher than 20 m g/dL may lead to falsely low ionized calcium. CL Whole Blood 108 (H) 98 - 107 mmol/L CERNER OR LLENNIUM Gluc Whole Bld 236 (H) 60 - 199 mg/dL [facility] MIL LENNIUM Comment: Diabetes: >=200 mg/dL plus symp toms. Specimen Anatomical Collection Method Collection Time Receive d Time (Source) Location / / Volume Laterality Blood specimen 02/04/2014 11:51 4 (specimen) AM EDT 11:51 AM EDT Paco Gunter MD CHEMISTRY ORDERABLES Performing Organization Address City/State/Z[place] [address] CERNER MILLENNIUM (ABNORMAL) BLOOD [...] 5.6 (H) 3.5 - 5.0 mmol/L CERNER OR LLENNIUM Comment: Please note: Patients with WBC >100,000 may have falsely elevated Potassium levels. Contact the Clinical Chemistry L aboratory if there are any questions. ICa Whole Blood 1.33 1.15 - 1.33 mmol/L CERNE R MILLENNIUM Comment: Note: ??Total bilirubin higher than 20 m g/dL may lead to falsely low ionized calcium. CL Whole Blood 104 98 - 107 mmol/L CERNER OR LLENNIUM Gluc Whole Bld 280 (H) 60 - 199 mg/dL CERNER MIL LENNIUM Comment: Diabetes: >=200 mg/dL plus symp toms. Specimen Anatomical Collection Method Collection Time Receive d Time (Source) Location / / Volume Laterality Blood specimen 02/04/2014 11:20 4 (specimen) AM EDT 11:20 AM EDT Paco Gunter MD CHEMISTRY ORDERABLES Performing Organization Address City/State/[place] [address] CERNER MILLENNIUM Specimen to [...] MD PATHOLOGY/CYTOLOGY ORDERABLE S Performing Organization Address City/State/[place] [address] CERNER MILLENNIUM (ABNORMAL) Fibrinogen (02/04/2014 11:00 AM EDT) P athologist Signature Fibrinogen 147 (L) 175 - 450 CERNER mg/dL MILLENNIUM Comment: Called by: , Read back by: aura escalera, Date/Time:02/04/14 11:23. Specimen Anatomical Collection Method Collection Time Receive d Time (Source) Location / / Volume Laterality Blood specimen 02/04/2014 11:00 4 (specimen) AM EDT 11:05 AM EDT Resulting Agency Comment Spec In Lab Paco Gunter MD HEMATOLOGY ORDERABLES Performing Organization Address City/[facility]/[place] [address] [address] Drive CERNER MILLENNIUM Platelet count (02/04/2014 11:00 AM EDT) P athologist Signature Platelets 159 145 - 370 CERNER x10(3)/mcL MILLENNIUM Specimen Anatomical Collection Method Collection Time Receive d Time (Source) Location / / Volume Laterality Blood specimen 02/04/2014 11:00 4 (specimen) AM EDT 11:04 AM EDT Resulting Agency Comment Spec In Lab Paco Gunter MD HEMATOLOGY ORDERABLES Performing Organization Address City/State/[place] [address] CERNER MILLENNIUM (ABNORMAL) BLOOD [...] 5.2 (H) 3.5 - 5.0 mmol/L CERNER OR LLENNIUM Comment: Please note: Patients with WBC >100,000 may have falsely elevated Potassium levels. Contact the Clinical Chemistry L aboratory if there are any questions. ICa Whole Blood 0.82 (Critical) 1.15 - 1.33 mmol/L CERNER MILLENNIUM Comment: Noted by instrument installer. Note: ??Total bilirubin higher than 20 m g/dL may lead to falsely low ionized calcium. CL Whole Blood 102 98 - 107 mmol/L CERNER OR LLENNIUM Gluc Whole Bld 250 (H) 60 - 199 mg/dL [facility] MIL LENNIUM Comment: Diabetes: >=200 mg/dL plus symp toms. Specimen Anatomical Collection Method Collection Time Receive d Time (Source) Location / / Volume Laterality Blood specimen 02/04/2014 10:45 4 (specimen) AM EDT 10:45 AM EDT Paco Gunter MD CHEMISTRY ORDERABLES Performing Organization Address City/State/[place] [address] CERNER MILLENNIUM (ABNORMAL) BLOOD [...] 5.3 (H) 3.5 - 5.0 mmol/L CERNER OR LLENNIUM Comment: Please note: Patients with WBC >100,000 may have falsely elevated Potassium levels. Contact the Clinical Chemistry L aboratory if there are any questions. ICa Whole Blood 0.80 (Critical) 1.15 - 1.33 mmol/L CERNER MILLENNIUM Comment: Noted by instrument installer. Note: ??Total bilirubin higher than 20 m g/dL may lead to falsely low ionized calcium. CL Whole Blood 101 98 - 107 mmol/L CERNER OR LLENNIUM Gluc Whole Bld 222 (H) 60 - 199 mg/dL [facility] Comment: Diabetes: >=200 mg/dL plus symp toms. Specimen Anatomical Collection Method Collection Time Receive d Time (Source) Location / / Volume Laterality Blood specimen 02/04/2014 10:15 4 (specimen) AM EDT 10:15 AM EDT Paco Gunter MD CHEMISTRY ORDERABLES Performing Organization Address City/State/ZIP [place] [address] CERNER MILLENNIUM (ABNORMAL) BLOOD [...] Blood 4.9 3.5 - 5.0 mmol/L CERNER OR LLENNIUM Comment: Please note: Patients with WBC >100,000 may have falsely elevated Potassium levels. Contact the Clinical Chemistry L aboratory if there are any questions. ICa Whole Blood 0.83 (Critical) 1.15 - 1.33 mmol/L CERNER MILLENNIUM Comment: Noted by instrument installer. Note: ??Total bilirubin higher than 20 m g/dL may lead to falsely low ionized calcium. CL Whole Blood 103 98 - 107 mmol/L CERNER OR LLENNIUM Gluc Whole Bld 180 60 - 199 mg/dL CERNER MIL LENNIUM Comment: Diabetes: >=200 mg/dL plus symp toms. Specimen Anatomical Collection Method Collection Time Receive d Time (Source) Location / / Volume Laterality Blood specimen 02/04/2014 9:46 AM 014 9:46 (specimen) EDT AM EDT Paco Gunter MD CHEMISTRY ORDERABLES Performing Organization Address City/State/ZIP [place] [address] CERNER MILLENNIUM (ABNORMAL) BLOOD [...] Blood 4.9 3.5 - 5.0 mmol/L CERNER OR LLENNIUM Comment: Please note: Patients with WBC >100,000 may have falsely elevated Potassium levels. Contact the Clinical Chemistry L aboratory if there are any questions. ICa Whole Blood 0.77 (Critical) 1.15 - 1.33 mmol/L CERNER MILLENNIUM Comment: Noted by instrument installer. Note: ??Total bilirubin higher than 20 m g/dL may lead to falsely low ionized calcium. CL Whole Blood 104 98 - 107 mmol/L CERNER OR LLENNIUM Gluc Whole Bld 165 60 - 199 mg/dL CERNER MIL LENNIUM Comment: Diabetes: >=200 mg/dL plus symp toms. Specimen Anatomical Collection Method Collection Time Receive d Time (Source) Location / / Volume Laterality Blood specimen 02/04/2014 9:22 AM 014 9:22 (specimen) EDT AM EDT Paco Gunter MD CHEMISTRY ORDERABLES Performing Organization Address City/State/ZIP Code Phon e Number [place] [phone] CERNER MILLENNIUM (ABNORMAL) BLOOD [...] Whole Blood 3.7 3.5 - 5.0 mmol/L CERNER OR LLENNIUM Comment: Please note: Patients with WBC >100,000 may have falsely elevated Potassium levels. Contact the Clinical Chemistry L aboratory if there are any questions. ICa Whole Blood 1.15 (L) 1.15 - 1.33 mmol/L CERNE R MILLENNIUM Comment: Note: ??Total bilirubin higher than 20 m g/dL may lead to falsely low ionized calcium. CL Whole Blood 108 (H) 98 - 107 mmol/L CERNER OR LLENNIUM Gluc Whole Bld 92 60 - 199 mg/dL CERNER MIL LENNIUM Comment: Diabetes: >=200 mg/dL plus symp toms. Specimen Anatomical Collection Method Collection Time Receive d Time (Source) Location / / Volume Laterality Blood specimen 02/04/2014 8:16 AM 014 8:16 (specimen) EDT AM EDT Paco Gunter MD CHEMISTRY ORDERABLES Performing Organization Address City/State/ZIP Code Phon e Number [address] BAMBI Embee MobileDAVID Prepare RBC (02/04/2014 7:00 AM EDT) P athologist Signature Dispensed? 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/P MVR (mitral valve repair) Other postprocedural status 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/P MVR (mitral valve repair) Other postprocedural status documented in this encounter Administered Medications Inactive Administered Medications - up to 3 most recent administrations Medication Order MAR Action Action Date Dose Rate Site acetaminophen (OFIRMEV) Given 02/08/2014 12:04 PM 1,000 mg 400 mL/hr injection 1,000 mg EDT 1,000 mg, Intravenous, at 400 mL/hr, 4 TIMES DAILY PRN, 3 doses, Starting on Mon02/05/14 at 1204, Until 02/08/14 at 1219, Do not exceed 4000mg in a 24 hour period, Maximum dose of acetaminophen is 4000 mg from all sources in 24 hours., Routine, Is the indication for perioperative pain? Yes, Are alternative routes (po or pr) not appropriate in this patient? Yes Given 02/07/2014 8:23 PM EDT 1,000 mg 400 mL/hr Given 02/07/2014 1:22 AM EDT 1,000 mg 400 mL/hr acetaminophen (TYLENOL) tablet 1,000 mg Given 02/05/2014 5:36 AM EDT 1,000 mg 1,000 mg, Oral, EVERY 6 HOURS SCHEDULED, First dose on Mon02/04/14 at 1345, Until Discontinued, For pain when taking by mouth , Routine acetaminophen (TYLENOL) tablet 500-1,000 Given 02/10/2014 10 :28 AM EDT 1,000 mg mg 500-1,000 mg, Oral, EVERY 4 HOURS PRN, Starting on 02/08/14 at 1858, Until 02/10/14 at 1236, Pain, Maximum dose of acetaminophen is 4000 mg from all sources in 24 hours., Routine Given 02/10/2014 6:30 AM EDT 1,000 mg Given 02/10/2014 12:01 AM EDT 1,000 mg aspirin chewable tablet 81 mg Given 02/10/2014 9:01 AM EDT 81 mg 81 mg, Oral, DAILY, First dose on Mon02/05/14 at 0900, Until Discontinued, Start on post-op day 1 in the AM., Routine Given 02/09/2014 9:22 AM EDT 81 mg Given 02/08/2014 9:43 AM EDT 81 mg ceFURoxime (ZINACEF) 750mg vial Given 02/05/2014 8:39 AM EDT 750 mg 200 mL/hr attach to sodium chloride 0.9% 100 mL Mini-Bag Plus 750 mg, Intravenous, EVERY 8 HOURS, 3 doses, First dose on Mon02/04/14 at 1700, Last dose on Mon02/05/14 at 0900, Administer over 30 Minutes, Attach to 100 mL sodium Chloride Mini-bag Plus. Give first dose at 8 hours after dose in operating room., Indication for (Active or Suspected): Prophylaxis Given 02/05/2014 1:00 AM EDT 750 mg 200 mL/hr Given 02/04/2014 4:53 PM EDT 750 mg 200 mL/hr chlorhexidine (PERIDEX) 0.12 % oral solution Given 11/2013 8:39 AM EDT 15 mLs 15 mL 15 mL, Oral, EVERY 12 HOURS SCHEDULED (2 times per day), First dose on Mon02/04/14 at 1345, Until Discontinued, [place] teeth., Routine Given 02/04/2014 9:15 PM EDT 15 mLs Given 02/04/2014 4:52 PM EDT 15 mLs diphenhydrAMINE (BENADRYL) capsule 25 mg Given 02/09/2014 8:26 PM EDT 25 mg 25 mg, Oral, NIGHTLY PRN, Starting on 02/08/14 at 1629, Until 02/10/14 at 0801, Itching, Routine Given 02/08/2014 8:57 PM EDT 25 mg esomeprazole (NexIUM) capsule 40 mg Given 02/10/2014 9:01 AM EDT 40 mg 40 mg, Oral, DAILY, First dose on Mon02/04/14 at 1345, Until Discontinued, If unable to take PO, may give IV, Routine Given 02/09/2014 9:23 AM EDT 40 mg Given 02/08/2014 9:43 AM EDT 40 mg esomeprazole (NexIUM) injection 40 mg Given 02/04/2014 3:06 PM EDT 40 mg 40 mg, Intravenous, DAILY, First dose on Mon02/04/14 at 1345, Until Discontinued, Routine fentaNYL 50 mcg/mL Rate/Dose Verify 02/05/2014 12:00 AM 25 mcg/hr 0. 5 mL/hr infusion EDT 0-100 mcg/hr (rounded to 0-2 mL/hr), Intravenous, CONTINUOUS, Starting on Mon02/04/14 at 1345, Until Mon02/05/14 at 1121, Titrate to patient comfort. Dose not to exceed 100 mcg/hour Rate/Dose Verify 02/04/2014 10:00 PM EDT 25 mcg/hr 0.5 mL/hr Rate/Dose Verify 02/04/2014 9:00 PM EDT 25 mcg/hr 0.5 mL/hr fentaNYL 50mcg/mL injection Given 02/05/2014 7:25 AM EDT 25 mcg 25-50 mcg, Intravenous, EVERY 1 HOUR PRN, Starting on Mon02/04/14 at 1324, Until Mon02/05/14 at 1121, Pain, For breakthrough pain while extubated., For breakthrough pain while extubated., Routine fentaNYL bolus from bag 25-50 mcg Bolus from Bag 02/05/2014 1:45 AM EDT 25 mcg 25-50 mcg, Intravenous, EVERY 10 MIN PRN, Starting on Tu02/04/14 at 1324, Until Mon02/05/14 at 1121, Pain, For breakthrough pain while intubated., For breakthrough pain while intubated. Maximum dose 300 mcg over one hour., Routine fentaNYL bolus from bag 25-50 mcg Bolus from Bag 02/05/2014 2:00 AM EDT 25 mcg 25-50 mcg, Intravenous, EVERY 1 HOUR PRN, Starting on Mon02/04/14 at 1324, Until Mon02/05/14 at 1121, Pain, For breakthrough pain while extubated., For breakthrough pain while extubated., Routine Bolus from Bag 02/05/2014 12:44 AM EDT 25 mcg Bolus from Bag 02/05/2014 12:00 AM EDT 25 mcg furosemide (LASIX) injection 20 mg Given 02/09/2014 9:24 AM EDT 20 mg 20 mg, Intravenous, 2 TIMES DAILY, First dose on Mon02/05/14 at 0900, Until Discontinued Given 02/08/2014 4:59 PM EDT 20 mg Given 02/08/2014 9:43 AM EDT 20 mg HYDROmorphone (DILAUDID) tablet 2-4 mg Given 02/06/2014 2:52 AM EDT 4 mg 2-4 mg, Oral, EVERY 4 HOURS PRN, Starting on Mon02/04/14 at 1324, Until Lulu 02/06/14 at 0934, Pain, For pain when taking by mouth., Routine Given 02/05/2014 8:07 PM EDT 4 mg Given 02/05/2014 2:32 PM EDT 4 mg insulin regular human Rate/Dose Verify 02/05/2014 10:30 0.5 Units/hr 0.5 mL/hr (HumuLIN;NovoLIN) AM EDT 1unit/mL 150 Units in sodium chloride 0.9% 150 mL infusion 0.5-16 Units/hr (rounded to 0.5-16 mL/hr), Intravenous, CHANGE BAG EVERY EVENING, First dose on Mon02/04/14 at 1345, Until Discontinued, Type 2 diabetes. Current blood glucose 140 - 179 Titration- aim for target range of 140 - 180 mg/dL. Check BG every hour unless otherwise indicated. [[ No initial bolus. Begin continuous infusion at 2 units/hour. ]] Current BG less than 80 - Stop insulin, give juice or D50 per protocol. Re-check BG in 30 minutes and as soon as BG is greater than 80, restart with rate 50% of previous rate. If infusion stopped after previous rate had been 0.5 unit/hour, recheck every hour and when BG greater than 100 and higher than last test restart at 0.5 unit/hour. Current BG 80 - 139 - If BG dropped 10 mg/dL or more since last test, decrease rate by 50% and re-check in 30 minutes. Otherwise, decrease rate by 0.5 units/hour. Current BG 140 - 180 - If BG dropped 50 mg/dL or more since last test, decrease rate by 1 unit/hour. Otherwise, maintain same rate. Current BG 181 - 220 - If BG is lower than last test, maintain same rate. Otherwise, increase rate by 0.5 units/hour. Current BG 221 - 250 - If BG dropped 30 mg/dL or more since last test, maintain same rate. Otherwise, increase rate by 1 unit/hour. Current BG greater than 250 - Increase rate by 1 unit/hour AND bolus with Regular insulin IV as per IV Bolus Scale. Re-check BG in 30 minutes., Routine Restarted 02/05/2014 8:26 AM EDT 0.5 Units/hr 0.5 mL/hr Rate/Dose Verify 02/05/2014 6:00 AM EDT 0.5 Units/hr 0.5 mL/hr ketorolac (TORADOL) injection 15 mg Given 02/04/2014 9:15 PM EDT 15 mg 15 mg, Intravenous, ONCE, 1 dose, On Mon02/04/14 at 2130, Routine ketorolac (TORADOL) injection 15 mg Given 02/08/2014 5:32 AM EDT 15 mg 15 mg, Intravenous, EVERY 6 HOURS SCHEDULED, 12 doses, First dose (after last reorder) on Mon02/05/14 at 1200, Last dose on Mon02/08/14 at 0600, Routine Given 02/08/2014 12:15 AM EDT 15 mg Given 02/07/2014 5:53 PM EDT 15 mg lactated ringers infusion 1,000 New Bag 02/04/2014 6:30 AM EDT 1,000 mLs 100 mL/hr mL 1,000 mL, at 100 mL/hr, Intravenous, CONTINUOUS, Starting on Mon02/04/14 at 0630, Until Mon02/04/14 at 1324, Day of Surgery (Day of Procedure) magnesium hydroxide (MILK OF MAGNESIA) oral Given 02/07/2014 6:39 PM EDT 10 mLs suspension 10 mL 10 mL, Oral, DAILY PRN, Starting on Mon02/07/14 at 1129, Until Mon02/10/14 at 1236, Constipation, 10 mL concentrate = 30 mL regular, Routine metoclopramide (REGLAN) injection 10 mg Given 02/06/2014 8:49 AM EDT 10 mg 10 mg, Intravenous, EVERY 6 HOURS PRN, Starting on Mon02/05/14 at 0311, Until Mon02/06/14 at 1503, Nausea, Doses greater than 10mg should be diluted into 50ml NS. Given 02/05/2014 3:17 PM EDT 10 mg Given 02/05/2014 3:30 AM EDT 10 mg metoprolol (LOPRESSOR) pre-split tablet 12.5 Given 03/2014 8:26 PM EDT 12.5 mg mg 12.5 mg, Oral, EVERY 12 HOURS SCHEDULED (2 times per day), First dose on Mon02/05/14 at 0900, Until Discontinued, Routine Given 02/09/2014 9:23 AM EDT 12.5 mg Given 02/08/2014 9:00 PM EDT 12.5 mg metoprolol tartrate (LOPRESSOR) tablet 5 0 mg Given 02/10/2014 9:01 AM EDT 50 mg 50 mg, Oral, EVERY 12 HOURS SCHEDULED (2 times per day), First dose (after last modification) on Mon02/10/14 at 0900, Until Discontinued, Routine ondansetron (ZOFRAN) injection 4 mg Given 02/05/2014 10:34 AM EDT 4 mg 4 mg, Intravenous, EVERY 8 HOURS PRN, Starting on Mon02/04/14 at 1324, Until Mon02/05/14 at 1121, Nausea Given 02/04/2014 11:09 PM EDT 4 mg ondansetron (ZOFRAN) tablet 4 mg Given 02/06/2014 12:47 PM EDT 4 mg 4 mg, Oral, EVERY 8 HOURS PRN, Starting on Mon02/06/14 at 0934, Until Mon02/10/14 at 0801, Nausea, Routine PHENYLephrine Rate/Dose Change 02/04/2014 9:00 PM 10 mcg/min 7.5 mL/h r (BETTINA-SYNEPHRINE) 20 mg in EDT sodium chloride 250 mL infusion 0-200 mcg/min (rounded to 0-150 mL/hr), Intravenous, CONTINUOUS, Starting on Mon02/04/14 at 1345, Until Mon02/05/14 at 1121, Titrate to maintain systolic blood pressure greater than 90 mmHg. Dose not to exceed 200 mcg/minute., Routine Rate/Dose Change 02/04/2014 8:00 PM EDT 20 mcg/min 15 mL/hr Restarted 02/04/2014 7:05 PM EDT 25 mcg/min 18.8 mL/hr potassium chloride (K-DUR/KLOR-CON) extended Given 03/2014 9:22 AM EDT 20 mEq release tablet 20 mEq 20 mEq, Oral, 2 TIMES DAILY, First dose on Mon02/05/14 at 1145, Until Discontinued, 20 mEq tablet may be dissolved in water for administration, Routine Given 02/08/2014 8:56 PM EDT 20 mEq Given 02/08/2014 9:46 AM EDT 20 mEq potassium chloride 20 mEq in 100 mL Given 02/05/2014 12:00 AM EDT 20 mEq 100 mL/hr 20 mEq, Intravenous, EVERY 1 HOUR PRN, Starting on Mon02/04/14 at 1324, Until Mon02/05/14 at 1121, Administer over 60 Minutes, hypokalemia, Administer 2 doses for a serum potassium (mMol/L) of 3.3 - 3.8 Given 02/04/2014 10:39 PM EDT 20 mEq 100 mL/hr Given 02/04/2014 3:10 PM EDT 20 mEq 100 mL/hr prochlorperazine (COMPAZINE) injection 1 0 mg Given 02/06/2014 9:38 AM EDT 10 mg 10 mg, Intravenous, EVERY 6 HOURS PRN, Starting on Mon02/05/14 at 1151, Until Mon02/10/14 at 0801, Nausea, Routine propofol (DIPRIVAN) Rate/Dose Change 02/04/2014 6:00 PM 20 mcg/kg/min 7 mL/hr infusion EDT 0-50 mcg/kg/min ? 58.5 kg (rounded to 0-17.6 mL/hr), Intravenous, CONTINUOUS, Starting on Mon02/04/14 at 1345, Until Mon02/05/14 at 1121, Titrate to sedation level of RASS -1. Dose not to exceed 50 mcg/kg/minute. Discontinue upon extubation., Routine Rate/Dose Change 02/04/2014 5:05 PM EDT 30 mcg/kg/min 10.5 mL/hr Rate/Dose Verify 02/04/2014 5:00 PM EDT 50 mcg/kg/min 17.6 mL/hr senna-docusate (PERICOLACE) 8.6-50 mg per Given 02/08/2014 8 :56 PM EDT 1 tablet tablet 2 tablet 2 tablet, Oral, DAILY, First dose on Mon02/05/14 at 2100, Until Discontinued, Post-op day 1, Routine Given 02/07/2014 8:23 PM EDT 2 tablets Given 02/05/2014 8:11 PM EDT 2 tablets sodium chloride 0.9 % flush 5 mL Given 02/09/2014 8:24 PM EDT 5 mLs 5 mL, Intravenous, EVERY 8 HOURS, First dose on Mon02/05/14 at 1145, Until Discontinued, Routine Given 02/08/2014 8:56 PM EDT 5 mLs Given 02/08/2014 9:48 AM EDT 5 mLs sodium chloride 0.9% infusion New Bag 02/04/2014 4:52 PM EDT 100 mL/hr 100 mL/hr 0-500 mL/hr, Intravenous, CONTINUOUS, Starting on Mon02/04/14 at 1345, Until Mon02/05/14 at 1121, As needed for volume replacement to maintain cardiac index greater than or equal to 2.0 L/min/M2. Call bottle house cleaners supervisor for additional fluid orders: pager #[phone]. New Bag 02/04/2014 1:15 PM EDT 250 mL/hr 250 mL/hr sodium chloride 0.9% Rate/Dose Verify 02/05/2014 4:00 AM 30 mL/hr 3 0 mL/hr infusion EDT 10-30 mL/hr, Intravenous, DAILY PRN, Starting on Mon02/04/14 at 1324, Until Mon02/05/14 at 1121, Side port TKO rate Rate/Dose Verify 02/05/2014 2:00 AM EDT 30 mL/hr 30 mL/hr Rate/Dose Verify 02/05/2014 12:00 AM EDT 30 mL/hr 30 mL/hr sodium chloride 0.9% Rate/Dose Verify 02/05/2014 8:00 AM 10 mL/hr 1 0 mL/hr infusion EDT 10-30 mL/hr, Intravenous, DAILY PRN, Starting on Mon02/04/14 at 1324, Until Mon02/05/14 at 1121, Side port TKO rate Rate/Dose Change 02/05/2014 6:00 AM EDT 10 mL/hr 10 mL/hr Rate/Dose Verify 02/05/2014 4:00 AM EDT 30 mL/hr 30 mL/hr vasopressin (PITRESSIN) Rate/Dose Change 02/05/2014 4:00 0.02 Units /min 2.4 mL/hr 50 Units in sodium AM EDT chloride 0.9% 100 mL infusion 0-0.04 Units/min (rounded to 0-4.8 mL/hr), Intravenous, CONTINUOUS, Starting on Mon02/04/14 at 1345, Until Mon02/05/14 at 1121, Titrate to keep cardiac index greater than 2 and and systolic blood pressure greater than 90 mmHg. Dose not to exceed 0.04 units/minute. Rate/Dose Verify 02/05/2014 2:00 AM EDT 0.04 Units/min 4.8 mL/hr Rate/Dose Verify 02/05/2014 12:00 AM EDT 0.04 Units/min 4.8 mL/hr warfarin (COUMADIN) tablet 3 mg Given 02/06/2014 5:00 PM EDT 3 mg 3 mg, Oral, ONCE, 1 dose, On Mon02/06/14 at 1700, Daily dosing based on INR. 3mg today as per attending., Routine warfarin (COUMADIN) tablet 5 mg Given 02/05/2014 5:13 PM EDT 5 mg 5 mg, Oral, ONCE, 1 dose, On Mon02/05/14 at 1700, Daily dosing based on INR, Routine warfarin (COUMADIN) tablet 5 mg Given 02/07/2014 8:22 PM EDT 5 mg 5 mg, Oral, ONCE, 1 dose, On Mon02/07/14 at 1700, Routine warfarin (COUMADIN) tablet 5 mg Given 02/08/2014 4:59 PM EDT 5 mg 5 mg, Oral, ONCE, 1 dose, On Mon02/08/14 at 1700, Routine warfarin (COUMADIN) tablet 5 mg Given 02/09/2014 4:35 PM EDT 5 mg 5 mg, Oral, ONCE, 1 dose, On 02/09/14 at 1700, Routine documented in this encounter Active and Recently Administered Medications Times are shown in EDT. Scheduled Medication Order 02/08/2014 02/09/2014 02/10/2014 aspirin chewable tablet 81 mg (CANCELED) 0943 (Given - Provider: Ibrahima Jasmine RN) 0922 (Given - Provider: Jesusita Norman, MARISELA ) 0901 (Given - Provider: Alisson Pineda RN) 81 mg, Oral, DAILY, First dose on Mon at 0900, Until Discontinued, Start on post-op day 1 in the AM., Routine esomeprazole (NexIUM) capsule 40 mg (CANCELED) 0943 (G iven - Provider: Ibrahima Jasmine RN) 0923 (Given - Provider: Jesusita Norman, MARISELA ) 0901 (Given - Provider: Alisson Pineda RN) 40 mg, Oral, DAILY, First dose on Mon at 1345, Until Discontinued, If unable to take PO, may give IV, Routine furosemide (LASIX) injection 20 mg (CANCELED) 0943 (Gi sina - Provider: Ibrahima Jasmine RN)165 (Given - Provider: Ibrahima Jasmine RN) 0924 (Given - Provider: Jesusita Norman, MARISELA) 20 mg, Intravenous, 2 TIMES DAILY, First dose on Mon02/05/14 at 0900, Until Discontinued, Routine ketorolac (TORADOL) injection 15 mg (COMPLETED) 0015 ( Given - Provider: Lucille Hogue, MARISELA)0532 (Given - Provider: Lucille Hogue, MARISELA) 15 mg, Intravenous, EVERY 6 HOURS SCHEDU LED, 12 doses, First dose on Mon02/05/14 at 1200, Last dose on Mon02/08/14 at 0600, Routine metoprolol (LOPRESSOR) pre-split tablet 12.5 mg (CANCE LED) 0945 (Given - Provider: Ibrahima Jasmine RN)2099 (Given - Provider: Lucille Hogue RN) 09 (Given - Provider: Jesusita Norman RN)2025 (Given - Provider: Rocio Dejesus RN) 12.5 mg, Oral, EVERY 12 HOURS SCHEDULED [...] mEq (CANCELED) 945 (Given - Provider: Ibrahima Jasmine RN)2055 (Given - Provider: Lucille Hogue RN) 921 [...] Routine warfarin (COUMADIN) tablet 5 mg (COMPLETED) 1659 (Give n - Provider: Ibrahima Jasmine RN) [...] (Give n - Provider: Lucille Hogue RN) 0349 (Given - Provider: Daryn Cervantes)1538 (Given - Provider: Jesusita Norman RN) 0001 (Given - Provider: Rocio hernandes RN)0630 (Given - Provider: Rocio Dejesus RN)1028 (Given - Provider: Alisson Pineda RN) 500-1,000 mg, Oral, EVERY 4 HOURS PRN, S tarting 02/08/14 at 1858, Until Mon02/10/14 at 1236, Pain, Maximum dose of acetaminophen is 4000 mg from all sources in 24 hours., Routine diphenhydrAMINE (BENADRYL) capsule 25 mg (CANCELED) 20 57 (Given - Provider: Lucille Hogue RN) 2025 (Given - Provider: Rocio Dejesus RN) 25 mg, Oral, NIGHTLY PRN, Starting Sat 1 at 1629, Until 02/10/14 at 0801, Itching, Routine documented in this encounter Care Teams Freight Rate Clerk Relationship Specialty Start Date End Date Fabiola Gutierrez MD PCP - General 03/23/[address] [place] [address] documented as of this encounter
--- OUTSIDE RECORDS SUMMARY | 2022-03-22 09:53 | XMS_ITS | Encounter Summary ---
:1960 Author Organization [facility] Address [facility] [place] [address] Care Team Providers Name Role Phone Fabiola Gutierrez MD Primary Care Provider Encounter Details Date Type Department Care Team Description 01/28/2014 Orders Only Cardiology at [facility] Bethany Nation, Aortic insufficiency; [facility] [place] [address] CARDIOLOGY DEPT. [phone] [place], [place] [address] Social History Tobacco Use Types Packs/Day Years Used Date Smoking Tobacco: Never Smokeless Tobacco: Never Sex Assigned at Date Recorded Not on file documented as of this encounter Plan of Treatment Not on filedocumented as of this encounter Procedures Procedure Name Priority Date/Time Associated Diagnosis Comme nts TRANSESOPHAGEAL Routine 02/04/2014 Results for this ECHOCARDIOGRAM (CLIFFORD) procedu re are in the results section. CARDIAC CATHETERIZATION Routine 01/30/2014 11:05 Mitral insufficiency Results for this AM EDT Aortic insufficiency procedu re are in the results section. documented in this encounter Results Transesophageal Echocardiogram (CLIFFORD) (02/04/2014) Anatomical Region Laterality Modality Other Specimen (Source) Anatomical Location Collection Method / Collectio n Time Received Time / Laterality Volume 02/04/2014 Narrative 02/04/2014 6:55 PM EDT Procedure: ? Transesophageal Echocardiogram Patient: ? JOSH MACIAS ?(Age): () ? Med Rec#: ?[id number] ? Sex: ?F ? Site Loc: ?[facility] ? Ht / Wt: ??(cm)/(kg) ? Pt. Loc: ?BSA: ? Study Date: ?02/04/2014 ? Pt. Type: Inpatient Tape: ? Reading: Han Rodriguez ([id number]) Target Aircraft Controller: Mohit Bang ([id number]) Interpreting Fellow: Mohit Bang ([id number]) Interpreting Fellow: Tacos Jaimes ??([id number]) Diagnosis: ??Mitral Valve Insufficiency and Aortic Valve Stenosis (396.2) CPT Code(s): ??Echo CLIFFORD Full (55645), ?? Spectral Doppler (56752), ??Color Doppler (14128), Indication(s):Rhythm: SUMMARY: 1. PRE-OPERATIVE FINDINGS: ??Aortic valv e is bicuspid with fusion of the right and left coronary cusps, moderate stenosis and moderate to severe regurgitation. Left ventricular function appears normal with an estimated LVEF of 65%. ??Right ventricul ar chamber size, wall thickness and systolic function within normal limi ts. The leaflets of the mitral valve are thickened and there is moderat e mitral regurgitation. There is an echodense structure on the left ventr icular side which may represent a calcified chordal insertion to the pos terior leaflet. There appears to be a patent foramen ovale with small lef t to right shunt. The remainder of the valvular structures appear morpho logically normal without significant disease. 2. POST-OPERATIVE FINDINGS: ??There is n ow a 21mm bioprosthesis in the aortic position which appears well-seate d with normal function. There is no aortic regurgitation or perivalvular leak. There is now a 28 mm mitral valve ring. There is only trace r esidual mitral regurgitation noted. Left ventricular function is unch anged and there are no segmental wall motion abnormalities.Otherwise, the re are no significant changes noted from the preoperative study. 3. See remainder of report for additiona l findings. FINDINGS: Study Quality ?Adequate Left Ventricle ?Left ventricular chamber size, wal l thickness, global and segmental systolic function are within normal limi ts. Ejection fraction is estimated to be 65%. Left Atrium ?Spontaneous echo contrast is prese nt in the left atrial appendage. ?The left atrial appendage velocity is normal. ?No thrombus is visualized within t he left atrium. ?No clot is noted in the left atria l appendage. ?A patent foramen ovale is visualiz ed. ?There is a patent foramen ovale wi th predominant [id number] shunting.small Right Ventricle ?Right ventricular chamber size, wa ll thickness, and systolic function are within normal limits. Right Atrium ?No thrombus is visualized in the r ight atrium. Aortic Valve ?The size of the prosthetic aortic valve is 21mm. ?The prosthetic aortic valve was im planted on 02/04/2014. ?A pericardial bio-prosthetic aorti c valve is present. ?The bio-prosthetic aortic valve ap pears well seated with normal function. ?There is no prosthetic aortic valv e regurgitation present. Mitral Valve ?There is trace mitral regurgitatio n present. ?The size of the prosthetic mitral valve is 28mm. ?The prosthetic mitral valve was im planted on 02/04/2014. ?Status-post placement of a mitral valve ring. Tricuspid Valve ?The tricuspid valve appears normal in structure and function. ?There is trace tricuspid regurgita tion present. Pulmonic Valve ?The pulmonic valve appears normal. ?There is no evidence of pulmonic r egurgitation. Aorta ?There is evidence of grade 2 (exte nsive intimal thickening) atheromatous disease of the ascending ao rta. ?There is evidence of grade 2 (exte nsive intimal thickening) atheromatous disease of the aortic arch. ?There is evidence of grade 3 (athe brian <= 5mm) atheromatous disease of the descending thoracic aorta. Clifford Procedures ?The CLIFFORD probe was passed in the op erating room by the anesthesiologist after the patient was s edated with general anesthesia. Misc ?See remainder of report for additi onal findings. Wall Motion: Segment Name ?Rest ? Base-Anteroseptal ?? Normal ? Base-Anterior ? Normal ? Base-Anterolateral ??Normal ? Base-Posterolateral Normal ? Base-Inferior ? Normal ? Base-Inferoseptal ?? Normal ? Mid-Anteroseptal ?Normal ? Mid-Anterior ?Normal ? Mid-Anterolateral ?? Normal ? Mid-Posterolateral ??Normal ? Mid-Inferior ?Normal ? Mid-Inferoseptal ?Normal ? Fackler-Septal ? Normal ? Fackler-Anterior ? Normal ? Fackler-Lateral ?Normal ? Fackler-Inferior ? Normal ? Fackler-Tip ?Normal ? Chambers ?Value ?Units (Range) ? LV EF Est ? 65 ? % (55 to 80) ? This report has been electronically sign ed by: _ Han Rodriguez MD ? 02/04/2014 18:54 :58 Images reviewed and interpretation verif ied [facility] Cardiac Ultrasound Laboratory Procedure Note Han Rodriguez MD - 02/04/2014Formattin g of this note might be different from the original. Procedure: Transesophageal Echocardiogra m Patient: JOSH LOWE(Age): () Med Rec#: [id number] Sex: F Site Loc: [facility] Ht / Wt: (cm)/(kg) Pt. Loc: BSA: Study Date: 02/04/2014 Pt. Type: Inpatie nt Tape: Reading: Han Rodriguez ([id number]) Target Aircraft Controller: Mohit Bang ([id number]) Interpreting Fellow: Mohit Bang ([id number]) Interpreting Fellow: Tacos Jaimes ([id number]) Diagnosis: Mitral Valve Insufficiency an d Aortic Valve Stenosis (396.2) CPT Code(s): Echo CLIFFORD Full (74131), Spec tral Doppler (09868), Color Doppler (74388), Indication(s):Rhythm: SUMMARY: 1. PRE-OPERATIVE FINDINGS: Aortic valve is bicuspid with fusion of the right and left coronary cusps, moderate stenosis and moderate to severe regurgitation. Left ventricular function appears normal with an estimated LVEF of 65%. Right ventricular chamber size, wall thickness and systolic function within normal limi ts. The leaflets of the mitral valve are thickened and there is moderat e mitral regurgitation. There is an echodense structure on the left ventr icular side which may represent a calcified chordal insertion to the pos terior leaflet. There appears to be a patent foramen ovale with small lef t to right shunt. The remainder of the valvular structures appear morpho logically normal without significant disease. 2. POST-OPERATIVE FINDINGS: There is now a 21mm bioprosthesis in the aortic position which appears well-seate d with normal function. There is no aortic regurgitation or perivalvular leak. There is now a 28 mm mitral valve ring. There is only trace r esidual mitral regurgitation noted. Left ventricular function is unch anged and there are no segmental wall motion abnormalities.Otherwise, the re are no significant changes noted from the preoperative study. 3. See remainder of report for additiona l findings. FINDINGS: Study Quality Adequate Left Ventricle Left ventricular chamber size, wall thi ckness, global and segmental systolic function are within normal limi ts. Ejection fraction is estimated to be 65%. Left Atrium Spontaneous echo contrast is present in the left atrial appendage. The left atrial appendage velocity is n ormal. No thrombus is visualized within the le ft atrium. No clot is noted in the left atrial barbara endage. A patent foramen ovale is visualized. There is a patent foramen ovale with pr edominant [id number] shunting.small Right Ventricle Right ventricular chamber size, wall th ickness, and systolic function are within normal limits. Right Atrium No thrombus is visualized in the right atrium. Aortic Valve The size of the prosthetic aortic valve is 21mm. The prosthetic aortic valve was implant ed on 02/04/2014. A pericardial bio-prosthetic aortic clifford ve is present. The bio-prosthetic aortic valve appears well seated with normal function. There is no prosthetic aortic valve reg urgitation present. Mitral Valve There is trace mitral regurgitation pre sent. The size of the prosthetic mitral valve is 28mm. The prosthetic mitral valve was implant ed on 02/04/2014. Status-post placement of a mitral valve ring. Tricuspid Valve The tricuspid valve appears normal in s tructure and function. There is trace tricuspid regurgitation present. Pulmonic Valve The pulmonic valve appears normal. There is no evidence of pulmonic regurg itation. Aorta There is evidence of grade 2 (extensive intimal thickening) atheromatous disease of the ascending ao rta. There is evidence of grade 2 (extensive intimal thickening) atheromatous disease of the aortic arch. There is evidence of grade 3 (atheroma <= 5mm) atheromatous disease of the descending thoracic aorta. Clifford Procedures The CLIFFORD probe was passed in the operati ng room by the anesthesiologist after the patient was s edated with general anesthesia. Misc See remainder of report for additional findings. Wall Motion: Segment Name Rest Base-Anteroseptal Normal Base-Anterior Normal Base-Anterolateral Normal Base-Posterolateral Normal Base-Inferior Normal Base-Inferoseptal Normal Mid-Anteroseptal Normal Mid-Anterior Normal Mid-Anterolateral Normal Mid-Posterolateral Normal Mid-Inferior Normal Mid-Inferoseptal Normal Fackler-Septal Normal Fackler-Anterior Normal Fackler-Lateral Normal Fackler-Inferior Normal Fackler-Tip Normal Chambers Value Units (Range) LV EF Est 65 % (55 to 80) This report has been electronically sign ed by: _ Han Rodriguez MD 02/04/2014 18:54:58 Images reviewed and interpretation verif ied [facility] Cardiac Ultrasound Laboratory Unknown ECHO ORDERABLES Cardiac Catheterization (01/30/2014 11:05 AM EDT) Anatomical Region Laterality Modality Other Specimen (Source) Anatomical Location Collection Method / Collectio n Time Received Time / Laterality Volume Narrative 01/30/2014 11:14 AM EDT ?[facility] ? Cardiac Cathete rization/Intervention Report ? Patient Name: Jurado, Vilmapatricia J. ? Procedure Date: 01/30/2014 ? A #: [id number] ? Primary Physician: Sean Quinonez F. ? Case #: [id number] ? File Name: [id number] ? Catheterization Order Number: [id number] ? [facility] ? Final Report [place], [place] ? Patient Name: ? Dianah J. Jurado ? ID#: ?[id number] ? : ?1960 ? Procedure Date: ? January 30, 2014 ?Case #: ? [id number] ? Room: ? 5 ? Case Physician: ? Sigifredo Siddiqui. ? Start: ?10:08 ?Fellow: ? Ángel houston, M.D. ?Admission: ??01/30/2014 ? Referring Physician: ??Fabiola Gutierrez M.D. ? Procedures: ?* Coronary Angiography ?* Left Heart Catheterization ?* Left Ventriculography ?* Right Heart Catheterization ?* Oximetry ?* Aortic Root Aortogram ?* Access Site Angiography ? History ?Blanca Jurado is a 53 year old woman. She has a family history of ?coronary artery disease. The pa tient has a history of chest pain. She has ?a history of dyspnea with NYHA functional class III. The patient has ?aortic stenosis. She has mitral regurgitation and aortic regurgitation. ?The patient has a history of en docarditis. She also has a history of an ?abnormal EKG and an abnormal ec hocardiogram. Prior to the initiation of ?this procedure, the patient was designated as ASA Class II. ? Patient Status at Catheterization: ?The patient presented with: no symptom, no angina. [place] ?Cardiovascular Society angina c lass was 0. ? Technique: ?A 6Fr sheath was inserted in th e right femoral artery utilizing the ?Seldinger technique. An 8Fr she ath was inserted in the right femoral vein ?utilizing the Seldinger techniq ue. The left coronary artery was injected ?utilizing a 6Fr JL 4 catheter. A 6Fr JR 4 catheter was used to inject the ?right coronary artery. Right he art catheterization was performed ?utilizing a 7Fr [place]-Giselle kendal ter. Left ventricle was performed with a ?6Fr Angled pigtail catheter. Le ft ventricle was performed with a 6Fr AL-1 ?catheter. 2,000 units of hepari n were administered. A total of 200cc of ?Omnipaque were opened, 173cc of Omnipaque were administered and 27cc of ?Omnipaque were wasted. Radiatio n: Fluoro time was 7.2 minutes, dose area ?product was 32,116 mGYcm2 and a ir kerma was 299 mGY. ?The patient received the follow ing medications prior to and during the ?procedure: Aspirin (any) and Un fractionated heparin. ? Hemodynamics: ?Right Heart Pressures ? Hemodynamics: ? Syst D iast ? EDP ?a ?v ? m ?RA ? 2 ?2 ? 2 ?RV ??3 ?1 ?PA 14 ? 4 ? 9 ?PCW ?5 ?5 ? 4 ? Hemodynamic Profile: ?Profile 1 ? Profile 2 ?CO ? 5.93 ?5.20 ?CI ? 3.73 ?TSR ? 1,052 ? 1,200 ?SVR ? 1,025 ? 1,169 ?TPR ?121 ? 138 ?PVR ?67 ?77 ?Techniq ue ?Estimated Alex ?Thermodilution ?Left Heart Pressures ? Resting: ? Syst D iast ? EDP ?a ?v ? m ?Ao 114 ?? 54 ?78 ?LV 124 ? 5 ? Oximetry: ?Location ? % Sat ?Location ?%Sat ?Left Pulmonary Artery ??77.0 ?Ascending Aorta ? 97.0 ? Left Ventriculography: ?View CHILDRESS ?Overall LV ?Mild diffuse left ventricular dysfunction. ?Function: ?Estimated LV Ejection Fraction: 55% ?Mitral ?1+ ?Regurgitation: ? Aortography: ?Aortic ?3+ ?Regurgitation: ?Comments: ? There were three aortic cusps. There was evidence of aortic valve ? calcification. ? Prolapse of one aortic c senior care. ? Coronary Angiography: ?Dominance: Right ?Left Main ? The left main was normal . ?Left Anterior Descending ? The left anterior descen ding (LAD) was normal. ?Left Circumflex ? The left circumflex (LCX ) was normal. ?Right Coronary Artery ? The right coronary arter y (RCA) was normal. ? Indication for Selected Procedures: ?Right Heart catheterization was initiated for Aortic valve disorders ?(424.1). ? Vascular Access Angiogram: ?A selective angiogram at the ri ght femoral artery revealed no significant ?obstructive disease. ? Vascular Closure Device: ?A 6 Fr Perclose was deployed at the right femoral artery access site. ?This device was successful. ?Closure Comments: ? Oozing around sheath req uire manual pressure. ? Conclusions: ?* Normal coronary arteries ?* Mild diffuse left ventricular dysfunction (EF-55%) ?* Mild mitral regurgitation ?* Moderately severe aortic regu rgitation ? Complications/Events: ?The patient had no complication s during these procedures. ? Recommendations: ?Based upon the results of this procedure, it was recommended that ?valvular surgery be considered. ?The attending physician was presen t for the entire procedure. ?Dr. Sean Quinonez M.D. performed t he coronary angiography, left heart ?catheterization, left ventriculogr aphy, right heart catheterization, ?oximetry, aortic root aortogram an d access site angiography. ? Sean Quinonez M.D. ? Electronically Signed by: Sean Quinonez M.D. ? Report Finalized: 01/30/2014 ??11:05 ? Procedure Note Sean Quinonez MD - 01/30/2014 [facility] Cardiac Catheterization/Intervention Re port Patient Name: Blanca Jurado Procedure Date: 01/30/2014 A #: [id number] Primary Physician: Sean Quinonez Case #: File Name: [id number] Catheterization Order Number: [id number] [facility] Final Report [place], [place] Patient Name: Blanca Jurado ID#: [id number] : 1960 Procedure Date: January 30, 2014 Case #: Room: 5 Case Physician: Sean Quinonez M.D. Start : 10:08 Fellow: Ángel Harris M.D. Admission: 01/30/2014 Referring Physician: Fabiola Gutierrez M.D. Procedures: * Coronary Angiography * Left Heart Catheterization * Left Ventriculography * Right Heart Catheterization * Oximetry * Aortic Root Aortogram * Access Site Angiography History Blanca Jurado is a 53 year old woman. She has a family history of coronary artery disease. The patient navarrete s a history of chest pain. She has a history of dyspnea with NYHA function al class III. The patient has aortic stenosis. She has mitral regurgi tation and aortic regurgitation. The patient has a history of endocardit is. She also has a history of an abnormal EKG and an abnormal echocardio gram. Prior to the initiation of this procedure, the patient was designa loretta as ASA Class II. Patient Status at Catheterization: The patient presented with: no symptom, no angina. [place] Cardiovascular Society angina class was 0. Technique: A 6Fr sheath was inserted in the right femoral artery utilizing the Seldinger technique. An 8Fr sheath was inserted in the right femoral vein utilizing the Seldinger technique. The left coronary artery was injected utilizing a 6Fr JL 4 catheter. A 6Fr JR 4 catheter was used to inject the right coronary artery. Right heart cath eterization was performed utilizing a 7Fr Naples-Giselle catheter. Lef t ventricle was performed with a 6Fr Angled pigtail catheter. Left ventr icle was performed with a 6Fr AL-1 catheter. 2,000 units of heparin were a dministered. A total of 200cc of Omnipaque were opened, 173cc of Omnipaq ue were administered and 27cc of Omnipaque were wasted. Radiation: Fluor o time was 7.2 minutes, dose area product was 32,116 mGYcm2 and air kerma was 299 mGY. The patient received the following medi cations prior to and during the procedure: Aspirin (any) and Unfraction ated heparin. Hemodynamics: Right Heart Pressures Hemodynamics: Syst Diast EDP a v m RA 2 2 2 RV 3 1 PA 14 4 9 PCW 5 5 4 Hemodynamic Profile: Profile 1 Profile 2 CO 5.93 5.20 CI 3.73 TSR 1,052 1,200 SVR 1,025 1,169 TPR 121 138 PVR 67 77 Technique Estimated Alex Thermodilution Left Heart Pressures Resting: Syst Diast EDP a v m Ao 114 54 78 LV 124 5 Oximetry: Location %Sat Location %Sat Left Pulmonary Artery 77.0 Ascending Ao rta 97.0 Left Ventriculography: View CHILDRESS Overall LV Mild diffuse left ventricula r dysfunction. Function: Estimated LV Ejection Fraction: 55% Mitral 1+ Regurgitation: Aortography: Aortic 3+ Regurgitation: Comments: There were three aortic cusps. There wa s evidence of aortic valve calcification. Prolapse of one aortic cusp. Coronary Angiography: Dominance: Right Left Main The left main was normal. Left Anterior Descending The left anterior descending (LAD) was normal. Left Circumflex The left circumflex (LCX) was normal. Right Coronary Artery The right coronary artery (RCA) was nor mal. Indication for Selected Procedures: Right Heart catheterization was initiat ed for Aortic valve disorders (424.1). Vascular Access Angiogram: A selective angiogram at the right femo ral artery revealed no significant obstructive disease. Vascular Closure Device: A 6 Fr Perclose was deployed at the [facility] femoral artery access site. This device was successful. Closure Comments: Oozing around sheath require manual pre ssure. Conclusions: * Normal coronary arteries * Mild diffuse left ventricular dysfunc tion (EF-55%) * Mild mitral regurgitation * Moderately severe aortic regurgitatio n Complications/Events: The patient had no complications during these procedures. Recommendations: Based upon the results of this procedur e, it was recommended that valvular surgery be considered. The attending physician was present for the entire procedure. Dr. Sean Quinonez M.D. performed the co ronary angiography, left heart catheterization, left ventriculography, right heart catheterization, oximetry, aortic root aortogram and [facility] site angiography. Sean Quinonez M.D. Electronically Signed by: Sean Quinonez M.D. Report Finalized: 01/30/2014 11:05 Sean Quinonez MD CARDIAC CATH ORDERABLES documented in this encounter Visit Diagnoses Diagnosis Aortic insufficiency Aortic valve disorders Mitral insufficiency Mitral valve disorders Aortic insufficiency Aortic valve disorders Mitral insufficiency Mitral valve disorders documented in this encounter Care Teams Leaf Conditioner Relationship Specialty Start Date End Date Fabiola Gutierrez MD PCP - General 03/23/[address] [place] [address] documented as of this encounter
--- OUTSIDE RECORDS SUMMARY | 2022-03-22 09:53 | XMS_ITS | Encounter Summary ---
:1960 Author Organization [facility] [address] Care Team Providers Name Role Phone Fabiola Gutierrez MD Primary Care Provider Reason for Visit Reason Comments Shortness of Breath Encounter Details Date Type Department Care Team Description 01/23/2014 Office Visit Cardiothoracic Surge ry CLIN[facility], DR SHINE SANCHEZ (dyspnea on [facility] D Paco Bojorquez MD [facility] [address] [place] [address] exertion) ([place] [address] Dx) [phone] Social History Tobacco Use Types Packs/Day Years Used Date Smoking Tobacco: Never Smokeless Tobacco: Never Sex Assigned at Date Recorded Not on file documented as of this encounter Last Filed Vital Signs Vital Sign Reading Time Taken Comments Blood Pressure 120/62 01/23/2014 1:00 PM EDT Pulse 74 01/23/2014 1:00 PM EDT Temperature - - Respiratory Rate - - Oxygen Saturation 99% 01/23/2014 1:00 PM EDT Inhaled Oxygen Concentration - - Weight 59 kg (130 lb) 01/23/2014 1:00 PM EDT Height 157.5 cm (5' 2) 01/23/2014 1:00 PM EDT Body Mass Index 23.78 01/23/2014 1:00 PM EDT documented in this encounter Progress Notes Paco Cardenas MD - 01/24/2014 12:59 PM EDT Full note dictated, Pt with SANCHEZ/AR/MR/ with dilated LV, for Cath->OR Date of Consultation: 01/24/2014 I was asked to evaluate this 53-year-old woman [...] natural supplements. 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 On examination she has a blood pressure of 125/70. Her pulse is in the 70s. It is irregular. She does admit to occasional palpitations. I had a chance to review an echocardiogram provided by her senior mobile solutions architect, Dr. Daniel Hand. This study shows moderate [...] free of edema. I agree that Ms. Jurado would benefit from aortic valve replacement therapy with hopefully mitral valve repair or replacement if repair is not feasible. The potential risks and anticipated benefits were reviewed carefully with Mrs. Jurado. Her questions were answered. She does agree [...] interim plan for her cardiac cath. Paco Cardenas MD documented in this encounter Plan of Treatment Not on filedocumented as of this encounter Visit Diagnoses Diagnosis SANCHEZ (dyspnea on exertion) - Primary Other dyspnea and respiratory abnormalit y documented in this encounter Care Teams Orange Grower Relationship Specialty Start Date End Date Fabiola Gutierrez MD PCP - General 03/23/[address] [place] [address] [address] [place] [address] documented as of this encounter
--- OUTSIDE RECORDS SUMMARY | 2022-03-22 09:53 | XMS_ITS | Encounter Summary ---
:1960 Author Organization [facility] Address [address] [place] [address] Care Team Providers Name Role Phone Fabiola Gutierrez MD Primary Care Provider Encounter Details Date Type Department Care Team Description 01/30/2014 Clinical Support Same Day at [facility] Mitral insufficiency; [facility] Aortic in sufficiency; Drive Aortic regurgitation due to bicuspid aortic valve; [place] [address] Mitral regurgitation [phone] Social History Tobacco Use Types Packs/Day Years Used Date Smoking Tobacco: Never Smokeless Tobacco: Never Sex Assigned at Date Recorded Not on file documented as of this encounter Progress Notes Meeta Thomas RN - 01/30/2014 3:57 PM EDT PAT questionnaire reviewed with patient and her while in Pre Admission testing. Pre-operative instruction booklet reviewed with patient. Reviewed importance of pain control and cough and deep breathing exercise during the post-operative period. Instructed patient on use of Hibiclens soap to shower with the night before surgery or the morning of surgery. Pt verbalizes good understanding of allinformation reviewed. PLAN Testing: Labs and urine done, sent for chest x-ray Special medication instructions: None given Procedure date: 02/04/[address] Cardenas documented in this encounter Procedure Notes Provider, Scanning - 01/30/2014 5:19 PM EDTAssociated Order(s): SCAN DOC: CARDIAC CATH documented in this encounter Plan of Treatment Not on filedocumented as of this encounter Procedures Procedure Name Priority Date/Time Associated Diagnosis Comme nts CARDIAC CATH SCAN 01/30/2014 5:19 PM Resu lts for this EDT procedure are i n the results section. XR CHEST PA AND Routine 01/30/2014 4:25 PM Result s for this LATERAL EDT procedure are i n the results section. documented in this encounter Results SCAN DOC: CARDIAC CATH (01/30/2014 5:19 PM EDT) Anatomical Region Laterality Modality Other Narrative 01/30/2014 5:31 PM EDT Procedure Note Provider, Scanning - 01/30/2014 5:19 PM EDT Scanning Provider MEDIA MGR SCAN EXT ORDR/RSLT XR chest routine PA & lateral (01/30/2014 4:25 PM EDT) Anatomical Region Laterality Modality Chest N/A Radiographic Imaging Specimen (Source) Anatomical Collection Method Collection Time Re ceived Time Location / / Volume Laterality 01/30/2014 4:25 PM EDT Narrative 2014 8:01 AM EDT Examination CHEST ROUTINE 2 VIEWS Clinical History preop aortic valve replacement Comparison Chest x-ray July 14, 2003. ??July 11, 2003. Technique PA and lateral chest radiograph. Findings The lungs are clear. ??The cardiomediast inal silhouette, mari, and vascular markings are within normal limits. ??No pleural effusion or pneumothorax. ??No interval osseous change. Impression No acute cardiopulmonary pathology. Film and interpretation reviewed by the attending Procedure Note Yanni Watts MD - 2014Formatt ing of this note might be different from the original. Examination CHEST ROUTINE 2 VIEWS Clinical History preop aortic valve replacement Comparison Chest x-ray July 14, 2003. July 10. Technique PA and lateral chest radiograph. Findings The lungs are clear. The cardiomediastin al silhouette, mari, and vascular markings are within normal limits. No pl eural effusion or pneumothorax. No interval osseous change. Impression No acute cardiopulmonary pathology. Film and interpretation reviewed by the attending Paco Cardenas MD IMG DX ORDERABLES documented in this encounter Visit Diagnoses Diagnosis Mitral insufficiency Mitral valve disorders Aortic insufficiency Aortic valve disorders Aortic regurgitation due to bicuspid aor tic valve Mitral regurgitation Mitral valve disorders documented in this encounter Care Teams Sample Checker Relationship Specialty Start Date End Date Fabiola Gutierrez MD PCP - General 03/23/[address] [place] [address] documented as of this encounter
--- OUTSIDE RECORDS SUMMARY | 2022-03-22 09:53 | XMS_ITS | Encounter Summary ---
:1960 [place] [address] Care Team Providers Name Role Phone Fabiola Gutierrez MD Primary Care Provider Encounter Details Date Type Department Care Team Description 01/30/2014 Surgery Machine Load Clerk Janna Poole MD CARDIAC CATHETERIZATION [facility] [place] [address] [place] [phone] (Wo rk) Social History Tobacco Use Types Packs/Day Years Used Date Smoking Tobacco: Never Smokeless Tobacco: Never Sex Assigned at Date Recorded Not on file documented as of this encounter Last Filed Vital Signs Vital Sign Reading Time Taken Comments Blood Pressure 115/43 01/30/2014 9:35 AM EDT Pulse 72 01/30/2014 9:35 AM EDT Temperature 37.4 ??C (99.3 ??F) 01/30/2014 9:35 AM EDT Respiratory Rate 18 01/30/2014 9:35 AM EDT Oxygen Saturation 97% 01/30/2014 9:35 AM EDT Inhaled Oxygen Concentration - - Weight 58.9 kg (129 lb 13.6 oz) 01/30/2014 9:35 AM EDT Height 157.5 cm (5' 2) 01/30/2014 9:35 AM EDT Body Mass Index 23.75 01/30/2014 9:35 AM EDT documented in this encounter Discharge Instructions Discharge Bere Fay RN - 01/30/2014 12:21 PM EDT Activity If you are discharged the same day as your procedure, do not drive yourself home. Arrange to have another person drive. You may walk around when you get home, but keep your activity at a minimum until the morning. Do not bend over, strain, or lift heavy objects for 24 hours after the procedure. Do not participatein active sports for 48 hours. You may engage in sexual activity after 48 hours. These restrictions will not apply if the catheter was placed in a blood vessel in your arm. Catheter Insertion Area Care Take the band-aid off the catheter insertion area the morning following the procedure. You may take a shower if you wish. Wash the area with soap and water. Look for signs of infection over the next several days. A little spot of blood at the catheter insertion area is not unusual. A bruise or small lump under the skin is normal; they generally disappear in 3-4 days. For the first several days at home if you cough or sneeze, hold your groin to help prevent bleeding. Expect some mild tenderness over the area where the catheter was inserted. You will notice this after the local anesthetic (numbing medicine) wears off. This should improve during the 24-48 hours afterthe procedure. Take tylenol if needed. Contact your doctor if the discomfort worsens. Problems to Watch For If there is bright red blood flowing from the catheter insertion area: *stop what you are doing and lie down *Hold pressure steadily on the area for 15 minutes *Call for Help *If the bleeding does not stop in 15 minutes call 911 for an ambulance. If there is swelling with black and blue color at the catheter insertion area, there may be bleeding inside. Contact the doctor if there is any increase in size. Look at the insertion site for the first few days at home. Signs of infection are: *redness *Swelling *Yellow, white, green or brown foul smelling drainage. *increased soreness If you think there is an infection, take your temperature. Then call your doctor. The limb on the side where you had your catheterization should look and feel normal in its color, sensation, and temperature. If your leg becomes cool, pale, blue or changing color with numbness and tingling, contact your doctor. If you feel faint or dizzy, lie down with your feet elevated. Have someone call the doctor. If you are alert, drink fluids. How to Deal with Chest pain If you had only the cardiac catheterization, treat any angina or chest discomfort as instructed. Stop what you are doing, and sit or lie down. If prescribed, take nitroglycerin under your tongue. If the angina isn't relieved, take another nitroglycerine in 5 minutes. After another 5 minutes, a third ni troglycerine may be taken. If the angina isn't improved you should call for an ambulance to bring you to the nearest hospital emergency room. If your angina is more frequent or more sever than before, contact your doctor. We usually would not expect to have angina after an angioplasty. If you do get angina, treat it as you did before but also contact your doctor. Return to Work The doctor will usually have told you when to return to work. If you do not perform heavy physical labor, most people can return to work in a few days. Diet Follow your previous diet unless otherwise instructed. Cardiac Risk Factors If you have coronary artery disease, it is important that you help control it by reducing your cardiac risk factors. If you smoke, we urge you to stop now. If you think this is going to be a problem, let us know so that we may help you. We have dieticians who can help you learn about low fat, low cholesterol diet. Cardiac rehabilitation programs can help you set up a regular exercise program. Work with your doctor if you have high blood pressure or sugar diabetes to keep these under control. Medications ____Take your usual medications ____Medication changes: If you are taking medicines prescribed by your doctor, do not take any [id number] medicines orherbal preparations without first discussing this with your doctor or pharmacist. There is the possibility of side effect and interactions when these are combined. Follow up Care Who to Call with Questions or Problems If there are any questions or problems that you think might be related to your cardiac cath or angioplasty, contact the educational therapy teacher excellence consultant by calling [facility] at . documented in this encounter Medications at Time of Discharge Medication Sig Dispensed Refills Start Date End Date acetaminophen (TYLENOL) Take 1-2 tablets by 0 500 mg Tablet mouth every 4 hours as needed for Pain. warfarin (COUMADIN) 2.5 Take as directed. 60 tablet 2 02/10 mg Tablet HYDROmorphone (DILAUDID) Take 1 tablet by 40 tablet 0 02/10 2 mg Tablet mouth every 4 hours as needed for Pain. diphenhydrAMINE Take 25 mg by mouth 0 (BENADRYL) 25 mg Capsule nightly as needed. ferrous sulfate 325 mg Take 325 mg by mouth 0 (65 mg iron) Tablet daily (with breakfast). ascorbic acid (VITAMIN Take 500 mg by mouth 0 C) 500 mg Tablet daily. aspirin 81 mg Tablet, Take 81 mg by mouth 0 Chewable daily. polyethylene glycol Take 17 g by mouth 0 (MIRALAX) 17 gram Powder daily. in Packet amoxicillin (AMOXIL) 500 Take 2,000 mg by 0 mg Capsule mouth See Admin Instructions. Prior to dental work DOCUSATE SODIUM (COLACE Take by mouth 2 times 0 ORAL) daily. CHOLECALCIFEROL, VITAMIN Take by mouth. 0 D3, (VITAMIN D3 ORAL) chlorhexidine Apply topically daily 120 mL 0 01/30/2014 02/04/2014 (HIBICLENS) 4 % Liquid as needed. Shower from head to toe with Chlorhexidine the night before surgery . NIFEDIPINE ORAL Take 30 mg by mouth 2 0 02/10/2014 times daily. documented as of this encounter Progress Notes Bere Chen RN - 01/30/2014 2:12 PM EDT 1355-c/o of substernal chest pressure 3/10. Dr Harris called. EKG ordered. Dr Torresze over to look at EKG and evaluate pt. documented in this encounter H&P Notes Zbigniew Harris MD - 01/30/2014 9:11 AM EDT Patient Name: Blanca Jurado Patient Age: 53 y.o. Birthdate: 1960 Admit date: 01/30/2014 Attending Physician: Sean Quinonez MD Complete Adult Pre-Procedural H&P Patient Name: Blanca Jurado : [id number] 53 y.o. MR#: [id number] Chief Complaint: Aortic regurgitation and mitral regurgitation Planned Procedure: Left and right heart cath. History of Present Illness: HPI Pre-Cardiac Catheterization 24 hr Update Please see note dated 01/24/14 by for full details regarding reason for referral for cardiac catheterization. There has been no significant interval change in clinical status since that visit. I reviewed and updated as necessary the Medical, Surgical, Family, and Social History captured within the EMR. I reviewed and updated as necessary the patient's allergies and current medication list within the EMR. Review of Systems: Review of Systems Filed Vitals: 01/30/14 0935 Temp: 37.4 ??C (99.3 ??F) Physical Exam Femoral pulse: 3+ right side, 2+ pedal pulses bilaterally. Recent Results (from the past 24 hour(s)) PROTHROMBIN TIME Component Value Range PT 13.2 12.5 - 15.5 sec INR 0.9 0.9 - 1.1 HEMOGRAM Component Value Range WBC 5.9 4.0 - 10.0 x10(3)/mcL RBC 4.14 3.93 - 5.22 x10(6)/mcL Hemoglobin 13.1 11.2 - 15.7 gm/dL Hematocrit 39.6 34.0 - 45.0 % MCV 95.7 (*) 79.0 - 94.0 fL MCH 31.6 26.6 - 32.2 pg MCHC 33.1 32.0 - 36.5 gm/dL Platelets 303 145 - 370 x10(3)/mcL RDWSD 41.6 35.0 - 46.0 fL RDWCV 11.9 10.9 - 14.4 % MPV 10.3 9.0 - 12.0 fL DIFFERENTIAL, AUTOMATED Component Value Range Neutrophils % 50.7 34.0 - 71.0 % Neutr Abs (ANC) 3.00 1.50 - 6.30 x10(3)/mcL Lymphocytes % 35.5 19.0 - 53.0 % Lymphocytes Abs 2.1 1.0 - 3.6 x10(3)/mcL Monocytes % 11.3 4.0 - 13.0 % Monocyte Abs 0.7 0.2 - 1.0 x10(3)/mcL Eosinophils % 2.0 0.0 - 7.0 % Eosinophils Abs 0.1 0.0 - 0.5 x10(3)/mcL Basophils % 0.5 0.0 - 2.0 % Basophils Abs 0.0 0.0 - 0.2 x10(3)/mcL Immature Gran % 0.00 0.00 - 0.66 % Argelai Gran Abs 0.00 0.00 - 0.05 x10(3)/mcL BMP: pending. Assessment and Plan: Blanca Jurado is a 53 y.o. 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 No contraindications for cardiac cath. The indications, expected benefits and potential risks of heart catheterization were reviewed in detail with the patient. The potential for , heart attack, stroke, kidney failure, hemorrhage, allergic reaction, vascular complications and infection were reviewed in detail. The possibility of stenting and other percutaneous intervention with associated risk was reviewed. The possible need for emergent coronary artery bypass surgery was reviewed. After a discussion about the above, and having answered all questions posed, the patient was provided with a consent which was reviewed and signed. ZBIGNIEW HARRIS MD 01/30/2014 documented in this encounter Miscellaneous Notes Miscellaneous - Provider, Scanning - 01/30/2014 5:03 PM EDT Miscellaneous - Provider, Scanning - 01/30/2014 4:54 PM EDT documented in this encounter Plan of Treatment Not on filedocumented as of this encounter Procedures Procedure Name Priority Date/Time Associated Diagnosis Comme nts TYPE AND SCREEN, SDP Routine 01/30/2014 4:01 PM Mitral i nsufficiency (FUTURE SURGERY, EDT Aortic insuffic iency [facility] SAME [place] Aortic regurgitation PROGRAM ONLY) due to bicuspid aortic valve Mitral regurgitation ABO/RH TYPING Routine 01/30/2014 4:01 PM Mitral insuff iciency Results for this EDT Aortic insuffici ency procedure are in Aortic regurgitation the res ults due to bicuspid section. aortic valve Mitral regurgitation ANTIBODY SCREEN Routine 01/30/2014 4:01 PM Mitral insuff iciency Results for this EDT Aortic insuffici ency procedure are in Aortic regurgitation the res ults due to bicuspid section. aortic valve Mitral regurgitation EKG 12-LEAD STAT 01/30/2014 2:21 PM Mitral regurgitation R esults for this EDT procedure are i n the results section. @REPLACE AORTIC Routine 01/30/2014 1:01 PM VALVE, OPEN, W\CPB, EDT W\PROSTHETIC VALVE POINT OF CARE BLOOD Routine 01/30/2014 10:36 Resu lts for this GAS HISTORICAL AM EDT procedure are in the results section. BMP W/FASTING STAT 01/30/2014 9:10 AM Mitral insuff iciency Results for this GLUCOSE EDT Aortic insufficiency procedu re are in the results section. HEMOGRAM STAT 01/30/2014 9:10 AM Mitral insuff iciency Results for this EDT Aortic insufficiency procedu re are in the results section. DIFFERENTIAL, STAT 01/30/2014 9:10 AM Mitral insuff iciency Results for this AUTOMATED EDT Aortic insufficiency procedu re are in the results section. PROTHROMBIN TIME STAT 01/30/2014 9:10 AM Mitral insuf ficiency Results for this EDT Aortic insufficiency procedu re are in the results section. CBC (WITH DIFF) STAT 01/30/2014 9:10 AM Mitral insuff iciency EDT Aortic insufficiency documented in this encounter Results Antibody screen (01/30/2014 4:01 PM EDT) Analysis Performed At [facility] Time Signature Ab Screen Negative [facility] Cashback [facility]intaiFORMERLY [facility] Expires at [id number] on: [facility] Specimen Anatomical Collection Method Collection Time Receive d Time (Source) Location / / Volume Laterality Blood specimen 01/30/2014 4:01 PM 014 4:27 (specimen) EDT PM EDT Resulting Agency Comment Spec In Lab Paco Cardenas MD BLOOD BANK ORDERABLES Performing Organization Address City/State/[place] [address] [facility] [employer] ABO/Rh Typing (01/30/2014 4:01 PM EDT) P athologist Signature ABORh Type O Neg CERNER MILLENNIUM Specimen Anatomical Collection Method Collection Time Receive d Time (Source) Location / / Volume Laterality Blood specimen 01/30/2014 4:01 PM 014 4:27 (specimen) EDT PM EDT Resulting Agency Comment Spec In Lab Paco Cardenas MD BLOOD BANK ORDERABLES Performing Organization Address City/[facility]/ZIP Code Phon e Number [address] CERNER MILLENNIUM (ABNORMAL) Urinalysis without microscopic (01/30/2014 3:25 PM EDT) Patholo gist Method Time Signature Glucose UA Negative Negative CERNER mg/dL MILLENNIUM Protein UA Negative Negative CERNER mg/dL MILLENNIUM Bilirubin UA Negative Negative CERNER mg/dL MILLENNIUM Comment: Clinical correlation required for positi ve Urine Bilirubin results as false positive may occur with some drugs and d rug related products. If a false positive is suspected a serum total bili lozoya should be considered if clinically indicated. Urobilinogen UA Normal Normal mg/dL CERNER MILL ENNIUM pH UA 5.0 5.0 - 8.0 CERNER MILLENNIUM Blood UA Moderate (A) Negative mg/dL CERNER MILLE NNIUM Ketones UA 5 (A) Negative mg/dL CERNER MILLENN IUM Nitrite UA Negative Negative CERNER MILLENNIUM Leukocytes UA Negative Negative mcL CERNER ZANE NIUM Appearance UA Clear Clear CERNER MILLENNIU M Spec [place] UA >1.035 (H) 1.002 - 1.030 CERNER SD LLENNIUM Color UA Yellow Yellow CERNER MILLENNIUM Specimen Anatomical Collection Method Collection Time Receive d Time (Source) Location / / Volume Laterality Urine specimen 01/30/2014 3:25 PM 014 4:43 (specimen) EDT PM EDT Resulting Agency Comment Spec In Lab Paco Cardenas MD URINE ORDERABLES Performing Organization Address City/[facility]/ZIP Code Phon e Number [address] CERNER MILLENNIUM EKG 12 Lead (01/30/2014 2:21 PM EDT) Component Value Ref Range Test Analysis Performed Pathologis t Method Time At Signature Ventricular rate 66 BPM MUSE SYSTEM Atrial Rate 66 BPM MUSE SYSTEM P-R Interval 124 ms MUSE SYSTEM QRS Duration 100 ms MUSE SYSTEM Q-T Interval 420 ms MUSE SYSTEM QTC Calculated 440 ms MUSE SYSTEM (Bezet) Calculated P [place] 33 degrees MUSE SYSTEM Calculated R [place] 54 degrees MUSE SYSTEM Calculated T [place] 38 degrees MUSE SYSTEM INTERPRETATION Normal sinus rhythm MUSE SYSTEM Normal ECG When compared with ECG of 19-JUL-2003 23:52, No significant change was found Confirmed by Tobias Briceño MD ([id number]) on 2014 1:17:49 PM Specimen Anatomical Collection Method Collection Time Receive d Time (Source) Location / / Volume Laterality 01/30/2014 2:21 PM 4 1:17 EDT PM EDT Sean Quinonez MD ECG ORDERABLES Performing Organization Address City/State/ZIP Code Phon e Number MUSE SYSTEM (ABNORMAL) Point of Care Blood Gas Historical (01/30/2014 10:36 AM EDT) Analysis Performed At Patho logist Time Signature POC pH 7.40 7.35 - CERNER 7.45 MILLENNIUM POC PCO2 42 35 - 45 CERNER mmHg MILLENNIUM POC PO2 93 85 - 104 CERNER mmHg MILLENNIUM POC Base Excess 1.0 -3.0 - 3.0 CERNER mmol/L MILLENNIUM POC HCO3 26.0 20.0 - CERNER 26.0 MILLENNIUM mmol/L POC Sodium 141 135 - 145 CERNER mmol/L MILLENNIUM POC Potassium 3.4 (L) 3.5 - 5.0 CERNER mmol/L MILLENNIUM POC Ionized Ca 1.24 1.15 - CERNER 1.33 MILLENNIUM mmol/L POC Hematocrit 34.0 34.0 - CERNER 45.0 % MILLENNIUM POC Calc Hgb 11.6 11.2 - CERNER 15.7 gm/dL MILLENNIUM Comment: The calculation of hemoglobin f rom hematocrit assumes a normal MCHC. POC Bgas Loc CC Lab CERNER MILLENNIUM Specimen Anatomical Collection Method Collection Time Receive d Time (Source) Location / / Volume Laterality Blood specimen 01/30/2014 10:36 4 8:26 (specimen) AM EDT AM EDT Sean Quinonez MD CHEMISTRY ORDERABLES Performing Organization Address City/State/[place] [address] CERNER MILLENNIUM Differential, Automated (01/30/2014 9:10 AM EDT) P athologist Signature Neutrophils % 50.7 34.0 - CERNER 71.0 % MILLENNIUM Neutr Abs (ANC) 3.00 1.50 - CERNER 6.30 MILLENNIUM x10(3)/mcL Lymphocytes % 35.5 19.0 - CERNER 53.0 % MILLENNIUM Lymphocytes Abs 2.1 1.0 - 3.6 CERNER x10(3)/mcL MILLENNIUM Monocytes % 11.3 4.0 - 13.0 CERNER % MILLENNIUM Monocyte Abs 0.7 0.2 - 1.0 CERNER x10(3)/mcL MILLENNIUM Eosinophils % 2.0 0.0 - 7.0 CERNER % MILLENNIUM Eosinophils Abs 0.1 0.0 - 0.5 CERNER x10(3)/mcL MILLENNIUM Basophils % 0.5 0.0 - 2.0 CERNER % MILLENNIUM Basophils Abs 0.0 0.0 - 0.2 CERNER x10(3)/mcL MILLENNIUM Immature Gran % 0.00 0.00 - CERNER 0.66 % MILLENNIUM Comment: Immature granulocytes(IG's)percentage an d absolute count will include metamyelocytes, myelocytes, and promyelo cytes. Blood smears from CBCs yielding IG's will be scanned manually for concor dance. If this scan disagrees with the automated IG or if promyelocytes are not ed, a manual differential will be performed. Argelia Gran Abs 0.00 0.00 - 0.05 x10(3)/mcL CER NER MILLENNIUM Specimen Anatomical Collection Method Collection Time Receive d Time (Source) Location / / Volume Laterality Blood specimen 01/30/2014 9:10 AM 014 9:13 (specimen) EDT AM EDT Resulting Agency Comment Spec In Lab Sean Quinonez MD HEMATOLOGY ORDERABLES Performing Organization Address City/[facility]/[place] [address] CERNER MILLENNIUM (ABNORMAL) Hemogram (01/30/2014 9:10 AM EDT) athologist Signature WBC 5.9 4.0 - 10.0 CERNER x10(3)/mcL MILLENNIUM RBC 4.14 3.93 - CERNER 5.22 MILLENNIUM x10(6)/mcL Hemoglobin 13.1 11.2 - CERNER 15.7 gm/dL MILLENNIUM Hematocrit 39.6 34.0 - CERNER 45.0 % MILLENNIUM MCV 95.7 (H) 79.0 - CERNER 94.0 fL MILLENNIUM MCH 31.6 26.6 - CERNER 32.2 pg MILLENNIUM MCHC 33.1 32.0 - CERNER 36.5 gm/dL MILLENNIUM Platelets 303 145 - 370 CERNER x10(3)/mcL MILLENNIUM RDWSD 41.6 35.0 - CERNER 46.0 fL MILLENNIUM RDWCV 11.9 10.9 - CERNER 14.4 % MILLENNIUM MPV 10.3 9.0 - 12.0 CERNER fL MILLENNIUM Specimen Anatomical Collection Method Collection Time Receive d Time (Source) Location / / Volume Laterality Blood specimen 01/30/2014 9:10 AM 014 9:13 (specimen) EDT AM EDT Resulting Agency Comment Spec In Lab Sean Quinonez MD HEMATOLOGY ORDERABLES Performing Organization Address City/State/[place] [address] CERNER MILLENNIUM (ABNORMAL) BMP w/fasting Glucose (01/30/2014 9:10 AM EDT) athologist Signature Glucose 85 65 - 99 CERNER Fasting mg/dL MILLENNIUM Comment: ?Fasting* Glucose Interpretive C riteria Normal [...] of Diabetes Mellitus, Position Statement from the [place] [employer]. ??Diabete s Care, Volume 33, Supplement 1, May 2009 BUN 14 8 - 18 mg/dL CERNER MILLENNIUM Creatinine 0.58 (L) 0.70 - 1.20 mg/dL CERNER MILL ENNIUM Comment: Please note that the pediatric reference intervals supplied above were not validated at [facility]. Results from pediatri c patients should be interpreted in conjunction to the patient's age, height and muscle mass. Sodium 142 135 - 145 mmol/L CERNER ZANE NIUM Potassium 3.7 3.5 - 5.0 mmol/L CERNER ZANE NIUM Comment: Please note: ??Patients with WBC >100,00 0 may have falsely elevated Potassium levels. ??For accurate Potassium quantif ication in these patients send serum separator tube (gold top) for subsequent determinations. ??Contact the Clinical Chemistry Laboratory if there are any qu estions. Chloride 104 98 - 107 mmol/L CERNER MILLENN IUM CO2 28 22 - 31 mmol/L CERNER MILLENNI UM Anion Gap 10 5 - 15 mmol/L CERNER MILLENNIU M Calcium 9.1 8.5 - 10.5 mg/dL CERNER ZANE NIUM [...] the following links into your internet browser. [email or web address] [email or web address] Specimen Anatomical Collection Method Collection Time Receive d Time (Source) Location / / Volume Laterality Blood specimen 01/30/2014 9:10 AM 014 9:14 (specimen) EDT AM EDT Resulting Agency Comment Spec In Lab Sean Quinonez MD CHEMISTRY ORDERABLES Performing Organization Address City/[facility]/ZIP Code Phon e Number [address] [email or web address] Prothrombin Time (01/30/2014 9:10 AM EDT) P athologist Signature PT 13.2 12.5 - 15.5 CERNER sec MILLENNIUM Comment: [facility] Transfusion Committee Guidelines: I NR less than 2.0, PTT less than OR equal to 43.5 seconds, or Fibrinogen gre ater than or equal to 100 mg/dl indicate adequate procoagulant activity for hemostasis in patients without underlying bleeding disorders. INR 0.9 0.9 - 1.1 [email or web address] Specimen Anatomical Collection Method Collection Time Receive d Time (Source) Location / / Volume Laterality Blood specimen 01/30/2014 9:10 AM 014 9:13 (specimen) EDT AM EDT Resulting Agency Comment Spec In Lab Sean Quinonez MD HEMATOLOGY ORDERABLES Performing Organization Address [facility]/ZIP Code Phon e Number [address] [email or web address] [email or web address] documented in this encounter Visit Diagnoses Diagnosis Mitral insufficiency Mitral valve disorders Aortic insufficiency Aortic valve disorders Aortic regurgitation due to bicuspid aor tic valve Mitral regurgitation Mitral valve disorders Aortic insufficiency Aortic valve disorders Mitral insufficiency Mitral valve disorders documented in this encounter Administered Medications Inactive Administered Medications - up to 3 most recent administrations Medication Order MAR Action Action Date Dose Rate Site acetaminophen (TYLENOL) tablet 650 Given 01/30/2014 2:40 PM EDT 650 mg mg 650 mg, Oral, ONCE, 1 dose, On Lulu 01/30/14 at 1445, Maximum dose of acetaminophen is 4000 mg from all sources in 24 hours., Routine fentaNYL (PF) 50 mcg/mL 2mL syringe Given 01/30/2014 11:42 AM EDT 25 mcg 25 mcg, Intravenous, EVERY 30 MIN PRN, Pain, sheath removal, Starting on Lulu 01/30/14 at 1120, 4 doses, Until Lulu 01/30/14 at 2142, May repeat once while in Cath Recovery Unit, Cath (Recovery-Hospital Unit) Given 01/30/2014 11:22 AM EDT 25 mcg fentaNYL 50mcg/mL injection Given 01/30/2014 10:09 AM EDT 25 mcg ONCE PRN, Starting on Lulu 01/30/14 at 1009, Until Lulu 01/30/14 at 1206, Pain, Intra-Operative (Intra-Procedure), Routine heparin (porcine) injection Given 01/30/2014 10:20 AM EDT 2,000 Units ONCE PRN, Starting on Lulu 01/30/14 at 1020, Until Lulu 01/30/14 at 1105, Cath (Intra-Procedure), Routine iohexol (OMNIPAQUE) 350 mg iodine/mL Given 01/30/2014 11:02 AM E DT 173 mLs injection ONCE PRN, Starting on Lulu 01/30/14 at 1102, Until Lulu 01/30/14 at 1105, Per Protocol, Cath (Intra-Procedure), Routine lidocaine (XYLOCAINE) 10 mg/mL (1 %) Given 01/30/2014 10:14 AM E DT 100 mg injection ONCE PRN, Starting on Lulu 01/30/14 at 1014, Until Lulu 01/30/14 at 1105, Cath (Intra-Procedure), Routine midazolam (PF) (VERSED) 1 mg/mL injectio n Given 01/30/2014 10:10 AM EDT 1 mg ONCE PRN, Starting on Lulu 01/30/14 at 1010, Until Lulu 01/30/14 at 1105, Sleep, Cath (Intra-Procedure), Routine sodium chloride 0.9% infusion New Bag 01/30/2014 11:30 AM EDT 125 mL/hr 125 mL/hr 125 mL/hr, Intravenous, CONTINUOUS, Starting on Lulu 01/30/14 at 1130, Until Lulu 01/30/14 at 1429 documented in this encounter Active and Recently Administered Medications Times are shown in EDT. Scheduled Medication Order 01/28/2014 01/29/2014 01/30/2014 acetaminophen (TYLENOL) tablet 650 mg (COMPLETED) 1440 (Given - Provider: Bere Chen RN) 650 mg, Oral, ONCE, 1 dose, Lulu 01/30/14 at 1445, Maximum dose of acetaminophen is 4000 mg from all sources in 24 hours., Routine Continuous Medication Order 01/28/2014 01/29/2014 01/30/2014 sodium chloride 0.9% infusion () 1130 (New Bag - Provider: Shani Jarrett RN - Comment: No IV pumps. Gtt to gravity.) 125 mL/hr, at 125 mL/hr, Intravenous, CO NTINUOUS, Starting Lulu 10 at 1130, Until Lulu 01/30/14 at 1429 PRN Medication Order 01/28/2014 01/29/2014 01/30/2014 fentaNYL (PF) 50 mcg/mL 2mL syringe (CANCELED) 1122 (Given - Provider: Shani Jarrett RN)1142 (Given - Provider: Shani Jarrett, MARISELA) 25 mcg, Intravenous, EVERY 30 MIN PRN, 4 doses, Starting Lulu 01/30/14 at 1120, Until Lulu 01/30/14 at 2142, Pain, sheath removal, May repeat once while in Cath Recovery Unit, Cath (Recovery-Hospital Unit), Routine fentaNYL 50mcg/mL injection (CANCELED) 1009 (Given - Provider: Magnus Garza RN) ONCE PRN, Starting Lulu 01/30/14 at 1009, Until Lulu 01/30/14 at 1206, Pain, Intra- Operative (Intra-Procedure), Routine heparin (porcine) injection (CANCELED) 1020 (Given - Provider: Sean Quinonez MD) ONCE PRN, Starting Lulu 10 at 1020, Until Lulu 01/30/14 at 1105, Cath (Intra- Procedure), Routine iohexol (OMNIPAQUE) 350 mg iodine/mL injection (CANCELED) 1102 (Given - Provider: Sean Quinonez MD) ONCE PRN, Starting Lulu 01/30/14 at 1102, Until Lulu 14 at 1105, Per Protocol, Cath (Intra-Procedure), Routine lidocaine (XYLOCAINE) 10 mg/mL (1 %) injection (CANCELED) 1014 (Given - Provider: Magnus Garza RN - Comment: right groin) ONCE PRN, Starting Lulu 1014 at 1014, Until Lulu 01/30/14 at 1105, Cath (Intra- Procedure), Routine midazolam (PF) (VERSED) 1 mg/mL injection (CANCELED) 1010 (Given - Provider: Magnus A Kayla, RN) ONCE PRN, Starting Lulu 01/30/14 at 1010, Until Lulu 01/30/14 at 1105, Sleep, Cath (Intra-Procedure), Routine documented in this encounter Care Teams Conveyor Installer Relationship Specialty Start Date End Date Fabiola Gutierrez MD PCP - General 03/23/[address] [place] [address] documented as of this encounter
--- OUTSIDE RECORDS SUMMARY | 2022-03-22 09:53 | XMS_ITS | Encounter Summary ---
:1960 Author Organization [facility] [place] [address] Care Team Providers Name Role Phone Fabiola Gutierrez MD Primary Care Provider Encounter Details Date Type Department Care Team Description 10/16/2012 Telephone Obstetrics and Gynecology at Nicholas Haq MD [facility] & [place] [address] [place] [address] [phone] (Wo rk) Social History Tobacco Use Types Packs/Day Years Used Date Smoking Tobacco: Never Assessed Sex Assigned at Date Recorded Not on file documented as of this encounter Miscellaneous Notes Telephone Encounter - Nicholas Haq MD - 10/16/2012 10:02 AM EDT Called patient to notify of pathology and pap smear results: Pathology was normal endocervical mucosa; pap smear NILM with HPV negative. She also had an FSH drawn, which was 6.7. I discussed with her that her bleeding is likely from the cervix, and although there was no endometrium seen on curettage, this is most likely menses from her cervical stump. She is not menopausal yet. Exam, ECC, and pap smear were all reassuring. She will call with any changes in her bleeding pattern or other concerns. NICHOLAS HAQ MD PGY4 documented in this encounter Plan of Treatment Not on filedocumented as of this encounter Visit Diagnoses Not on filedocumented in this encounter Care Teams Manager Data Relationship Specialty Start Date End Date Fabiola Gutierrez MD PCP - General 03/23/[address] [place] [address] documented as of this encounter
--- OUTSIDE RECORDS SUMMARY | 2022-03-22 09:53 | XMS_ITS | Encounter Summary ---
:1960 Author Organization [facility] Address [facility] [place] [address] Care Team Providers Name Role Phone Fabiola Gutierrez MD Primary Care Provider Reason for Visit Reason Comments Vaginal Bleeding post hysterectomy Encounter Details Date Type Department Care Team Description 10/05/2012 Office Visit Obstetrics and Nicholas Haq MD Bleeding of cervix Gynecology at [facility] (Primary Dx) [facility] [address] [facility] & [place], [place] GYNECOLOGY [address] [place] [address] [phone] Social History Tobacco Use Types Packs/Day Years Used Date Smoking Tobacco: Never Assessed Sex Assigned at Date Recorded Not on file documented as of this encounter Last Filed Vital Signs Vital Sign Reading Time Taken Comments Blood Pressure 110/60 10/05/2012 4:02 PM EDT Pulse - - Temperature - - Respiratory Rate - - Oxygen Saturation - - Inhaled Oxygen Concentration - - Weight 60.2 kg (132 lb 12.8 oz) 10/05/2012 4:02 PM EDT Height 157.5 cm (5' 2) 10/05/2012 4:02 PM EDT Body Mass Index 24.29 10/05/2012 4:02 PM EDT documented in this encounter Progress Notes Rambo Vargas MD - 07/29/2013 10:10 AM EDT The case was discussed with Dr. Haq at the time of the visit or immediately after the visit. The assessment and plan were formulated in discussion with me and I agree with them as documented. T Nicholas Haq MD - 10/05/2012 4:21 PM EDT New Patient Visit HPI: Colleen Moreno is a 52 yo female who is s/p emergent supra-cervical hysterectomy for hemorrhage at an outside hospital. She now presents with vaginal bleeding which initially she did not have, but then she developed post- coital bleeding, which has persisted intermittently. She has also developed sp otting/light period monthly. Colleen reports a history of fibroid uterus with menorrhagia for which she was taking Lupron. She stopped the Lupron and was about to restart the medication when she developed an episode of menorrhagia causing her to bleed through 2 sets of clothing. She reports going to bed and waking in a pool of blood. She fainted on the floor and was taken by ambulance to the hospital where she underwent an emergent hysterectomy because they couldn't stop the bleeding. She was told it was difficult to see due to all the blood, and she is not sure if the surgeon intended to leave her cervix, but she had a supracervical hysterectomy. Colleen denies any history of bleeding disorder.Takes one baby ASA daily. She has been seen in the office by her sr. operations manager 3 times due to her post-coital bleeding and she reports having silver nitrate applied to her entire cervix. She has not hadany bleeding for the past 3 weeks. Does have hot flashes for the past few years. Used to be worse shai n now. Bleeding after intercourse will last a few days and she will bleed a lot 50% of time. Her last pap smear was 1 year ago. She had an abnormal pap a long time ago and repeat was normal with all normal since then. On review of outside records, Colleen had an erosion of the external os treated with silver nitrate, but then had what she described as a significant bleed after intercourse. The area was again treated with silver nitrate. Her pap smear was normal. She was reassured that this likely did not represent endometrial tissue because it did not start until 2 years after her hysterectomy, which was in 2010. She was told this bleeding is related to erosion of the cervix and vaginal atrophy. She uses olive oilfor lubrication. Past Medical History Diagnosis Date ??? Endocarditis three episodes ??? Bicuspid aortic valve moderate to severe stenosis ??? Menorrhagia fibroid uterus ??? Seizures patit mal as an infant Past Surgical History Procedure Date ??? Hysterectomy 05/2010 supracervical ??? [place] tooth extraction Allergies Allergen Reactions ??? Ibuprofen dizziness ??? Vancomycin Analogues CIS - SKIN IRRITATION ??? Vancomycin Hcl CIS - Urticaria Prior to Admission medications Medication Sig Start Date End Date Taking? Authorizing Provider DOCUSATE SODIUM (COLACE ORAL) Take by mouth 2 times daily. Yes Danny Dykes MD CHOLECALCIFEROL, VITAMIN D3, (VITAMIN D3 ORAL) Take by mouth. Yes Danny Dykes MD CALCIUM ORAL Take by mouth. Yes Danny Dykes MD CIS Free Text Med - Seven essentials 06/06/06 Yes NIFEdipine (PROCARDIA XL) 30 mg 24 hr tablet 06/06/06 Yes ASPIRIN ORAL 81mg, PO, QD 06/06/06 Yes ascorbic acid (VITAMIN C) 500 mg tablet 06/06/06 Yes Garlic Cap 06/06/06 Yes Ferrous Sulfate Dried (SLOW FE) 160 mg (50 mg Iron) TbSR 06/06/06 Yes Psyllium Husk (METAMUCIL) 0.52 g capsule 06/06/06 SocHx: Denies tobacco use. No regular etoh use. Denies illicit drug use. O: Filed Vitals: 10/05/12 1602 BP: 110/60 Gen: well-appearing woman, A&Ox3, NAD CV: RRR, no M/R/G Pulm: CTAB, no W/R/R Abd: soft, nontender to palpation, nondistended, no palpable masses Pelvic: Mild external atrophy, no lesions or sores. On speculum exam, there is mild atrophy of the vaginal epithelium. Cervix is without visible lesions at this time, but a 1 cm area near the os which appears to be where the erosion was located. No blood in vault or vagina, no bleeding with insertion of speculum. Pap smear was collected. ECC was collected. A/P: Colleen Moreno is a 51yo female with post-coital bleeding and also monthly bleeding s/p laparoscopic supracervical hysterectomy in 2010. She has been treated for cervix erosion with silver nitrate x 2 with no bleeding for the past 3 weeks. She is having aminta-menopausal symptoms with hot flashes. Isuspect this bleeding is related both to the erosion and cervical friability as well as monthly bleeding related to endometrial tissue within the endocervical canal. She had a normal pap smear last year, which was repeated today. Endocervical curettage was performed to assess for endometrium within the canal. We discussed the option of testing FSH to see if she is post-menopausal, to which she consent ed. She could also proceed with cryotherapy of her cervix as was offered to her by her primary Clinical Ob. At this time, if her testing is normal, she would like to observe her bleeding. 1. F/u pap smear results 2. F/u ECC 3. F/u FSH NICHOLAS AHQ MD PGY4 documented in this encounter Plan of Treatment Not on filedocumented as of this encounter Procedures Procedure Name Priority Date/Time Associated Comments Diagnosis [facility] MOLECULAR GENETICS Routine 10/05/2012 5:32 PM Results for this REPORT EDT procedure are i n the results section. [facility] CYTOLOGY FINAL Routine 10/05/2012 5:32 PM Res ults for this REPORT EDT procedure are i n the results section. FOLLICLE STIMULATING Routine 10/05/2012 5:09 PM Bleeding of ce rvix Results for this HORMONE EDT procedure are i n the results section. SPECIMEN TO PATHOLOGY Routine 10/05/2012 4:44 PM Bleeding of c ervix Results for this (NON-OR) EDT procedure are i n the results section. SURGICAL PATHOLOGY Routine 10/05/2012 4:44 PM Res ults for this REPORT EDT procedure are i n the results section. CYTOPATHOLOGY Routine 10/05/2012 4:44 PM Bleeding of cervix Re sults for this GYNECOLOGICAL EDT procedure are in the results section. documented in this encounter Results Automation Sales Manager Cytology Final Report (10/05/2012 5:32 PM EDT) Component Value Ref Test Analysis Performed At [facility] Range Method Time Signature Automation Sales Manager Cytology CERNER Final Report ? [facility] ? Provider: ?? NICHOLAS HAQ ?Pt. Name: ?? MORENO DARIUSLissett Douglas ? Acc #: ?[id number] ?Pt. MRN: ?[id number] ? Col Date: ?? 10/05/2012 ?/Sex: ?1960,(52 years),Female ? Rec Date: ?? 10/05/2012 ?LOC: ?5L ? CYTOPATHOLOGY: ??[facility] ? ---Adequacy--- ? Specimen submitted is satisfactory. ? Endocervical component present. ? ---Cytopathologic Diagnosis--- ? NORMAL ? Negative for Intraepithelial Lesion or Malignancy (NI LM). ? 10/10/12 ?? Screened by: ??DMG ??SLA ? 10/11/12 ?? Verified by: ??JUAN Fraser(ASCP), S carlos L. - ? Dyeing Machine Back Tender ? ---Comment--- ? Please also see concurrent HPV test result. ? ---Clinical Information--- ? HPV Option: ? Concurrent HPV ? Preparation: ?Liquid Based Pap ? Specimen Source: ?Cerv/Endo/LBP/Diagnostic ? LMP: ?unknown ? Hormones?: ?No ? Hysterectomy?: ?Supracervical Hysterecto my ?: ?No ?: ?No ? I.U.D.?: ?No ? Pelvic Radiation: ? No ? Prior [facility] Therapy?: ? No ? Hist Abnl Pap/Biopsy?: ??No ? Hist of HPV Vaccine?: ?? No ? Hist of Smoking?: ? No ? Hist of JACIEL exposure?: ??No ? Clinical Data, Significant Therapy and Clinical Impre ssion: ? Note: ? The Pap test is a screening test for cervical c ancer with an inherent ? false-negative rate dependent upon several variables. ??For further ? information please contact the [facility] Laboratory. ? Reference: ??Yolanda gomez CS. ??Janitor Helper of Pap Smear Results. ??In: ? Robby BS, Lazaro HH, ed. ??The Pap Smear. ??[place]: ??Willi, 2002: ? 71-77. Specimen (Source) Anatomical Collection Method Collection Time Re ceived Time Location / / Volume Laterality 10/05/2012 5:32 PM EDT Nicholas Haq MD PATHOLOGY/CYTOLOGY ORDERABLE S Performing Organization Address City/State/ZIP [place] [address] [facility] Molecular Genetics Report (10/05/2012 5:32 PM EDT) [facility] gist Method Time Signature [facility] Molecular [facility] Genetics ? [facility] Report ? Provider: ?? NICHOLAS HAQ ?Pt. Name: ?? COLLEEN MORENO ? Acc #: ?[id number] ?Pt. MRN: ?[id number] ? Col Date: ?? 10/05/2012 ?/Sex: ?1960,(52 years),Female ? Rec Date: ?? 10/05/2012 ?LOC: ?5L ? MOLECULAR GENETIC STUDIES ? ---REPORT OF DNA ANALYSIS--- ? Ally Bello HPV test ? NEGATIVE for high-risk HPV *. ? It is recommended shai t patients with ASCUS cytology and a negative test for ? high-risk HPV undergo further evaluation according to current practice ? guidelines. ??* Testi ng negative for high risk HPV means that the specimen ? is negative for the f ollowing 14 types tested: ??types 16, 18, 31, 33, 35, ? 39, 45, 51, 52, 56, 5 8, 59, 66, and 68. ??The test is not intended to detect ? low risk HPV types. ? Specimen: HPV Testing - Cytology Liquid Based Prep ? Reviewed by: ?? Cristin Dodd CT(ASCP) ? A ?CELD Cerv/Endo/ LBP/Diagnostic ? B ?HPVDO Do HPV Testing ? _ ? Verified date: ??10/10/12 ??DMG ? Verified by: ?Lab Review, Molecular Genetics ? (Electronic Signature) Specimen (Source) Anatomical Collection Method Collection Time Re ceived Time Location / / Volume Laterality 10/05/2012 5:32 PM EDT Nicholas Haq MD PATHOLOGY/CYTOLOGY ORDERABLE S Performing Organization Address City/State/ZIP Code Phon e Number [place] [phone] [facility] Follicle Stimulating Hormone (10/05/2012 5:09 PM EDT) athologist Signature FSH 6.7 mlU/ML [facility] Comment: Reference Ranges: Females: Follicular: ? 3.5-12.5 mIU/mL Ovulation: ?4.7-21.5 mIU/mL Luteal: ? 1.7-7.7 mIU/mL Postmenopausal: 25.8-134.8 mIU/mL Specimen Anatomical Collection Method Collection Time Receive d Time (Source) Location / / Volume Laterality Blood specimen 10/05/2012 5:09 PM 013 5:15 (specimen) EDT PM EDT Resulting Agency Comment Spec In Lab Rambo Vargas MD CHEMISTRY ORDERABLES Performing Organization Address City/State/[place] [address] [facility] Surgical Pathology Report (10/05/2012 4:44 PM EDT) Component Value Ref Test Analysis Performed At [facility] Range Method Time Signature Surgical [facility] Pathology ? [facility] Report ? Provider: ?? NICHOLAS HAQ ?Pt. Name: ?? COLLEEN MORENO ? Acc #: ?[id number] ?Pt. MRN: ?[id number] ? Col Date: ?? 10/05/2012 ?/Sex: ?1960,(52 years),Female ? Rec Date: ?? 10/05/2012 ?LOC: ?5L ? SURGICAL PATHOLOGY ? ---Pathologic Diagnosis--- ? Endocervical curettings: ?1. Fragments of benign endocervical mucosa intermixed with cervical ? mucus and blood clot. ?2. No evidence of dysplasia or HPV effect. ? CR-0 ? 10/09/12 ? LJT ? 10/09/12 Verified by: ? Abigail Yeung MD ? Pathologist ? (Electronic Si gnature) ? The attending pathologist whose signature appears o n this report has ? reviewed all diagnostic slides and has edited the koffi ss and/or ? microscopic portion of the report in rendering the fi nal pathologic ? diagnosis. ? ---Microscopic Description--- ? Slides reviewed, microscopic description not recorded . ? ---Gross Description--- ? A - Labeled/Fixative: Patient's information, formalin . ? Quantity/Size: Fragments, 1.0 x 1.0 x 0.3 cm. ? Tissue Description: Colorless mucous. ? Sections/Processing: (T1) ??sns ? ---Clinical Information--- ? Specimen Submitted: ? A - ECC ? Clinical History: ? Bleeding after supracervical hysterectomy. ? Clinical Diagnosis: ? Likely residual endometrium and cervix. Specimen (Source) Anatomical Collection Method Collection Time Re ceived Time Location / / Volume Laterality 10/05/2012 4:44 PM EDT Nicholas Haq MD PATHOLOGY/CYTOLOGY ORDERABLE S Performing Organization Address City/[facility]/ZIP Code Phon e Number [address] [facility] coRank[facility] Specimen to Pathology (NON-OR) (10/05/2012 4:44 PM EDT) Specimen Anatomical Collection Method Collection Time Receive d Time (Source) Location / / Volume Laterality AP Specimen 10/05/2012 4:44 PM 3 4:44 EDT PM EDT [facility]ative [facility] - 10/05/2012 4:44 PM E DT Specimen requisition ordered. ??Separate Pathology report to follow Rambo Vargas MD PATHOLOGY/CYTOLOGY ORDERABLE S Performing Organization Address City/[facility]/ZIP [facility] [place] [address] [facility] Cytopathology Gynecological (10/05/2012 4:44 PM EDT) Specimen Anatomical Collection Method Collection Time Receive d Time (Source) Location / / Volume Laterality AP Specimen 10/05/2012 4:44 PM 3 4:43 EDT PM EDT Narrative BAMBI WARNER - 10/05/2012 4:44 PM E DT Specimen requisition ordered. ??Separate Pathology report to follow Rambo Vargas MD PATHOLOGY/CYTOLOGY ORDERABLE S Performing Organization Address City/State/ZIP [place] [address] BAMBI WARNER documented in this encounter Visit Diagnoses Diagnosis Bleeding of cervix - Primary Other specified noninflammatory disorder of cervix documented in this encounter Care Teams Duct Layer Relationship Specialty Start Date End Date Fabiola Gutierrez MD PCP - General 03/23/[address] [place] [address] documented as of this encounter
--- OUTSIDE RECORDS SUMMARY | 2022-03-22 09:53 | XMS_ITS | Encounter Summary ---
:1960 Author Organization [facility] Address [place] [id number] Care Team Providers Name Role Phone Fabiola Gutierrez MD Primary Care Provider Encounter Details Date Type Department Care Team Description 01/30/2014 Hospital Encounter Same Day Program at Remigio Quinonez MD Mitral insufficiency; [facility] Aortic insuff iciency; [facility] Aortic regurgitation due to bicuspid aor tic valve; [facility] CARDIOLOGY DE [place] [id number] [phone] Social History Tobacco Use Types Packs/Day Years Used Date Smoking Tobacco: Never Smokeless Tobacco: Never Sex Assigned at Date Recorded Not on file documented as of this encounter Last Filed Vital Signs Vital Sign Reading Time Taken Comments Blood Pressure 122/59 01/30/2014 2:49 PM EDT Pulse 70 01/30/2014 2:49 PM EDT Temperature 37.4 ??C (99.3 ??F) 01/30/2014 9:35 AM EDT Respiratory Rate 14 01/30/2014 2:49 PM EDT Oxygen Saturation 100% 01/30/2014 2:49 PM EDT Inhaled Oxygen Concentration - - Weight 58.9 kg (129 lb 13.6 oz) 01/30/2014 9:35 AM EDT Height 157.5 cm (5' 2) 01/30/2014 9:35 AM EDT Body Mass Index 23.75 01/30/2014 9:35 AM EDT documented in this encounter Discharge Instructions Discharge InstructionsWilliams, Bere A, RN - 01/30/2014 12:21 PM EDT Activity [...] by your doctor, do not take any [id number] medicines orherbal preparations without first discussing this with your doctor or pharmacist. There is the possibility of side effect and interactions when these are combined. Follow up Care Who to Call with Questions or Problems If there are any questions or problems that you think might be related to your cardiac cath or angioplasty, contact the panel coverer central sterilization technician by calling [facility] at . documented in this encounter Medications [...] PM EDT 1355-c/o of substernal chest pressure 07/08. Dr Harris called. EKG ordered. Dr Torresze over to look at EKG and evaluate pt. documented in this encounter H&P Notes Zibgniew Harris MD - 01/30/2014 9:11 AM EDT Patient Name: Blanca Jurado Patient Age: 53 y.o. Birthdate: 1960 Admit date: 01/30/2014 Attending Physician: Sean Quinonez MD Complete Adult Pre-Procedural H&P Patient Name: Blanca Jurado : [id number] y.o. MR#: [id number] Chief Complaint: Aortic regurgitation and mitral regurgitation [...] Gran % 0.00 0.00 - 0.66 % Argelia Gran Abs 0.00 0.00 - 0.05 [...] nsufficiency (FUTURE SURGERY, EDT Aortic insuffic iency [facility] SAME DAY Aortic regurgitation PROGRAM ONLY) due [...] (01/30/2014 4:01 PM EDT) Analysis Performed At Path logis Time Signature Ab Screen Negative CERNER Inter MILLENNIUM Expires at [id number] CERNER [id number] on: MILLENNIUM Specimen Anatomical Collection Method Collection Time Receive d Time (Source) Location / / Volume Laterality Blood specimen 01/30/2014 4:01 PM 014 4:27 (specimen) EDT PM EDT Resulting Agency Comment Spec In Lab Paco Cardenas MD BLOOD BANK ORDERABLES Performing Organization Address City/State/[place] [address] CERNER MILLENNIUM ABO/Rh Typing (01/30/2014 4:01 PM EDT) P athologist Signature ABORh Type O Neg CERNER MILLENNIUM Specimen Anatomical Collection Method Collection Time Receive d Time (Source) Location / / Volume Laterality Blood specimen 01/30/2014 4:01 PM 014 4:27 (specimen) EDT PM EDT Resulting Agency Comment Spec In Lab Paco Cardenas MD BLOOD BANK ORDERABLES Performing Organization Address City/[facility]/ZIP Code Phon e Number [address] CERNER MILLENNIUM (ABNORMAL) Urinalysis [...] UA Clear Clear CERNER MILLENNIU M Spec [place] UA >1.035 (H) 1.002 - 1.030 CERNER [place] LLENNIUM Color UA Yellow Yellow CERNER MILLENNIUM Specimen Anatomical Collection Method Collection Time Receive d Time (Source) Location / / Volume Laterality Urine specimen 01/30/2014 3:25 PM 014 4:43 (specimen) EDT PM EDT Resulting Agency Comment Spec In Lab Paco Cardenas MD URINE ORDERABLES Performing Organization Address City/[facility]/ZIP Code Phon e Number [address] CERNER MILLENNIUM EKG 12 [...] 440 ms MUSE SYSTEM (Bezet) Calculated P Howell 33 degrees MUSE SYSTEM Calculated R Howell 54 degrees MUSE SYSTEM Calculated T Howell 38 degrees MUSE SYSTEM INTERPRETATION Normal sinus [...] normal MCHC. POC Bgas Loc CC Lab [facility] Specimen Anatomical Collection Method Collection Time Receive d Time (Source) Location / / Volume Laterality Blood specimen 01/30/2014 10:36 4 8:26 (specimen) AM EDT AM EDT Sean Quinonez MD CHEMISTRY ORDERABLES Performing Organization Address City/[facility]/[place] [address] CERNER MILLENNIUM Differential, Automated [...] Quinonez MD HEMATOLOGY ORDERABLES Performing Organization Address City/[facility]/[place] [address] CERNER MILLENNIUM (ABNORMAL) Hemogram (01/30/2014 9:10 AM EDT) P athologist Signature WBC 5.9 4.0 - 10.0 [...] RDWSD 41.6 35.0 - CERNER 46.0 fL [facility] RDWCV 11.9 10.9 - CERNER 14.4 % MILLENNIUM MPV 10.3 9.0 - 12.0 CERNER fL MILLENNIUM Specimen Anatomical Collection Method Collection Time Receive d Time (Source) Location / / Volume Laterality Blood specimen 01/30/2014 9:10 AM 014 9:13 (specimen) EDT AM EDT Resulting Agency Comment Spec In Lab Sean Quinonez MD HEMATOLOGY ORDERABLES Performing Organization Address City/State/ZIP Code Phon e Number JACOB BEJARANO [address] [facility] (ABNORMAL) BMP w/fasting Glucose (01/30/2014 9:10 AM EDT) P athologist Signature Glucose 85 65 - 99 [...] of Diabetes Mellitus, Position Statement from the [place] [employer]. ??Diabete s Care, Volume 33, Supplement 1, May 2009 BUN 14 8 - 18 mg/dL CERNER MILLENNIUM Creatinine 0.58 (L) 0.70 - 1.20 mg/dL CERNER MILL ENNIUM Comment: Please note that the pediatric reference intervals supplied above were not validated at [facility]. Results from pediatri c patients should be [...] the following links into your internet browser. [email or web address] [email or web address] Specimen Anatomical Collection Method Collection Time Receive d Time (Source) Location / / Volume Laterality Blood specimen 01/30/2014 9:10 AM 014 9:14 (specimen) EDT AM EDT Resulting Agency Comment Spec In Lab Sean Quinonez MD CHEMISTRY ORDERABLES Performing Organization Address City/[facility]/ZIP Code Phon e Number [address] CERNER MILLENNIUM Prothrombin Time (01/30/2014 9:10 AM EDT) P athologist Signature PT 13.2 12.5 - 15.5 CERNER sec MILLENNIUM Comment: [facility] Transfusion Committee Guidelines: I NR less than 2.0, PTT less than OR equal to 43.5 seconds, or Fibrinogen gre ater than or equal to 100 mg/dl indicate adequate procoagulant activity for hemostasis in patients without underlying bleeding disorders. INR 0.9 0.9 - 1.1 CERNER DabKickENNIUM Specimen Anatomical Collection Method Collection Time Receive d Time (Source) Location / / Volume Laterality Blood specimen 01/30/2014 9:10 AM 014 9:13 (specimen) EDT AM EDT Resulting Agency Comment Spec In Lab Sean Quinonez MD HEMATOLOGY ORDERABLES Performing Organization Address City/[facility]/ZIP Code Phon e Number [address] [facility] documented in this encounter Visit Diagnoses Diagnosis [...] Given 01/30/2014 11:22 AM EDT 25 mcg sodium chloride 0.9% infusion New Bag 01/30/2014 [...] 125 mL/hr, Intravenous, CO NTINUOUS, Starting Lulu 01/30/14 at 1130, Until Lulu 01/30/14 at 1429 PRN Medication Order 01/28/2014 01/29/2014 01/30/2014 fentaNYL (PF) 50 mcg/mL 2mL syringe (CANCELED) 1122 (Given - Provider: Shani Jarrett RN)1142 (Given - Provider: Shani Jarrett RN) 25 mcg, Intravenous, EVERY 30 MIN PRN, 4 doses, Starting Lulu 10 at 1120, Until Lulu 01/30/14 at 2142, Pain, sheath removal, May repeat once while in Cath Recovery Unit, Cath (Recovery-Hospital Unit), Routine fentaNYL 50mcg/mL injection (CANCELED) 1009 (Given - Provider: Magnus Garza RN) ONCE PRN, Starting Lulu 10 at 1009, Until Lulu 10 at 1206, Pain, Intra- Operative (Intra-Procedure), Routine heparin (porcine) injection (CANCELED) 1020 (Given - Provider: Sean Quinonez MD) ONCE PRN, Starting Lulu 10 at 1020, Until Lulu 01/30/14 at 1105, Cath (Intra- Procedure), Routine iohexol (OMNIPAQUE) 350 mg iodine/mL injection (CANCELED) 1102 (Given - Provider: Sean Quinonez MD) ONCE PRN, Starting Lulu 1014 at 1102, Until Lulu 10 at 1105, Per Protocol, Cath (Intra-Procedure), Routine lidocaine (XYLOCAINE) 10 mg/mL (1 %) injection (CANCELED) 1014 (Given - Provider: Magnus Garza RN - Comment: right groin) ONCE PRN, Starting Lulu 10 at 1014, Until Lulu 10 at 1105, Cath (Intra- Procedure), Routine midazolam (PF) (VERSED) 1 mg/mL injection (CANCELED) 1010 (Given - Provider: Magnus Garza RN) ONCE PRN, Starting Lulu 10 at 1010, Until Lulu 01/30/14 at 1105, Sleep, Cath (Intra-Procedure), Routine documented in this encounter Care Teams D[employer] Network Installer Relationship Specialty Start Date End Date Fabiola Gutierrez MD PCP - General 03/23/[address] [place] [address] documented as of this encounter
--- OUTSIDE RECORDS SUMMARY | 2022-03-22 09:53 | XMS_ITS | Encounter Summary ---
:1960 [place] [address] Care Team Providers Name Role Phone Fabiola Gutierrez MD Primary Care Provider Encounter Details Date Type Department Care Team Description 01/30/2014 Hospital Encounter Non-Invasive CARDIO, ECHO SIXTY MIN APPT None Aortic stenosis Cardiology Lab Junior Dacosta MD [facility] DR CARDIOTHORAC[place] [address] [place] [id number] Social History Tobacco Use Types Packs/Day Years [...] times daily. documented as of this encounter Plan of Treatment Not on filedocumented as of this encounter Procedures Procedure Name Priority Date/Time Associated Comments Diagnosis ECHOCARDIOGRAM Routine 01/30/2014 9:13 AM Aortic stenosis Resu lts for this TRANSTHORACIC(LEB) EDT procedure are in the results section. documented in this encounter Results Echocardiogram Transthoracic(Leb) (01/30/2014 9:13 AM EDT) P athologist Signature EF 65 HEARTLAB SYSTEM Anatomical Region Laterality Modality Other Specimen (Source) Anatomical Location Collection Method / Collectio n Time Received Time / Laterality Volume 01/30/2014 Narrative 01/30/2014 10:13 AM EDT Amended Report Procedure: ? Transthoracic Echocardi ogram Patient: ? JOSH Douglas ?(Age): 1960(53) Med Rec#: ?[id number] ? Sex: ?F ? Site Loc: ?[facility] ? Ht / Wt: ??157(cm)/60(kg) Pt. Loc: ? Echo Lab ? BSA: ?1.62 Study Date: ?01/30/2014 ? Pt. Type: Outpatient Tape: ? Referring: Sean Quinonze Referring: DALE ZAPATA, Feroz BRADLEY Hand Shoes Sewer: Abad Walsh RDCS Diagnosis: ??Mitral and aortic valve dis ease ??(396.9) CPT Code(s): ??Echo Full (78253), ??Spec tral Doppler (01519), ??Color Doppler (22033), Indication(s): ??Aortic stenosis Rhythm: Sinus HR ?BP 63 ?115/52 ?? SUMMARY: 1. The left ventricle is moderately dila loretta by 3D volume index (LVEDD 88 ml/m2). ??There is normal global left ve ntricular systolic function. The quantitative left ventricular ejection f raction by 3-D rendering is 65%. There are no left ventricular segmental wall motion abnormalities. 2. The left atrium is mildly dilated.(30 ml/m2). 3. Right ventricular chamber size, wall thickness, and systolic function are within normal limits. There is evide nce of moderate pulmonary hypertension. The estimated pulmonary ar jerry systolic pressure is 55 mmHg. 4. The aortic valve appears bicommissura l, with fusion of right and left coronary cusps (as demonstrated on DANN i n 2003). The leaflets of the aortic valve are thickened. There is mod erate aortic valve stenosis. The mean trans-valvular gradient across ??th e aortic valve is 28 mmHg. The peak instantaneous trans-valvular gradie nt across ??the aortic valve is 52 mmHg. The calculated aortic valve are a is 1.1 cm2. Moderate (2+/4+) aortic valve regurgitation is present. 5. The mitral valve leaflets are mildly thickened. Mitral valve leaflet opening appears restricted ??at the comm issures (primarily the medial one), however there probably is not sign ificant stenosis (initially there appeared to be a mean gradient of 11 mmHg at 60 bpm, however this was not confirmed on repeat measurements ). There is mild to moderate (1-2+/4+) mitral regurgitation present. The tricuspid valve appears normal in structure and function. 6. Compared to 12/26/2003, the aortic clifford ve has become stenotic with a similar or slightly less regurgitation. FINDINGS: Left Ventricle ?The left ventricle is moderately d ilated.by volume index (LVEDD 88 ml/m2 by 3D imaging) ?Left ventricular wall thickness is normal. ?There is no evidence of LVOT obstr uction. ?No ventricular septal defect is vi sualized. ?There is normal global left ventri cular systolic function. ?The quantitative left ventricular ejection fraction by biplane Cho's method is 65%. ?The quantitative left ventricular ejection fraction by 3-D rendering is 65%. ?There are no left ventricular segm ental wall motion abnormalities. ?Doppler assessment is consistent w ith normal left sided filling pressure. Left Atrium ?The left atrium is mildly dilated. (30 ml/m2). ?No atrial septal defect is visuali zed. Right Ventricle ?Right ventricular chamber size, wa ll thickness, and systolic function are within normal limits. ?There is evidence of moderate pulm onary hypertension. ?The estimated pulmonary artery sys tolic pressure is 55 mmHg. ?The estimated right atrial pressur e is 3 mmHg. Right Atrium ?The right atrium is normal in size . Aortic Valve ?The aortic valve is bicommissural. with fusion of the right and left coronary cusps. ?All leaflets of the aortic valve a re thickened. ?Systolic excursion of the aortic v alve cusps is reduced. ?The peak instantaneous trans-valvu lar gradient across ??the aortic valve is 52 mmHg. ?The mean trans-valvular gradient a cross ??the aortic valve is 28 mmHg. ?The calculated aortic valve area i s 1.1 cm2. ?There is moderate aortic valve austin nosis. ?Moderate (2+/4+) aortic valve regu rgitation is present. Mitral Valve ?The mitral valve leaflets are mild ly thickened. ?Mitral valve leaflet excursion is mildly reduced. ?There is no evidence of mitral lcifford ve leaflet prolapse. ?Doppler evaluation of mitral valve stenosis is inadequate. ?There is mild to moderate (1-2+/4+ ) mitral regurgitation present. ?The mitral regurgitant jet is ecce ntric. Tricuspid Valve ?The tricuspid valve appears normal in structure and function. ?There is trace tricuspid regurgita tion present. Pulmonic Valve ?The pulmonic valve appears normal in structure and function. Pericardium ?The pericardium appears normal and there [...] ? Mid-Inferior ?Normal ? Mid-Inferoseptal ?Normal ? [place]-Septal ? Normal ? [place]-Anterior ? Normal ? [place]-Lateral ?Normal ? [place]-Inferior ? Normal ? [place]-Tip ?Normal ? Chambers ?Value ?Units (Range) ? EF ??Bi-p Simp ? 65 ? % (55 to 80) ? 3D LVEF ? 65 ? % ? 3D end di vol ? 143 ?ml ? 3D end sys vol ?51 ? ml ? IVSd MM ? 1 ?cm (0.3 to 1.1) ? LVIDd MM ?5.3 ?cm (3.7 to 5.6) ? PWd MM ?1 ?cm (0.6 to 1.1) ? LVIDs MM ?3.7 ?cm (2.3 to 3.9) ? LVFS MM ? 30 ? % (28 to 42) ? LV mass ? 200.4 ?gm ? LA area ? 16 ? cm2 (<21) ? RA area ? 11 ? cm2 (<18) ? Ao root ? 3.2 ?cm (2.1 to 3.6) ? Asc Ao ?3 ?cm (2 to 3.5) ? Aortic Valve ?Value ?Units (Range) ? AV grad P ? 52 ? mmHg ? AV grad M ? 28 ? mmHg ? ADITHYA(susan) ?1.1 ?cm2 (2 to 4) ? DOI ? 0.28 ? AV pk susan ? 3.6 ?m/sec (1 to 1.7) ? LVOT pk susan ? 1 ?m/sec (0.7 to 1.1) ?? LVOT D ?2.3 ?cm ? Mitral Valve ?Value ?Units (Range) ? E peak ?0.7 ?m/sec ? E/A ratio ? 1.2 ?ratio ? MVDT ?243 ?msec ? E1 ?0.08 ? m/sec ? E/E1 ?8.8 ?ratio ? Tricuspid/Pulmonic Valves ?Value ?Units (Range) ? TR peak susan ? 3.6 ?m/sec ? RAP ? 3 ?mmHg ? RVSP/PASP ? 55 ? mmHg ? This report has been electronically sign ed by: _ Han Rodriguez MD ? 01/30/2014 13:58 :02 Images reviewed and interpretation [facility] Cardiac Ultrasound Laboratory Procedure Note Han Rodriguez MD - 01/30/2014Formattin g of this note might be different from the original. Amended Report Procedure: Transthoracic Echocardiogram Patient: JOSH Douglas DOB(Age): [birth year](53) Med Rec#: [id number] Sex: F Site Loc: [facility] Ht / Wt: 157(cm)/60(kg) Pt. Loc: Echo Lab BSA: 1.62 Study Date: 01/30/2014 Pt. Type: Outpati ent Tape: Referring: Sean Quinonez Referring: DALE ZAPATA, Feroz BRADLEY Hand Shoes Sewer: Abad Walsh [facility] Diagnosis: Mitral and aortic valve disea se (396.9) CPT Code(s): Echo Full (79313), Spectral Doppler (87553), Color Doppler (10580), Indication(s): Aortic stenosis Rhythm: Sinus HR BP 63 115/52 SUMMARY: 1. The left ventricle is moderately dila loretta by 3D volume index (LVEDD 88 ml/m2). There is normal global left vent ricular systolic function. The quantitative left ventricular ejection f raction by 3-D rendering is 65%. There are no left ventricular segmental wall motion abnormalities. 2. The left atrium is mildly dilated.(30 ml/m2). 3. Right ventricular chamber size, wall thickness, and systolic function are within normal limits. There is evide nce of moderate pulmonary hypertension. The estimated pulmonary ar jerry systolic pressure is 55 mmHg. 4. The aortic valve appears bicommissura l, with fusion of right and left coronary cusps (as demonstrated on DANN i 2003). The leaflets of the aortic valve are thickened. There is mod erate aortic valve stenosis. The mean trans-valvular gradient across the aortic valve is 28 mmHg. The peak instantaneous trans-valvular gradie nt across the aortic valve is 52 mmHg. The calculated aortic valve are a is 1.1 cm2. Moderate (2+/4+) aortic valve regurgitation is present. 5. The mitral valve leaflets are mildly thickened. Mitral valve leaflet opening appears restricted at the commis sures (primarily the medial one), however there probably is not sign ificant stenosis (initially there appeared to be a mean gradient of 11 mmHg at 60 bpm, however this was not confirmed on repeat measurements ). There is mild to moderate (1-2+/4+) mitral regurgitation present. The tricuspid valve appears normal in structure and function. 6. Compared to 12/26/2003, the aortic clifford ve has become stenotic with a similar or slightly less regurgitation. FINDINGS: Left Ventricle The left ventricle is moderately dilate d.by volume index (LVEDD 88 ml/m2 by 3D imaging) Left ventricular wall thickness is norm al. There is no evidence of LVOT obstructio n. No ventricular septal defect is visuali zed. There is normal global left ventricular systolic function. The quantitative left ventricular eject ion fraction by biplane Cho's method is 65%. The quantitative left ventricular eject ion fraction by 3-D rendering is 65%. There are no left ventricular segmental wall motion abnormalities. Doppler assessment is consistent with n ormal left sided filling pressure. Left Atrium The left atrium is mildly dilated.(30 m l/m2). No atrial septal defect is visualized. Right Ventricle Right ventricular chamber size, wall th ickness, and systolic function are within normal limits. There is evidence of moderate pulmonary hypertension. The estimated pulmonary artery systolic pressure is 55 mmHg. The estimated right atrial pressure is 3 mmHg. Right Atrium The right atrium is normal in size. Aortic Valve The aortic valve is bicommissural. with fusion of the right and left coronary cusps. All leaflets of the aortic valve are th ickened. Systolic excursion of the aortic valve cusps is reduced. The peak instantaneous trans-valvular g radient across the aortic valve is 52 mmHg. The mean trans-valvular gradient across the aortic valve is 28 mmHg. The calculated aortic valve area is 1.1 cm2. There is moderate aortic valve stenosis . Moderate (2+/4+) aortic valve regurgita tion is present. Mitral Valve The mitral valve leaflets are mildly th ickened. Mitral valve leaflet excursion is mildl y reduced. There is no evidence of mitral valve le aflet prolapse. Doppler evaluation of mitral valve sten osis is inadequate. There is mild to moderate (1-2+/4+) jhonny ral regurgitation present. The mitral regurgitant jet is eccentric . Tricuspid Valve The tricuspid valve appears normal in s tructure and function. There is trace tricuspid regurgitation present. Pulmonic Valve The pulmonic valve appears normal in st ructure and function. Pericardium The pericardium appears normal and ther [...] Normal Mid-Posterolateral Normal Mid-Inferior Normal Mid-Inferoseptal Normal [place]-Septal Normal [place]-Anterior Normal [place]-Lateral Normal [place]-Inferior Normal [place]-Tip Normal Chambers Value Units (Range) EF Bi-p Simp 65 % (55 to 80) 3D LVEF 65 % 3D end di vol 143 ml 3D end sys vol 51 ml IVSd MM 1 cm (0.3 to 1.1) LVIDd MM 5.3 cm (3.7 to 5.6) PWd MM 1 cm (0.6 to 1.1) LVIDs MM 3.7 cm (2.3 to 3.9) LVFS MM 30 % (28 to 42) LV mass 200.4 gm LA area 16 cm2 (<21) RA area 11 cm2 (<18) Ao root 3.2 cm (2.1 to 3.6) Asc Ao 3 cm (2 to 3.5) Aortic Valve Value Units (Range) AV grad P 52 mmHg AV grad M 28 mmHg ADITHYA(susan) 1.1 cm2 (2 to 4) DOI 0.28 AV pk susan 3.6 m/sec (1 to 1.7) LVOT pk susan 1 m/sec (0.7 to 1.1) LVOT D 2.3 cm Mitral Valve Value Units (Range) E peak 0.7 m/sec E/A ratio 1.2 ratio MVDT 243 msec E1 0.08 m/sec E/E1 8.8 ratio Tricuspid/Pulmonic Valves Value Units (Range) TR peak susan 3.6 m/sec RAP 3 mmHg RVSP/PASP 55 mmHg This report has been electronically sign ed by: _ Han Rodriguez MD 01/30/2014 13:58:02 Images reviewed and interpretation verif ied [facility] Cardiac Ultrasound Laboratory Sean Quinonez MD ECHO ORDERABLES documented in this encounter Visit Diagnoses Diagnosis Aortic stenosis Aortic valve disorders documented in this encounter Care Teams Director Industrial Relations Relationship Specialty Start Date End Date Fabiola Gutierrez MD PCP - General 03/23/[address] [place] [address] documented as of this encounter
--- OUTSIDE RECORDS SUMMARY | 2022-03-22 09:53 | XMS_ITS | Encounter Summary ---
:1960 Author Organization [facility] Address [facility] [address] [place] [address] Care Team Providers Name Role Phone Fabiola Gutierrez MD Primary Care Provider Encounter Details Date Type Department Care Team Description 01/30/2014 Hospital Encounter Laboratory Paco Cardenas Mitral insufficiency; [facility] MD Edwin Aortic insufficiency; Drive [facility] Aortic regurgitation due to bicuspid aortic valve; [facility] Mitral regurgitation [phone] CARDIOTHORACIC [phone] [place] [address] Social History Tobacco Use Types Packs/Day Years [...] Name Priority Date/Time Associated Diagnosis Comme nts URINALYSIS WITHOUT Routine 01/30/2014 3:25 PM Mitral ins ufficiency Results for this MICROSCOPIC EDT Aortic insuffici ency procedure are in Aortic regurgitation the res ults due to bicuspid section. aortic valve Mitral regurgitation documented in this encounter Results (ABNORMAL) Urinalysis without microscopic (01/30/2014 3:25 PM EDT) [facility] gist Method Time Signature Glucose UA Negative [...] UA Clear Clear CERNER MILLENNIU M Spec [place] UA >1.035 (H) 1.002 - 1.030 CERNER AL LLENNIUM Color UA Yellow Yellow CERNER MILLENNIUM Specimen Anatomical Collection Method Collection Time Receive d Time (Source) Location / / Volume Laterality Urine specimen 01/30/2014 3:25 PM 014 4:43 (specimen) EDT PM EDT Resulting Agency Comment Spec In Lab Paco Cardenas MD URINE ORDERABLES Performing Organization Address City/State/ZIP [place] [address] [facility] documented in this encounter Visit Diagnoses Diagnosis Mitral insufficiency Mitral valve disorders Aortic insufficiency Aortic valve disorders Aortic regurgitation due to bicuspid aor tic valve Mitral regurgitation Mitral valve disorders documented in this encounter Care Teams Golf [employer] Weighter Relationship Specialty Start Date End Date Fabiola Gutierrez MD PCP - General 03/23/[address] [place] [address] documented as of this encounter
--- OUTSIDE RECORDS SUMMARY | 2022-03-22 09:53 | XMS_ITS | Encounter Summary ---
:1960 [place] [address] Care Team Providers Name Role Phone Fabiola Gutierrez MD Primary Care Provider Encounter Details Date Type Department Care Team Description 02/04/2014 Anesthesia Event Main Operating Room Kelsea Kenny MD [facility] [place] [address] [facility] Clara Chen MD [facility] [place] [address] [facility] [place] [address] Anesthesia Record Procedure Summary Procedure Name Responsible Anesthesia Start Anesthesia Stop Time Anesthesiologist Time @REPLACE AORTIC Kelsea Decker MD 02/04/14 0725 02/04/14 1318 VALVE, OPEN, W\CPB, W\PROSTHETIC VALVE (WRVU 41.32) (Chest) Events Date Time Event Comment 02/04/2014 0725 AN Verify 0725 Start 0725 An Start Data 0733 An Induction 0735 An Intubation 0737 DANN PROBE ONLY 0800 Anesthesia Ready 0833 Sternotomy 0901 CV Bypass init 0908 An Clamp start 0924 1115 An Clamp Remove 1127 CP Bypass Ended 1212 Chest Closed 1257 Quick Note Central line pul led accidentally during transport, replaced with tr iple lumen w/o incident. Patient hemodynamically stable throughout. 1303 an stop data 1318 Stop Name Total Midazolam 10 mg fentaNYL 1,250 mcg Propofol 80 mg PHENYLephrine INF 1,260 mcg Vecuronium 20 mg Heparin 19,000 Units Protamine 250 mg Tranexamic Acid 590 mg Tranexamic Acid INF 310.05 mg Insulin Regular INF 2.95 Units Vancomycin 1 g diphenhydrAMINE 50 mg Vasopressin INF 4.8 Units ceFURoxime 3 g Sodium Chloride 0.9% 0 mL Lactated Ringers 500 mL Agents Name O2 Isoflurane (et) Blood No blood administrations on file. Lines, Drains, and Airways Type Details Placement Removal Arterial Line 02/04/14; radial artery; 02/04/14 0000 by 0930 by 20 gauge; Silvia; Fransisco Pollack RN Davenport, Lisa A, Sterile Prep, Sterile RN Gloves; 02/05/14; 0930 Urethral Catheter 02/04/14; indwelling 02/04/14 0000 by 02/06/14 0841 by catheter with core Rhonda Orr, MARISELA Fine, [facility] E, RN temperature probe; 100% silicone; 16; inserted at this facility; 1; 5; 10; none; drainage bag to dependent drainage; 02/06/14; 0841 Incision 02/04/14; sternal; 02/04/14 0000 by 12/27/21 171 5 by 12/27/21 (LDA cleanup Rhonda Orr RN Muller, Dierdre L utility RA#[id number]); 1715 (LDA cleanup utility RA#[id number]) Chest Tube 02/04/14; Left; anterior; 02/04/14 0000 by 02/05 0900 by mediastinal; 28 fr Sandee Calabrese RN Davenport, Lisa A, straight; 02/05/14; 0900 RN Chest Tube 02/04/14; Right; 02/04/14 0000 by 02/05/14 0900 by posterior; mediastinal; Sandee Calabrese RN Dave nport, Lisa A, 28 fr angled; 02/05/14; RN 0900 CVC 3 Lumen 02/04/14; internal 02/04/14 0000 by 02/05/14 093 0 by jugular vein, right; Fransisco Pollack RN Davenpor t, Lisa A, Ultrasound Guidance; Yes; RN 9 Fr; Silvia; DANN; CVC Protocol Performed; 02/05/14; 0930 PIV 02/04/14; 0634; median 02/04/14 0634 by 02/05/14 0756 by vein left (underside of Lilliana Nino RN Joe Pope, arm); [id number] CASHIER WRAPPER catheter system; 18 gauge, 1 in length; intradermal injection, distraction, tolerated well; site symptomatic; 02/05/14; 0756 ETT Mask Ventilation: Easy 02/04/14 0819 by 02/04/14 2042 by (1); ETT Type: Cuffed, Arcelia, Junior Saunders, Oral; ETT Size: 7.5 mm; VIOLIN MAKER HAND Mac Blade: 3; Notes: Asleep, Pre-O2; Attempts: 1; Laryngoscopy Grade: 1 PA Catheter 02/04/14; 0858; Right; 02/04/14 0858 by 02/04/14 1300 by internal jugular vein; Nii Vega, Nii Richards, VIP; 8 Fr; CVC Protocol MD ZAPATA Performed; removed inadvertently; Silvia; 02/04/14; 1300 documented in this encounter Social History Tobacco Use Types Packs/Day Years Used Date Smoking Tobacco: Never Smokeless Tobacco: Never Alcohol Use Standard Drinks/Week Comments Not Asked 5 (1 standard drink = 0.6 oz pure alcoho l) Sex Assigned at Date Recorded Not on file documented as of this encounter OR Notes Anesthesia Postprocedure Evaluation - Nii Vega - 02/05/2014 3:26 PM EDT Patient: Blanca Jurado Procedure(s) Performed: Procedure(s): @REPLACE AORTIC VALVE, W\CPB, W\PROSTHETIC VALVE @VALVULOPLASTY,MITRAL VALVE, W\CPB;RADICAL RECON W\WO RING Actual Anesthetic: general Patient location: Telemetry/Step Down Unit Post-op pain: Adequate analgesia Post-op nausea: no nausea or vomiting Last Vitals: Filed Vitals: 02/05/14 1040 BP: 96/70 Pulse: 94 Temp: 36.9 ??C (98.4 ??F) Resp: 16 Post-op cardiovascular and respiratory status: is stable Level of consciousness: awake, alert and oriented Complications: no apparent complications and tolerated the procedure well Fluid Status: normal Anesthesia Preprocedure Evaluation - Nii Vega - 02/03/2014 2:59 PM EDT Pre-Anesthesia Evaluation for: Blanca Jurado a 54 y.o. female. Procedure(s): @REPLACE AORTIC VALVE, W\CPB, W\PROSTHETIC VALVE @VALVULOPLASTY, MITRAL VALVE, W\CPB; W\PROSTHETIC RING Patient Active Problem List Diagnosis ??? Aortic regurgitation due to bicuspid aortic valve ??? Mitral regurgitation Past Medical History Diagnosis Date ??? Endocarditis three episodes ??? Bicuspid aortic valve moderate to severe stenosis ??? Menorrhagia fibroid uterus ??? Seizures patit mal as an Past Surgical History Procedure Date ??? Hysterectomy 05/2010 supracervical ??? [place] tooth extraction History Substance Use Topics ??? Smoking status: Never Smoker ??? Smokeless tobacco: Never Used ??? Alcohol Use: Not on file History Drug Use Not on file Allergies Allergen Reactions ??? Oxycodone Nausea And Vomiting ??? Ibuprofen dizziness ??? Vancomycin Analogues IRRITATION ??? Vancomycin Hcl Urticaria Medications: MAR and/or home medications have been reviewed. Physical Exam: There were no vitals filed for this visit. There is no height or weight on file to calculate BMI. Airway Assessment: Mallampati: II TM distance: >3 FB Neck ROM: full Cardiovascular Assessment: Pulmonary Assessment: Dental Assessment: Misc Assessment: Anesthesia Plan: ASA 3 general, with a(n) intravenous induction 54yo 59kg female with pmh of endocarditis (thought to be secondary to dental infections) presenting with symptomatic aortic regurgitation, mitral regurgitation, for aortic valve replacement, mitral valve repair on CPB. TTE: The left ventricle is moderately dilated by 3D volume index (LVEDD 88 ml/m2). There is normal global left ventricular systolic function. The quantitative left ventricular ejection fraction by 3-D rendering is 65%. There are no left ventricular segmental wall motion abnormalities. 2. The left atrium is mildly dilated.(30 ml/m2). 3. Right ventricular chamber size, wall thickness, and systolic function are within normal limits. There is evidence of moderate pulmonary hypertension. The estimated pulmonary artery systolic pressure is 55 mmHg. 4. 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 The leaflets of the aortic valve are thickened. There is moderate aortic valve stenosis. The mean trans-valvular gradient across the aortic valve is 28 mmHg. The peak instantaneous trans-valvular gradient across the aortic valve is 52 mmHg. The calculated aortic valve area is 1.1 cm2. Moderate (2+/4+) aortic valve regurgitation is present. 5. The mitral valve leaflets are mildly thickened. Mitral valve leaflet opening appears restricted at the commissures (primarily the medial one), however there probably is not significant stenosis (initially there appeared to be a mean gradient of 11 mmHg at 60 bpm, however this was not confirmed on repeat measurements). There is mild to moderate (1-2+/4+) mitral regurgitation present. The tricuspid valve appears normal in structure and function. Cardiac Cath: Normal Coronary arteries Allergy: Vancomycin - urticaria per chart Plan for GETA, preinduction arterial line, central line, PA cath, DANN Region - Intrathoracic Cardiac Informed Consent: Anesthetic plan and risks discussed with patient. Plan discussed with attending and resident. [facility]. Assessment: documented in this encounter Miscellaneous Notes Addendum Note - Nii Vega - 04/03/2014 9:15 AM EST Addendum created 04/03/14 0915 by Nii Vega MD Modules edited: Anesthesia LDA, Lines/Drains/Airways Properties Travel Administrator Lines/Drains/Airways Properties Travel Administrator: Properties of line/drain/airway/wound [REMOVED] Pulmonary Artery Catheter - Triple Lumen 02/04/14 0858 Right internal jugular vein VIP 8 Fr have been modified. documented in this encounter Plan of Treatment Not on filedocumented as of this encounter Visit Diagnoses Not on filedocumented in this encounter Administered Medications Inactive Administered Medications - up to 3 most recent administrations Medication Order MAR Action Action Date Dose Rate Site ceFURoxime (ZINACEF) injection 1.5 Given 02/04/2014 11:35 AM EDT 1.5 g g PRN, Starting on Mon02/04/14 at 0800, Until Mon02/04/14 at 1318, Anesthesia Intra-op, Routine Given 02/04/2014 8:00 AM EDT 1.5 g diphenhydrAMINE (BENADRYL) injection Given 02/04/2014 7:30 AM EDT 50 mg PRN, Starting on Mon02/04/14 at 0730, Until Mon02/04/14 at 1319, Itching, Anesthesia Intra-op, Routine fentaNYL 50mcg/mL injection Given 02/04/2014 11:15 AM EDT 250 mcg PRN, Starting on Mon02/04/14 at 0733, Until Mon02/04/14 at 1319, Pain, Anesthesia Intra-op, Routine Given 02/04/2014 8:42 AM EDT 250 mcg Given 02/04/2014 8:34 AM EDT 250 mcg heparin (porcine) injection Given 02/04/2014 8:45 AM EDT 19,000 Units PRN, Starting on Mon02/04/14 at 0845, Until Mon02/04/14 at 1319, Anesthesia Intra-op, Routine insulin regular human New Bag 02/04/2014 10:21 AM EDT 1 Units/hr 1 mL/hr (HumuLIN;NovoLIN) 1unit/mL 150 Units in sodium chloride 0.9% 150 mL infusion CONTINUOUS PRN, Starting on Mon02/04/14 at 1021, Until Mon02/04/14 at 1319, Anesthesia Intra-op, Routine lactated ringers infusion New Bag 02/04/2014 7:26 AM EDT mL CONTINUOUS PRN, Starting on Mon02/04/14 at 0726, Until Mon02/04/14 at 1319, Anesthesia Intra-op midazolam (PF) (VERSED) 1 mg/mL injectio n Given 02/04/2014 11:13 AM EDT 2 mg PRN, Starting on Mon02/04/14 at 0733, Until Mon02/04/14 at 1319, Sleep, Anesthesia Intra-op, Routine Given 02/04/2014 7:33 AM EDT 8 mg PHENYLephrine (BETTIAN-SYNEPHRINE) Restarted 02/04/2014 11:40 AM 10 mcg/min 7.5 mL/hr 20 mg in sodium chloride 250 mL EDT infusion CONTINUOUS PRN, Starting on Mon02/04/14 at 1119, Until Mon02/04/14 at 1319, Anesthesia Intra-op, Routine New Bag 02/04/2014 11:19 AM EDT 40 mcg/min 30 mL/hr propofol (DIPRIVAN) 10 mg/mL bolus injection Given 4 7:33 AM EDT 80 mg (Anesthesia) PRN, Starting on Mon02/04/14 at 0733, Until Mon02/04/14 at 1319, Anesthesia Intra-op protamine injection Given 02/04/2014 11:34 AM EDT 250 mg PRN, Starting on Mon02/04/14 at 1134, Until Mon02/04/14 at 1319, Anesthesia Intra-op, Routine sodium chloride 0.9% infusion New Bag 02/04/2014 8:00 AM EDT mL CONTINUOUS PRN, Starting on Mon02/04/14 at 0800, Until Mon02/04/14 at 1319, Anesthesia Intra-op tranexamic acid (CYKLOKAPRON) 100 mg/mL bolus Given 8:00 AM EDT 590 mg injection (Anesthesia) PRN, Starting on Mon02/04/14 at 0800, Until Mon02/04/14 at 1319, Anesthesia Intra-op, Routine tranexamic acid (CYKLOKAPRON) New Bag 02/04/2014 8:00 AM 1 mg/kg/h r 0.6 mL/hr injection EDT CONTINUOUS PRN, Starting on Mon02/04/14 at 0800, Until Mon02/04/14 at 1319, Anesthesia Intra-op, Routine vancomycin (VANCOCIN) injection Given 02/04/2014 7:30 AM EDT 1 g PRN, Starting on Mon02/04/14 at 0730, Until Mon02/04/14 at 1319, Anesthesia Intra-op, Routine vasopressin (PITRESSIN) 0.5 New Bag 02/04/2014 11:18 0.04 Units/mi n 4.8 mL/hr units/mL IV infusion AM EDT (Anesthesia) CONTINUOUS PRN, Starting on Mon02/04/14 at 1118, Until Mon02/04/14 at 1319 vecuronium (NORCURON) injection Given 02/04/2014 9:45 AM EDT 5 mg PRN, Starting on Mon02/04/14 at 0733, Until Mon02/04/14 at 1319, Anesthesia Intra-op, Routine Given 02/04/2014 8:45 AM EDT 5 mg Given 02/04/2014 7:33 AM EDT 10 mg documented in this encounter Care Teams Director Of Religious Life Relationship Specialty Start Date End Date Fabiola Gutierrez MD PCP - General 03/23/[address] [place] [address] [address] [place] [address] documented as of this encounter
--- OUTSIDE RECORDS SUMMARY | 2022-03-22 09:54 | XMS_ITS | Encounter Summary ---
:1960 Author Organization [facility] Address [address] [place] [address] Care Team Providers Name Role Phone Unavailable Primary Care Provider Unavailable Encounter Details Date Type Department Care Team Description 07/08/2008 Before [facility] - Fabiola Gutierrez, Converted Visit María schwartz MD ([place]) [address] [facility] [address] [place] [address] [place] [id number] (Wo rk) Social History Tobacco Use Types Packs/Day Years Used Date Smoking Tobacco: Never Assessed Sex Assigned at Date Recorded Not on file documented as of this encounter Plan of Treatment Not on filedocumented as of this encounter Procedures Procedure Name Priority Date/Time Associated Comments Diagnosis HPV DETECTION, HIGH Routine 07/09/2008 10:07 Resu lts for this RISK TYPES EDT procedure are i n the results section. CYTOPATHOLOGY Routine 07/08/2008 0:00 Results for this EDT procedure are i n the results section. documented in this encounter Results HUMAN PAPILLOMA VIRUS DNA TEST (07/09/2008 10:07 EDT) [facility] Method Time Signature Specimen Cervix, CABRERA Description ThinPrep [facility] vial Result Negative for CABRERA HPV types [facility] 16, 18, 31, 33, 35, 39, 45, 51, 52, 56, 58, 59, and 68. Report Status Final CABRERA 07/17/2008 [facility] Specimen Anatomical Collection Method Collection Time Receive d Time (Source) Location / / Volume Laterality 07/09/2008 10:07 07/14/2008 EDT 10:07 EDT Fabiola Gutierrez MD MICROBIOLOGY - GENERAL ORDER ELLEN Performing Organization Address City/State/ZIP Code Phon e Number [facility] [address] [place] [address] SERVICES [facility] [address] [place] [address] CYTOPATHOLOGY (07/08/2008 0:00 EDT) Component Value Ref Test Analysis Performed At [facility] gist Range Method Time Signature Pathology CYTOPATHOLOGY REPORT ? DEBORAH Report: ? [facility] Reports generated via Giftiki interface contain original data; ? however they are lacking the format of the original report. ? Caution should be taken when reading/interpreting unformatted reports. ? Name: ? BLANCA MORENO ? Accession #: ? [id number] ? : ? 1960 (Age: 48) ??F ?Collect Date: ? 07/08/2008 ? Location: ? [facility] ? Receive Date: ? 07/10/2008 ? Provider: ?FABIOLA M DO BBERTIN MD ? Copy to: ? Specimen/Source: ? Pap Test, Endocervix, ThinPrep Imaging System with ? manual evaluation ? Last Menstrual Period: ? 2/19/09 ? Other: ? HPVDX - HPV testing requeste d regardless of diagnosis on current ThinPrep Pap ?? test. ? SPECIMEN ADEQUACY ? Satisfactory for Eval uation ? - transformation zone compon ent present ? GENERAL CATEGORIZATION ? Negative for Intraepi thelial Lesion or Malignancy ? Document reviewed and electr onically signed by: ? Sandee Darvin, CT(ASCP ) ? Report Date: ??03/13/ 2009 13:27 ? End of Report ? Specimen (Source) Anatomical Location Collection Method / Collectio n Time Received Time / Laterality Volume 07/08/2008 07/10/2008 Fabiola Gutierrez MD PATHOLOGY ORDERABLES Performing Organization Address City/State/ZIP Code Phon e Number [facility] [address] [place] [address] SERVICES [facility] [address] [place] [address] documented in this encounter Visit Diagnoses Not on filedocumented in this encounter
--- OUTSIDE RECORDS SUMMARY | 2022-03-22 09:54 | XMS_ITS | Encounter Summary ---
:1960 Author Organization [facility] Address [address] [place] [address] Care Team Providers Name Role Phone Fabiola Gutierrez MD Primary Care Provider Encounter Details Date Type Department Care Team Description 04/21/2003 Hospital Encounter [facility] - Daniel Shelley MD [address] [address] [place] [phone] [address] [place] [address] (Wo rk) Social History Tobacco Use Types Packs/Day Years Used Date Smoking Tobacco: Never Assessed Sex Assigned at Date Recorded Not on file documented as of this encounter Plan of Treatment Pending Results Name Type Priority Associated Diagnoses Date/Ti mn SURGICAL PATHOLOGY Pathology Routine 0 0:00 EST SURGICAL PATHOLOGY Pathology Routine 0 0:00 EST Scheduled Orders Name Type Priority Associated Diagnoses Order S chedule SURGICAL PATHOLOGY Pathology Routine For medic ations that can be administered at any time during the hospitalization for visit such as immuniz ations. for 1 Occurrences s tarting 05/05/2009 SURGICAL PATHOLOGY Pathology Routine For medic ations that can be administered at any time during the hospitalization for visit such as immuniz ations. for 1 Occurrences s tarting 05/05/2009 documented as of this encounter Procedures Procedure Name Priority Date/Time Associated Diagnosis Comme nts SURGICAL PATHOLOGY Routine 05/05/2009 0:00 EST Re sults for this procedure are i n the results section. CYTOPATHOLOGY Routine 04/21/2003 0:00 EST Results for this procedure are i n the results section. documented in this encounter Results SURGICAL PATHOLOGY (05/05/2009 0:00 EST) Component Value Ref Test Analysis Performed At [facility] Range Method Time Signature Pathology SURGICAL PATHOLOGY REPORT ? FLETC HER Report: Reports generated via electr onic interface contain original data; ? [facility] however they are lacking the format of the original report. ? Caution should be taken when reading/interpreting unformatted reports. ? Name: ? BLANCA MORENO J ? Accession #: ? [id number] ? : ? 1960 (Age: 49) ??F ? Collec t Date: ? 05/05/2009 ? Location: ? [facility] ? R eceive Date: ? 05/05/2009 ? Provider: PATRICE S JAYSON MD ? Copy to: FABIOLA M DOBBERTIN M D ? Final Pathologic Diagnosis: ? Endometrium, biopsy: ? - Proliferative endometrium with focal tubal metaplasia and stromal breakdown. ? Document reviewed and electr onically signed by: ? Myrna Moya MD ? Report ??Date: 05/08/2009 11 :38 ? By the signature above, the attending physician certifies that he/she has ? personally conducted a gross and/or microscopic examination of the described ? specimens and rendered or co nfirmed the above diagnosis. ? Specimen(s) Received: ? Endometrial biopsy ? Clinical History: ? Menorrhagia to anemia ? Gross Description: ? Received in formalin labelled Moreno, Dianah and endometrial bx is ? approximately 4 cc of clotte d blood admixed with multiple fragments of red-brown tissue. ??The specimen is larry bmitted entirely as (A1) and (A2). ??(BRIA ? Tessitore)/ljn ? End of Report ? Specimen (Source) Anatomical Collection Method Collection Time Re ceived Time Location / / Volume Laterality 05/05/2009 05/05/2009 17:0 8 EST Patrice Salazar MD PATHOLOGY ORDERABLES Performing Organization Address City/State/ZIP Code Phon e Number [facility] [address] [place] [address] SERVICES [facility] [address] [place] [address] CYTOPATHOLOGY (04/21/2003 0:00 EST) Component Value Ref Test Analysis Performed At [facility] gist Range Method Time Signature Pathology CYTOPATHOLOGY REPORT DEBORAH Report: [facility] Reports generated via electronic interface contain original data; however they are lacking the format of the original report. Caution should be taken when reading/interpreting unformatte d reports. Name: ? BLANCA MORENO ? Accession #: ? [id number] : ? 1960 (Age: 43) ??F ?Collect Date: ? 04/21/2003 Location: ? [facility] ? Receive Date: ? 04/23/2003 Provider: ?DANIEL SHELLEY MD Copy to: ? Specimen/Source: ?ThinPrep Pap Test, Endocervix Last Menstrual Period: ? 04/17/03 ? SPECIMEN ADEQUACY ? Satisfactory for Evaluation - transformation zone component present GENERAL CATEGORIZATION ? Other, see interpretation INTERPRETATION ? Endometrial cells present in a woman equal to o r greater than age 40. Negative for Intraepithelial Lesion or Malignancy. ? COMMENT ? Benign appearing endometrial cells on Pap tests are usually a normal finding in women with regular menstrual cycles, especially if the Pap was collected during the first half of the menstr ual cycle. ??There is data showing that endometrial cells on Pap tests may be associated wit h endometrial/uterine abnormalities in post menopausal women or in premenopausal women with abnormal bleeding. ??There is limited data on the significance of benign endometrial ce lls in post menopausal women on HRT. ??Clinical correlation is recommend ed. Note: ?? The Pap test is not an accurate test for the screening of endometrial lesions and should not be used as a follow up in patients wi th clinical suspicion of endometrial pathology. ? Document reviewed and electronically signed by: ? JUAN Serrato(ASCP) ? Report Date: ??04/29/2003 13:22 End of Report Specimen (Source) Anatomical Location Collection Method / Collectio n Time Received Time / Laterality Volume 04/21/2003 04/23/2003 Daniel Shelley MD PATHOLOGY ORDERABLES Performing Organization Address City/State/ZIP Code Phon e Number [facility] [address] [place] [address] SERVICES [facility] [address] [place] [address] documented in this encounter Visit Diagnoses Not on filedocumented in this encounter Care Teams Malthouse Laborer Relationship Specialty Start Date End Date Fabiola Gutierrez MD PCP - General 05/07/09 [address] [place] [address] documented as of this encounter
--- OUTSIDE RECORDS SUMMARY | 2022-03-22 09:54 | XMS_ITS | Encounter Summary ---
:1960 Author Organization [facility] Address [address] [place] [address] Care Team Providers Name Role Phone Fabiola Gutierrez MD Primary Care Provider Encounter Details Date Type Department Care Team Description 12/28/2015 Results Only [facility] Fabiola Gutierrez MD [phone] [place] [address] (Wo rk) Social History Tobacco Use Types Packs/Day Years Used Date Smoking Tobacco: Never Assessed Sex Assigned at Date Recorded Not on file documented as of this encounter Plan of Treatment Not on filedocumented as of this encounter Procedures Procedure Name Priority Date/Time Associated Diagnosis Comme nts PAP TEST- RESULT Routine 12/28/2015 0:00 EDT Resu lts for this ONLY procedure are i n the results section. documented in this encounter Results PAP TEST- RESULT ONLY (12/28/2015 0:00 EDT) Component Value Ref Test Analysis Performed At [facility] Range Method Time Signature Pathology [facility] Report: CENTER Reports generated via electronic interface contain origina l data; LABORATORY however they are lacking the format of the original report. SERVICES Caution should be taken when reading/interpreting unformatte d reports. Name: ? BLANCA MORENO ? Accession #: ? [id number] ? : ? 1960 (Age: [age]) ??F ?Collect Date: ? 12/28/2015 ? Location: ? [facility] ? Receive Date: ? 12/29/2015 ? Provider: FABIOLA GUTIERREZ MD Copy to: ? Final Report SPECIMEN ADEQUACY ? Satisfactory for Evaluation - transformation zone component present GENERAL CATEGORIZATION ? Negative for Intraepithelial Lesion or Malignancy ?? Hormonal/Contraceptive status: None Treatment History: Hysterectomy: ovaries/cervix remain Specimen/Source: ??Pap Test, Cervix/Endocervix, ThinPr ep Imaging System with manual evaluation Document reviewed and electronically signed by: ? Aviva Lange, CT(ASCP) ? Report ??Date: 01/01/2016 16:22 HPV with Pap Test ? Date Ordered: ? 01/01/2016 ? Status: ?? Signed Out ?Date Complete: ? 01/06/2016 ? By: ??System In [facility] ? Date Reported: ? 01/06/2016 ? Interpretation RESULT: Negative for HPV. No E6 or E7 mRNA is detected from HPV types 16,18,31,33,35, 39,45,51,52,56,58,59,66, and 68 by thread weaver mediated amplification. Comments Document reviewed and electronically signed by: ? System Interface ? Report date: 01/06/2016 By the signature above, the attending physician certifies th at he/she has personally conducted a gross and/or microscopic examin ation of the described specimens and rendered or confirmed the above diagnosis. End of Report Specimen (Source) Anatomical Location Collection Method / Collectio n Time Received Time / Laterality Volume 12/28/2015 12/29/2015 Fabiola Gutierrez MD PATHOLOGY ORDERABLES Performing Organization Address City/State/ZIP Code Phon e Number [facility] [address] [place] [address] SERVICES documented in this encounter Visit Diagnoses Not on filedocumented in this encounter Care Teams Software Sales Executive Relationship Specialty Start Date End Date Fabiola Gutierrez MD PCP - General 05/07/[address] [place] [address] documented as of this encounter
--- OUTSIDE RECORDS SUMMARY | 2022-03-22 09:54 | XMS_ITS | Encounter Summary ---
:1960 Author Organization [facility] Address [address] [place] [address] Care Team Providers Name Role Phone Fabiola Gutierrez MD Primary Care Provider Encounter Details Date Type Department Care Team Description 02/18/[address] [facility] Fabiola Gutierrez MD [phone] [place] [address] (Wo rk) Social History Tobacco Use Types Packs/Day Years Used Date Smoking Tobacco: Never Assessed Sex Assigned at Date Recorded Not on file documented as of this encounter Plan of Treatment Not on filedocumented as of this encounter Procedures Procedure Name Priority Date/Time Associated Diagnosis Comme nts PAP TEST- RESULT Routine 02/18/2019 0:00 EDT Resu lts for this ONLY procedure are i n the results section. documented in this encounter Results PAP TEST- RESULT ONLY (02/18/2019 0:00 EDT) Component Value Ref Test Analysis Performed At [facility] Method Time Signature Pathology CYTOPATHOLOGY REPORT [facility] Report: CENTER Reports generated via electronic interface contain origina l data; LABORATORY however they are lacking the format of the original report. SERVICES Caution should be taken when reading/interpreting unformatte d reports. Name: ? BLANCA MORENO ? Accession #: ? [id number] ? : ? 1960 (Age: [age]) ??F ?Collect Da te: ? 02/18/2019 ? Location: ? [facility] ? Receive Date: ? 02/19/2019 ? Provider: FABIOLA GUTIERREZ MD Copy to: ? Final Report SPECIMEN ADEQUACY ? Satisfactory for Evaluation - transformation zone component present GENERAL CATEGORIZATION ? Negative for Intraepithelial Lesion or Malignancy ?? Specimen/Source: ??Pap Test, Cervix/Endocervix, ThinPr ep Imaging System with manual evaluation Document reviewed and electronically signed by: ? Shani Santo, [facility](ASCP) ? Report ??Date: 02/21/2019 13:34 HPV with Pap Test ? Date Ordered: ? 02/21/2019 ? Status: ?? Jocelyne d Out ?Date Complete: ? 02/22/2019 ? By: ??System Interface ? Date Reported: ? 02/22/2019 ? Interpretation RESULT: Negative for HPV. No E6 or E7 mRNA is detected from HPV types 16,18,31,33,35, 39,45,51,52,56,58,59,66, and 68 by tree topper mediated amplification. Comments Document reviewed and electronically signed by: ? System Interface ? Report date: 02/22/2019 By the signature above, the attending physician certifies th at he/she has personally conducted a gross and/or microscopic examin ation of the described specimens and rendered or confirmed the above diagnosis. End of Report Specimen (Source) Anatomical Location Collection Method / Collectio n Time Received Time / Laterality Volume 02/18/2019 02/19/2019 Fabiola Gutierrez MD PATHOLOGY ORDERABLES Performing Organization Address City/State/ZIP Code Phon e Number [facility] [address] [place] [address] SERVICES documented in this encounter Visit Diagnoses Not on filedocumented in this encounter Care Teams Quality Assurance Engineer Relationship Specialty Start Date End Date Fabiola Gutierrez MD PCP - General 05/07/[address] [place] [phone] documented as of this encounter
--- OUTSIDE RECORDS SUMMARY | 2022-03-22 09:54 | XMS_ITS | Clinical Summary ---
:1960 Author Organization [facility] Address [address] [place] [address] Care Team Providers Name Role Phone Fabiola Gutierrez MD Primary Care Provider Social History Tobacco Use Types Packs/Day Years Used Date Smoking Tobacco: Never Assessed Sex Assigned at Date Recorded Not on file Plan of Treatment Health Maintenance Due Date Last Done Comments Hepatitis C Screen 1960 COVID-19 Vaccine (#1) 1960 Care Teams Cylinder Handler Relationship Specialty Start Date End Date Fabiola Gutierrez MD PCP - General 05/07/[address] [place] [phone]
--- OUTSIDE RECORDS SUMMARY | 2022-03-22 09:54 | XMS_ITS | Encounter Summary ---
:1960 Author Organization [facility] Address [address] [place] [address] Care Team Providers Name Role Phone Fabiola Gutierrez MD Primary Care Provider Encounter Details Date Type Department Care Team Description 02/22/2012 Results Only [facility] Patrice Salazar MD [phone] [place] [address] Social History Tobacco Use Types Packs/Day Years Used Date Smoking Tobacco: Never Assessed Sex Assigned at Date Recorded Not on file documented as of this encounter Plan of Treatment Not on filedocumented as of this encounter Procedures Procedure Name Priority Date/Time Associated Diagnosis Comme nts PAP TEST- RESULT Routine 02/22/2012 0:00 EDT Resu lts for this ONLY procedure are i n the results section. documented in this encounter Results PAP TEST- RESULT ONLY (02/22/2012 0:00 EDT) Component Value Ref Test Analysis Performed At [facility] Method Time Signature Pathology CYTOPATHOLOGY REPORT [facility] Report: [facility] Reports generated via electronic interface contain original data; however they are lacking the format of the original report. Caution should be taken when reading/interpreting unformatte d reports. Name: ? BLANCA MORENO ? Accession #: ? [id number] ? : ? 1960 (Age: 52) ??F ?Collect Da te: ? 02/22/2012 ? Location: ? [facility] ? Receive Date: ? 02/24/2012 ? Provider: PATRICE SALAZAR MD Copy to: FABIOLA GUTIERREZ MD ? Final Report SPECIMEN ADEQUACY ? Satisfactory for Evaluation - transformation zone component present GENERAL CATEGORIZATION ? Negative for Intraepithelial Lesion or Malignancy ?? Specimen/Source: ??Pap Test, Cervix/Endocervix, ThinPr ep Imaging System with manual evaluation Document reviewed and electronically signed by: ? Hetal Mckeon, CT(ASCP)(IAC) ? Report ??Date: 02/29/2012 12:39 HPV with Pap Test ? Date Ordered: ? 02/29/2012 ? Status: ?? Jocelyne d Out ?Date Complete: ? 03/02/2012 ? By: ??System Interface ? Date Reported: ? 03/02/2012 ? Interpretation RESULT: Negative for HPV. No E6 or E7 mRNA is detected from HPV types 16,18,31,33,35, 39,45,51,52,56,58,59,66, and 68 by slide machine tender mediated amplification. Comments Document reviewed and electronically signed by: ? System Interface ? Report date: 03/02/2012 By the signature above, the attending physician certifies th at he/she has personally conducted a gross and/or microscopic examin ation of the described specimens and rendered or confirmed the above diagnosis. End of Report Specimen (Source) Anatomical Location Collection Method / Collectio n Time Received Time / Laterality Volume 02/22/2012 02/24/2012 Patrice Salazar MD PATHOLOGY ORDERABLES Performing Organization Address City/State/ZIP Code Phon e Number [facility] [address] [place] [address] SERVICES [facility] [address] [place] [address] documented in this encounter Visit Diagnoses Not on filedocumented in this encounter Care Teams Resident Programs Assistant Relationship Specialty Start Date End Date Fabiola Gutierrez MD PCP - General 05/07/[address] [place] [phone] documented as of this encounter
--- OUTSIDE RECORDS SUMMARY | 2022-03-22 09:54 | XMS_ITS | Encounter Summary ---
:1960 Author Organization [facility] Address [address] [place] [address] Care Team Providers Name Role Phone Fabiola Gutierrez MD Primary Care Provider Encounter Details Date Type Department Care Team Description 05/11/2010 Results Only [facility] Patrice Salazar MD [phone] [place] [address] Social History Tobacco Use Types Packs/Day Years Used Date Smoking Tobacco: Never Assessed Sex Assigned at Date Recorded Not on file documented as of this encounter Plan of Treatment Not on filedocumented as of this encounter Procedures Procedure Name Priority Date/Time Associated Diagnosis Comme [facility] SURGICAL PATHOLOGY Routine 05/11/2010 0:00 EST Re sults for this procedure are i n the results section. documented in this encounter Results SURGICAL PATHOLOGY (05/11/2010 0:00 EST) Component Value Ref Test Analysis Performed At [facility] Method Time Signature Pathology SURGICAL PATHOLOGY REPORT ? [facility] Report: Reports generated via electr Litebi interface contain original data; ? [facility] however they are lacking the format of the original report. ? Caution should be taken when reading/interpreting unformatted reports. ? Name: ? MORENO, DIANAH J ? Accession #: ? [id number] ? : ? 1960 (Age: 50) ??F ? Collec t Date: ? 05/11/2010 ? Location: ? [facility] ? R eceive Date: ? 05/12/2010 ? Provider: PATRICE S JAYSON MD ? Copy to: FABIOLA M DOBBERTIN M D ? Final Pathologic Diagnosis: ? Uterus, morcellated h ysterectomy: ? 1. ?Endometrium : ? - Inactive endometriu m. ? 2. ?? Myometrium: ?- Cellular leiomyom kee. ? 3. ?? Serosa: ?- No specific patho logic features. ? Document reviewed and electr onically signed by: ? GOSIA CIAMPA MD ? Report ??Date: 05/14/2010 14 :44 ? By the signature above, the attending physician certifies that he/she has ? personally conducted a gross and/or microscopic examination of the described ? specimens and rendered or co nfirmed the above diagnosis. ? Specimen(s) Received: ? Uterus, morcellated ? Clinical History: ? Menorrhagia and anemi a-chronic norethindrone, uterine fibroid ? Gross Description: ? Received in formalin labelled Moreno, Vilmah and uterus is the product of a morcellated uterus with no discernible cervix nor any discernible adnexa which weighs 134 grams and measure s 14.0 x 13.0 x 4.0 cm in aggregate. ??The ? endometrium is light ayoub-bro wn, focally hyperemic and measures 0.1 cm in ? thickness. ??The myometrium contains a 0.5 cm in diameter firm white, whorled ? myoma. ??Roughly 15-20% of t he myometrium consists of pale ayoub, slightly whorled, probable myomata. ??There ar e no areas of cystic degeneration or hemorrhage. ??The remaining myometrium is pale ayoub-white and focally covered by smooth light ayoub ?? serosa. ??Power Plant Inspector sec tions of the specimen are submitted as follows: ? BLOCK AGUILAR ? A1 ?Endomyometr ium, two sections ? A2 ?Endomyometr ium, two sections along with one section of myometrium ?? and serosa ? A3 ?White, whor led small myoma, one section ? A4-A6 ?Pale-ayoub , probable myomata, 12 sections ? (J. Tessitore)/mpl ? End of Report ? Specimen (Source) Anatomical Collection Method Collection Time Re ceived Time Location / / Volume Laterality 05/11/2010 05/12/2010 19:0 1 EST Patrice Salazar MD PATHOLOGY ORDERABLES Performing Organization Address City/State/[facility] Phon e Number [facility] [address] [place] [address] SERVICES [facility] [address] [place] [address] documented in this encounter Visit Diagnoses Not on filedocumented in this encounter Care Teams Race Steward Relationship Specialty Start Date End Date Fabiola Gutierrez MD PCP - General 05/07/[address] [place] [phone] documented as of this encounter
--- OUTSIDE RECORDS SUMMARY | 2022-03-22 09:54 | XMS_ITS | Encounter Summary ---
:[address] [facility] Address [address] [place] [address] Care Team Providers Name Role Phone Fabiola Gutierrez MD Primary Care Provider Encounter Details Date Type Department Care Team Description 03/15/2002 Hospital Encounter [facility] - Daniel Shelley MD [address] [phone] Other Unknown, Provider, [address] [place], [place] [phone] Social History Tobacco Use Types Packs/Day Years Used Date Smoking Tobacco: Never Assessed Sex Assigned at Date Recorded Not on file documented as of this encounter Plan of Treatment Not on filedocumented as of this encounter Procedures Procedure Name Priority Date/Time Associated Diagnosis Comme nts CYTOPATHOLOGY Routine 03/15/2002 0:00 EST Results for this procedure are i n the results section . documented in this encounter Results CYTOPATHOLOGY (03/15/2002 0:00 EST) Component Value Ref Test Analysis Performed At [facility] Pathology CYTOPATHOLOGY REPORT [facility] Report: [facility] Reports generated via electronic interface contain original data; however they are lacking the format of the original report. Caution should be taken when reading/interpreting unformatte d reports. Name: ? BLANCA MORENO ? Accession #: ? [id number] : ? 1960 (Age: 42) ??F ?Collect Date: ? 03/15/2002 Location: ? [facility] ? Receive Date: ? 03/19/2002 Provider: ?DANIEL SHELLEY MD Copy to: ? Specimen/Source: ?ThinPrep Pap Test, Endocervix Last Menstrual Period: ? 02/25/02 ? SPECIMEN ADEQUACY ? Satisfactory for Evaluation - transformation zone component present GENERAL CATEGORIZATION ? Negative for Intraepithelial Lesion or Malignancy ? Document reviewed and electronically signed by: ? Naomi Aburto, ??SCT(ASCP) ? Report Date: ??03/25/2002 08:40 End of Report Specimen (Source) Anatomical Location Collection Method / Collectio n Time Received Time / Laterality Volume 03/15/2002 03/19/2002 Daniel Shelley MD PATHOLOGY ORDERABLES Performing Organization Address City/State/ZIP Code Phon e Number [facility] [address] [place] [address] SERVICES [facility] [address] [place] [address] documented in this encounter Visit Diagnoses Not on filedocumented in this encounter Care Teams Model And Mold Maker Relationship Specialty Start Date End Date Fabiola Gutierrez MD PCP - General 05/07/[address] [place] [address] documented as of this encounter
--- OUTSIDE RECORDS SUMMARY | 2022-03-22 09:54 | XMS_ITS | Encounter Summary ---
:1960 Author Organization [facility] Address [address] [place] [address] Care Team Providers Name Role Phone Fabiola Gutierrez MD Primary Care Provider Encounter Details Date Type Department Care Team Description 08/02/2011 Results Only [facility] Janna Gutierrez MD Laboratory Services - [address] [place] [address] [address] [place] [phone] (Wo rk) Social History Tobacco Use Types Packs/Day Years Used Date Smoking Tobacco: Never Assessed Sex Assigned at Date Recorded Not on file documented as of this encounter Plan of Treatment Not on filedocumented as of this encounter Procedures Procedure Name Priority Date/Time Associated Diagnosis Comme nts PAP TEST- RESULT Routine 08/02/2011 0:00 EDT Resu lts for this ONLY procedure are i n the results section. documented in this encounter Results PAP TEST- RESULT ONLY (08/02/2011 0:00 EDT) Component Value Ref Test Analysis Performed At [facility] Method Time Signature Pathology CYTOPATHOLOGY REPORT [facility] Report: [facility] Reports generated via electronic interface contain original data; however they are lacking the format of the original report. Caution should be taken when reading/interpreting unformatte d reports. Name: ? BLANCA MORENO ? Accession #: ? [id number] ? : ? 1960 (Age: 51) ??F ?Collect Da te: ? 08/02/2011 ? Location: ? [facility] ? Receive Date: ? 08/03/2011 ? Provider: FABIOLA GUTIERREZ MD Copy to: ? Final Report SPECIMEN ADEQUACY ? Satisfactory for Evaluation - transformation zone component present GENERAL CATEGORIZATION ? Negative for Intraepithelial Lesion or Malignancy ?? Treatment History: Hysterectomy: partail hyst for dub none, ovaires remain , cervix remains Specimen/Source: ??Pap Test, Cervix/Endocervix, ThinPr ep Imaging System with manual evaluation Document reviewed and electronically signed by: ? JUAN Fonseca(ASCP) ? Report ??Date: 08/05/2011 11:14 HPV with Pap Test ? Date Ordered: ? 08/05/2011 ? Status: ?? Jocelyne d Out ?Date Complete: ? 08/09/2011 ? By: ??System Interface ? Date Reported: ? 08/09/2011 ? Interpretation RESULT: Negative for HPV. No E6 or E7 mRNA is detected from HPV types 16,18,31,33,35, 39,45,51,52,56,58,59,66, and 68 by wool washing machine operator mediated amplification. Comments Document reviewed and electronically signed by: ? System Interface ? Report date: 08/09/2011 By the signature above, the attending physician certifies th at he/she has personally conducted a gross and/or microscopic examin ation of the described specimens and rendered or confirmed the above diagnosis. End of Report Specimen (Source) Anatomical Location Collection Method / Collectio n Time Received Time / Laterality Volume 08/02/2011 08/03/2011 Fabiola Gutierrez MD PATHOLOGY ORDERABLES Performing Organization Address City/State/ZIP Code Phon e Number [facility] [address] [place] [address] SERVICES [facility] [address] [place] [address] documented in this encounter Visit Diagnoses Not on filedocumented in this encounter Care Teams Foreign Language Stenographer Relationship Specialty Start Date End Date Fabiola Gutierrez MD PCP - General 05/07/09 [address] [place] [phone] documented as of this encounter
--- OUTSIDE RECORDS SUMMARY | 2022-03-22 09:54 | XMS_ITS | Encounter Summary ---
:1960 Author Organization [facility] Address [address] [place] [address] Care Team Providers Name Role Phone Unavailable Primary Care Provider Unavailable Encounter Details Date Type Department Care Team Description 02/23/1999 Hospital Encounter [facility] - Scotty Vitale MD [address] [phone] Other Unknown, Provider, [address] [place], [place] [address] Social History Tobacco Use Types Packs/Day Years Used Date Smoking Tobacco: Never Assessed Sex Assigned at Date Recorded Not on file documented as of this encounter Discharge Disposition Disposition Code Departure Means Destination Auto Discharge documented in this encounter Plan of Treatment Not on filedocumented as of this encounter Visit Diagnoses Not on filedocumented in this encounter
--- OUTSIDE RECORDS SUMMARY | 2022-03-22 09:54 | XMS_ITS | Encounter Summary ---
:[address] [facility] Address [address] [place] [address] Care Team Providers Name Role Phone Fabiola Gutierrez MD Primary Care Provider Encounter Details Date Type Department Care Team Description 04/26/2007 Results Only [facility] - Fabiola Gutierrez MD Maple conversion [address] [facility] [address] [place], [place] [phone] [place] [phone] (Wo rk) Social History Tobacco Use Types Packs/Day Years Used Date Smoking Tobacco: Never Assessed Sex Assigned at Date Recorded Not on file documented as of this encounter Plan of Treatment Not on filedocumented as of this encounter Procedures Procedure Name Priority Date/Time Associated Diagnosis Comme nts CYTOPATHOLOGY Routine 04/26/2007 0:00 EST Results for this procedure are i n the results section . documented in this encounter Results CYTOPATHOLOGY (04/26/2007 0:00 EST) Component Value Ref Test Analysis Performed At [facility] Pathology CYTOPATHOLOGY REPORT [facility] Report: [facility] Reports generated via electronic interface contain original data; however they are lacking the format of the original report. Caution should be taken when reading/interpreting unformatte d reports. Name: ? BLANCA MORENO ? Accession #: ? [id number] : ? 1960 (Age: 47) ??F ?Collect Date: ? 04/26/2007 Location: ? [facility] ? Receive Date: ? 04/27/2007 Provider: ?FABIOLA GUTIERREZ MD Copy to: ? Specimen/Source: ?ThinPrep Pap Test, E ndocervix, processed on CriticalBluePrep Imaging System, with manual evaluation Last Menstrual Period: ? 04/08/07 Other: ? HPVA - HPV testing requested if ASC-US on the current ThinPr ep Pap test. ? SPECIMEN ADEQUACY ? Satisfactory for Evaluation - transformation zone component present GENERAL CATEGORIZATION ? Negative for Intraepithelial Lesion or Malignancy ? Document reviewed and electronically signed by: ? Hetal Mckeon, JUAN(ASCP)(IAC) ? Report Date: ??05/02/2007 15:51 End of Report Specimen (Source) Anatomical Location Collection Method / Collectio n Time Received Time / Laterality Volume 04/26/2007 04/27/2007 Fabiola Gutierrez MD PATHOLOGY ORDERABLES Performing Organization Address City/State/ZIP Code Phon e Number [facility] [address] [place] [address] SERVICES [facility] [address] [place] [address] documented in this encounter Visit Diagnoses Not on filedocumented in this encounter Care Teams Cardiopulmonary Technician And Eeg Tech Relationship Specialty Start Date End Date Fabiola Gutierrez MD PCP - General 05/07/[address] [place] [phone] documented as of this encounter
== END 2022-03-22 09:45 | disposition home or self-care (01) ==
LOC: LBN 09:44
PROVIDERS: PCP Family Medicine; Visit Provider Family Medicine
DX: Z12.4 Encounter for screening for malignant neoplasm of cervix (principal); Z11.51 Encounter for screening for human papillomavirus (HPV)
CPT/HCPCS: 88142; 87624

== ENCOUNTER 2022-09-04 20:13 | Emergency (ER) | payer OTHER, SELFPAY ==
[2022-09-04] VITALS (20 sets, daily range): BP systolic 107–145; BP diastolic 67–125; PULSE 60–80; RESP 11–24; TEMP 36.7; O2SAT 93–100
--- NOTE | 2022-09-04 20:15 | RT.EKG_ITS ---
APPROVED REPORT Exam: Resting ECG Reason for Exam: chest pain Patient Location: E HR:74 bpm ECG Measurements Heart Rate 74 AXIS MI 120 P -30 QRSd 100 QRS 54 QT 418 T 65 QTc 463 Conclusion Sinus rhythm...normal P axis, V-rate 60- 99 Nonspecific T abnrm, anterolateral leads...T <-0.10mV, I aVL V2-V6. Sinus. Normal axis. Less than 1mm ST depression inferior leads. No STEMI.
--- NOTE | 2022-09-04 21:04 | DI.CT_ITS ---
Exam(s) CT BRAIN NECK CTA EXAM: CT BRAIN NECK CTA CLINICAL HISTORY: vertigo, headache. TECHNIQUE: Imaging Protocol: Axial CT angiography was performed with multi-slice acquisition and mu lti-planar and 3D reconstructions. CONTRAST MATERIAL: Intravenous: Omnipaque 350 Contrast volume:100 mL COMPARISON: CT,NM NM BONE SCAN 3 PHASE from 03/12/2020 FINDINGS: CT Head W/O and W contrast: Ventricles and Extra axial spaces: Normal in size and morphology for the patient's age. Hemorrhage: None. Cerebral parenchyma: Normal. Midline shift: None. Brainstem/Cerebellum: Normal. Calvarium: Normal. Visualized Paranasal sinuses/Mastoids: Clear. Soft Tissues: Unremarkable. Enhancement: Normal. CTA Brain W: Internal Carotid Arteries: Petrous: Normal. Cavernous: Normal. Cerebral: Normal. Middle Cerebral Arteries: Right: No aneurysm, occlusion or significant stenosis. Left: No aneurysm, occlusion or significant stenosis. Anterior Cerebral Arteries: Right: No aneurysm, occlusion or significant stenosis. Left: No aneurysm, occlusion or significant stenosis. Posterior cerebral Arteries: Right: No aneurysm, occlusion or significant stenosis. Left: No aneurysm, occlusion or significant stenosis. Vertebral Arteries: Right: No aneurysm, occlusion or significant stenosis. Left: No aneurysm, occlusion or significant stenosis. Basilar Artery: No aneurysm, occlusion or significant stenosis. CTA Neck W: Common Carotid: Right: No dissection, occlusion or significant stenosis. Left: No dissection, occlusion or significant stenosis. External Carotid: Right: No dissection, occlusion or significant stenosis. Left: No dissection, occlusion or significant stenosis. Internal Carotid: Right: No dissection, occlusion or significant stenosis. Left: No dissection, occlusion or significant stenosis. Vertebral Artery: Right: No dissection, occlusion or significant stenosis. Left: No dissection, occlusion or significant stenosis. Lung Apices: Normal. Bones: Degenerative changes in the cervical spine. No acute abnormality. Soft Tissues: Normal. IMPRESSION: 1. Normal CTA examination of the [place]. 2. Unremarkable CT Head. 3. Normal CTA examination of the neck. RADIATION DOSE DELIVERED: 1,883.21mGy.cm Total DLP DATA REPOSITORY: All CT scans at this facility are submitted to the National Radiology Data Registry (NRDR) Dose Index Registry (DIR) with the [employer] (ACR). RADIATION OPTIMIZATION: All CT scans at this facility use at least one of these dose optimization te chniques: automated exposure control; mA and/or kV adjustment per patient size (includes targeted exa ms where dose is matched to clinical indication); or iterative reconstruction.
--- NOTE | 2022-09-04 21:07 | DI.RAD_ITS ---
Exam(s) XR CHEST 2V PA LATERAL EXAM: XR CHEST 2V PA LATERAL CLINICAL HISTORY: chest pain, hx of bioprosth valve. TECHNIQUE: 2D digital imaging was performed. COMPARISON: CR XR CHEST 2V PA LATERAL from 03/12/2020 FINDINGS: 2 views: Again noted are sternotomy wires and prosthetic mitral and aortic valves, unchanged in position. Hea rt size remains normal. Mediastinum not widened. Lungs are clear. No infiltrates nor pleural effusions. No pulmonary edema. IMPRESSION: No acute pulmonary findings. Sternotomy. Aortic and mitral prosthetic valves again noted. DATA REPOSITORY: RADIATION DOSE DELIVERED:
--- NOTE | 2022-09-04 21:09 | ED.GENADUL_ITS ---
Discharge Plan Disposition Patient Disposition: Home Condition: Improving Discharge Details Clinical Impression: Dizziness Primary Care Provider: Fabiola Gutierrez ED Provider: Yinka Jeffery Home Meds and New Rx's Prescriptions: New cefpodoxime 200 mg tablet 200 mg PO BID 5 Days Qty: 10 0RF Rx Instructions: must administer with a meal/food No Action vitamin B complex Tablet 1 tab PO DAILY Patient Comments: not taking amoxicillin 500 mg tablet 2,000 mg PO DIRECTED Qty: 36 0RF Patient Comments: not taking Rx Instructions: 2 GM 1 HOUR PRIOR DENTAL PROCEDURE 1 GM 6 HOURS AFTER PROCEDURE estradiol [Yuvafem] 10 mcg tablet 10 mcg vaginal .3 times weekly Qty: 36 4RF metoprolol succinate 25 mg tablet extended release 24 hr 25 mg PO DAILY Qty: 90 4RF turmeric root extract 500 mg capsule 500 mg PO DAILY multivitamin Tablet 1 tab PO DAILY aspirin [Adult Low Dose Aspirin] 81 mg tablet,delayed release (DR/EC) 81 mg PO DAILY meclizine 25 mg tablet 25 mg PO BID PRN (Reason: dizziness) Qty: 20 0RF Patient Comments: not taking ascorbic acid (vitamin C) 1,000 MG tablet 1 tab PO DAILY docusate sodium [Colace] 100 MG capsule 100 mg PO DAILY amoxicillin 500 mg tablet 500 mg PO QID Qty: 28 0RF Patient Comments: not taking garlic 1 MG capsule 1 mg PO DAILY cholecalciferol (vitamin D3) 1,000 UNITS tablet 1,000 units PO DAILY Discharge Instructions Instructions: Dizziness (ED) Additional Instructions: Please follow-up with your primary care physician. Please return to the emergency department for any worsening symptoms. Medical Decision Making 62-year-old female history of recurrent vertigo and migraines, bioprosthetic valve and endocarditis presents with worsening dizziness and gradual onset headache that began earlier today as well as chest discomfort epigastric in nature nonradiating nonpleuritic. Patient is moderately hypertensive on arrival, afebrile; nonmeningeal, nonfocal neurologic examination with full strength and normal cranial nerves and speech. Likely peripheral vertigo versus atypical migraine low suspicion for ACS PE or aortic pathology. Low suspicion for valvular failure or endocarditis given history and physical. EKG normal sinus rhythm normal axis normal intervals nonischemic. However given patient symptomatology and history will obtain imaging CT brain with contrast, chest x- ray, EKG Labs trial of medications for vertigo/migraine. Disposition pending reassessment and symptoms 23: 42 patient resting comfortably improvement of symptoms after medications. Does have evidence of UTI. Will treat empirically with cefpodoxime. Patient like to try to go home and rest. HPI General Date/Time Provider Initiated Documentation: 09/04/22 20:32 . HPI Narrative: 62-year-old female history of vertigo, bioprosthetic valve, history of endocarditis presents with worsening dizziness that began over the last day associated with headache and chest discomfort. Patient has recurrent migraines and recurrent vertigo. Is unsure if she is having indigestion. Related Data Home Medications Medication Instructions Recorded Confirmed garlic 1 mg capsule 1 mg PO DAILY 07/05/12 09/04/22 ascorbic acid (vitamin C) 1,000 mg 1 tab PO DAILY 08/20/12 09/04/22 tablet docusate sodium 100 mg capsule 100 mg PO DAILY 06/22/17 09/04/22 (Colace) cholecalciferol (vitamin D3) 25 1,000 units PO DAILY 12/02/17 09/04/22 mcg (1,000 unit) tablet aspirin 81 mg tablet,delayed 81 mg PO DAILY 03/28/18 09/04/22 release (Adult Low Dose Aspirin) multivitamin 1 tab PO DAILY 02/18/19 09/04/22 turmeric root extract 500 mg 500 mg PO DAILY 02/18/19 09/04/22 capsule vitamin B complex 1 tab PO DAILY 08/19/19 03/22/22 meclizine 25 mg tablet 25 mg PO BID PRN dizziness #20 tabs 10/06/20 03/22/22 amoxicillin 500 mg tablet 2,000 mg PO DIRECTED #36 tabs 03/22/22 03/22/22 estradiol 10 mcg vaginal tablet 10 mcg vaginal .3 times weekly #36 03/22/22 09/04/22 (Yuvafem) tabs metoprolol succinate 25 mg 25 mg PO DAILY #90 tabs 03/22/22 09/04/22 tablet,extended release 24 hr amoxicillin 500 mg tablet 500 mg PO QID #28 tabs 05/26/22 cefpodoxime 200 mg tablet 200 mg PO BID 5 days #10 tabs 09/04/22 Previous Rx's Medication Instructions Recorded meclizine 25 mg tablet 25 mg PO BID PRN dizziness #20 tabs 10/06/20 amoxicillin 500 mg tablet 2,000 mg PO DIRECTED #36 tabs 03/22/22 estradiol 10 mcg vaginal tablet 10 mcg vaginal .3 times weekly #36 03/22/22 (Yuvafem) tabs metoprolol succinate 25 mg 25 mg PO DAILY #90 tabs 03/22/22 tablet,extended release 24 hr amoxicillin 500 mg tablet 500 mg PO QID #28 tabs 05/26/22 cefpodoxime 200 mg tablet 200 mg PO BID 5 days #10 tabs 09/04/22 Allergies Allergy/AdvReac Type Severity Reaction Status Date / Time vancomycin Allergy ITCHING Verified 09/04/22 20:17 fentanyl AdvReac Mild Verified 09/04/22 20:17 ibuprofen AdvReac Mild room Verified 09/04/22 20:17 spins midazolam HCl [From Versed] AdvReac Verified 09/04/22 20:17 milk AdvReac Verified 09/04/22 20:17 NSAIDS (Non-Steroidal AdvReac DIZZY Verified 09/04/22 20:17 Anti-Inflamma oxycodone HCl [From Percocet] AdvReac Nausea Verified 09/04/22 20:17 Duck Eggs AdvReac Intermediate GI issues Uncoded 09/04/22 20:17 General Stated Complaint: Chest Pain ROBERT: 2 Review of Systems Narrative: Review of Systems Constitutional: negative Eyes: negative ENT: negative Cardiovascular: Chest pain Respiratory: negative Gastrointestinal: negative : negative Musculoskeletal: negative Skin: negative Neurologic: Headache, vertigo Psych: negative PFSH All Active Problems (Updated 09/04/22 @ 23:43 by Yinka Jeffery MD) Dizziness (Acute) COVID-19 (Acute) Migraine (Chronic) Vaginal atrophy (Acute) Sternal pain (Acute) S/P aortic valve repair (Acute) 02/04/14 [facility] [place] physical exam (Acute) 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 PAZ-GRADE 1 Erosion and ectropion cervix (Chronic 02/28/12) Decreased hearing of left ear (Chronic 12/28/15) Medical History (Updated 09/04/22 @ 23:43 by Yinka Jeffery MD) Abnormal cervical Papanicolaou smear 08/17/12 x 1 normal recheck Abnormal mammography 08/17/12 Acute sinusitis Anal fissure 08/17/12 Anemia Annual physical exam (11/11/14) Aortic valve replaced Arm pain, left ice./heat, gentle rom, tylenol call if unimproved in 2 weeks- consider PT ankle- advides ice/ heat if desired, tylenol, no overuse Arm skin lesion, left (10/26/17) Bicuspid aortic valve 09/11/12 s/p replacement Bronchiolitis Chest pain Contact dermatitis SCALP Dysfunctional uterine bleeding Endocarditis (03/30/85) ENDOCARDITIS (BRAIN ABSCESS), '; ECHO 03/06 EF 66%; AV bicuspid, mild stenosis, moderate AR; MR2+ Epilepsy ? [place] Seizure as infant, resolved by age 1. Family history of colon cancer Gastro-esophageal reflux 04/27/16 Gastroesophageal reflux disease with esophagitis (04/27/16) History of gastrointestinal procedure 05/01/12 anal manometry; MRI defecography Lateral epicondylitis of right elbow (11/30/15) Low back pain (05/11/15) Mitral valve regurgitation Multiple fractures Phlebitis (12/18/17) Radon exposure (~08/27/18) Rectal bleeding (11/04/13) hemorrhoid anal fissure (cause of endocarditis in past) Status post implantation of mitral valve leaflet clip Strep pharyngitis 04/27/16 Vertigo Surgical History (Updated 03/16/21 @ 16:15 by Fabiola Gutierrez MD, [place]) Aortic valve replaced (09/03/15) Colonoscopy - IV Sedation (06/27/16) H/O esophagogastroduodenoscopy Hysterectomy, Laproscopic DUB; ovaries remain, cervix remains; paps still needed Replacement of aortic valve S/P laparoscopic hysterectomy DUB; ovaries remain; cervix remains;paps still needed. S/P mitral valve repair 02/04/14 [facility] [place] Family History Mother , age 86 Diabetes Essential hypertension Depression Heart disease CABG; [place] Hyperlipidemia Stroke Skin cancer Father , age 84 Diabetes Hyperlipidemia Parkinson disease Prostate cancer Sister Hyperlipidemia Brother Diabetes BORDERLINE Essential hypertension Hyperlipidemia Alcohol abuse Substance abuse Paternal Grandfather Heart disease [place] Hyperlipidemia Myocardial infarction Maternal Grandfather Stroke Maternal Grandmother Breast cancer Sister Depression Maternal Aunt Cancer Maternal Aunt Heart disease Social History (Updated 03/16/21 @ 18:25 by Emely Mark) Smoking/Tobacco Use Status: Never Smoking risk assessment performed?: Yes Alcohol Intake: current Alcohol Intake frequency: a few times a week Alcohol type: wine Drug use: Never Substance use type: does not use Caregiver/Support person: No Household members: spouse and children Housing: house Communication Needs: None Do you need help understanding health information?: Never 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 Pets and animals: Yes Pets and animals: dog(s) Sexually active: Yes Do you think of yourself as: straight/heterosexual Current gender identity: female What is your relationship status?: How often do you talk on the phone with friends or family?: three or more times per week How often do you get together with friends or relatives?: once per week How often do you attend taoist or protestant services?: 4 or more times per year Do you belong to any clubs or organized social groups?: no Panel score (0-1 are the most socially isolated patients): 3 Duration: 30-45 minutes/day Frequency: 1-2 times per week Sarah/Anabaptism: Jain Special sarah needs: No Seatbelt use: always Helmet use: Yes Helmet use: always Drive intox or ride w/intox skip load driver: No Do you feel safe in your relationship?: Yes Victim of physical abuse: No Victim of emotional abuse: No Victim of sexual abuse: No Would you like helpful sources: No Exam Narrative Exam Narrative: Physical Examination General: alert, awake, cooperative, resting HEENT: normocephalic, atraumatic; PERRL, EOM intact, conjunctiva normal; no nasal discharge; moist mucous membranes, oral and pharyngeal mucosa normal, tolerating secretions Neck: supple, trachea midline; full ROM Chest: normal to inspection Respiratory: normal respiratory effort, speaking in full sentences, clear to auscultation, no wheezing, rales or rhonchi Cardiac: regular rate, regular rhythm, S1S2 intact, no murmurs rubs or gallops GI: abdomen soft, non-tender, non-distended; no palpable mass or hepatosplenomegaly Skin: no lesions, rashes or trauma appreciated Neuro: AAOx3, normal speech, moving all extremities; cranial nerves II through XII intact, 5 out of 5 strength upper and lower extremities Extremities: No peripheral edema Psych: Appropriate mood and affect Course Vital Signs Vital signs: Vital Signs Temperature 36.7 C 09/04/22 20:19 Pulse 77 09/04/22 20:19 Respiratory Rate 18 09/04/22 20:19 Blood Pressure 145/125 H 09/04/22 20:19 Pulse Oximetry 99 09/04/22 20:19 Temperature 36.7 C 09/04/22 20:19 Temperature Source Temporal Artery Scan 09/04/22 20:19 Pulse 77 09/04/22 20:19 Respiratory Rate 18 09/04/22 20:23 Respiratory Effort Normal, Non-Labored 09/04/22 20:23 Respiratory Depth Normal 09/04/22 20:23 Respiratory Pattern Normal 09/04/22 20:23 Blood Pressure 145/125 H 09/04/22 20:19 Pulse Oximetry 99 09/04/22 20:19 Oxygen Delivery Method Room Air 09/04/22 20:19 Oxygen Flow Rate 0 09/04/22 20:19 PAWSS Have you Been Recently Intoxicated or Drunk Within the Last 30 days?: No Have you Ever Experienced Previous Episodes of Alcohol Withdrawal?: No Have you ever Experienced Withdrawal Seizures?: No Have you ever Experienced Delirium Tremens(DT)s?: No Have you ever undergone Alcohol Rehabilitation Treatment (i.e, inpt ot outpatient treatment programs)?: No Have you ever Experienced Blackouts?: No Have you ever Combined Alcohol with other Downers within the last 90 days?: No Have you ever Combined Alcohol with any other Substance of Abuse during the last 90 days?: No Positive Blood Alcohol level on Presentation? [PCS.BAL]: No Evidence of Increased Autonomic Activity (i.e. HR>120, tremor, sweating, agitation, nausea)?: No Result: 0
[2022-09-04 21:16] LABS: Abs Immature Grans 0.03 10^3/uL (0.0-0.06); Absolute Basophil Count 0.04 10^3/uL (0.0-0.2); Absolute Eosinophil Count 0.04 10^3/uL (0.0-0.7); Absolute Lymphocyte Count 1.94 10^3/uL (1.2-3.4); Basophils % 0.4; Eosinophils % 0.4; HCT 42.6 % (36.0-46.0); HGB 14.2 g/dL (11.2-15.7); Immature Grans % 0.3; Lymphocytes % 17.8; MCH 30.9 pg (27.0-33.0); MCHC 33.3 % (32.0-36.0); MCV 93 fL (80-95); MPV 10.9 fL (8.0-11.0); Monocytes % 6.3; Neutrophils % 74.8; Platelet Count 312 10^3/uL (130-400); RBC 4.59 10^6/uL (3.93-5.22); RDW 12.2 % (11.7-14.6); RDW-SD 41.9 fL; WBC 10.88 10^3/uL (4.4-10.8)
[2022-09-04] MEDS: Normal Saline 1,000 ML 1000 ML IV (21:19)
[2022-09-04] MEDS: Meclizine 25 MG TAB PO (21:19)
[2022-09-04] MEDS: ACETAMINOPHEN 1,000 MG/100 ML BTL 400 MG IVPB (21:19)
[2022-09-04] MEDS: Dexamethasone 10 MG/ML VIAL IVP (21:19)
[2022-09-04 21:22] LABS: Absolute Monocyte Count 0.69 10^3/uL (0.1-0.8); Absolute Neutrophil Count 8.14 10^3/uL (1.2-6.7)
[2022-09-04 21:33] LABS: PTT Activated 24.9 sec (21.5-31.9); Prothrombin Time 9.9 sec (9.3-11.0)
[2022-09-04 21:42] LABS: ALT 24 U/L (14-59); AST 12 U/L (15-37); Alkaline Phosphatase 81 U/L (46-116); BUN 15 mg/dL (7-18); Bilirubin, Total 0.3 mg/dL (0.2-1.0); CREATININE 0.6 mg/dL (0.55-1.02); Calcium 9.3 mg/dL (8.5-10.1); Chloride 105 mmol/L (98-107); Glucose 133 mg/dL (74-106); Potassium 3.5 mmol/L (3.5-5.1); Sodium 140 mmol/L (136-145); TSH (W/Ref FT4) 0.76 uIU/mL (0.36-3.74); Total Protein 7.3 g/dL (6.4-8.2); Troponin I < 50 ng/L (<or=60)
[2022-09-04] MEDS: Normal Saline - Diluent 50 ML VIAL IJ (21:57)
[2022-09-04] MEDS: Omnipaque 350 MG/ML 100 ML BTL IJ (21:57)
[2022-09-04 22:11] LABS: Bilirubin Negative (Negative); Blood Small (Negative); Glucose Negative (Negative); Ketones 40 mg/dL (Negative); Leukocyte Esterase Moderate (Negative); Nitrite Negative (Negative); Urobilinogen 0.2 mg/dL (Up to 0.2)
[2022-09-04 22:13] LABS: Clarity Cloudy (Clear)
[2022-09-04 22:20] LABS: *AMPHETAMINES SCREEN URINE Negative (Negative); *BARBITURATES SCREEN URINE Negative (Negative); *BENZODIAZEPINES SCREEN URINE Negative (Negative); Cannabinoids THC Negative (Negative); Cocaine Screen,Urine Negative (Negative); METHADONE URINE SCREEN Negative (Negative); OPIATES URINE SCREEN Negative (Negative)
--- NOTE | 2022-09-04 22:26 | DI.VRAD_ITS ---
PROCEDURE INFORMATION: Exam: XR Chest Exam date and time: 09/04/2022 10:16 PM Age: 62 years old Clinical indication: Other: Chest pain, HX of bioprosth valve TECHNIQUE: Imaging protocol: Radiologic exam of the chest. Views: 2 views. COMPARISON: CR XR CHEST 2V PA LATERAL 03/12/2020 7:45 AM FINDINGS: Lungs: Unremarkable. No consolidation. Pleural spaces: Unremarkable. No pleural effusion. No pneumothorax. Heart/Mediastinum: Grossly stable. Bones/joints: Unremarkable. IMPRESSION: No acute findings. Dictated and Authenticated by: Travon Duval MD. Ordering:LAXMI Honeycutt MD
[2022-09-04 22:27] LABS: Tricyclic Antidepressants Negative (Negative)
--- NOTE | 2022-09-04 22:27 | DI.VRAD_ITS ---
PROCEDURE INFORMATION: Exam: CTA Head With Contrast, Arteriography Exam date and time: 09/04/2022 10:04 PM Age: 62 years old Clinical indication: Other: Vertigo, headache TECHNIQUE: Imaging protocol: Computed tomographic angiography of the head with contrast. Exam focused on the arteries. 3D rendering (Not supervised by radiologist): MIP and/or 3D reconstructed images were created by the technologist. Contrast material: 350; Contrast volume: 100 ml; Contrast route: INTRAVENOUS (IV); COMPARISON: CT HEAD WITHOUT CONTRAST 07/07/2016 9:01 AM FINDINGS: ANTERIOR CIRCULATION: Right internal carotid artery: Intracranial segment is patent with no significant stenosis. No aneurysm. Right middle cerebral artery: No occlusion or significant stenosis. No aneurysm. Right anterior cerebral artery: No occlusion or significant stenosis. No aneurysm. Left internal carotid artery: Intracranial segment is patent with no significant stenosis. No aneurysm. Left middle cerebral artery: No occlusion or significant stenosis. No aneurysm. Left anterior cerebral artery: No occlusion or significant stenosis. No aneurysm. POSTERIOR CIRCULATION: Right vertebral artery: No occlusion or significant stenosis. No aneurysm. Left vertebral artery: No occlusion or significant stenosis. No aneurysm. Basilar artery: No occlusion or significant stenosis. No aneurysm. Right posterior cerebral artery: No occlusion or significant stenosis. No aneurysm. Left posterior cerebral artery: No occlusion or significant stenosis. No aneurysm. Brain: No definite mass, mass effect, or midline shift. Cerebral ventricles: No ventriculomegaly. Bones/joints: Unremarkable. No acute fracture. Soft tissues: Unremarkable. IMPRESSION: No large vessel stenosis or occlusion. PROCEDURE INFORMATION: Exam: CTA Neck With Contrast Exam date and time: 09/04/2022 10:04 PM Age: 62 years old Clinical indication: Other: Vertigo, headache TECHNIQUE: Imaging protocol: Computed tomographic angiography of the neck with contrast. 3D rendering (Not supervised by radiologist): MIP and/or 3D reconstructed images were created by the technologist. Contrast material: 350; Contrast volume: 100 ml; Contrast route: INTRAVENOUS (IV); COMPARISON: CT CHEST FOR PULMONARY EMBOLUS 12/02/2017 3:41 AM FINDINGS: Right common carotid artery: No stenosis. No dissection or occlusion. Right internal carotid artery: No stenosis of the extracranial segment. No dissection or occlusion. Right external carotid artery: No occlusion or stenosis of the origin. Left common carotid artery: No stenosis. No dissection or occlusion. Left internal carotid artery: No stenosis of the extracranial segment. No dissection or occlusion. Left external carotid artery: No occlusion or stenosis of the origin. Right vertebral artery: No stenosis. No dissection or occlusion. Left vertebral artery: No stenosis. No dissection or occlusion. Soft tissues: Normal. No significant soft tissue swelling. Bones/joints: No acute fracture. IMPRESSION: No stenosis or occlusion. REFERENCES: NASCET CRITERIA. The degree of stenosis in the cervical segment of the internal carotid artery is based on NASCET criteria. Normal is no stenosis. Mild is less than 50% stenosis. Moderate is 50-69% stenosis. Severe is 70% to 99% stenosis. Total occlusion is no detectable patent lumen. Dictated and Authenticated by: Travon Duval MD. Ordering:LAXMI Honeycutt MD
[2022-09-04 22:31] LABS: Bacteria Few HPF (Negative); C & S Indicated? No/Sq. Contamination; Crystals Negative HPF (Negative); Epithelial Cells Many HPF (Negative); Mucus Negative (Negative); WBC >50 HPF (0-5)
[2022-09-05] MEDS: diphenhydrAMINE 50 MG/ML VIAL 25 MG IVP (00:07)
[2022-09-05] MEDS: Cefpodoxime 200 MG TAB (00:08)
[2022-09-05 00:31] VITALS: BP 118/71; PULSE 67; RESP 18; O2SAT 95
--- NOTE | 2022-09-05 09:03 | NUR.NOTE ---
Nursing Note: in chart to find address to mail discharge paperwork
== END 2022-09-05 00:29 | disposition home or self-care (01) ==
PROVIDERS: Emergency Provider Emergency Medicine; PCP Family Medicine
DX: R42 Dizziness and giddiness (principal); R07.9 Chest pain, unspecified; R11.2 Nausea with vomiting, unspecified; Z95.2 Presence of prosthetic heart valve
CPT/HCPCS: 36415; 70496; 70498; 80053; 80307; 93005; 96365; 96375; 99285; 71046; 81003; 81015; 84443; 84484; 85025; 85610; 85730; 93010; 99284; J0131; J1100; J1200; J3490

== ENCOUNTER 2022-09-20 20:07 | Outpatient (REF) | payer OTHER, SELFPAY | END 2022-09-20 20:08 | disposition home or self-care (01) | LOC: LBN 20:07 | PROVIDERS: PCP Family Medicine; Visit Provider Nurse Practitioner Family | DX: N89.8 Other specified noninflammatory disorders of vagina (principal); R35.0 Frequency of micturition | CPT/HCPCS: 87086; 87480; 87510; 87660 ==

== ENCOUNTER 2022-11-03 12:53 | Outpatient (REF) | payer OTHER, SELFPAY | END 2022-11-03 12:54 | disposition home or self-care (01) | LOC: LBN 12:53 | PROVIDERS: PCP Family Medicine; Visit Provider Nurse Practitioner Family | DX: R30.0 Dysuria (principal) | CPT/HCPCS: 87077; 87086; 87186 ==

== ENCOUNTER 2022-11-18 15:32 | Outpatient (REF) | payer OTHER, SELFPAY ==
[2022-11-18 21:04] LABS: Bilirubin Negative (Negative); Blood Small (Negative); Clarity Sl Cloudy (Clear); Glucose Negative (Negative); Ketones Negative (Negative); Leukocyte Esterase Negative (Negative); Nitrite Negative (Negative); Specific Gravity 1.025 (1.005-1.025); Urobilinogen 0.2 mg/dL (Up to 0.2); pH 5.5 (5-8)
[2022-11-18 21:15] LABS: Bacteria Negative HPF (Negative); C & S Indicated? No; Casts Negative LPF (Negative); Crystals Negative HPF (Negative); Epithelial Cells Few HPF (Negative); Mucus Negative (Negative); WBC 0-2 HPF (0-5)
== END 2022-11-18 15:33 | disposition home or self-care (01) ==
LOC: LBN 15:32
PROVIDERS: PCP Family Medicine; Visit Provider Nurse Practitioner Family
DX: R35.0 Frequency of micturition (principal); R82.998 Other abnormal findings in urine; Z87.440 Personal history of urinary (tract) infections
CPT/HCPCS: 81003; 81015

== ENCOUNTER 2022-11-21 16:24 | Outpatient (REF) | payer OTHER, SELFPAY | END 2022-11-21 16:25 | disposition home or self-care (01) | LOC: LBN 16:24 | PROVIDERS: PCP Family Medicine; Visit Provider Nurse Practitioner Family | DX: R35.0 Frequency of micturition (principal); Z87.440 Personal history of urinary (tract) infections; R30.0 Dysuria | CPT/HCPCS: 87086 ==

== ENCOUNTER 2022-11-23 17:03 | Outpatient (REF) | payer OTHER, SELFPAY | END 2022-11-23 17:04 | disposition home or self-care (01) | LOC: LBN 17:03 | PROVIDERS: PCP Family Medicine; Visit Provider Obstetrics & Gynecology | DX: N89.8 Other specified noninflammatory disorders of vagina (principal) | CPT/HCPCS: 87480; 87510; 87660 ==

== ENCOUNTER → 2023-02-28 01:20 | Outpatient (CLI) | payer OTHER, SELFPAY ==
--- NOTE | 2023-02-28 09:00 | DI.MAMMO_ITS ---
Exam(s) MAMMO SCREENING EXAM: MAMMO SCREENING CLINICAL HISTORY: screening, Z12.39 TECHNIQUE: Mammograms were interpreted according to the usual protocol including computer analysis w [employer] CAD system, tomosynthesis and C-view imaging. COMPARISON: 2013 through 2020 FINDINGS: The breasts are composed of scattered fibroglandular densities, Breast Density category B. No suspicious masses or suspicious microcalcifications are seen. No skin thickening or abnormal axillary lymph nodes are seen. There has been no significant change from prior exams. IMPRESSION: BI-RADS Category 1, Negative mammogram Yearly screening mammography is recommended. Breast Density - Category B, scattered fibroglandular densities. A negative radiographic report should not delay biopsy if a dominant or clinically suspicious mass is present. Up to ten percent of cancers are not identified on mammography. A negative report may reinforce clinical impression. Adenosis and dense breasts may obscure an underlying neoplasm. False positive reports average 6 to 10%. Patient will receive a letter notifying them of these results.
== END ==
PROVIDERS: PCP Family Medicine; Visit Provider Family Medicine
DX: Z12.31 Encounter for screening mammogram for malignant neoplasm of breast (principal); R92.323 Mammographic fibroglandular density, bilateral breasts
CPT/HCPCS: 77063; 77067

== ENCOUNTER 2023-03-10 21:35 | Outpatient (REF) | payer OTHER, SELFPAY ==
[2023-03-10 21:09] LABS: Abs Immature Grans 0.01 10^3/uL (0.0-0.06); Absolute Basophil Count 0.02 10^3/uL (0.0-0.2); Absolute Eosinophil Count 0.09 10^3/uL (0.0-0.7); Absolute Lymphocyte Count 1.42 10^3/uL (1.2-3.4); Absolute Monocyte Count 0.56 10^3/uL (0.1-0.8); Absolute Neutrophil Count 1.56 10^3/uL (1.2-6.7); Basophils % 0.5; Eosinophils % 2.5; HCT 39.4 % (36.0-46.0); Immature Grans % 0.3; Lymphocytes % 38.8; MCH 30.6 pg (27.0-33.0); MCV 93 fL (80-95); MPV 11.3 fL (8.0-11.0); Monocytes % 15.3; Neutrophils % 42.6; Platelet Count 176 10^3/uL (130-400); RBC 4.25 10^6/uL (3.93-5.22); RDW 12.2 % (11.7-14.6); RDW-SD 41.7 fL; WBC 3.66 10^3/uL (4.4-10.8)
[2023-03-10 21:12] LABS: Bilirubin Negative (Negative); Blood Moderate (Negative); Clarity Sl Cloudy (Clear); Glucose Negative (Negative); Ketones Trace mg/dL (Negative); Leukocyte Esterase Moderate (Negative); Nitrite Negative (Negative); Urobilinogen 0.2 mg/dL (Up to 0.2); pH 5.5 (5-8)
[2023-03-10 21:36] LABS: Epithelial Cells Many HPF (Negative); Other Cells Rare Renal (Negative); WBC 20-50 HPF (0-5)
[2023-03-10 21:37] LABS: Bacteria Rare HPF (Negative); C & S Indicated? No/Sq. Contamination; Crystals Other HPF (Negative); Mucus Negative (Negative)
[2023-03-10 21:49] LABS: Anion Gap 9.9 mmol/L (3-11); BUN 15 mg/dL (7-18); CO2 26.1 mmol/L (21.0-32.0); CREATININE 0.6 mg/dL (0.55-1.02); Chloride 105 mmol/L (98-107); Estimated GFR 100.17 (mL/min/1.73m2); Glucose 99 mg/dL (74-106); Sodium 141 mmol/L (136-145); Vitamin B12 473 pg/mL (193-986)
[2023-03-13 11:27] LABS: Lyme Ab w Rflx to Lyme Confirm Negative (Negative)
[2023-03-14 15:45] LABS: Anaplasma phagocytophilum Negative (Negative); B. miyamotoi PCR Negative (Negative); Babesia divergens/MO-1 Negative (Negative); Babesia duncani Negative (Negative); Babesia microti Negative (Negative); Ehrlichia chaffeensis Negative (Negative); Ehrlichia ewingii/canis Negative (Negative); Ehrlichia muris eauclairensis Negative (Negative)
== END 2023-03-10 21:36 | disposition home or self-care (01) ==
LOC: LBN 21:35
PROVIDERS: PCP Family Medicine; Visit Provider Nurse Practitioner Family
DX: R53.83 Other fatigue (principal); N39.0 Urinary tract infection, site not specified; R82.89 Other abnormal findings on cytological and histological examination of urine
CPT/HCPCS: 80048; 87798; 81003; 81015; 82607; 85025; 86618

== ENCOUNTER 2023-03-15 10:33 | Outpatient (REF) | payer OTHER, SELFPAY ==
[2023-03-15 13:27] LABS: Bilirubin Negative (Negative); Blood Trace-lysed (Negative); Clarity Cloudy (Clear); Glucose Negative (Negative); Ketones Negative (Negative); Leukocyte Esterase Negative (Negative); Nitrite Negative (Negative); Specific Gravity 1.025 (1.005-1.025); Urobilinogen 0.2 mg/dL (Up to 0.2)
[2023-03-15 13:40] LABS: Bacteria Moderate HPF (Negative); C & S Indicated? Yes; Casts Negative LPF (Negative); Crystals Many Amorphous HPF (Negative); Epithelial Cells Rare HPF (Negative); Mucus Negative (Negative); RBC 0-2 HPF (0-2); WBC 0-2 HPF (0-5)
== END 2023-03-15 10:34 | disposition home or self-care (01) ==
LOC: NCHCN 10:33
PROVIDERS: PCP Family Medicine; Visit Provider Nurse Practitioner Family
DX: N39.0 Urinary tract infection, site not specified (principal)
CPT/HCPCS: 81003; 81015; 87086

== ENCOUNTER 2023-04-06 15:50 | Outpatient (CLI) | payer OTHER, SELFPAY ==
[2023-04-06 16:27] LABS: ESR 8 mm/hr (0-30)
[2023-04-06 16:30] LABS: Abs Immature Grans 0.02 10^3/uL (0.0-0.06); Absolute Basophil Count 0.03 10^3/uL (0.0-0.2); Absolute Eosinophil Count 0.12 10^3/uL (0.0-0.7); Absolute Lymphocyte Count 1.84 10^3/uL (1.2-3.4); Absolute Monocyte Count 0.67 10^3/uL (0.1-0.8); Basophils % 0.4; Eosinophils % 1.5; HCT 36.5 % (36.0-46.0); HGB 11.8 g/dL (11.2-15.7); Immature Grans % 0.2; Lymphocytes % 22.5; MCH 30.1 pg (27.0-33.0); MCHC 32.3 % (32.0-36.0); MCV 93 fL (80-95); MPV 9.8 fL (8.0-11.0); Monocytes % 8.2; Neutrophils % 67.2; Platelet Count 243 10^3/uL (130-400); RBC 3.92 10^6/uL (3.93-5.22); RDW 12.3 % (11.7-14.6); RDW-SD 41.6 fL; WBC 8.18 10^3/uL (4.4-10.8)
== END 2023-04-06 15:51 | disposition home or self-care (01) ==
LOC: LBO 15:50
PROVIDERS: PCP Family Medicine; Visit Provider Family Medicine
DX: D64.9 Anemia, unspecified (principal); R50.9 Fever, unspecified
CPT/HCPCS: 36415; 85652; 87040; 87077; 85025

== ENCOUNTER 2023-04-17 14:14 | Outpatient (REF) | payer OTHER, SELFPAY ==
[2023-04-17 14:44] LABS: Abs Immature Grans 0.04 10^3/uL (0.0-0.06); Absolute Basophil Count 0.05 10^3/uL (0.0-0.2); Absolute Eosinophil Count 0.27 10^3/uL (0.0-0.7); Absolute Monocyte Count 0.66 10^3/uL (0.1-0.8); Absolute Neutrophil Count 5.64 10^3/uL (1.2-6.7); Basophils % 0.6; Eosinophils % 3.2; HGB 11.5 g/dL (11.2-15.7); Immature Grans % 0.5; Lymphocytes % 21.3; MCH 30.4 pg (27.0-33.0); MCHC 32.9 % (32.0-36.0); MCV 93 fL (80-95); MPV 10.8 fL (8.0-11.0); Monocytes % 7.8; Neutrophils % 66.6; Platelet Count 281 10^3/uL (130-400); RBC 3.78 10^6/uL (3.93-5.22); RDW 12.4 % (11.7-14.6); RDW-SD 41.5 fL; WBC 8.46 10^3/uL (4.4-10.8)
[2023-04-17 15:07] LABS: ALT 120 U/L (14-59); AST 36 U/L (15-37); Albumin 3.5 g/dL (3.4-5.0); Alkaline Phosphatase 91 U/L (46-116); Anion Gap 8.8 mmol/L (3-11); BUN 18 mg/dL (7-18); Bilirubin, Total 0.2 mg/dL (0.2-1.0); CO2 27.2 mmol/L (21.0-32.0); CREATININE 0.4 mg/dL (0.55-1.02); Calcium 9.3 mg/dL (8.5-10.1); Chloride 105 mmol/L (98-107); Estimated GFR 110.45 (mL/min/1.73m2); Glucose 104 mg/dL (74-106); Potassium 4.4 mmol/L (3.5-5.1); Sodium 141 mmol/L (136-145); Total Protein 6.7 g/dL (6.4-8.2)
== END 2023-04-17 14:15 | disposition home or self-care (01) ==
LOC: LBN 14:14
PROVIDERS: PCP Family Medicine; Visit Provider Family Medicine
DX: R78.81 Bacteremia (principal); Z45.2 Encounter for adjustment and management of vascular access device
CPT/HCPCS: 80053; 85025

== ENCOUNTER 2023-04-20 16:12 | Outpatient (REF) | payer OTHER, SELFPAY ==
[2023-04-20 12:58] LABS: Abs Immature Grans 0.02 10^3/uL (0.0-0.06); Absolute Basophil Count 0.07 10^3/uL (0.0-0.2); Absolute Eosinophil Count 0.42 10^3/uL (0.0-0.7); Absolute Lymphocyte Count 1.91 10^3/uL (1.2-3.4); Absolute Neutrophil Count 4.86 10^3/uL (1.2-6.7); Basophils % 0.9; Eosinophils % 5.3; HCT 37.4 % (36.0-46.0); HGB 12.2 g/dL (11.2-15.7); Immature Grans % 0.3; Lymphocytes % 23.9; MCH 30.6 pg (27.0-33.0); MCHC 32.6 % (32.0-36.0); MCV 94 fL (80-95); MPV 10.2 fL (8.0-11.0); Monocytes % 8.8; Neutrophils % 60.8; Platelet Count 285 10^3/uL (130-400); RBC 3.99 10^6/uL (3.93-5.22); RDW 12.3 % (11.7-14.6); RDW-SD 42.5 fL; WBC 7.98 10^3/uL (4.4-10.8)
[2023-04-20 13:17] LABS: ALT 66 U/L (14-59); AST 16 U/L (15-37); Albumin 3.6 g/dL (3.4-5.0); Alkaline Phosphatase 91 U/L (46-116); Anion Gap 9.1 mmol/L (3-11); BUN 15 mg/dL (7-18); Bilirubin, Total 0.2 mg/dL (0.2-1.0); CO2 28.9 mmol/L (21.0-32.0); CREATININE 0.6 mg/dL (0.55-1.02); Calcium 9.2 mg/dL (8.5-10.1); Chloride 106 mmol/L (98-107); Estimated GFR 100.17 (mL/min/1.73m2); Glucose 76 mg/dL (74-106); Potassium 4.1 mmol/L (3.5-5.1); Sodium 144 mmol/L (136-145); Total Protein 6.8 g/dL (6.4-8.2)
== END 2023-04-20 16:13 | disposition home or self-care (01) ==
LOC: LBN 16:12
PROVIDERS: PCP Family Medicine; Visit Provider Family Medicine
DX: Z45.2 Encounter for adjustment and management of vascular access device (principal)
CPT/HCPCS: 80053; 85025

== ENCOUNTER 2023-04-24 11:34 | Outpatient (REF) | payer OTHER, SELFPAY ==
[2023-04-24 11:45] LABS: Abs Immature Grans 0.01 10^3/uL (0.0-0.06); Absolute Basophil Count 0.06 10^3/uL (0.0-0.2); Absolute Eosinophil Count 0.33 10^3/uL (0.0-0.7); Absolute Lymphocyte Count 1.65 10^3/uL (1.2-3.4); Absolute Monocyte Count 0.62 10^3/uL (0.1-0.8); Absolute Neutrophil Count 3.42 10^3/uL (1.2-6.7); Eosinophils % 5.4; HGB 11.4 g/dL (11.2-15.7); Immature Grans % 0.2; Lymphocytes % 27.1; MCH 30.2 pg (27.0-33.0); MCHC 32.6 % (32.0-36.0); MCV 93 fL (80-95); MPV 10.2 fL (8.0-11.0); Monocytes % 10.2; Neutrophils % 56.1; Platelet Count 271 10^3/uL (130-400); RBC 3.77 10^6/uL (3.93-5.22); RDW 12.3 % (11.7-14.6); WBC 6.09 10^3/uL (4.4-10.8)
[2023-04-24 12:04] LABS: ALT 40 U/L (14-59); AST 14 U/L (15-37); Albumin 3.6 g/dL (3.4-5.0); Alkaline Phosphatase 89 U/L (46-116); Anion Gap 9.1 mmol/L (3-11); BUN 17 mg/dL (7-18); Bilirubin, Total 0.3 mg/dL (0.2-1.0); CO2 28.9 mmol/L (21.0-32.0); CREATININE 0.5 mg/dL (0.55-1.02); Calcium 9.2 mg/dL (8.5-10.1); Chloride 105 mmol/L (98-107); Estimated GFR 104.67 (mL/min/1.73m2); Glucose 94 mg/dL (74-106); Potassium 4.2 mmol/L (3.5-5.1); Sodium 143 mmol/L (136-145); Total Protein 6.5 g/dL (6.4-8.2)
== END 2023-04-24 11:35 | disposition home or self-care (01) ==
LOC: LBN 11:34
PROVIDERS: PCP Family Medicine; Visit Provider Family Medicine
DX: Z12.31 Encounter for screening mammogram for malignant neoplasm of breast (principal)
CPT/HCPCS: 80053; 85025

== ENCOUNTER 2023-05-02 14:40 | Outpatient (REF) | payer OTHER, SELFPAY ==
[2023-05-02 14:07] LABS: Abs Immature Grans 0.02 10^3/uL (0.0-0.06); Absolute Basophil Count 0.07 10^3/uL (0.0-0.2); Absolute Eosinophil Count 0.57 10^3/uL (0.0-0.7); Absolute Lymphocyte Count 1.88 10^3/uL (1.2-3.4); Absolute Monocyte Count 0.62 10^3/uL (0.1-0.8); Eosinophils % 8.1; HCT 37.4 % (36.0-46.0); HGB 11.9 g/dL (11.2-15.7); Immature Grans % 0.3; Lymphocytes % 26.6; MCHC 31.8 % (32.0-36.0); MCV 94 fL (80-95); MPV 10.4 fL (8.0-11.0); Monocytes % 8.8; Neutrophils % 55.2; Platelet Count 278 10^3/uL (130-400); RBC 3.97 10^6/uL (3.93-5.22); RDW 12.5 % (11.7-14.6); RDW-SD 43.1 fL; WBC 7.06 10^3/uL (4.4-10.8)
[2023-05-02 14:15] LABS: ALT 39 U/L (14-59); AST 22 U/L (15-37); Albumin 3.8 g/dL (3.4-5.0); Alkaline Phosphatase 87 U/L (46-116); Anion Gap 6.8 mmol/L (3-11); BUN 20 mg/dL (7-18); Bilirubin, Total 0.3 mg/dL (0.2-1.0); CO2 29.2 mmol/L (21.0-32.0); CREATININE 0.5 mg/dL (0.55-1.02); Calcium 9.3 mg/dL (8.5-10.1); Chloride 105 mmol/L (98-107); Estimated GFR 104.67 (mL/min/1.73m2); Glucose 95 mg/dL (74-106); Potassium 4.5 mmol/L (3.5-5.1); Sodium 141 mmol/L (136-145); Total Protein 6.9 g/dL (6.4-8.2)
== END 2023-05-02 14:41 | disposition home or self-care (01) ==
LOC: LBN 14:40
PROVIDERS: PCP Family Medicine; Visit Provider Family Medicine
DX: R78.81 Bacteremia (principal); Z45.2 Encounter for adjustment and management of vascular access device; Z79.2 Long term (current) use of antibiotics
CPT/HCPCS: 80053; 85025

== ENCOUNTER 2023-05-08 15:24 | Outpatient (REF) | payer OTHER, SELFPAY ==
[2023-05-08 16:06] LABS: Abs Immature Grans 0.02 10^3/uL (0.0-0.06); Absolute Basophil Count 0.05 10^3/uL (0.0-0.2); Absolute Eosinophil Count 0.48 10^3/uL (0.0-0.7); Absolute Lymphocyte Count 1.57 10^3/uL (1.2-3.4); Absolute Monocyte Count 0.62 10^3/uL (0.1-0.8); Absolute Neutrophil Count 4.02 10^3/uL (1.2-6.7); Basophils % 0.7; Eosinophils % 7.1; HGB 11.6 g/dL (11.2-15.7); Immature Grans % 0.3; Lymphocytes % 23.2; MCH 30.6 pg (27.0-33.0); MCHC 32.2 % (32.0-36.0); MCV 95 fL (80-95); MPV 10.7 fL (8.0-11.0); Monocytes % 9.2; Neutrophils % 59.5; Platelet Count 244 10^3/uL (130-400); RBC 3.79 10^6/uL (3.93-5.22); RDW 12.6 % (11.7-14.6); RDW-SD 43.4 fL; WBC 6.76 10^3/uL (4.4-10.8)
[2023-05-08 16:45] LABS: AST 16 U/L (15-37); Albumin 3.7 g/dL (3.4-5.0); Alkaline Phosphatase 82 U/L (46-116); Anion Gap 7.6 mmol/L (3-11); BUN 19 mg/dL (7-18); Bilirubin, Total 0.2 mg/dL (0.2-1.0); CO2 27.4 mmol/L (21.0-32.0); CREATININE 0.7 mg/dL (0.55-1.02); Calcium 8.9 mg/dL (8.5-10.1); Chloride 105 mmol/L (98-107); Estimated GFR 96.52 (mL/min/1.73m2); Glucose 124 mg/dL (74-106); Potassium 4.2 mmol/L (3.5-5.1); Sodium 140 mmol/L (136-145); Total Protein 6.5 g/dL (6.4-8.2)
[2023-05-08 17:00] LABS: ALT 30 U/L (14-59)
== END 2023-05-08 15:25 | disposition home or self-care (01) ==
LOC: LBN 15:24
PROVIDERS: PCP Family Medicine; Visit Provider Family Medicine
DX: R78.81 Bacteremia (principal); Z79.2 Long term (current) use of antibiotics; R73.09 Other abnormal glucose; R79.89 Other specified abnormal findings of blood chemistry
CPT/HCPCS: 80053; 85025

== ENCOUNTER 2023-05-15 15:53 | Outpatient (REF) | payer OTHER, SELFPAY ==
[2023-05-15 14:59] LABS: Abs Immature Grans 0.01 10^3/uL (0.0-0.06); Absolute Basophil Count 0.05 10^3/uL (0.0-0.2); Absolute Eosinophil Count 0.45 10^3/uL (0.0-0.7); Absolute Lymphocyte Count 1.33 10^3/uL (1.2-3.4); Absolute Monocyte Count 0.54 10^3/uL (0.1-0.8); Absolute Neutrophil Count 3.87 10^3/uL (1.2-6.7); Basophils % 0.8; Eosinophils % 7.2; HCT 39.2 % (36.0-46.0); HGB 12.5 g/dL (11.2-15.7); Immature Grans % 0.2; Lymphocytes % 21.3; MCH 30.2 pg (27.0-33.0); MCHC 31.9 % (32.0-36.0); MCV 95 fL (80-95); MPV 10.5 fL (8.0-11.0); Monocytes % 8.6; Neutrophils % 61.9; Platelet Count 269 10^3/uL (130-400); RBC 4.14 10^6/uL (3.93-5.22); RDW 12.3 % (11.7-14.6); RDW-SD 42.8 fL; WBC 6.25 10^3/uL (4.4-10.8)
[2023-05-15 15:36] LABS: ALT 28 U/L (14-59); AST 15 U/L (15-37); Albumin 3.9 g/dL (3.4-5.0); Alkaline Phosphatase 84 U/L (46-116); BUN 14 mg/dL (7-18); Bilirubin, Total 0.3 mg/dL (0.2-1.0); CREATININE 0.7 mg/dL (0.55-1.02); Calcium 9.5 mg/dL (8.5-10.1); Chloride 105 mmol/L (98-107); Estimated GFR 96.52 (mL/min/1.73m2); Glucose 76 mg/dL (74-106); Potassium 4.3 mmol/L (3.5-5.1); Sodium 143 mmol/L (136-145); Total Protein 6.9 g/dL (6.4-8.2)
== END 2023-05-15 15:54 | disposition home or self-care (01) ==
LOC: LBN 15:53
PROVIDERS: PCP Family Medicine; Visit Provider Family Medicine
DX: I34.0 Nonrheumatic mitral (valve) insufficiency (principal); R78.81 Bacteremia; Z95.2 Presence of prosthetic heart valve
CPT/HCPCS: 80053; 85025

== ENCOUNTER 2023-05-24 13:13 | Outpatient (CLI) | payer OTHER, SELFPAY ==
--- NOTE | 2023-05-24 13:00 | RT.EKG_ITS ---
APPROVED REPORT Exam: Resting ECG Reason for Exam: chest discomfort Patient Location: O HR:72 bpm ECG Measurements Heart Rate 72 AXIS WV 118 P 27 QRSd 98 QRS 56 QT 393 T 65 QTc 431 Conclusion Sinus rhythm...normal P axis, V-rate 50- 99 Borderline short WV interval...WV int <120mS Probable left atrial enlargement...P >50mS, <-0.10mV V1 I have reviewed and interpreted ECG and agree with software generated interpretation.
== END 2023-05-24 13:14 | disposition home or self-care (01) ==
LOC: DI.CM 13:14
PROVIDERS: PCP Family Medicine; Visit Provider Nurse Practitioner Family
DX: R07.89 Other chest pain (principal)
CPT/HCPCS: 93010

== ENCOUNTER 2023-05-24 13:39 | Emergency (ER) | payer OTHER, SELFPAY ==
[2023-05-24] VITALS (24 sets, daily range): BP systolic 105–119; BP diastolic 51–71; PULSE 63–72; RESP 11–32; TEMP 36.6; O2SAT 98
--- NOTE | 2023-05-24 13:30 | RT.EKG_ITS ---
APPROVED REPORT Exam: Resting ECG Reason for Exam: chest pain Patient Location: E HR:71 bpm ECG Measurements Heart Rate 71 AXIS [place] 117 P 15 QRSd 86 QRS 53 QT 407 T 62 QTc 442 Conclusion Sinus rhythm...normal P axis, V-rate 60- 99 Consider left ventricular hypertrophy...(R aVL+S V3) >2.20mV sinus rhtyhm, normal axis normal interals non ischemic
--- NOTE | 2023-05-24 13:45 | DI.RAD_ITS ---
Exam(s) XR CHEST 2V PA LATERAL EXAM: XR CHEST 2V PA LATERAL CLINICAL HISTORY: chest pain, hx of mitral and aortic valve replacem TECHNIQUE: 2D digital imaging was performed. COMPARISON: No exams were available for comparison FINDINGS: HEART: Normal mitral and aortic valve prostheses. Aorta: Not dilated. PULMONARY VASCULATURE: Normal. LUNGS: Clear. PLEURAL SPACE: No pleural effusion or pneumothorax. BONE:Unremarkable for age. Sternal wires. Soft tissues: Unremarkable. IMPRESSION: No acute abnormality. DATA REPOSITORY: RADIATION DOSE DELIVERED:
[2023-05-24 14:06] LABS: Abs Immature Grans 0.03 10^3/uL (0.0-0.06); Absolute Basophil Count 0.07 10^3/uL (0.0-0.2); Absolute Eosinophil Count 0.23 10^3/uL (0.0-0.7); Absolute Monocyte Count 0.72 10^3/uL (0.1-0.8); Absolute Neutrophil Count 7.86 10^3/uL (1.2-6.7); Basophils % 0.7; Eosinophils % 2.2; HCT 39.5 % (36.0-46.0); HGB 12.8 g/dL (11.2-15.7); Immature Grans % 0.3; Lymphocytes % 14.4; MCH 29.9 pg (27.0-33.0); MCHC 32.4 % (32.0-36.0); MCV 92 fL (80-95); Monocytes % 6.9; Neutrophils % 75.5; Platelet Count 307 10^3/uL (130-400); RBC 4.28 10^6/uL (3.93-5.22); RDW 12.1 % (11.7-14.6); RDW-SD 41.2 fL; WBC 10.41 10^3/uL (4.4-10.8)
[2023-05-24] MEDS: Ondansetron 4 MG/2 ML VIAL IVP (14:06)
[2023-05-24] MEDS: Normal Saline 500 ML 1000 ML IV (14:07)
[2023-05-24] MEDS: Aspirin 325 MG TAB 243 MG PO (14:13)
--- NOTE | 2023-05-24 14:18 | W.ED.GENAD ---
HPI General Date/Time Provider Initiated Documentation: 05/24/23 13:44. HPI Narrative: 63-year-old female history of mitral valve replacement, aortic valve replacement, recurrent endocarditis in remission, presents with brief anterior chest pain radiating to her back that began around 10 AM this morning. Associate with some diaphoresis and nausea no vomiting. Since resolved. Not exertional in nature. No shortness of breath no fevers chills nausea or vomiting. No abdominal discomfort. Related Data Home Medications Medication Instructions Recorded Confirmed garlic 1 mg capsule 1 mg PO DAILY 07/05/12 05/24/23 ascorbic acid (vitamin C) 1,000 mg 1 tab PO DAILY 08/20/12 05/24/23 tablet docusate sodium 100 mg capsule 100 mg PO DAILY 06/22/17 05/24/23 (Colace) cholecalciferol (vitamin D3) 25 1,000 units PO DAILY 12/02/17 05/24/23 mcg (1,000 unit) tablet aspirin 81 mg tablet,delayed 81 mg PO DAILY 03/28/18 05/24/23 release (Adult Low Dose Aspirin) multivitamin 1 tab PO DAILY 02/18/19 05/24/23 turmeric root extract 500 mg 500 mg PO DAILY 02/18/19 05/24/23 capsule vitamin B complex 1 tab PO DAILY 08/19/19 05/24/23 estradiol 10 mcg vaginal tablet 10 mcg vaginal .3 times weekly #36 01/13/23 05/24/23 (Yuvafem) tabs metoprolol succinate 25 mg 25 mg PO DAILY #90 tabs 01/13/23 05/24/23 tablet,extended release 24 hr amoxicillin 500 mg tablet 2,000 mg (4 x 500 mg) PO 04/06/23 05/24/23 DIRECTED #36 tabs Previous Rx's Medication Instructions Recorded estradiol 10 mcg vaginal tablet 10 mcg vaginal .3 times weekly #36 01/13/23 (Yuvafem) tabs metoprolol succinate 25 mg 25 mg PO DAILY #90 tabs 01/13/23 tablet,extended release 24 hr amoxicillin 500 mg tablet 2,000 mg (4 x 500 mg) PO 04/06/23 DIRECTED #36 tabs Allergies Allergy/AdvReac Type Severity Reaction Status Date / Time nitrofurantoin Allergy Intermediate Hive Verified 05/24/23 13:55 cefpodoxime AdvReac Mild Dizziness/L Verified 05/24/23 13:55 ighthead fentanyl AdvReac Mild nausea and Verified 05/24/23 13:55 dizziness post procedure ibuprofen AdvReac Mild room Verified 05/24/23 13:55 spins cephalexin AdvReac stomach Verified 05/24/23 13:55 ache; Dizziness midazolam HCl [From Versed] AdvReac Nausea and Verified 05/24/23 13:55 dizziness post proceedure milk AdvReac Verified 05/24/23 13:55 NSAIDS (Non-Steroidal AdvReac DIZZY Verified 05/24/23 13:55 Anti-Inflamma oxycodone HCl [From Percocet] AdvReac Nausea Verified 05/24/23 13:55 Duck Eggs AdvReac Intermediate GI issues Uncoded 05/24/23 13:55 General Stated Complaint: Chest Pain ROBERT: 3 Review of Systems Narrative: Review of Systems Constitutional: negative Eyes: negative ENT: negative Cardiovascular: Chest pain Respiratory: negative Gastrointestinal: negative : negative Musculoskeletal: negative Skin: negative Neurologic: negative Psych: negative Exam Narrative Exam Narrative: Physical Examination General: alert, awake, cooperative, resting comfortably, no acute distress HEENT: normocephalic, atraumatic; PERRL, EOM intact, conjunctiva normal; no nasal discharge; moist mucous membranes, oral and pharyngeal mucosa normal, tolerating secretions Neck: supple, trachea midline; full ROM Chest: normal to inspection Respiratory: normal respiratory effort, speaking in full sentences, clear to auscultation, no wheezing, rales or rhonchi; equal radial pulses Cardiac: regular rate, regular rhythm, S1S2 intact, no murmurs rubs or gallops GI: abdomen soft, non-tender, non-distended; no palpable mass or hepatosplenomegaly Skin: no lesions, rashes or trauma appreciated Neuro: AAOx3, normal speech, moving all extremities Extremities: No peripheral edema Psych: Appropriate mood and affect Course Vital Signs Vital signs: Vital Signs Temperature 36.6 C 05/24/23 13:43 Pulse 70 05/24/23 13:43 Respiratory Rate 17 05/24/23 13:43 Blood Pressure 105/51 L 05/24/23 13:43 Pulse Oximetry 98 05/24/23 13:43 Temperature 36.6 C 05/24/23 13:43 Temperature Source Oral 05/24/23 13:43 Pulse 70 05/24/23 13:43 Respiratory Rate 17 05/24/23 13:43 Respiratory Effort Normal, Non-Labored 05/24/23 13:55 Blood Pressure 105/51 L 05/24/23 13:43 Blood Pressure Position Supine 05/24/23 13:43 Pulse Oximetry 98 05/24/23 13:43 Oxygen Delivery Method Room Air 05/24/23 13:43 Oxygen Flow Rate 0 05/24/23 13:43 Lab/Test Results Lab/Test Results: Laboratory Tests Range/Units 05/24/23 13:52 WBC (4.4-10.8) 10^3/uL 10.41 RBC (3.93-5.22) 10^6/uL 4.28 Hgb (11.2-15.7) g/dL 12.8 Hct (36.0-46.0) % 39.5 MCV (80-95) fL 92 MCH (27.0-33.0) pg 29.9 MCHC (32.0-36.0) % 32.4 RDW (11.7-14.6) % 12.1 Plt Count (130-400) 10^3/uL 307 MPV (8.0-11.0) fL 10.0 Immature Gran % 0.3 Neutrophils % 75.5 Lymphocytes % 14.4 Monocytes % 6.9 Eosinophils % 2.2 Basophils % 0.7 Nucleated RBC % (0.0-0.3) % 0.0 Absolute Neutrophils (1.2-6.7) 10^3/uL 7.86 H Absolute Lymphocytes (1.2-3.4) 10^3/uL 1.50 Absolute Monocytes (0.1-0.8) 10^3/uL 0.72 Absolute Eosinophils (0.0-0.7) 10^3/uL 0.23 Absolute Basophils (0.0-0.2) 10^3/uL 0.07 Medical Decision Making 63-year-old female history of mitral and aortic valve replacements, prior endocarditis in remission, presents with anterior chest discomfort rating to back that began around 10 that resolved this morning, nonexertional, associate diaphoresis and nausea without vomiting. No shortness of breath. No peripheral edema. Afebrile nontoxic. Strong equal radial pulses, clear lung sounds, speaking full sentences no acute chest pain at this time. Consider ACS versus musculoskeletal chest pain versus pleurisy versus cough chondritis versus less likely PE versus less likely aortic pathology low suspicion for pneumothorax or pneumonia. Low suspicion for recurrent endocarditis given no fevers chills shortness of breath or other systemic signs of illness. Basic labs troponin chest x-ray will complete patient's course of aspirin, Zofran, fluids close reassessment 16: 11 patient resting comfortably chest pain-free. No shortness of breath nausea vomiting fevers chills. EKG nonischemic. 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 PAZ-GRADE 1 Decreased hearing of left ear (Chronic 12/28/15) Medical History COVID-19 Vaginal atrophy Vertigo Multiple fractures Chest pain Arm pain, left ice./heat, gentle rom, tylenol call if unimproved in 2 weeks- consider PT ankle- advides ice/ heat if desired, tylenol, no overuse Radon exposure (~08/27/18) Bronchiolitis Family history of colon cancer Epilepsy ? [place] Seizure as , resolved by age 1. History of gastrointestinal procedure 05/01/12 anal manometry; MRI defecography Abnormal mammography 08/17/12 Anal fissure 08/17/12 Bicuspid aortic valve 09/11/12 s/p replacement Strep pharyngitis 04/27/16 Acute sinusitis Rectal bleeding (11/04/13) hemorrhoid anal fissure (cause of endocarditis in past) Phlebitis (12/18/17) Mitral valve regurgitation Low back pain (05/11/15) Lateral epicondylitis of right elbow (11/30/15) Gastroesophageal reflux disease with esophagitis (04/27/16) Endocarditis (03/30/85) ENDOCARDITIS ' (BRAIN ABSCESS), '02 '04; ECHO 03/06 EF 66%; AV bicuspid, mild stenosis, moderate AR; MR2+ Contact dermatitis SCALP Arm skin lesion, left (10/26/17) Anemia Aortic valve replaced Status post implantation of mitral valve leaflet clip Surgical History H/O esophagogastroduodenoscopy S/P laparoscopic hysterectomy DUB; ovaries remain; cervix remains;paps still needed. [place] [facility] [place] [facility] [place] post implantation of mitral valve leaflet clip (09/03/15) Aortic valve replaced (09/03/15) Hysterectomy, Laproscopic DUB; ovaries remain, cervix remains; paps still needed Colonoscopy - IV Sedation (06/27/16) Replacement of aortic valve Family History Mother , age 86 Diabetes Essential hypertension Depression Heart disease CABG; [place] Hyperlipidemia Stroke Skin cancer Father , age 84 Diabetes Hyperlipidemia Parkinson disease Prostate cancer Sister Hyperlipidemia Brother Diabetes BORDERLINE Essential hypertension Hyperlipidemia Alcohol abuse Substance abuse Paternal Grandfather Heart disease SD Hyperlipidemia Myocardial infarction Maternal Grandfather Stroke Maternal Grandmother Breast cancer Sister Depression Maternal Aunt Cancer Maternal Aunt Heart disease Social History Smoking/Tobacco Use Status: Never Smoking risk assessment performed?: Yes Alcohol Intake: current Alcohol Intake frequency: a few times a month Alcohol type: wine Drug use: Never Substance use type: does not use Caregiver/Support person: No Household members: spouse and children Housing: house Communication Needs: None Do you need help understanding health information?: Never 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 Pets and animals: Yes Pets and animals: dog(s) Sexually active: Yes Do you think of yourself as: straight/heterosexual Current gender identity: female What is your relationship status?: How often do you talk on the phone with friends or family?: three or more times per week How often do you get together with friends or relatives?: once per week How often do you attend sikh or church services?: 4 or more times per year Do you belong to any clubs or organized social groups?: no Panel score (0-1 are the most socially isolated patients): 3 Duration: 30-45 minutes/day Frequency: 1-2 times per week Sarah/Restorationist: Sikhism Special sarah needs: No Seatbelt use: always Helmet use: Yes Helmet use: always Drive intox or ride w/intox 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 Date GA/Weeks # Preg Succ Route Wgt Sex Labor Lgth Anesthesia Location [facility] 08/31/80 40 Yes vaginal 3401.943 g Male [facility] 04/15/83 40 Yes vaginal 3543.69 g Female [facility] 11/12/88 40 Yes vaginal 3685.438 g Female [facility] 07/14/94 40 Yes vaginal 3770.487 g Male [facility] Discharge Plan Disposition Patient Disposition: Home Condition: Improving Discharge Details Chief Complaint: Chest Pain Clinical Impression: Chest pain Primary Care Provider: Fabiola Gutierrez ED Provider: Yinka Jeffery Home Meds and New Rx's Prescriptions: No Action vitamin B complex Tablet 1 tab PO DAILY Patient Comments: not taking turmeric root extract 500 mg capsule 500 mg PO DAILY multivitamin Tablet 1 tab PO DAILY aspirin [Adult Low Dose Aspirin] 81 mg tablet,delayed release (DR/EC) 81 mg PO DAILY amoxicillin 500 mg tablet 2,000 mg PO DIRECTED Qty: 36 0RF Patient Comments: not taking Rx Instructions: 2 GM 1 HOUR PRIOR DENTAL PROCEDURE 1 GM 6 HOURS AFTER PROCEDURE ascorbic acid (vitamin C) 1,000 MG tablet 1 tab PO DAILY docusate sodium [Colace] 100 MG capsule 100 mg PO DAILY estradiol [Yuvafem] 10 mcg tablet 10 mcg vaginal .3 times weekly Qty: 36 4RF metoprolol succinate 25 mg tablet extended release 24 hr 25 mg PO DAILY Qty: 90 4RF garlic 1 MG capsule 1 mg PO DAILY cholecalciferol (vitamin D3) 1,000 UNITS tablet 1,000 units PO DAILY Discharge Instructions Instructions: Chest Pain (ED) Additional Instructions: Please follow-up with your primary care physician. Please return to the emergency department for any worsening symptoms
[2023-05-24 14:22] LABS: ALT 28 U/L (14-59); AST 18 U/L (15-37); Alkaline Phosphatase 110 U/L (46-116); Anion Gap 10.2 mmol/L (3-11); BUN 18 mg/dL (7-18); Bilirubin, Total 0.3 mg/dL (0.2-1.0); CO2 27.8 mmol/L (21.0-32.0); CREATININE 0.5 mg/dL (0.55-1.02); Calcium 9.6 mg/dL (8.5-10.1); Chloride 103 mmol/L (98-107); Estimated GFR 104.67 (mL/min/1.73m2); Glucose 103 mg/dL (74-106); Sodium 141 mmol/L (136-145); Total Protein 7.7 g/dL (6.4-8.2); Troponin I < 50 ng/L (< or =60)
[2023-05-24 14:26] LABS: PTT Activated 28.8 sec (23.6-32.8); Prothrombin Time 10.3 sec (9.1-11.1)
== END 2023-05-24 16:34 | disposition home or self-care (01) ==
PROVIDERS: Emergency Provider Emergency Medicine; PCP Family Medicine
DX: R07.9 Chest pain, unspecified (principal); I10 Essential (primary) hypertension; Z95.2 Presence of prosthetic heart valve; Z79.82 Long term (current) use of aspirin
CPT/HCPCS: 80053; 93005; 96361; 96374; 99284; 71046; 84484; 85025; 85610; 85730; 93010; J2405

== ENCOUNTER 2023-05-24 13:44 | Outpatient (REF) | payer OTHER, SELFPAY | END 2023-05-24 13:45 | disposition home or self-care (01) | LOC: LBN 13:44 | PROVIDERS: PCP Family Medicine; Visit Provider Nurse Practitioner Family | DX: R30.0 Dysuria (principal); B37.31 Acute candidiasis of vulva and vagina | CPT/HCPCS: 87480; 87510; 87660 ==

== ENCOUNTER 2023-05-30 15:20 | Outpatient (CLI) | payer OTHER, SELFPAY | END 2023-05-30 15:21 | disposition home or self-care (01) | LOC: LBO 15:21 | PROVIDERS: PCP Family Medicine; Visit Provider Family Medicine | DX: I51.9 Heart disease, unspecified (principal) | CPT/HCPCS: 36415; 87040 ==

== ENCOUNTER 2023-06-15 12:53 | Outpatient (CLI) | payer OTHER, SELFPAY ==
--- NOTE | 2023-06-15 12:45 | RT.EKG_ITS ---
APPROVED REPORT Exam: Resting ECG Reason for Exam: WPW HX Patient Location: O HR:73 bpm ECG Measurements Heart Rate 73 AXIS MD 119 P 12 QRSd 100 QRS 41 QT 382 T 48 QTc 421 Conclusion Sinus rhythm...normal P axis, V-rate 50- 99 Borderline short MD interval...MD int <120mS Otherwise normal ECG
== END 2023-06-15 12:54 | disposition home or self-care (01) ==
LOC: DI.CARD 12:54
PROVIDERS: PCP Family Medicine; Visit Provider Internal Medicine Cardiovascular Disease
DX: I51.9 Heart disease, unspecified (principal)
CPT/HCPCS: 93010

== ENCOUNTER 2023-06-28 03:08 | Outpatient (CLI) | payer OTHER, SELFPAY | END 2023-06-28 03:09 | disposition home or self-care (01) | LOC: LBO 03:08 | PROVIDERS: PCP Family Medicine; Visit Provider Family Medicine | DX: I51.9 Heart disease, unspecified (principal); R53.83 Other fatigue; D64.9 Anemia, unspecified | CPT/HCPCS: 36415; 87040 ==

== ENCOUNTER 2024-08-20 09:02 | Outpatient (CLI) | payer MEDICARE, SELFPAY ==
[2024-08-20 13:10] LABS: ALT 23 U/L (14-59); AST 14 U/L (15-37); Alkaline Phosphatase 80 U/L (46-116); Anion Gap 5.2 mmol/L (3-11); BUN 20 mg/dL (7-18); Bilirubin, Total 0.4 mg/dL (0.2-1.0); CO2 29.8 mmol/L (21.0-32.0); CREATININE 0.7 mg/dL (0.55-1.02); Calcium 9.6 mg/dL (8.5-10.1); Chloride 110 mmol/L (98-107); Estimated GFR 95.92 (mL/min/1.73m2); Glucose 93 mg/dL (74-106); Potassium 3.9 mmol/L (3.5-5.1); Sodium 145 mmol/L (136-145); TSH (W/Ref FT4) 1.17 uIU/mL (0.36-3.74); Total Protein 7.1 g/dL (6.4-8.2); Vitamin B12 577 pg/mL (193-986)
[2024-08-20 13:14] LABS: Calculated LDL 126 mg/dL (<100); Cholesterol 188 mg/dL (<200); HDL Cholesterol 48 mg/dL (>or=50); Triglyceride 74 mg/dL (<150)
[2024-08-21 10:27] LABS: Hepatitis C Ab w Rflx HCV PCR Negative (Negative)
== END 2024-08-20 09:03 | disposition home or self-care (01) ==
PROVIDERS: PCP Family Medicine; Referring Provider Family Medicine; Visit Provider Family Medicine
DX: E03.9 Hypothyroidism, unspecified (principal); E53.8 Deficiency of other specified B group vitamins; I10 Essential (primary) hypertension; Z00.00 Encounter for general adult medical examination without abnormal findings; Z11.59 Encounter for screening for other viral diseases
CPT/HCPCS: 36415; 80053; 80061; 86803; 82607; 84443

== ENCOUNTER 2024-08-21 02:14 | Outpatient (CLI) | payer MEDICARE, SELFPAY ==
--- NOTE | 2024-08-21 08:15 | DI.MAMMO_ITS ---
Exam(s) MAMMO SCREENING EXAM: MAMMO SCREENING CLINICAL HISTORY: screening,z12.39 TECHNIQUE: Bilateral full field digital CC and MLO mammographic images were obtained with 3D tomosyn thesis and utilizing computer aided detection (CAD). COMPARISON: Available for comparison. FINDINGS: Masses/Architectural Distortion: No suspicious masses or areas of architectural distortion are presen t. There are few scattered nodules in both breasts which appears stable. Microcalcifications: No suspicious pleomorphic-type are seen. Skin Thickening/Nipple Retraction: None. IMPRESSION: 1. No significant interval change with no specific features of malignancy noted. 2. Unless there is more urgent need, screening mammography is recommended, as per [employer] guidelines. BI-RADS Category 1 - Negative Breast Density - Category B - Scattered areas of fibroglandular density Breast density category C or D implies that the patient has dense breast tissue. Dense breast tissue is very common and is not abnormal but dense breast tissue can make it harder to find cancer on a ma mmogram. Also, dense breast tissue may increase their breast cancer risk. This information about the result of the mammogram report was provided to the patient to raise their awareness. Use this report when you speak with the patient about their risks for breast cancer, which includes their family hist ory. At that time, you may recommend for more screening tests (Ultrasound or MRI) as they might be us eful based on their risk. A negative radiographic report should not delay biopsy if a dominant or clinically suspicious mass is present. Up to ten percent of cancers are not identified on mammography. A negative report may reinforce clinical impression. Adenosis and dense breasts may obscure an underlying neoplasm. False positive reports average 6 to 10%. Patient will receive a letter notifying them of these results.
== END 2024-08-21 02:34 ==
PROVIDERS: PCP Family Medicine; Visit Provider Family Medicine
DX: Z12.31 Encounter for screening mammogram for malignant neoplasm of breast (principal); R92.323 Mammographic fibroglandular density, bilateral breasts
CPT/HCPCS: 77063; 77067

== ENCOUNTER 2024-09-13 00:05 | Outpatient (CLI) | payer MEDICARE, SELFPAY ==
--- NOTE | 2024-09-13 09:00 | DI.DEXA_ITS ---
Exam(s) XR DEXA BONE DENSITY W/WO RONA EXAM: XR DEXA BONE DENSITY W/WO ORNA CLINICAL HISTORY: post menopausal STATUS,z78.0 TECHNIQUE: COMPARISON: No exams were available for comparison FINDINGS: Lateral Spine Image: Unremarkable. No compression deformities identified. Left hip: Total T-Score: -1.3 Total Z-Score: 0.0 T- and Z-scores: Findings are consistent with osteopenia. Lumbar Spine: Total T-Score: -1.2 Total Z-Score: 0.6 T- and Z-scores: Findings are consistent with osteopenia. IMPRESSION: No evidence of osteoporosis in the lumbar spine or left hip.
== END 2024-09-13 00:25 ==
PROVIDERS: PCP Family Medicine; Visit Provider Family Medicine
DX: Z78.0 Asymptomatic menopausal state (principal); Z13.820 Encounter for screening for osteoporosis
CPT/HCPCS: 77080